=== PATIENT | female | born 1970 | race Caucasian/White ===

== ENCOUNTER → 2020-11-21 09:02 | Outpatient (CLI) | payer MEDICARE, SELFPAY ==
[2020-11-21 09:27] LABS: Basophils # 0.1 K/mm3 (0-0.2); Eosinophils # 0.3 K/mm3 (0.0-0.4); Eosinophils % 3.5 % (0.1-12.0); Hematocrit 47.5 % (37.0-47.0); Lymphocytes # 3.3 K/mm3 (0.7-4.5); Mean Corpuscular HGB Conc 31.6 g/dL (31.8-35.4); Mean Corpuscular Volume 101.4 fl (81-99); Mean Platelet Volume 12.3 fl (7.4-10.4); Monocytes # 1.3 K/mm3 (0.1-1.0); Monocytes % 14.4 % (1.7-9.3); Neutrophils # 3.9 K/mm3 (1.8-7.8); Neutrophils % 44.1 % (37.0-80.0); Red Blood Count 4.68 M/mm3 (4.20-5.40); Red Cell Distribution Width 13.2 % (11.5-17.5); White Blood Count 8.9 K/mm3 (4.8-10.8)
[2020-11-21 09:33] LABS: Platelet Count 42 K/mm3 (142-424)
[2020-11-21 10:42] LABS: Alanine Aminotransferase 17 U/L (12-78); Albumin Level 3.9 g/dl (3.5-5.0); Albumin/Globulin Ratio 1.2 (1.1-1.8); Alkaline Phosphatase 89 U/L (38-126); Anion Gap 8.2 mEq/L (5-15); Aspartate Amino Transferase 27 U/L (14-36); Bilirubin,Total 0.3 mg/dl (0.2-1.3); Blood Urea Nitrogen 14 mg/dl (7-17); Calcium 9.2 mg/dl (8.4-10.2); Carbon Dioxide 31 mmol/L (22.0-30.0); Chloride 104 mmol/L (98-107); Chol/HDL Ratio 4.2 (1-3.5); Cholesterol 222 mg/dl (140-200); Estimated Glomerular Filt Rate 76 ml/min (>60); GFR (African American) 92 ML/MIN (>60); Globulin 3.3 g/dL (1.3-3.2); Glucose 95 mg/dl (74-100); HDL Cholesterol 53 mg/dl (40-60); Potassium 4.2 mmoL/L (3.5-5.1); Sodium 139 mmol/L (136-145); Total Protein,Serum 7.2 g/dl (6.3-8.2); Triglycerides 115 mg/dl (30-150); VLDL Cholesterol 23 mg/dL (0-40)
[2020-11-21 10:46] LABS: 25-OH Vitamin D, Total 26.5 ng/mL (30-100)
[2020-11-21 10:53] LABS: Direct LDL Cholesterol 136.83 mg/dL (100-129)
[2020-11-21 11:13] LABS: Thyroid Stimulating Hormone 2.16 uIU/mL (0.465-4.68)
[2020-11-21 11:31] LABS: Vitamin B12 382 pg/mL (239-931)
== END ==
PROVIDERS: Visit Provider Nurse Practitioner Family
DX: Z00.00 Encounter for general adult medical examination without abnormal findings (principal); I10 Essential (primary) hypertension; R53.83 Other fatigue; E55.9 Vitamin D deficiency, unspecified
CPT/HCPCS: 36415; 80053; 80061; 82306; 82607; 84443; 85025

== ENCOUNTER → 2020-11-23 11:54 | Outpatient (CLI) | payer MEDICAID, SELFPAY ==
[2020-11-23 12:30] LABS: Basophils # 0.1 K/mm3 (0-0.2); Basophils % 0.8 % (0.1-2.0); Eosinophils # 0.4 K/mm3 (0.0-0.4); Eosinophils % 4.6 % (0.1-12.0); Hematocrit 44.8 % (37.0-47.0); Hemoglobin 14.2 g/dL (12.2-16.2); Lymphocytes # 1.9 K/mm3 (0.7-4.5); Mean Corpuscular HGB Conc 31.8 g/dL (31.8-35.4); Mean Corpuscular Volume 100.9 fl (81-99); Mean Platelet Volume 15.3 fl (7.4-10.4); Monocytes # 1.5 K/mm3 (0.1-1.0); Neutrophils # 4.8 K/mm3 (1.8-7.8); Neutrophils % 55.7 % (37.0-80.0); Platelet Count 65 K/mm3 (142-424); Red Blood Count 4.44 M/mm3 (4.20-5.40); Red Cell Distribution Width 13.3 % (11.5-17.5); White Blood Count 8.6 K/mm3 (4.8-10.8)
[2020-11-24 11:16] LABS: Eosinophils % 4 % (0-3); Lymphocytes % 26 % (10-50); Monocytes % 4 % (2-9); Neutrophils % 66 % (42-76); Total Cells Counted 100
[2020-11-24 11:25] LABS: Platelet Estimate Normal
[2020-11-24 11:26] LABS: Macrocytosis 1+
[2020-11-24 11:39] LABS: MANUAL DIFFERENTIAL MANUAL DIFFERENTIAL (MANUAL DIFF)
[2020-11-25 11:55] LABS: Peripheral Smear Review Scanned Result
== END ==
PROVIDERS: Surgery; Visit Provider Nurse Practitioner Family
DX: D69.6 Thrombocytopenia, unspecified (principal)
CPT/HCPCS: 36415; 85007; 85025

== ENCOUNTER → 2020-11-24 12:51 | Outpatient (CLI) | payer MEDICAID, SELFPAY ==
--- NOTE | 2020-11-24 13:02 | MM_ITS ---
PROCEDURE: MM DIG SCREENING MAMM BI W/CAD Digital Breast Tomosynthesis Included CLINICAL INDICATION: SCREENING COMPARISON: MG SCREENING MAMM DBT from 07/25/2018 MG,US US BREAST UNIL RT LIMITED from 07/25/2018 MG RT UNILATERAL MAMM DIGITAL from 09/02/2018 TECHNIQUE: Standard CC and MLO images and 3D Tomosynthesis was obtained. R2 CAD reviewed. FINDINGS: There are scattered areas of fibroglandular density. Biopsy clip is present in the retroareolar region on the right. Benign calcifications are present bilaterally.No suspicious appearing mass, malignant-appearing microcalcification, architectural distortion, or skin thickening. IMPRESSION: Benign findings. No evidence of malignancy BI-RAD Category: 2 Benign Finding FOLLOW-UP: 1 YR 1 Year Follow-up (A letter has been sent to the patient regarding results of the study.) Dictated by: Joshua Parker MD 12/12/2020 09:09 Joshua Parker MD in [place] 12/12/2020 09:09
== END ==
PROVIDERS: PCP Nurse Practitioner Family; Visit Provider Nurse Practitioner Family
DX: Z12.31 Encounter for screening mammogram for malignant neoplasm of breast (principal)
CPT/HCPCS: 77063; 77067

== ENCOUNTER → 2020-12-22 13:40 | Outpatient (CLI) | payer MEDICAID, SELFPAY | PROVIDERS: Visit Provider Internal Medicine Medical Oncology | DX: D69.6 Thrombocytopenia, unspecified (principal) ==

== ENCOUNTER → 2020-12-23 13:57 | Outpatient (CLI) | payer MEDICAID, SELFPAY | PROVIDERS: Visit Provider Internal Medicine Medical Oncology | DX: D69.6 Thrombocytopenia, unspecified (principal) | CPT/HCPCS: 36415 ==

== ENCOUNTER → 2021-01-02 13:38 | Outpatient (CLI) | payer MEDICAID, SELFPAY | PROVIDERS: Visit Provider Internal Medicine Medical Oncology | DX: D69.6 Thrombocytopenia, unspecified (principal) | CPT/HCPCS: 36415 ==

== ENCOUNTER 2021-04-01 11:21 | Emergency (ER) | payer MEDICAID, SELFPAY ==
[2021-04-01 13:16] VITALS: BP 113/78; PULSE 87; RESP 16; TEMP 36.8; O2SAT 98; BMI 36.0
--- NOTE | 2021-04-01 13:34 | HMH.EDUTC ---
[facility] [place] Clinical Impression: Dental infection Disposition: Home, Self-Care Condition on Discharge: Good Instructions: Tooth Abscess Additional Instructions: follow up with dentist lonnie antibiotics as ordered return if any worsen or no improvement Prescriptions: Amoxicillin [Amoxicillin 500mg Tab] 500 mg PO BID 10 Days #20 tab Transmission Status: Pending to [facility] Referrals: Salma Bellamy APRN [Primary Care Provider] - Richy Allen [Referring] - Time of Disposition: 13:44 Medical Decision Making - Parminder Inquiry Pt receiving controlled substance: No Vital Signs: 04/01/21 13:16 Temperature 98.2 F Temperature Source Oral Pulse Rate [Left] 87 Respiratory Rate 16 Blood Pressure [Right Arm] 113/78 Blood Pressure Mean [Right Arm] 89 02 Sat by Pulse Oximetry 98 [facility] [place] HPI - General Chief complaint: Urgent Treatment Center Stated complaint: possible infection in the mouth Time Seen by Provider: 04/01/21 13:39 Mode of Arrival: Ambulatory Source of Information: Patient Limitations: No Limitations Description of Symptoms (Recalled from Triage Doc. by RN): pt states her bottom gums are sore, swollen and dark red x2 days. HEENT Symptoms (Recalled from RN notes): Yes Resp Symptoms (Recalled from RN notes): No Skin Symptoms (Recalled from RN notes): No MS Symptoms (Recalled from RN notes): No Functional Status (Recalled from RN notes): wnl - History of Present Illness Provider Complaint: 50 yr old female states her bottom gums are sore, swollen and dark red x2 days. pt states she needs to have some teeth pulled but cant find a denitist that takes her insurance - Related Data Home Medications Medication Instructions Recorded Confirmed amlodipine 5 mg tablet 5 mg PO tab 12/22/20 12/22/20 hydrochlorothiazide 12.5 mg capsule 12.5 mg PO cap 12/22/20 12/22/20 meloxicam 15 mg tablet 15 mg PO tab 12/22/20 12/22/20 trazodone 50 mg tablet 50 mg PO tab 12/22/20 12/22/20 Previous Rx's Medication Instructions Recorded peg 3350-electrolytes 236 240 ml PO Q10M #4000 ml 11/21/20 gram-22.74 gram-6.74 gram-5.86 gram solution Amoxicillin [Amoxicillin 500mg Tab] 500 mg PO BID 10 Days #20 tab 04/01/21 Allergies Allergy/AdvReac Type Severity Reaction Status Date / Time No Known Allergies Allergy Verified 12/22/20 13:17 - Worker's Comp Is this a Worker's Comp case?: No [facility] History - Hepatitis A Screen Drug use history?: No High risk sexual behaviors?: No History of sexually transmitted infection?: No Currently employed?: No Childcare worker?: No Do you have indoor plumbing?: Yes Do you have electricity?: Yes Attestation statement:: This patient has been screened for Hepatitis A risk factors. I have reviewed the patient's past medical history: Yes - Social History Smoking Status: Never smoker Alcohol Intake: never Occupational Status: employed ROS Obtained: Yes Systems reviewed as appropriate & no additional complaints - Constitutional Constitutional: Reports system reviewed and no additional complaints, except as docu, Denies fever(s) - Eyes Eyes: Reports system reviewed and no additional complaints, except as docu, Denies blurry vision - ENT Ears, Nose, Mouth, and Throat: Reports system reviewed and no additional complaints, except as docu, Reports dental pain, Reports other - Cardiovascular Cardiovascular: Reports system reviewed and no additional complaints, except as docu, Denies acrocyanosis - Respiratory Respiratory: Reports system reviewed and no additional complaints, except as docu, Denies shortness of breath - Gastrointestinal Gastrointestingal: Reports: system reviewed and no additional complaints, except as docu. Denies: bloating - Musculoskeletal Musculoskeletal: Reports system reviewed and no additional complaints, except as docu, Denies joint pain - Integumentary/Breasts Skin/Breast: Reports system reviewed and no additional c
[2021-04-01 13:55] VITALS: BP 113/78; PULSE 87; RESP 16; TEMP 36.8
== END 2021-04-01 14:05 | disposition home or self-care (01) ==
PROVIDERS: Emergency Provider Nurse Practitioner Family; PCP Nurse Practitioner Family
DX: K04.7 Periapical abscess without sinus (principal); K02.9 Dental caries, unspecified
CPT/HCPCS: 96372; 99202; G0463; J0696

== ENCOUNTER → 2021-04-04 13:16 | Outpatient (CLI) | payer MEDICAID, SELFPAY | PROVIDERS: PCP Nurse Practitioner Family; Visit Provider Nurse Practitioner | DX: U07.1 COVID-19 (principal) | CPT/HCPCS: C9803; U0003; U0005 ==

== ENCOUNTER 2021-06-24 09:23 | Emergency (ER) | payer MEDICAID, SELFPAY ==
[2021-06-24] VITALS (8 sets, daily range): BP systolic 110–131; BP diastolic 73–93; PULSE 80–91; RESP 13–22; TEMP 36.8; O2SAT 94–97; BMI 35.5
--- NOTE | 2021-06-24 09:38 | XR_ITS ---
PROCEDURE INFORMATION: Exam: XR Chest Exam date and time: 06/24/2021 9:41 AM Age: 50 years old Clinical indication: Shortness of breath; Additional info: Cough, SOB TECHNIQUE: Imaging protocol: XR of the chest. Views: 2 views. COMPARISON: No relevant prior studies available. FINDINGS: Lungs: Mild linear type opacities in the left lung base, which is most often seen with linear atelectasis/scarring; however, mild consolidation/pneumonia is not completely excluded. No focal consolidation on the right. Pleural spaces: Unremarkable. No pleural effusion. No pneumothorax. Heart/Mediastinum: Heart size likely normal given AP projection. Bones/joints: Scoliosis and degenerative changes of the spine. IMPRESSION: Mild linear type opacities in the left lung base, which is most often seen with linear atelectasis/scarring; however, mild consolidation/pneumonia is not completely excluded.
--- NOTE | 2021-06-24 09:43 | ECG_ITS ---
APPROVED REPORT Exam: Resting ECG HR:80 bpm ECG Measurements Heart Rate 80 AXES IN 185 P 61 QRSd 96 QRS 54 QT 378 T 59 QTc 415 Conclusion SINUS RHYTHM POSSIBLE LEFT ATRIAL ENLARGEMENT [-0.1mV P-WAVE IN V1/V2] BORDERLINE ECG UNCONFIRMED REPORT Electronically signed by : Rajesh Damian MD 06/28/2021 10:16:03
--- NOTE | 2021-06-24 09:43 | PC.NURSE ---
Covid Swab obtained and sent to lab.
--- NOTE | 2021-06-24 09:46 | PC.NURSE ---
patient ambulatory to restroom without complications
[2021-06-24 09:49] LABS: Coronavirus 19, PCR Not Detected (NotDetected); Influenza A, PCR Not Detected (NotDetected); Influenza B, PCR Not Detected (NotDetected)
--- NOTE | 2021-06-24 09:50 | PC.NURSE ---
pt over to radiology.
--- NOTE | 2021-06-24 09:51 | HMH.EDGENADL ---
ED Disposition Clinical Impression: Community acquired pneumonia Qualifiers: Laterality: left Lung location: lower lobe of lung Qualified Code(s): J18.9 - Pneumonia, unspecified organism Disposition: Home, Self-Care Condition on Discharge: Good Instructions: DI for Pneumonia -- Adult Additional Instructions: Omnicef and Zithromax as prescribed, start tomorrow morning. Additional instructions for PNEUMONIA: Take antibiotics as prescribed. See your physician as soon as possible for further evaluation. Return immediately if you have an uncontrollable fever greater than 102 degrees, difficulty breathing or shortness of breath, persistent vomiting, or severe chest pain. Prescriptions: Cefdinir [Omnicef 300mg Capsule] 300 mg PO BID #20 cap Transmission Status: Pending to [facility] Azithromycin [Zithromax 250mg tab] 250 mg PO DAILY #4 tab Transmission Status: Pending to [facility] Referrals: Salma Bellamy APRN [Primary Care Provider] - - Critical Care Critical Care Time: No Attestation: On 06/24/21, the high probability of a clinically significant, sudden or life threatening deterioration of the following system(s) required my full and direct attention, intervention and personal management. The time I documented below is in addition to time spent performing reported procedures but includes the following listed in this critical care notation. Medical Decision Making - Medical Records Medical records reviewed: Yes: I reviewed the patient's medical records. MR Comment: Reviewed hematology office note from Dr. Esteban. Seen for thrombocytopenia. Diagnosed with pseudothrombocytopenia. Manual differential showed normal platelet estimate. - Parminder Inquiry Pt receiving controlled substance: No Vital Signs: 06/24/21 09:25 06/24/21 09:30 06/24/21 09:53 Temperature 98.2 F Temperature Source Oral Pulse Rate 91 H 89 Pulse Rate [Radial] 91 H Respiratory Rate 22 22 Blood Pressure 129/74 112/73 Blood Pressure [Right Arm] 131/86 Blood Pressure Mean [Right Arm] 101 Blood Pressure Position [Right Arm] Sitting 02 Sat by Pulse Oximetry 96 94 L 95 Oxygen Delivery Method Room Air Room Air Room Air 06/24/21 10:00 06/24/21 10:30 Temperature Temperature Source Pulse Rate 85 81 Pulse Rate [Radial] Respiratory Rate 19 20 Blood Pressure 110/73 114/81 Blood Pressure [Right Arm] Blood Pressure Mean [Right Arm] Blood Pressure Position [Right Arm] 02 Sat by Pulse Oximetry 94 L 95 Oxygen Delivery Method Room Air Room Air - Lab Data Lab Results 06/24/21 09:40: SARS-CoV-2 (PCR) Not detected, Influenza A Untype (PCR) Not detected, Influenza Type B (PCR) Not detected 06/24/21 09:51: Urine Color Jodi, Urine Appearance Cloudy, Urine pH 6.0, Ur Specific Mead >= 1.030, Urine Protein 2+, Urine Glucose (UA) Negative, Urine Ketones 3+, Urine Blood 3+, Urine Nitrate Negative, Urine Bilirubin 1+ A, Urine Urobilinogen 2.0, Ur Leukocyte Esterase Negative, Urine WBC 10-20, Ur Squamous Epith Cells 20-50, Ur Renal Epithelial Cell 5-10, Urine Bacteria 2+, Urine Mucus 1+ 06/24/21 10:00: WBC 15.9 H, RBC 4.68, Hgb 15.1, Hct 46.3, MCV 99.0, MCH 32.4 H, MCHC 32.7, RDW 13.5, Plt Count 37 L*, MPV 12.6 H, Neut % (Auto) 69.4, Lymph % (Auto) 13.0, Floyd % (Auto) 14.1 H, Eos % (Auto) 2.0, Baso % (Auto) 1.5, Neut # (Auto) 11.0 H, Lymph # (Auto) 2.1, Floyd # (Auto) 2.2 H, Eos # (Auto) 0.3, Baso # (Auto) 0.2 06/24/21 10:00: Sodium 137, Potassium 3.1 L, Chloride 100, Carbon Dioxide 31 H, Anion Gap 9.1, BUN 14, Creatinine 0.70, Estimated Creat Clear 150, Estimated GFR 88, Est GFR ( Amer) 107, Glucose 92, Calcium 8.5, Total Bilirubin 0.9, AST 32, ALT 20, Alkaline Phosphatase 122, Troponin I < 0.01, Total Protein 7.5, Albumin 3.9, Globulin 3.6 H, Albumin/Globulin Ratio 1.1 06/24/21 10:00: Lactate 0.7 Result diagrams: 06/24/21 10:00 06/24/21 10:00 Orders (Tests/Meds): ED MEDICATIONS Generic Name D
--- NOTE | 2021-06-24 09:51 | PC.NURSE ---
UA sent to lab
--- NOTE | 2021-06-24 09:52 | PC.NURSE ---
pt is back from radiology. Hooked back up to vital signs and cardiac monitoring. Nurse is bedside.
[2021-06-24 09:58] LABS: Microscopic, Urine URINE MICROSCOPIC (MICROSCOPIC)
[2021-06-24 09:59] LABS: Appearance,Urine CLOUDY (Clear); Blood, Urine 3+ (Negative); Color,Urine AMBER (Yellow); Glucose,Urine (UA) Negative (Negative); Ketones,Urine 3+ (Negative); Leukocyte Esterase,Urine Negative (Negative); Nitrate,Urine Negative (Negative); Protein,Urine 2+ (Negative); Specific Gravity, Urine >= 1.030 (1.005-1.030)
[2021-06-24 10:03] LABS: Bilirubin,Urine 1+ (Negative)
[2021-06-24 10:05] LABS: Basophils # 0.2 K/mm3 (0-0.2); Basophils % 1.5 % (0.1-2.0); Eosinophils # 0.3 K/mm3 (0.0-0.4); Hematocrit 46.3 % (37.0-47.0); Hemoglobin 15.1 g/dL (12.2-16.2); Lymphocytes # 2.1 K/mm3 (0.7-4.5); Mean Corpuscular HGB Conc 32.7 g/dL (31.8-35.4); Mean Corpuscular Hemoglobin 32.4 pg (27.0-31.2); Mean Platelet Volume 12.6 fl (7.4-10.4); Monocytes # 2.2 K/mm3 (0.1-1.0); Monocytes % 14.1 % (1.7-9.3); Neutrophils % 69.4 % (37.0-80.0); Red Blood Count 4.68 M/mm3 (4.20-5.40); Red Cell Distribution Width 13.5 % (11.5-17.5); White Blood Count 15.9 K/mm3 (4.8-10.8)
[2021-06-24 10:11] LABS: Bacteria,Urine 2+ /lpf; Mucus,Urine 1+ /lpf
[2021-06-24 10:13] LABS: Squamous Epithelial Cell,Urine 20-50 #/hpf (0-5)
[2021-06-24 10:17] LABS: Chloride 100 mmol/L (98-107); Potassium 3.1 mmoL/L (3.5-5.1); Sodium 137 mmol/L (136-145)
[2021-06-24 10:19] LABS: Alanine Aminotransferase 20 U/L (12-78); Alkaline Phosphatase 122 U/L (38-126); Aspartate Amino Transferase 32 U/L (14-36); Bilirubin,Total 0.9 mg/dl (0.2-1.3); Blood Urea Nitrogen 14 mg/dl (7-17); Creatinine Clearance Estimated 150 mL/min (50-200); Estimated Glomerular Filt Rate 88 ml/min (>60); GFR (African American) 107 ML/MIN (>60)
[2021-06-24 10:20] LABS: Albumin Level 3.9 g/dl (3.5-5.0); Albumin/Globulin Ratio 1.1 (1.1-1.8); Anion Gap 9.1 mEq/L (5-15); Calcium 8.5 mg/dl (8.4-10.2); Carbon Dioxide 31 mmol/L (22.0-30.0); Globulin 3.6 g/dL (1.3-3.2); Glucose 92 mg/dl (74-100); Total Protein,Serum 7.5 g/dl (6.3-8.2)
--- NOTE | 2021-06-24 10:24 | INFXCTL.NOTE ---
LR STOPPED TO INFUSE ROCEPHIN
[2021-06-24 10:38] LABS: Troponin I < 0.01 ng/ml (0.00-0.034)
[2021-06-24 10:47] LABS: MANUAL DIFFERENTIAL MANUAL DIFFERENTIAL (MANUAL DIFF)
[2021-06-24 10:51] LABS: Eosinophils % 2 % (0-3); Lymphocytes % 10 % (10-50); Monocytes % 15 % (2-9); Neutrophils % 72 % (42-76); Platelet Estimate Clumped; RBC Morphology Normal; Total Cells Counted 100
[2021-06-24 10:53] LABS: Platelet Count 37 K/mm3 (142-424)
--- NOTE | 2021-06-24 12:45 | PC.NURSE ---
pt up to the bathroom at this time.
== END 2021-06-24 13:04 | disposition home or self-care (01) ==
PROVIDERS: Emergency Provider Emergency Medicine; PCP Nurse Practitioner Family
DX: J18.9 Pneumonia, unspecified organism (principal); D69.6 Thrombocytopenia, unspecified; F17.210 Nicotine dependence, cigarettes, uncomplicated
CPT/HCPCS: 71046; 80053; 81001; 84484; 85007; 85025; 87040; 87086; 93005; 96365; 96367; 99284; C9803; J0456; J0696; U0003; U0005

== ENCOUNTER 2021-07-09 15:19 | Emergency (ER) | payer MEDICAID, SELFPAY ==
[2021-07-09 15:20] VITALS: BP 136/92; PULSE 88; RESP 19; TEMP 36.6; O2SAT 96; BMI 35.5
[2021-07-09 15:27] VITALS: BP 137/88; PULSE 92; TEMP 36.7; O2SAT 99
--- NOTE | 2021-07-09 15:28 | PC.NURSE ---
ED MD at
[2021-07-09 15:30] VITALS: BP 136/92; PULSE 91; O2SAT 97
--- NOTE | 2021-07-09 16:23 | HMH.EDALLER ---
ED Disposition Clinical Impression: Urticaria Allergic reaction Qualifiers: Encounter type: initial encounter Qualified Code(s): T78.40XA - Allergy, unspecified, initial encounter Disposition: Home, Self-Care Condition on Discharge: Good Instructions: DI for Hives Prescriptions: methylPREDNISolone [Medrol 4mg tab] 4 mg PO DIRECTED #21 tab Transmission Status: Pending to [facility] Referrals: Salma Bellamy APRN [Primary Care Provider] - - Critical Care Critical Care Time: No Attestation: On 07/09/21, the high probability of a clinically significant, sudden or life threatening deterioration of the following system(s) required my full and direct attention, intervention and personal management. The time I documented below is in addition to time spent performing reported procedures but includes the following listed in this critical care notation. Medical Decision Making - Medical Records Medical records reviewed: Yes: I reviewed the patient's medical records. - Parminder Inquiry Pt receiving controlled substance: No Vital Signs: 07/09/21 15:20 07/09/21 15:27 07/09/21 15:30 Temperature 97.8 F 98.0 F Temperature Source Oral Oral Pulse Rate 92 H 91 H Pulse Rate [Left Radial] 88 Respiratory Rate 19 Blood Pressure 137/88 136/92 H Blood Pressure [Right Arm] 136/92 H Blood Pressure Mean 104 Blood Pressure Mean [Right Arm] 106 Blood Pressure Source Automatic Cuff Blood Pressure Source [Right Arm] Automatic Cuff Blood Pressure Position Sitting Blood Pressure Position [Right Arm] Sitting 02 Sat by Pulse Oximetry 96 99 97 Oxygen Delivery Method Room Air Room Air Orders (Tests/Meds): ED MEDICATIONS Generic Name Dose Route Start Last Admin Trade Name Freq PRN Reason Stop Dose Admin Lactated Ringer's 1,000 mls @ 999 mls/hr 07/09/21 15:45 07/09/21 16:13 Lactated Ringer's 1000 Ml Bag IV 07/09/21 16:45 999 mls/hr .Q1H1M JIL Administration Sodium Chloride 8 ml 07/09/21 15:35 Sodium Chloride 0.9% 10ml Vial IV 08/08/21 15:34 NEEDED PRN dilute pepcid Discontinued Medications Generic Name Dose Route Start Last Admin Trade Name Freq PRN Reason Stop Dose Admin Diphenhydramine HCl 25 mg 07/09/21 15:35 07/09/21 16:14 Diphenhydramine 50mg/Ml Vial IV 07/09/21 15:36 Not Given ONCE ONE Famotidine 20 mg 07/09/21 15:35 07/09/21 16:14 Famotidine 20mg/2ml Vial IV 07/09/21 15:36 20 mg ONCE ONE Administration Methylprednisolone Sodium Succinate 125 mg 07/09/21 15:35 07/09/21 16:14 Methylprednisolone Sod Succ 125mg Vial IV 07/09/21 15:36 125 mg ONCE ONE Administration - Reevaluation(s) Time: 16:39 Reevaluation #1: On reevaluation, patient is feeling better. Again there is no evidence of obstruction or anaphylaxis. Patient be placed on a short course steroids. Need to follow-up with PCP. Given strict return precautions. Verbalized understanding. Medical Decision Narrative: 50-year-old female presenting with allergic reaction urticaria. Patient has no evidence of anaphylaxis. Likely secondary to her new laundry detergent that she recently switched to. I did instruct her to discontinue this. Patient will be treated symptomatically. Reevaluated. Allergic React/Insect Bite HPI - General Chief complaint: Allergic Reaction Stated complaint: Rash Time Seen by Provider: 07/09/21 15:25 Mode of Arrival - ED Triage: Ambulatory Limitations: No Limitations - History of Present Illness HPI narrative: 50-year-old female presenting to the emergency department with a rash and some swelling of her ears. Patient states that her symptoms started this morning. She woke up and she was feeling slightly itchy. States that she went to work and her symptoms worsen. She noticed a rash over her trunk and arms. She also noticed that her ears were swollen bilaterally. She states that is very itchy. Warm to touch. Sh
[2021-07-09 17:30] VITALS: BP 128/84; PULSE 75; RESP 20; TEMP 36.6; O2SAT 98
== END 2021-07-09 17:32 | disposition home or self-care (01) ==
PROVIDERS: Emergency Provider Emergency Medicine; PCP Nurse Practitioner Family
DX: L50.0 Allergic urticaria (principal)
CPT/HCPCS: 96365; 96375; 99284

== ENCOUNTER 2021-08-08 12:45 | Emergency (ER) | payer MEDICAID, SELFPAY ==
[2021-08-08] VITALS (8 sets, daily range): BP systolic 129–156; BP diastolic 79–92; PULSE 74–91; RESP 17–20; TEMP 36.7–36.9; O2SAT 97–99; BMI 35.5
[2021-08-08 13:12] LABS: Microscopic, Urine URINE MICROSCOPIC (MICROSCOPIC)
--- NOTE | 2021-08-08 13:13 | XR_ITS ---
FINAL REPORT CLINICAL HISTORY: cough/rib pain on right COMPARISON: June 24, 2021 FINDINGS: Two views of the chest were obtained. The heart size and pulmonary vascularity are within normal limits. The mediastinum is normal. There is bronchial wall thickening consistent with bronchitis. There is no pneumothorax. There is S-shaped curvature of the thoracic spine. IMPRESSION: Bronchial wall thickening consistent with bronchitis. Reviewed, Interpreted and Dictated by Pedro Olea III, MD Transcribed by Chavez Alexandra Authenticated by Pedro Olea III, MD on 08/08/2021 03:13:02 PM [facility]
[2021-08-08 13:20] LABS: Basophils # 0.4 K/mm3 (0-0.2); Basophils % 2.5 % (0.1-2.0); Eosinophils # 0.4 K/mm3 (0.0-0.4); Eosinophils % 2.9 % (0.1-12.0); Hematocrit 43.4 % (37.0-47.0); Hemoglobin 14.4 g/dL (12.2-16.2); Lymphocytes # 6.2 K/mm3 (0.7-4.5); Lymphocytes % 45.1 % (10-50); Mean Corpuscular HGB Conc 33.3 g/dL (31.8-35.4); Mean Corpuscular Hemoglobin 32.7 pg (27.0-31.2); Mean Corpuscular Volume 98.3 fl (81-99); Mean Platelet Volume 12.6 fl (7.4-10.4); Monocytes # 1.8 K/mm3 (0.1-1.0); Neutrophils % 36.4 % (37.0-80.0); Platelet Count 108 K/mm3 (142-424); Red Blood Count 4.41 M/mm3 (4.20-5.40); Red Cell Distribution Width 13.9 % (11.5-17.5); White Blood Count 13.7 K/mm3 (4.8-10.8)
[2021-08-08 13:25] LABS: Chloride 99 mmol/L (98-107); Potassium 3.1 mmoL/L (3.5-5.1); Sodium 137 mmol/L (136-145)
[2021-08-08 13:28] LABS: Alanine Aminotransferase 34 U/L (12-78); Albumin Level 3.9 g/dl (3.5-5.0); Albumin/Globulin Ratio 1.2 (1.1-1.8); Alkaline Phosphatase 96 U/L (38-126); Anion Gap 8.1 mEq/L (5-15); Aspartate Amino Transferase 35 U/L (14-36); Bilirubin,Total 0.2 mg/dl (0.2-1.3); Blood Urea Nitrogen 17 mg/dl (7-17); Carbon Dioxide 33 mmol/L (22.0-30.0); Creatinine Clearance Estimated 150 mL/min (50-200); Estimated Glomerular Filt Rate 88 ml/min (>60); GFR (African American) 107 ML/MIN (>60); Globulin 3.3 g/dL (1.3-3.2); Total Protein,Serum 7.2 g/dl (6.3-8.2)
[2021-08-08 13:29] LABS: Calcium 9.2 mg/dl (8.4-10.2); Glucose 88 mg/dl (74-100)
[2021-08-08 13:38] LABS: Appearance,Urine CLEAR (Clear); Bilirubin,Urine Negative (Negative); Blood, Urine Negative (Negative); Color,Urine YELLOW (Yellow); Glucose,Urine (UA) Negative (Negative); Ketones,Urine Negative (Negative); Leukocyte Esterase,Urine Negative (Negative); Nitrate,Urine Negative (Negative); Protein,Urine Negative (Negative); Specific Gravity, Urine <= 1.005 (1.005-1.030); Urobilinogen,Urine 0.2 EU/dl (0.2)
--- NOTE | 2021-08-08 13:50 | HMH.EDGENADL ---
ED Disposition Clinical Impression: Cholelithiasis Qualifiers: Cholelithiasis location: gallbladder Cholecystitis presence: without cholecystitis Biliary obstruction: without biliary obstruction Qualified Code(s): K80.20 - Calculus of gallbladder without cholecystitis without obstruction Acute bronchitis Qualifiers: Bronchitis organism: unspecified organism Qualified Code(s): J20.9 - Acute bronchitis, unspecified Disposition: Home, Self-Care Condition on Discharge: Good Instructions: DI for Gallstones, DI for Acute Bronchitis Additional Instructions: Levaquin as prescribed. [place] as needed for pain. Low-fat diet. Follow-up with general surgery, Dr. Elizalde, for gallstones, call for appointment. Additional instructions for CONTROLLED SUBSTANCES: You have been prescribed a medication that is a controlled substance. Controlled substances include pain medications known as opiates and sedative nerve medications known as benzodiazepines. Tramadol, fioricet, and gabapentin are also controlled substances. Some common opiates include: Codeine (such as Tylenol #3) Hydrocodone (Vicodin, Lortab, Lorcet, [place]) Oxycodone (Percocet, Percodan, Oxycodone, Oxy IR) Some common benzodiazepines include: Diazepam (Valium) Lorazepam (Ativan) Alprazolam (Xanax) Clonazepam (Klonopin) Oxazepam (Serax) All of these controlled substances are highly addictive and frequently abused. Misuse can and frequently does lead to addiction as well as overdose and . Medication should be stored in a locked cabinet or other secure storage unit. Do not store the medication in a motor vehicle. Short term supplies, 3 days or less, are prescribed because of the highly addictive nature of the medication. Any of the controlled substance medication NOT taken should be disposed of properly and NOT SAVED. The recommended method of disposing of unused medications is: Place the medicines in a sealable plastic bag. If the medicine is a solid, crush it or add water to dissolve it. Add something undesirable (cat litter, coffee grounds, etc.) Dispose of sealed bag in household trash Do not flush or pour unused medicines down a sink or drain. Controlled substances should not be shared, given away or sold. Because of the addictive nature and frequent abuse, these medications are sometimes stolen. These medications should be kept in a safe place where they cannot be stolen. Do not keep them in your car or purse. Lost or stolen prescriptions for controlled substances WILL NOT BE REFILLED in this emergency department, regardless of whether a police report was filed. Prescriptions: Hydrocod/Acet 5/325 mg [[place] 5/325mg tablet] 1 tab PO Q6HP PRN #10 tab PRN Reason: Pain Transmission Status: Received by [facility] levoFLOXacin [Levaquin 500mg tab] 500 mg PO DAILY #9 tab Transmission Status: Sent to [facility] Referrals: Salma Bellamy APRN [Primary Care Provider] - Pedro Elizalde MD [Staff Physician] - - Critical Care Critical Care Time: No Attestation: On 08/08/21, the high probability of a clinically significant, sudden or life threatening deterioration of the following system(s) required my full and direct attention, intervention and personal management. The time I documented below is in addition to time spent performing reported procedures but includes the following listed in this critical care notation. Medical Decision Making - Parminder Inquiry Pt receiving controlled substance: Yes Parminder was queried for this patient: Yes Risks and benefits of using a controlled substance: were discussed with pt by me Vital Signs: 08/08/21 13:01 08/08/21 13:11 08/08/21 13:30 Temperature 98.5 F Temperature Source Oral Pulse Rate 84 88 Pulse Rate [Left Radial] 88 Respiratory Rate 17 18 Blood Pressure 131/84 132/79 Blood Pressure [Right Arm] 156/91 H Blood Pressure Mean 102 Blood Pressure Mean [Rig
--- NOTE | 2021-08-08 14:05 | US_ITS ---
FINAL REPORT CLINICAL HISTORY: RUQ pain FINDINGS: Sonographic images of the right upper quadrant were obtained. The pancreas is partially obscured.The liver has an unremarkable appearance. There are gallstones with a possible polyp in the gallbladder. There is no evidence of biliary ductal dilatation.The common duct measures 5 mm. Limited images of the right kidney are unremarkable. IMPRESSION: Gallstones and possible polyp in the gallbladder. Reviewed, Interpreted and Dictated by Pedro Olea III, MD Transcribed by Chavez Alexandra Authenticated by Pedro Olea III, MD on 08/08/2021 04:00:58 PM [facility]
--- NOTE | 2021-08-08 14:06 | CT_ITS ---
FINAL REPORT TECHNIQUE: Axial images through the abdomen and pelvis were performed without contrast. This study was performed with techniques to keep radiation doses as low as reasonably achievable, (ALARA). Individualized dose reduction techniques using automated exposure control or adjustment of mA and/or kV according to the patient's size were employed. CLINICAL HISTORY: RUQ pain, denies n/v/d FINDINGS: ABDOMEN: Mild atelectasis or scar in the left lung base . The heart size is normal. Limited images of the liver are unremarkable. The gallbladder is present. The spleen is normal. No adrenal mass is identified. The aorta is normal in caliber. There is no significant free fluid or adenopathy. There is no nephrolithiasis. There is no hydronephrosis. There is a small umbilical hernia containing fat. PELVIS: The appendix is unremarkable. The urinary bladder is unremarkable. There is no significant free fluid or adenopathy. There is dextroscoliosis of the lumbar spine with degenerative change. IMPRESSION: No acute inflammatory process. Reviewed, Interpreted and Dictated by Pedro Olea III, MD Transcribed by Edel Stahl Authenticated by Pedro Olea III, MD on 08/08/2021 03:13:[address] [facility]
[2021-08-08 14:07] LABS: Bacteria,Urine Trace /lpf
--- NOTE | 2021-08-08 14:50 | PC.NURSE ---
pt to US with coffee machine technician by wheelchair
--- NOTE | 2021-08-08 16:23 | PC.NURSE ---
Lab notified of Lipase order add on
[2021-08-08 16:37] LABS: Lipase 105 U/L (23-300)
== END 2021-08-08 16:40 | disposition home or self-care (01) ==
PROVIDERS: Emergency Provider Emergency Medicine; PCP Nurse Practitioner Family
DX: K80.20 Calculus of gallbladder without cholecystitis without obstruction (principal); J20.9 Acute bronchitis, unspecified
CPT/HCPCS: 71046; 74176; 76705; 80053; 81001; 83690; 85025; 99284

== ENCOUNTER 2021-10-04 10:00 | Outpatient (RCR) | payer MEDICAID, SELFPAY ==
--- NOTE | 2021-09-15 10:53 | HMH.PTOPEV ---
PT Outpatient Evaluation Rehab PT Outpatient Evaluation Start: 09/15/21 10:37 Freq: Status: Active Protocol: Document 09/15/21 10:37 ARY (Rec: 09/15/21 10:52 ARY [id number]) Electronically Signed By Anthony Sanders, PT 09/15/21 10:37 Outpatient Therapy Subjective History Subjective History Patient is a 50 year old female presenting to outpatient PT with reports of cervical spine pain with BUE radicular symptoms starting approximately 2 months ago of insidious onset. No recent imaging to report. Comorbidities include hx of HTN and B knee pain. Chief Complaint Pain,Stiff,Paresthesia Symptom Type Dull,Numbness,Tingling Symptoms Relieved By Nothing Symptoms Aggravated By Standing,Physical Activity, Lifting Prior Functional Limitations None Current Functional Limitations Reaching,Lifting,Housework, Sleeping,Standing,Walking Symptom Description Intermittent Level of pain today (0-10) 2 Pain scale - at its best (0-10) 0 Pain scale - at its worst (0-10) 5 Cervical Eval Palpation Cervical Muscles R CT Junction,R Upper Trapezius Cervical/Thoracic Palpation Findings Tenderness Posture Head/C-Spine Posture Sitting Position C-Spine Flattened Head/C-Spine Posture Standing Position Excess Extension Flexibility Deficits Upper Trapezius Muscle Length (R) Moderate Tightness Levaetor Scapulae Muscle Length (R) Moderate Tightness Scalene Group Muscle Length (R) Moderate Tightness Pectoralis Minor Muscle Length (R) Moderate Tightness Passive Joint Mobility Cervical PIVM Dec: L C5/6 R C6/7 L C6/7 R C7/T1 L C7/T1 WNL: R OA L OA R AA L AA R C2/3 L C2/3 R C3/4 L C3/4 R C4/5 L C4/5 R C5/6 AROM Cervical Spine Extension Active Range of 44 Motion (degrees) Cervical Spine Flexion Active Range of 42 Motion (degrees) Cervical Spine Right Lateral Flexion 43 Acti
== END 2021-10-04 10:05 | disposition home or self-care (01) ==
LOC: PT 10:00
PROVIDERS: Visit Provider Nurse Practitioner Family
DX: S46.811S Strain of other muscles, fascia and tendons at shoulder and upper arm level, right arm, sequela (principal); M54.2 Cervicalgia; M79.601 Pain in right arm; M79.602 Pain in left arm
CPT/HCPCS: 97010; 97014; 97110; 97163; G0283

== ENCOUNTER → 2021-12-22 10:44 | Outpatient (CLI) | payer MEDICAID, SELFPAY ==
--- NOTE | 2021-12-22 10:50 | MM_ITS ---
PROCEDURE INFORMATION: Exam: MG Bilateral Screening 3D Mammography Exam date and time: 12/22/2021 10:41 AM Age: 51 years old Clinical indication: Screening examination. No family history of breast cancer. TECHNIQUE: Imaging protocol: Bilateral Screening tomosynthesis and 2D mammography including computer-aided detection (CAD) when performed. COMPARISON: 1. MG MM DIG SCREENING MAMM BI W/CAD 11/24/2020 1:02 PM 2. MG RT UNILATERAL MAMM DIGITAL 09/02/2018 10:56 AM FINDINGS: MAMMOGRAPHY: Breast composition: There are scattered areas of fibroglandular density. Mass: None. Architectural distortion: None. Calcifications: No suspicious calcifications. Asymmetric density: None. Skin thickening: None. Axillary adenopathy: None. Other: Right breast biopsy clip. IMPRESSION: No mammographic evidence of malignancy. Annual screening is recommended unless otherwise clinically indicated. ASSESSMENT: BI-RADS Category 1: Negative
== END ==
PROVIDERS: PCP Nurse Practitioner Family; Visit Provider Nurse Practitioner Family
DX: Z12.31 Encounter for screening mammogram for malignant neoplasm of breast (principal)
CPT/HCPCS: 77063; 77067

== ENCOUNTER → 2022-01-23 09:23 | Outpatient (CLI) | payer MEDICAID, SELFPAY ==
[2022-01-23 10:00] LABS: Alanine Aminotransferase 14 U/L (12-78); Albumin Level 4.3 g/dl (3.5-5.0); Albumin/Globulin Ratio 1.4 (1.1-1.8); Alkaline Phosphatase 102 U/L (38-126); Anion Gap 13.5 mEq/L (5-15); Aspartate Amino Transferase 24 U/L (14-36); Bilirubin,Total 0.4 mg/dl (0.2-1.3); Blood Urea Nitrogen 16 mg/dl (7-17); Calcium 9.8 mg/dl (8.4-10.2); Carbon Dioxide 34 mmol/L (22.0-30.0); Chloride 97 mmol/L (98-107); Estimated Glomerular Filt Rate 75 ml/min (>60); GFR (African American) 91 ML/MIN (>60); Glucose 102 mg/dl (74-100); Potassium 3.5 mmoL/L (3.5-5.1); Sodium 141 mmol/L (136-145); Total Protein,Serum 7.3 g/dl (6.3-8.2)
[2022-01-23 21:31] LABS: Basophils # 0.2 K/mm3 (0-0.2); Basophils % 1.8 % (0.1-2.0); Eosinophils # 0.4 K/mm3 (0.0-0.4); Eosinophils % 4.4 % (0.1-12.0); Hematocrit 48.2 % (37.0-47.0); Hemoglobin 15.1 g/dL (12.2-16.2); Lymphocytes # 2.5 K/mm3 (0.7-4.5); Lymphocytes % 30.2 % (10-50); Mean Corpuscular HGB Conc 31.4 g/dL (31.8-35.4); Mean Corpuscular Hemoglobin 31.6 pg (27.0-31.2); Mean Corpuscular Volume 100.7 fl (81-99); Monocytes # 1.5 K/mm3 (0.1-1.0); Monocytes % 17.5 % (1.7-9.3); Neutrophils # 3.8 K/mm3 (1.8-7.8); Neutrophils % 46.1 % (37.0-80.0); Platelet Count 100 K/mm3 (142-424); Red Blood Count 4.79 M/mm3 (4.20-5.40); Red Cell Distribution Width 13.6 % (11.5-17.5); White Blood Count 8.3 K/mm3 (4.8-10.8)
== END ==
PROVIDERS: PCP Nurse Practitioner Family; Visit Provider Surgery
DX: K80.20 Calculus of gallbladder without cholecystitis without obstruction (principal)
CPT/HCPCS: 36415; 80053; 85025

== ENCOUNTER 2022-04-21 00:41 | Emergency (ER) | payer MEDICAID, SELFPAY ==
[2022-04-21 00:42] VITALS: BP 117/79; PULSE 117; RESP 20; TEMP 37.2; O2SAT 95; BMI 35.5
--- NOTE | 2022-04-21 00:51 | XR_ITS ---
PROCEDURE INFORMATION: Exam: XR Chest Exam date and time: 04/21/2022 12:49 AM Age: 51 years old Clinical indication: Cough; Additional info: Concern for pneumonia TECHNIQUE: Imaging protocol: Radiologic exam of the chest. Views: 2 views. COMPARISON: CR XR CHEST 2V 08/08/2021 1:19 PM FINDINGS: Lungs: Unremarkable. No consolidation. Pleural spaces: Unremarkable. No pleural effusion. No pneumothorax. Heart/Mediastinum: Unremarkable. No cardiomegaly. Bones/joints: There is moderate thoracic scoliosis. Bones are otherwise unremarkable. IMPRESSION: No acute disease
[2022-04-21 00:56] LABS: Influenza A, PCR Not Detected (NotDetected); Influenza B, PCR Not Detected (NotDetected)
[2022-04-21 01:01] VITALS: BP 125/78; PULSE 117; O2SAT 94
--- NOTE | 2022-04-21 01:09 | HMH.EDGENADL ---
Discharge Plan Disposition Patient Disposition: Home, Self-Care Condition: Fair Prescriptions Prescriptions: New ondansetron [ondansetron] 4 mg tablet,disintegrating 4 mg PO TIDP PRN (Reason: Nausea) Qty: 10 0RF No Action cetirizine 10 mg tablet 10 mg PO DAILY PRN hydrochlorothiazide 12.5 mg capsule 12.5 mg PO meloxicam 15 mg tablet 15 mg PO amlodipine 5 mg tablet 5 mg PO Referrals Follow up/Referrals: Salma Bellamy APRN [Primary Care Provider] - See instructions Clinical Impressions Clinical Impression: COVID Instructions Patient Instructions: DI for COVID-19 (Suspected or Confirmed ) Discharge ED Provider: Kevin Whipple General Adult HPI General Chief complaint: Fever Stated complaint: fever,cough,weakness,chills,NOBLE Time Seen by Provider: 04/21/22 00:45 Mode of Arrival: Family Vehicle Source of Information: Patient Limitations: No Limitations Description of Symptoms (Recalled from ER Triage Doc. by RN): Pt c/o body aches, chills, cough, fever, and headache that began (04/19). States she has been taking Bromphed for the cough, denies any tylenol & ibuprofen. Denies any n/v/d. Denies any SOB. States her fever on Saturday night was t-max 101.6. History of Present Illness HPI narrative: Patient is a 51-year-old female who presents with multiple complaints. She states that on she started to get acute onset of cough. She said that since then she has gotten fever and chills as well as myalgias. She has been taking Bromfed for her cough but says it is not helping. She has not been taking any Tylenol or ibuprofen. She denies any nausea, vomiting, diarrhea. She says that she does smoke. She denies any shortness of breath or sputum production. She states that her temperature was 101.6. Related Data Home Medications Medication Instructions Recorded Confirmed amlodipine 5 mg tablet 5 mg PO 12/22/20 01/23/22 hydrochlorothiazide 12.5 mg capsule 12.5 mg PO 12/22/20 01/23/22 meloxicam 15 mg tablet 15 mg PO 12/22/20 01/23/22 cetirizine 10 mg tablet 10 mg PO DAILY PRN 12/26/21 01/23/22 Previous Rx's Medication Instructions Recorded ondansetron 4 mg disintegrating 4 mg PO TIDP PRN Nausea #10 tabs 04/21/22 tablet Allergies Allergy/AdvReac Type Severity Reaction Status Date / Time No Known Allergies Allergy Verified 01/23/22 09:05 [facility] Disclaimer: The information contained in this section may have been updated after the patient was seen, as this information can be updated by other users. Medical History Community acquired pneumonia Surgical History History of tubal ligation Family History Other Cancer Diabetes Hypertension Social History Smoking Status: Current every day smoker alcohol intake: never current occupational status: employed Travel in the last 8 weeks: None ROS Obtained: Yes All systems reviewed & no additional complaints except as documented Physical Exam General General appearance: alert and in no apparent distress Head Head exam: atraumatic, normocephalic and normal inspection Eye Eye exam: Present normal appearance, PERRL and EOMI ENT ENT exam: Present normal exam, normal oropharynx, mucous membranes moist and normal external ear exam Neck Neck exam: Present normal inspection, full ROM and trachea midline; Absent meningismus or lymphadenopathy Chest Chest inspection: Present normal inspection and symmetric chest wall rise; Absent tenderness Respiratory Respiratory exam: Present normal lung sounds bilaterally; Absent respiratory distress Cardiovascular Cardiovascular exam: Present regular rate and normal rhythm Abdominal Exam Abdominal exam: Present
[2022-04-21 01:15] LABS: Basophils # 0.2 K/mm3 (0-0.2); Basophils % 2.5 % (0.1-2.0); Eosinophils # 0.2 K/mm3 (0.0-0.4); Eosinophils % 2.8 % (0.1-12.0); Hematocrit 46.6 % (37.0-47.0); Hemoglobin 15.6 g/dL (12.2-16.2); Lymphocytes # 0.7 K/mm3 (0.7-4.5); Lymphocytes % 9.8 % (10-50); Mean Corpuscular HGB Conc 33.5 g/dL (31.8-35.4); Mean Corpuscular Hemoglobin 31.8 pg (27.0-31.2); Mean Corpuscular Volume 94.9 fl (81-99); Mean Platelet Volume 13.1 fl (7.4-10.4); Monocytes # 1.2 K/mm3 (0.1-1.0); Neutrophils # 4.8 K/mm3 (1.8-7.8); Neutrophils % 67.9 % (37.0-80.0); Platelet Count 82 K/mm3 (142-424); Red Blood Count 4.92 M/mm3 (4.20-5.40); Red Cell Distribution Width 13.6 % (11.5-17.5); White Blood Count 7.1 K/mm3 (4.8-10.8)
[2022-04-21 01:28] LABS: Monoscreen (Rapid) Negative (Negative)
[2022-04-21 01:30] LABS: Alanine Aminotransferase 15 U/L (12-78); Albumin Level 4.5 g/dl (3.5-5.0); Albumin/Globulin Ratio 1.2 (1.1-1.8); Alkaline Phosphatase 96 U/L (38-126); Anion Gap 9.4 mEq/L (5-15); Aspartate Amino Transferase 28 U/L (14-36); Blood Urea Nitrogen 12 mg/dl (7-17); Calcium 8.8 mg/dl (8.4-10.2); Carbon Dioxide 31 mmol/L (22.0-30.0); Chloride 99 mmol/L (98-107); Creatinine Clearance Estimated 130 mL/min (50-200); Estimated Glomerular Filt Rate 75 ml/min (>60); GFR (African American) 91 ML/MIN (>60); Globulin 3.9 g/dL (1.3-3.2); Glucose 107 mg/dl (74-100); Potassium 3.4 mmoL/L (3.5-5.1); Sodium 136 mmol/L (136-145); Total Protein,Serum 8.4 g/dl (6.3-8.2)
[2022-04-21 01:33] LABS: Coronavirus 19, PCR Detected (NotDetected)
[2022-04-21 01:35] LABS: C-Reactive Protein 23.3 mg/L (0-4)
[2022-04-21 01:49] LABS: Procalcitonin 0.057 ng/mL (0.0-2.0)
[2022-04-21 02:07] LABS: Bilirubin,Total 0.4 mg/dl (0.2-1.3)
[2022-04-21 02:25] VITALS: BP 125/78; PULSE 117; RESP 18; TEMP 37.1; O2SAT 99
== END 2022-04-21 02:27 | disposition home or self-care (01) ==
PROVIDERS: Emergency Provider Student in an Organized Health Care Education/Training Program; PCP Nurse Practitioner Family
DX: U07.1 COVID-19 (principal); F17.210 Nicotine dependence, cigarettes, uncomplicated; Z87.01 Personal history of pneumonia (recurrent); Z98.51 Tubal ligation status; Z80.9 Family history of malignant neoplasm, unspecified; Z83.3 Family history of diabetes mellitus; Z82.49 Family history of ischemic heart disease and other diseases of the circulatory system; Z20.822 Contact with and (suspected) exposure to COVID-19
CPT/HCPCS: 71046; 80053; 84145; 85025; 86140; 86318; 96360; 99285; C9803; U0003; U0005

== ENCOUNTER 2022-08-19 13:23 | Emergency (ER) | payer MEDICAID, SELFPAY ==
[2022-08-19] VITALS (10 sets, daily range): BP systolic 104–150; BP diastolic 70–93; PULSE 69–90; RESP 18–20; TEMP 36.2–36.5; O2SAT 95–100; BMI 36.3
--- NOTE | 2022-08-19 13:34 | HMH.EDGENADL ---
Discharge Plan Disposition Patient Disposition: Home, Self-Care Prescriptions Prescriptions: No Action cetirizine 10 mg tablet 10 mg PO DAILY PRN hydrochlorothiazide 12.5 mg capsule 12.5 mg PO meloxicam 15 mg tablet 15 mg PO amlodipine 5 mg tablet 5 mg PO ondansetron [ondansetron] 4 mg tablet,disintegrating 4 mg PO TIDP PRN (Reason: Nausea) Qty: 10 0RF Referrals Follow up/Referrals: Salma Zepeda APRN [Primary Care Provider] - See instructions Activity Restrictions/Add. Instructions Additional Instructions/Restrictions: Follow-up with your doctor regarding your low potassium. Please stop smoking as discussed consider [id number] smoking cessation aids such as nicotine patches or the commercially available products. Return to the emergency part with any worsening symptoms. Clinical Impressions Clinical Impression: URI (upper respiratory infection), Hypokalemia, Malaise, Encounter for smoking cessation counseling Discharge ED Provider: Inderjit James General Adult HPI General Chief complaint: Upper Respiratory Infection Stated complaint: Weakness, lightheaded Time Seen by Provider: 08/19/22 13:34 History of Present Illness HPI narrative: Patient is a 51-year-old female with an extensive history of smoking and wheezing not formally diagnosed with COPD who presents today with lingering symptoms of an upper respiratory infection. States that on around weekend she started having a significant cough 1 week and that she went to her primary care doctor and was given a prescription of antibiotics and steroids and has had an improvement in her cough but she has continuing other symptoms. She is not sure exactly the name of the antibiotic that she was placed on. She states that currently she has felt fatigued and has had a little bit of chest heaviness without any significant wheezing. She continues to smoke. No productive cough that is ongoing or worsening at this point. She states that today she has had some intermittent chest pain which is what prompted her to come to the emergency department today she is worried about having a heart attack. She has no known history of coronary artery disease no exertional component to this no diaphoresis and no radiation. She is currently without symptoms, aside from the generalized malaise. Related Data Home Medications Medication Instructions Recorded Confirmed amlodipine 5 mg tablet 5 mg PO 12/22/20 01/23/22 hydrochlorothiazide 12.5 mg capsule 12.5 mg PO 12/22/20 01/23/22 meloxicam 15 mg tablet 15 mg PO 12/22/20 01/23/22 cetirizine 10 mg tablet 10 mg PO DAILY PRN 12/26/21 01/23/22 Previous Rx's Medication Instructions Recorded ondansetron 4 mg disintegrating 4 mg PO TIDP PRN Nausea #10 tabs 04/21/22 tablet Allergies Allergy/AdvReac Type Severity Reaction Status Date / Time No Known Allergies Allergy Verified 01/23/22 09:05 [facility] Disclaimer: The information contained in this section may have been updated after the patient was seen, as this information can be updated by other users. Medical History Community acquired pneumonia Surgical History History of tubal ligation Family History Other Cancer Diabetes Hypertension Social History Smoking Status: Current every day smoker alcohol intake: never current occupational status: employed Travel in the last 8 weeks: None ROS Obtained: Yes All systems reviewed & no additional complaints except as documented Physical Exam General General appearance: alert Respiratory Respiratory exam: Present normal lung sounds bilaterally and other (Pulse ox 96 on room air); Absent respiratory distress, wheezes, s
--- NOTE | 2022-08-19 13:34 | PC.NURSE ---
SCOTT MILLIGAN AT
--- NOTE | 2022-08-19 13:41 | XR_ITS ---
PROCEDURE INFORMATION: Exam: XR Chest Exam date and time: 08/19/2022 1:43 PM Age: 51 years old Clinical indication: Dyspnea TECHNIQUE: Imaging protocol: Radiologic exam of the chest. Views: 1 view. Portable AP exam 1:45 p.m. COMPARISON: CR XR CHEST 2V 04/21/2022 12:49 AM FINDINGS: Lungs: Hazy/streaky airspace opacity in the left lingula and lower lung, partially obscuring the left heart border, which could be subsegmental atelectasis and motion or mild pneumonia. No definite consolidation. Pulmonary vessels do not appear congested. Pleural spaces: Unremarkable. No significant pleural effusion. No pneumothorax. Heart/Mediastinum: The cardiac silhouette appears mildly enlarged, but is accentuated by portable AP technique. Bones/joints: Thoracolumbar scoliosis.There are spinal degenerative changes, with multilevel disc narrrowing and spondylosis. IMPRESSION: 1. Mild hazy airspace opacities in the left lingula and lower lung partially obscuring the left heart border; this may be subsegmental atelectasis and motion, versus mild pneumonia. 2. No definite consolidation. No findings of vascular congestion. 3. Additional nonemergency and chronic findings as above.
[2022-08-19 14:14] LABS: Basophils # 0.1 K/mm3 (0-0.2); Basophils % 0.7 % (0.1-2.0); Eosinophils # 0.5 K/mm3 (0.0-0.4); Eosinophils % 3.9 % (0.1-12.0); Hematocrit 44.7 % (37.0-47.0); Hemoglobin 14.1 g/dL (12.2-16.2); Lymphocytes # 4.6 K/mm3 (0.7-4.5); Lymphocytes % 39.8 % (10-50); Mean Corpuscular HGB Conc 31.6 g/dL (31.8-35.4); Mean Corpuscular Hemoglobin 29.9 pg (27.0-31.2); Mean Corpuscular Volume 94.5 fl (81-99); Mean Platelet Volume 12.4 fl (7.4-10.4); Monocytes # 1.5 K/mm3 (0.1-1.0); Monocytes % 13.4 % (1.7-9.3); Neutrophils # 4.8 K/mm3 (1.8-7.8); Neutrophils % 42.1 % (37.0-80.0); Platelet Count 108 K/mm3 (142-424); Red Blood Count 4.73 M/mm3 (4.20-5.40); White Blood Count 11.4 K/mm3 (4.8-10.8)
[2022-08-19 14:16] LABS: Chloride 96 mmol/L (98-107); Sodium 139 mmol/L (136-145)
--- NOTE | 2022-08-19 14:18 | ECG_ITS ---
APPROVED REPORT Exam: Resting ECG HR:82 bpm ECG Measurements Heart Rate 82 AXES IA 173 P 8 QRSd 93 QRS 44 QT 383 T 51 QTc 422 Conclusion SINUS RHYTHM NORMAL ECG UNCONFIRMED REPORT Electronically signed by : Rajesh Damian MD 08/21/2022 20:14:53
[2022-08-19 14:19] LABS: Alanine Aminotransferase 29 U/L (12-78); Albumin Level 3.7 g/dl (3.5-5.0); Albumin/Globulin Ratio 1.1 (1.1-1.8); Alkaline Phosphatase 81 U/L (38-126); Aspartate Amino Transferase 34 U/L (14-36); Bilirubin,Total 0.2 mg/dl (0.2-1.3); Blood Urea Nitrogen 21 mg/dl (7-17); Calcium 8.5 mg/dl (8.4-10.2); Carbon Dioxide 35 mmol/L (22.0-30.0); Creatinine Clearance Estimated 151 mL/min (50-200); Estimated Glomerular Filt Rate 88 ml/min (>60); GFR (African American) 106 ML/MIN (>60); Globulin 3.3 g/dL (1.3-3.2); Glucose 92 mg/dl (74-100); Lipase 128 U/L (23-300)
[2022-08-19 14:20] LABS: Potassium 2.8 mmoL/L (3.5-5.1)
[2022-08-19 14:21] LABS: Anion Gap 10.8 mEq/L (5-15)
[2022-08-19 14:29] LABS: NT Pro Brain Natriuretic Pep. 74.6 pg/mL (0-125)
[2022-08-19 14:33] LABS: Troponin I < 0.01 ng/ml (0.00-0.034)
--- NOTE | 2022-08-19 14:35 | PC.NURSE ---
PT SETTING UP IN BED NOTHING NEEDED AT THIS TIME, TAP LARA AT BS
--- NOTE | 2022-08-19 15:02 | PC.NURSE ---
SOL CHECKED ON PT
--- NOTE | 2022-08-19 15:43 | PC.NURSE ---
SOL ROUNDED ON PT
--- NOTE | 2022-08-19 16:34 | PC.NURSE ---
SOL ROUNDED ON PT
== END 2022-08-19 16:39 | disposition home or self-care (01) ==
PROVIDERS: Emergency Provider Student in an Organized Health Care Education/Training Program; PCP Nurse Practitioner Family
DX: J06.9 Acute upper respiratory infection, unspecified (principal); E87.6 Hypokalemia; R53.1 Weakness
CPT/HCPCS: 71045; 80053; 83690; 83880; 84484; 85025; 93005; 96361; 96374; 96375; 99285; J2405

== ENCOUNTER 2022-10-15 15:30 | Outpatient (RCR) | payer MEDICAID, SELFPAY ==
--- NOTE | 2022-10-05 17:16 | HMH.PTOPEV ---
PT Outpatient Evaluation Rehab PT Outpatient Evaluation Start: 10/05/22 16:04 Freq: Status: Active Protocol: Document 10/05/22 16:04 MILADIS (Rec: 10/05/22 16:54 MARQUITAMAGNOLIA [id number]) E-signed By Lizabeth Keenan, PT Outpatient Therapy Subjective History Subjective History Pt presents to the PT clinic with reports of LBP and LLE pain. Pt reports she had a similar episode of this pain ~ 2 years ago. Pt reports that it started hurting again ~ 2 weeks ago. Pt reports that she is on her feet a lot, squatting and bending at work and thinks that could have caused it. Pt reports that she is having sharp L sided back pain and n/t down her LLE into her thigh. Pt reports she has not had imaging performed on her back. Pt reports that she was prescribed a muscle relaxer which helps her sleep at night. Pt reports she notices the pain the most when she is bending over/lifting boxes at work. Pt reports that she feels weakness throughout her LLE. Pt reports she is currently not having LBP/LLE pain PMH: HTN, OA Chief Complaint Pain,Spasms,Stiff,Catches/ Locks,Gives out/Unstable, Paresthesia,Weakness Symptom Type Sharp,Stabbing,Burning, Numbness,Tingling,Shooting Symptoms Relieved By Rest/Positioning,OTC Meds, Prescription Meds Symptoms Aggravated By Standing,Bending/Stooping, Physical Activity,Lifting Prior Functional Limitations None Current Functional Limitations Lifting,Housework,Desk Work/ Reading,Driving,Sleeping, Standing,Recreation Activity, Walking,Stairs,Balance,Bending /Stooping Symptom Description Activity Dependent Level of pain today (0-10) 0 Pain scale - at its best (0-10) 0 Pain scale - at its worst (0-10) 8 Lumbopelvic Eval Posture Thoracic Spine Posture Standing Position Increased Kyphosis Lumbar Spine Posture Standing P
== END 2022-10-15 15:35 | disposition home or self-care (01) ==
LOC: PT 15:30
PROVIDERS: PCP Nurse Practitioner Family; Visit Provider Nurse Practitioner Family
DX: M54.42 Lumbago with sciatica, left side (principal)
CPT/HCPCS: 97110; 97163

== ENCOUNTER 2024-04-23 11:27 | Outpatient (CLI) | payer MEDICAID, SELFPAY ==
[2024-04-23 12:22] LABS: Basophils # 0.1 K/mm3 (0-0.2); Basophils % 0.3 % (0.1-2.0); Eosinophils # 0.1 K/mm3 (0.0-0.4); Eosinophils % 0.6 % (0.1-12.0); Hematocrit 43.9 % (37.0-47.0); Hemoglobin 15.1 g/dL (12.2-16.2); Lymphocytes # 8.3 K/mm3 (0.7-4.5); Lymphocytes % 37.7 % (10-50); Mean Corpuscular HGB Conc 34.4 g/dL (31.8-35.4); Mean Corpuscular Hemoglobin 32.2 pg (27.0-31.2); Mean Corpuscular Volume 93.6 fl (81-99); Mean Platelet Volume 11.7 fl (7.4-10.4); Monocytes # 1.4 K/mm3 (0.1-1.0); Monocytes % 6.6 % (1.7-9.3); Neutrophils # 11.9 K/mm3 (1.8-7.8); Platelet Count 142 K/mm3 (142-424); Red Blood Count 4.69 M/mm3 (4.20-5.40); Red Cell Distribution Width 13.2 % (11.5-17.5)
[2024-04-23 12:33] LABS: MANUAL DIFFERENTIAL MANUAL DIFFERENTIAL (MANUAL DIFF)
[2024-04-23 12:50] LABS: Lymphocytes % 35 % (10-50); Monocytes % 1 % (2-9); Neutrophils % 64 % (42-76); Total Cells Counted 100
[2024-04-23 12:51] LABS: RBC Morphology Normal
[2024-04-23 12:54] LABS: Platelet Estimate Clumped
[2024-04-23 13:04] LABS: Creatinine,Urine Random 316 mg/dL (Not Estab.)
[2024-04-23 13:06] LABS: Chloride 90 mmol/L (98-107)
[2024-04-23 13:07] LABS: Albumin Level 4.2 g/dl (3.5-5.0); Potassium 3.4 mmoL/L (3.5-5.1); Sodium 137 mmol/L (136-145)
[2024-04-23 13:09] LABS: Blood Urea Nitrogen 33 mg/dl (7-17); Estimated Glomerular Filt Rate 43 ml/min (>60); GFR (African American) 52 ML/MIN (>60)
[2024-04-23 13:10] LABS: Anion Gap 13.4 mEq/L (5-15); Calcium 9.8 mg/dl (8.4-10.2); Carbon Dioxide 37 mmol/L (22.0-30.0); Glucose 123 mg/dl (74-100); Phosphorous 5.7 mg/dl (2.5-4.5)
== END 2024-04-23 23:59 | disposition home or self-care (01) ==
LOC: LAB 11:31
PROVIDERS: PCP Nurse Practitioner Family; Visit Provider Internal Medicine
DX: N04.9 Nephrotic syndrome with unspecified morphologic changes (principal)
CPT/HCPCS: 36415; 80069; 82570; 84156; 85007; 85025; 85027

== ENCOUNTER 2024-04-23 11:52 | Emergency (ER) | payer MEDICAID, SELFPAY ==
[2024-04-23 11:52] VITALS: BP 138/93; PULSE 100; RESP 18; TEMP 37.1; O2SAT 98; BMI 38.7
--- NOTE | 2024-04-23 12:01 | ED_ITS ---
<Statement entered by Jodi Ruiz DO - 04/23/24 16:36> I was consulted by the MEAGAN, and we discussed the complexity of the problems being addressed. I approved the treatment and management plan for this patient's care in the emergency department, thus performing a substantive portion of the medical decision making. Jodi Ruiz DO Discharge Plan Disposition Patient Disposition: Home, Self-Care Condition: Good Prescriptions Prescriptions: No Action cetirizine 10 mg tablet 10 mg PO DAILY PRN hydrochlorothiazide 12.5 mg capsule 12.5 mg PO meloxicam 15 mg tablet 15 mg PO amlodipine 5 mg tablet 5 mg PO ondansetron [ondansetron] 4 mg tablet,disintegrating 4 mg PO TIDP PRN (Reason: Nausea) Qty: 10 0RF Referrals Follow up/Referrals: Salma Zepeda APRN [Primary Care Provider] - See instructions Activity Restrictions/Add. Instructions Additional Instructions/Restrictions: Rest. Increase your fluid intake. Follow-up with your PCP within 1 week. Return to the ED for any worsening of condition. Please continue to take your potassium. Clinical Impressions Clinical Impression: Hypokalemia, Weakness Instructions Patient Instructions: DI for Muscle Weakness Print Language Print Language: [place] Citizen Discharge ED Provider: [facility] Adult HPI <Marylin Carney APRN - Last Filed: 04/23/24 16:29> General Chief complaint: Weakness Stated complaint: weakness, light headed Time Seen by Provider: 04/23/24 12:17 Mode of Arrival: Wheelchair Source of Information: Patient Limitations: No Limitations Description of Symptoms (Recalled from ER Triage Doc. by RN): Pt arrives from Viktor Bellamy's office for a visit to [facility] and had labs drawn but came down to be seen due to feeling weak, light headed, chest heavy and paplpitations. Pt has a hx of low potassium History of Present Illness HPI narrative: 53-year-old female presents to the ED with complaints of generalized weakness and 1 episode of chest pain prior to arrival. Patient states she had a recent admission at [facility] for influenza where she received Tamiflu. Patient states she was discharged on 04/15/2024 and felt better. Denies any other complaints at this time. Related Data Home Medications ?Medication ?Instructions ?Recorded ?Confirmed amlodipine 5 mg tablet 5 mg PO 12/22/20 01/23/22 hydrochlorothiazide 12.5 mg capsule 12.5 mg PO 12/22/20 01/23/22 meloxicam 15 mg tablet 15 mg PO 12/22/20 01/23/22 cetirizine 10 mg tablet 10 mg PO DAILY PRN 12/26/21 01/23/22 Previous Rx's ?Medication ?Instructions ?Recorded ondansetron 4 mg disintegrating 4 mg PO TIDP PRN Nausea #10 tabs 04/21/22 tablet Allergies Allergy/AdvReac Type Severity Reaction Status Date / Time No Known Allergies Allergy Verified 01/23/22 09:05 REPLACED BY [facility] <Marylin Carney APRN - Last Filed: 04/23/24 16:29> REPLACED BY [facility] Disclaimer: The information contained in this section may have been updated after the patient was seen, as this information can be updated by other users. Medical History Community acquired pneumonia Surgical History History of tubal ligation Family History Other Cancer Diabetes Hypertension Social History Smoking Status: Former smoker alcohol intake: never current occupational status: employed Travel in the last 8 weeks: None Have you lived/traveled outside [place] in past 30 days?: No Contact w/someone who lives/traveled outside US past 30 days?: No Exposure to someone with infectious disease in past 14 days?: No Do you have a fever (greater than 100.4 F or 38 C)?: No Have you tested positive for COVID-19: No Exposed to someone with COVID-19 in past 14 days?: No Do you have a sore throat?: No Do you have a cough?: No Do you have any weakness?: Yes Do you have any diarrhea?: No Are you experiencing any unusual bleeding?: No Do you have any muscle aches/pain?: No Do you have any abdominal pain?: No Are you experiencing loss of taste or smell?: No Other Medical History Have you received the Flu Vaccine for this season: No Have you received the Pneumonia Vaccine: No <Marylin Carney APRN - Last Filed: 04/23/24 16:29> ROS Obtained: Yes Systems reviewed as appropriate & no additional complaints except as documented Physical Exam <Marylin Carney APRN - Last Filed: 04/23/24 16:29> General General appearance: alert and in no apparent distress Head Head exam: atraumatic and normocephalic Eye Eye exam: Present normal appearance and PERRL ENT ENT exam: Present normal exam Neck Neck exam: Present normal inspection Chest Chest inspection: Present normal inspection and symmetric chest wall rise; Absent tenderness Respiratory Respiratory exam: Present normal lung sounds bilaterally; Absent respiratory distress Cardiovascular Cardiovascular exam: Present regular rate Abdominal Exam Abdominal exam: Present soft and normal bowel sounds; Absent tenderness Extremities Exam Extremities exam: Present normal inspection and full ROM Back Exam Back exam: Present normal inspection and full ROM Neurological Exam Neurological exam: Present alert and oriented X3; Absent motor sensory deficit Psychiatric Psychiatric exam: Present normal affect and normal mood Skin Skin exam: Present warm and dry Medical Decision Making <Marylin Carney APRN - Last Filed: 04/23/24 16:29> Medical Records Screening: Per USPSTF and CDC recommendations, given the prevalence of disease in our region, it is our hospital?s policy to screen for HIV and viral Hepatitis for all patients aged 18 and over and those with ongoing risk factors. Parminder Inquiry Pt receiving controlled substance: No Vital Signs: 04/23/24 11:52 04/23/24 12:31 04/23/24 13:00 Temperature 98.7 F Temperature Source Oral Pulse Rate 77 82 Pulse Rate [Right] 100 H Respiratory Rate 18 Blood Pressure 124/88 112/88 Blood Pressure [Right Arm] 138/93 H Blood Pressure Mean Blood Pressure Mean [Right Arm] 108 Blood Pressure Position [Right Arm] Sitting 02 Sat by Pulse Oximetry 98 99 97 Oxygen Delivery Method Room Air Room Air Room Air 04/23/24 13:30 04/23/24 13:43 Temperature Temperature Source Pulse Rate 87 79 Pulse Rate [Right] Respiratory Rate Blood Pressure 113/87 113/78 Blood Pressure [Right Arm] Blood Pressure Mean 94 Blood Pressure Mean [Right Arm] Blood Pressure Position [Right Arm] 02 Sat by Pulse Oximetry 99 97 Oxygen Delivery Method Lab Data Lab Results 04/23/24 12:16: WBC 22.3 H*, RBC 4.70, Hgb 15.0, Hct 44.0, MCV 93.6, MCH 31.9 H, MCHC 34.1, RDW 13.2, Plt Count 214, MPV 11.3 H, Neut % (Auto) 53.3, Lymph % (Auto) 37.8, Piatt % (Auto) 7.0, Eos % (Auto) 0.6, Baso % (Auto) 0.4, Neut # (Auto) 11.9 H, Lymph # (Auto) 8.5 H, Piatt # (Auto) 1.6 H, Eos # (Auto) 0.1, Baso # (Auto) 0.1, Sodium 136, Potassium 2.9 L*, Chloride 91 L, Carbon Dioxide 38 H, Anion Gap 9.9, BUN 33 H, Creatinine 1.30 H, Estimated Creat Clear 85, Estimated GFR 43 L, Est GFR ( Amer) 52 L, Glucose 131 H, Calcium 9.4, Total Bilirubin 0.4, AST 50 H, ALT 80 H, Alkaline Phosphatase 69, Troponin I 0.03, N T-Pro-B Natriuret Pep 268 H, Total Protein 7.2, Albumin 4.2, Globulin 3.0, Albumin/Globulin Ratio 1.4, Lipase 163 04/23/24 15:18: Troponin I 0.03 04/23/24 12:16 04/23/24 12:16 Orders (Tests/Meds): ED MEDICATIONS Discontinued Medications Generic Name Dose Route Start Last Admin Trade Name Freq PRN Reason Stop Dose Admin Potassium Chloride/Water 100 mls @ 100 mls/hr 04/23/24 13:06 04/23/24 13:16 Potassium Chloride 10meq/100ml Ivpb IV 04/23/24 14:05 100 mls/hr ONCE ONE Administration Lactated Ringer's 1,000 mls @ 999 mls/hr 04/23/24 13:17 04/23/24 13:17 Lactated Ringer's 1000 Ml Bag IV 04/23/24 14:17 999 mls/hr .Q1H1M ONE Administration Ondansetron HCl 4 mg 04/23/24 13:37 04/23/24 13:45 Ondansetron 4mg/2ml Vial IV 04/23/24 13:38 4 mg ONCE ONE Administration Potassium Chloride 40 meq 04/23/24 13:06 04/23/24 13:16 Potassium Chloride 20meq Tab PO 04/23/24 13:07 40 meq ONCE ONE Administration ORDERS Category Date Time Status CXR --portable [XR chest portable] Stat Exams 04/23/24 12:09 Completed BNP [NT Pro Brain Natriuretic Pep.] Stat Lab 04/23/24 12:16 Completed CBC w/Auto Diff [Complete Blood Count Auto Diff] Stat Lab 04/23/24 12:16 Completed CMP [Comprehensive Metabolic Panel] Stat Lab 04/23/24 12:16 Completed Lipase Stat Lab 04/23/24 12:16 Completed Trop I [Troponin I] Stat Lab 04/23/24 12:16 Completed Troponin I Q3H Lab 04/23/24 15:18 Completed Troponin I Q3H Lab 04/23/24 18:15 Ordered HEART Score History (anamnesis): Slightly suspicious ECG: Normal Age: 45-65 years Risk factors: 1-2 risk factors Troponin: </= normal limit HEART Score: 2 Medical Decision Narrative: In summary, patient is a 53-year-old female PMHx CKD, HTN, HLD, Hypokalemia who presents to the emergency department for evaluation of generalized weakness and chest pressure that started this morning at 0500. Patient states that she went to her PCP office this morning and they sent her to the ED for further evaluation of complaints. Patient is alert and oriented, cooperative, hemodynamically stable upon arrival & afebrile. Her physical exam is unremarkable, no chest wall tenderness. NIH 0. She states she takes oral prednisone over the past 12 weeks for her CKD. Reports a recent admission the first week of April for influenza A where she completed a course of Tamiflu. Patient states when she was discharged from [facility] she felt her condition had improved. Denies taking blood thinners. Denies fever, headache, visual disturbances, posterior neck pain, abdominal pain, nausea, vomiting, dysuria. Differential diagnosis includes ACS, dissection, pulmonary embolism, cardiac arrhythmia, atypical chest pain, pneumonia, pneumothorax, infectious process, among others Initial workup will be conducted with CXR, EKG, hematologic labs. I consider the utility of a chest CT however I do not feel inclined to perform this at this time as patient is low risk for dissection and pulmonary embolism. Will reevaluate pending workup and course of stay. Initial workup reviewed by me, CBC remarkable for leukocytosis of 22.3, although I feel this is most likely due to history of 12-week course of oral prednisone that she is currently taking. Stable H&H. CMP remarkable for potassium 2.9 (IV and oral replacement administered), CO2 38, BUN 33, creatinine 1.30 (previous from 08/19/2022 0.70), GFR 43. AST 50, ALT 80. proBNP 268. Lipase 163. First troponin 0.03. Second troponin 0.03. Will administer 1 L LR, IVPB potassium and oral potassium. Independently interpreted the chest x-ray is no acute cardiopulmonary finding, see formal read. Upon repeat evaluation, patient states she does not feel as weak. She remains hemodynamically stable. She is ambulatory in the ED without difficulty, steady gait. Given this I feel the patient is appropriate to be discharged at this time. I had an interactive discussion with the patient and advised her to follow-up with her PCP within 7 days, she states she will call today to make an appointment. We discussed return precautions to the ED and patient verbalized understanding. <Jodi Ruiz, DO - Last Filed: 04/23/24 13:24> Vital Signs: 04/23/24 11:52 04/23/24 12:31 04/23/24 13:00 Temperature 98.7 F Temperature Source Oral Pulse Rate 77 82 Pulse Rate [Right] 100 H Respiratory Rate 18 Blood Pressure 124/88 112/88 Blood Pressure [Right Arm] 138/93 H Blood Pressure Mean Blood Pressure Mean [Right Arm] 108 Blood Pressure Position [Right Arm] Sitting 02 Sat by Pulse Oximetry 98 99 97 Oxygen Delivery Method Room Air Room Air Room Air 04/23/24 13:30 04/23/24 13:43 Temperature Temperature Source Pulse Rate 87 79 Pulse Rate [Right] Respiratory Rate Blood Pressure 113/87 113/78 Blood Pressure [Right Arm] Blood Pressure Mean 94 Blood Pressure Mean [Right Arm] Blood Pressure Position [Right Arm] 02 Sat by Pulse Oximetry 99 97 Oxygen Delivery Method Lab Data Lab Results 04/23/24 12:16: WBC 22.3 H*, RBC 4.70, Hgb 15.0, Hct 44.0, MCV 93.6, MCH 31.9 H, MCHC 34.1, RDW 13.2, Plt Count 214, MPV 11.3 H, Neut % (Auto) 53.3, Lymph % (Auto) 37.8, Piatt % (Auto) 7.0, Eos % (Auto) 0.6, Baso % (Auto) 0.4, Neut # (Auto) 11.9 H, Lymph # (Auto) 8.5 H, Piatt # (Auto) 1.6 H, Eos # (Auto) 0.1, Baso # (Auto) 0.1, Sodium 136, Potassium 2.9 L*, Chloride 91 L, Carbon Dioxide 38 H, Anion Gap 9.9, BUN 33 H, Creatinine 1.30 H, Estimated Creat Clear 85, Estimated GFR 43 L, Est GFR ( Amer) 52 L, Glucose 131 H, Calcium 9.4, Total Bilirubin 0.4, AST 50 H, ALT 80 H, Alkaline Phosphatase 69, Troponin I 0.03, N T-Pro-B Natriuret Pep 268 H, Total Protein 7.2, Albumin 4.2, Globulin 3.0, Albumin/Globulin Ratio 1.4, Lipase 163 04/23/24 15:18: Troponin I 0.03 Orders (Tests/Meds): ED MEDICATIONS Discontinued Medications Generic Name Dose Route Start Last Admin Trade Name Freq PRN Reason Stop Dose Admin Potassium Chloride/Water 100 mls @ 100 mls/hr 04/23/24 13:06 04/23/24 13:16 Potassium Chloride 10meq/100ml Ivpb IV 04/23/24 14:05 100 mls/hr ONCE ONE Administration Lactated Ringer's 1,000 mls @ 999 mls/hr 04/23/24 13:17 04/23/24 13:17 Lactated Ringer's 1000 Ml Bag IV 04/23/24 14:17 999 mls/hr .Q1H1M ONE Administration Ondansetron HCl 4 mg 04/23/24 13:37 04/23/24 13:45 Ondansetron 4mg/2ml Vial IV 04/23/24 13:38 4 mg ONCE ONE Administration Potassium Chloride 40 meq 04/23/24 13:06 04/23/24 13:16 Potassium Chloride 20meq Tab PO 04/23/24 13:07 40 meq ONCE ONE Administration ORDERS Category Date Time Status CXR --portable [XR chest portable] Stat Exams 04/23/24 12:09 Completed BNP [NT Pro Brain Natriuretic Pep.] Stat Lab 04/23/24 12:16 Completed CBC w/Auto Diff [Complete Blood Count Auto Diff] Stat Lab 04/23/24 12:16 Completed CMP [Comprehensive Metabolic Panel] Stat Lab 04/23/24 12:16 Completed Lipase Stat Lab 04/23/24 12:16 Completed Trop I [Troponin I] Stat Lab 04/23/24 12:16 Completed Troponin I Q3H Lab 04/23/24 15:18 Completed Troponin I Q3H Lab 04/23/24 18:15 Ordered ECG Data Tracing #1: I reviewed this ECG and interpreted as documented below: Normal sinus rhythm with a ventricular rate of [address] changes concerning for ischemia. Normal axis and intervals. ECG initial impression date: 04/23/24 ECG initial impression time: 12:05 Critical Care <Marylin Carney APRN - Last Filed: 04/23/24 16:29> Critical Care Time Critical Care Time: No
--- NOTE | 2024-04-23 12:01 | PC.NURSE ---
1158 NCT to triage room to perform ekg
--- NOTE | 2024-04-23 12:02 | ECG_ITS ---
APPROVED REPORT Exam: Resting ECG HR:89 bpm ECG Measurements Heart Rate 89 AXES NE 171 P 60 QRSd 86 QRS 28 QT 336 T 45 QTc 382 Conclusion SINUS RHYTHM POSSIBLE LEFT ATRIAL ENLARGEMENT [-0.1mV P-WAVE IN V1/V2] BORDERLINE ECG No STEMI Electronically signed by : EVERARDO MATA, 04/24/2024 05:59:43
--- NOTE | 2024-04-23 12:09 | XR_ITS ---
FINAL REPORT CLINICAL HISTORY: cp COMPARISON: 08/19/2022 FINDINGS: No acute pulmonary opacity is present. There is no evidence of effusion or pneumothorax. Mediastinum is unremarkable. Heart size is normal. IMPRESSION: No acute abnormality. Reviewed, Interpreted and Dictated by Shilo Marsh MD Transcribed by Fiona Shipley Authenticated and [facility]
[2024-04-23 12:25] LABS: Basophils # 0.1 K/mm3 (0-0.2); Basophils % 0.4 % (0.1-2.0); Eosinophils # 0.1 K/mm3 (0.0-0.4); Eosinophils % 0.6 % (0.1-12.0); Lymphocytes # 8.5 K/mm3 (0.7-4.5); Lymphocytes % 37.8 % (10-50); Mean Corpuscular HGB Conc 34.1 g/dL (31.8-35.4); Mean Corpuscular Hemoglobin 31.9 pg (27.0-31.2); Mean Corpuscular Volume 93.6 fl (81-99); Mean Platelet Volume 11.3 fl (7.4-10.4); Monocytes # 1.6 K/mm3 (0.1-1.0); Neutrophils # 11.9 K/mm3 (1.8-7.8); Neutrophils % 53.3 % (37.0-80.0); Platelet Count 214 K/mm3 (142-424); Red Cell Distribution Width 13.2 % (11.5-17.5); White Blood Count 22.3 K/mm3 (4.8-10.8)
[2024-04-23 12:31] VITALS: BP 124/88; PULSE 77; O2SAT 99
[2024-04-23 12:33] LABS: Albumin Level 4.2 g/dl (3.5-5.0); Chloride 91 mmol/L (98-107)
[2024-04-23 12:34] LABS: Sodium 136 mmol/L (136-145)
[2024-04-23 12:36] LABS: Alanine Aminotransferase 80 U/L (12-78); Alkaline Phosphatase 69 U/L (38-126); Anion Gap 9.9 mEq/L (5-15); Aspartate Amino Transferase 50 U/L (14-36); Bilirubin,Total 0.4 mg/dl (0.2-1.3); Blood Urea Nitrogen 33 mg/dl (7-17); Carbon Dioxide 38 mmol/L (22.0-30.0); Creatinine Clearance Estimated 85 mL/min (50-200); Estimated Glomerular Filt Rate 43 ml/min (>60); GFR (African American) 52 ML/MIN (>60)
[2024-04-23 12:37] LABS: Albumin/Globulin Ratio 1.4 (1.1-1.8); Calcium 9.4 mg/dl (8.4-10.2); Glucose 131 mg/dl (74-100); Lipase 163 U/L (23-300); Total Protein,Serum 7.2 g/dl (6.3-8.2)
[2024-04-23 12:47] LABS: NT Pro Brain Natriuretic Pep. 268 pg/mL (0-125)
[2024-04-23 12:49] LABS: Troponin I 0.03 ng/ml (0.00-0.034)
[2024-04-23 13:00] VITALS: BP 112/88; PULSE 82; O2SAT 97
[2024-04-23 13:04] LABS: Potassium 2.9 mmoL/L (3.5-5.1)
--- NOTE | 2024-04-23 13:04 | PC.NURSE ---
made aware of K+2.9.
--- NOTE | 2024-04-23 13:13 | PC.NURSE ---
ROUNDED ON THE PT. THE PT VOICES THAT SHE DOES NOT NEED ANYTHING AT THIS TIME. CALL LIGHT IS WITHIN REACH OF THE PT.
[2024-04-23] MEDS: POTASSIUM CHLORIDE 20MEQ TAB 40 MEQ PO (13:16)
[2024-04-23] MEDS: KCl 10mEq/100ml 100 ML 100 MEQ IV (13:16)
[2024-04-23] MEDS: LACTATED RINGERS 1000ML 1,000 ML 999 ML IV (13:17)
[2024-04-23 13:30] VITALS: BP 113/87; PULSE 87; O2SAT 99
[2024-04-23 13:43] VITALS: BP 113/78; PULSE 79; O2SAT 97
[2024-04-23] MEDS: ONDANSETRON 4MG/2ML VIAL 4 MG IV (13:45)
--- NOTE | 2024-04-23 14:54 | PC.NURSE ---
ROUNDED ON THE PT. THE PT VOICES THAT SHE DOES NOT NEED ANYTHING AT THIS TIME. CALL LIGHT IS WITHIN REACH OF THE PT.
[2024-04-23 16:14] LABS: Troponin I 0.03 ng/ml (0.00-0.034)
[2024-04-23 16:27] VITALS: BP 105/84; PULSE 86; RESP 18; TEMP 36.8; O2SAT 100
== END 2024-04-23 16:29 | disposition home or self-care (01) ==
PROVIDERS: Nurse Practitioner; Emergency Provider Emergency Medicine; PCP Nurse Practitioner Family
DX: E87.6 Hypokalemia (principal); R53.1 Weakness; R07.89 Other chest pain; R00.2 Palpitations; R42 Dizziness and giddiness
CPT/HCPCS: 71045; 80053; 83690; 83880; 84484; 85025; 93005; 96361; 96374; 99284; J2405; J3480; J7120

== ENCOUNTER 2024-05-01 09:23 | Emergency (ER) | payer MEDICAID, SELFPAY ==
[2024-05-01 09:23] VITALS: BP 154/93; PULSE 86; RESP 20; TEMP 36.8; O2SAT 99; BMI 41.0
--- NOTE | 2024-05-01 09:25 | ECG_ITS ---
APPROVED REPORT Exam: Resting ECG HR:87 bpm ECG Measurements Heart Rate 87 AXES NM 173 P 64 QRSd 88 QRS 40 QT 343 T 48 QTc 387 Conclusion SINUS RHYTHM NONSPECIFIC T-WAVE ABNORMALITY BORDERLINE ECG UNCONFIRMED REPORT Electronically signed by : CHARBEL NOVA, 05/02/2024 06:27:04
[2024-05-01 09:35] VITALS: BMI 41.0
--- NOTE | 2024-05-01 09:36 | XR_ITS ---
FINAL REPORT CLINICAL HISTORY: soa, cp, weakness COMPARISON: 04/23/2024 FINDINGS: A portable view of the chest was obtained. Cardiac and mediastinal silhouettes are within normal limits. There is no significant change in the left basilar opacity. There is no pleural effusion or pneumothorax. IMPRESSION: No significant change in left basilar opacity. Reviewed, Interpreted and Dictated by Lucrecia Metz MD Transcribed by Edel Stahl Authenticated and [facility] [place] [place]
[2024-05-01 09:45] LABS: Basophils # 0.1 K/mm3 (0-0.2); Basophils % 0.3 % (0.1-2.0); Eosinophils # 0.1 K/mm3 (0.0-0.4); Eosinophils % 0.6 % (0.1-12.0); Hematocrit 39.1 % (37.0-47.0); Hemoglobin 13.3 g/dL (12.2-16.2); Lymphocytes # 6.6 K/mm3 (0.7-4.5); Mean Corpuscular Hemoglobin 32.5 pg (27.0-31.2); Mean Corpuscular Volume 95.6 fl (81-99); Mean Platelet Volume 12.1 fl (7.4-10.4); Monocytes # 1.4 K/mm3 (0.1-1.0); Monocytes % 7.4 % (1.7-9.3); Neutrophils # 10.6 K/mm3 (1.8-7.8); Neutrophils % 56.2 % (37.0-80.0); Platelet Count 175 K/mm3 (142-424); Red Blood Count 4.09 M/mm3 (4.20-5.40); White Blood Count 18.9 K/mm3 (4.8-10.8)
--- NOTE | 2024-05-01 09:49 | ED_ITS ---
Discharge Plan Disposition Patient Disposition: Home, Self-Care Chief Complaint: Chest Pain Prescriptions Prescriptions: No Action amlodipine 5 mg tablet 5 mg PO DAILY losartan 50 mg tablet 50 mg PO DAILY Patient Comments: TAKE ONE TABLET BY MOUTH DAILY cyclobenzaprine 10 mg tablet 10 mg PO BID Patient Comments: TAKE ONE TABLET BY MOUTH TWICE DAILY NEEDED FOR MUSCLE SPASMS torsemide 20 mg tablet 40 mg PO DAILY Patient Comments: TAKE TWO TABLETS BY MOUTH DAILY albuterol sulfate 2.5 mg /3 mL (0.083 %) solution for nebulization 2.5 mg continuous nebulization TIDP PRN (Reason: soa) Patient Comments: Inhale 3 mL 3 times a day by nebulization route for 30 days. metoprolol succinate 50 mg tablet extended release 24 hr 50 mg PO BID Patient Comments: TAKE ONE TABLET BY MOUTH TWICE DAILY prednisone 20 mg tablet 30 mg PO DAILY Patient Comments: TAKE THREE TABLETS BY MOUTH ONCE DAILY Rx Instructions: as directed by Nephology potassium chloride 10 mEq tablet extended release 10 meq PO DAILY temazepam 30 mg capsule 30 mg PO HS Patient Comments: TAKE ONE CAPSULE BY MOUTH EVERY EVENING FOR INSOMNIA nicotine 21 mg/24 hr patch 24 hour 1 patch transdermal DAILY Patient Comments: Apply 1 patch every day by transdermal route for 14 days, for 21mg for 14 days. ergocalciferol (vitamin D2) 1,250 mcg (50,000 unit) capsule 1,250 mcg PO WEEKLY Patient Comments: TAKE ONE CAPSULE BY MOUTH ONCE A WEEK [id number] 2-30-10 mg/5 mL syrup 10 ml PO Q4HP PRN (Reason: Cough) Patient Comments: TAKE 10ML BY MOUTH EVERY 4 HOURS FOR 5 DAYS fluticasone propionate 50 mcg/actuation spray,suspension 1 spray INTRANASAL DAILY Patient Comments: SPRAY 1 SPRAY IN EACH NOSTRIL ONCE DAILY Repatha SureClick 140 mg/mL pen injector 140 mg SQ DIRECTED Patient Comments: Inject 1 mL every 2 weeks by subcutaneous route for 30 days. Rx Instructions: Inject 1 mL every 2 weeks by subcutaneous route for 30 days. Referrals Follow up/Referrals: Salma Zepeda APRN [Primary Care Provider] - See instructions Activity Restrictions/Add. Instructions Additional Instructions/Restrictions: Call your family doctor to establish care for this visit to the emergency department and schedule follow-up within 48 hours to ensure improvement. If you have any worsening of your condition or any other concerning signs or symptoms, return to the emergency department or your primary care doctor for further evaluation. Call your technical planner to schedule follow-up for this visit to the emergency department as well Clinical Impressions Clinical Impression: Chest pain Print Language Print Language: Serbian Discharge ED Provider: Thompson Morocho HPI General Chief Complaint: Chest Pain Stated Complaint: CP Time Seen by Provider: 05/01/24 09:24 History of Present Illness HPI narrative: Please note that above description of symptoms, in this electronic medical record under categorization of recalled from ER triage doctor by RN are reflective of an initial nursing assessment, however, is not reflective of my full history and physical exam that was personally taken and clarified. Consequentially, this preceding description of symptoms, which may include the patient's categorized chief complaint in the EMR, do not reflect my personal clinical impression, and the ultimate description of history of present illness and patient stated complaints should be deferred to this section of the note. Unless stated otherwise or congruent with this section of the note, additional signs, symptoms, or incongruence should be interpreted as inaccurate with my clinical impression. Related Data Home Medications ?Medication ?Instructions ?Recorded ?Confirmed amlodipine 5 mg tablet 5 mg PO DAILY 12/22/20 05/01/24 albuterol sulfate 2.5 mg/3 mL 2.5 mg continuous nebulization 05/01/24 05/01/24 (0.083 %) solution for nebulization TIDP PRN soa [id number]-giyqdkqkzlgsmyt-[id number] 10 ml PO Q4HP PRN Cough 05/01/24 05/01/24 2 mg-30 mg-10 mg/5 mL oral syrup cyclobenzaprine 10 mg tablet 10 mg PO BID 05/01/24 05/01/24 ergocalciferol (vitamin D2) 1,250 1,250 mcg PO WEEKLY 05/01/24 05/01/24 mcg (50,000 unit) capsule evolocumab 140 mg/mL subcutaneous 140 mg SQ DIRECTED 05/01/24 05/01/24 pen injector (Daniel Montalvo) fluticasone propionate 50 1 spray intranasal DAILY 05/01/24 05/01/24 mcg/actuation nasal spray,suspension losartan 50 mg tablet 50 mg PO DAILY 05/01/24 05/01/24 metoprolol succinate 50 mg 50 mg PO BID 05/01/24 05/01/24 tablet,extended release 24 hr nicotine 21 mg/24 hr daily 1 patch transdermal DAILY 05/01/24 05/01/24 transdermal patch potassium chloride 10 mEq 10 meq PO DAILY 05/01/24 05/01/24 tablet,extended release prednisone 20 mg tablet 30 mg PO DAILY 05/01/24 05/01/24 temazepam 30 mg capsule 30 mg PO HS 05/01/24 05/01/24 torsemide 20 mg tablet 40 mg PO DAILY 05/01/24 05/01/24 Allergies Allergy/AdvReac Type Severity Reaction Status Date / Time No Known Allergies Allergy Verified 05/01/24 09:53 [facility] Disclaimer: The information contained in this section may have been updated after the patient was seen, as this information can be updated by other users. Medical History (Updated 05/01/24 @ 11:46 by Thompson Morocho MD) Seasonal allergies Difficulty sleeping HTN (hypertension) FSGS (focal segmental glomerulosclerosis) with nephrosis Community acquired pneumonia Surgical History History of tubal ligation Family History Other Cancer Diabetes Hypertension Social History Smoking Status: Former smoker alcohol intake: never current occupational status: employed Travel in the last 8 weeks: None Have you lived/traveled outside [place] in past 30 days?: No Contact w/someone who lives/traveled outside [place] past 30 days?: No Exposure to someone with infectious disease in past 14 days?: No Do you have a fever (greater than 100.4 F or 38 C)?: No Have you tested positive for COVID-19: No Exposed to someone with COVID-19 in past 14 days?: No Do you have a sore throat?: No Do you have a cough?: No Do you have any weakness?: No Do you have any diarrhea?: No Are you experiencing any unusual bleeding?: No Do you have any muscle aches/pain?: No Do you have any abdominal pain?: No Are you experiencing loss of taste or smell?: No Other Medical History Have you received the Flu Vaccine for this season: No Have you received the Pneumonia Vaccine: No ROS Obtained: Yes All systems reviewed & no additional complaints except as documented Physical Exam General General appearance: alert, in no apparent distress and obtunded Neck Neck exam: Present trachea midline Chest Chest inspection: Present normal inspection and symmetric chest wall rise Respiratory Respiratory exam: Present normal lung sounds bilaterally; Absent respiratory distress, wheezes, stridor, accessory muscle use or prolonged expiratory phase Cardiovascular Cardiovascular exam: Present regular rate, normal rhythm and other (Pulses equal and symmetric in upper and lower extremities) Extremities Exam Extremities exam: Present other (Scattered bruising, likely steroid-induced); Absent edema Neurological Exam Neurological exam: Present alert, oriented X3, CN II-XII intact and normal gait Skin Skin exam: Present warm and dry; Absent cyanosis, diaphoresis or pallor HEART Score HEART Score HEART Score assessment performed?: Yes HEART Score: 2 Critical Care Critical Care Time Critical Care Time: No Medical Decision Making Medical Records Medical records reviewed: Yes I reviewed the patient's medical records. Parminder Inquiry Pt receiving controlled substance: No Parminder was queried for this patient: No Vital Signs Vital Signs: 05/01/24 09:23 05/01/24 10:00 05/01/24 10:01 Temperature 98.3 F Temperature Source Oral Pulse Rate 76 71 Pulse Rate [Right] 86 Respiratory Rate 20 18 Blood Pressure 133/89 121/76 Blood Pressure [Right Arm] 154/93 H Blood Pressure Mean Blood Pressure Mean [Right Arm] 113 Blood Pressure Source [Right Arm] Automatic Cuff 02 Sat by Pulse Oximetry 99 99 97 Oxygen Delivery Method Room Air Room Air 05/01/24 10:30 05/01/24 11:30 Temperature Temperature Source Pulse Rate 68 69 Pulse Rate [Right] Respiratory Rate 15 17 Blood Pressure 113/71 116/76 Blood Pressure [Right Arm] Blood Pressure Mean 88 Blood Pressure Mean [Right Arm] Blood Pressure Source [Right Arm] 02 Sat by Pulse Oximetry 98 99 Oxygen Delivery Method Room Air Lab Data Labs: Lab Results 05/01/24 09:30: WBC 18.9 H, RBC 4.09 L, Hgb 13.3, Hct 39.1, MCV 95.6, MCH 32.5 H , MCHC 34.0, RDW 14.0, Plt Count 175, MPV 12.1 H, Neut % (Auto) 56.2, Lymph % (Auto) 35.0, Frontier % (Auto) 7.4, Eos % (Auto) 0.6, Baso % (Auto) 0.3, Neut # (Auto) 10.6 H, Lymph # (Auto) 6.6 H, Frontier # (Auto) 1.4 H, Eos # (Auto) 0.1, Baso # (Auto) 0.1, Total Counted 100, Neutrophils % (Manual) 55, Band Neutrophils % 1.0, Lymphocytes % (Manual) 30, Monocytes % (Manual) 14 H, Platelet Estimate Normal, RBC Morphology Normal, ESR 22, PT 9.3, INR 0.83 L, APTT 20.5 L, Sodium 138, Potassium 3.4 L, Chloride 101, Carbon Dioxide 32 H, Anion Gap 8.4, BUN 16, Creatinine 0.90, Estimated Creat Clear 138, Estimated GFR 65, Est GFR ( Amer) 79, Glucose 111 H, Calcium 9.1, Magnesium 1.6, Total Bilirubin 0.3, AST 35, ALT 42, Alkaline Phosphatase 62, Total Creatine Kinase 23 L, Troponin I < 0.01, NT-Pro-B Natriuret Pep 309 H, Total Protein 6.4, Albumin 3.6, Globulin 2.8, Albumin/Globulin Ratio 1.3, Lipase 151, TSH 0.62, Thyroxine (T4) 9.3, HIV Ag/Ab Combo Qual Negative 05/01/24 11:01: Urine Color Yellow, Urine Appearance Clear, Urine pH 6.0, Ur Specific [place] >= 1.030, Urine Protein 1+ A, Urine Glucose (UA) Negative, Urine Ketones Negative, Urine Blood Trace-i, Urine Nitrate Negative, Urine Bilirubin Negative, Urine Urobilinogen 0.2, Ur Leukocyte Esterase Negative, Urine RBC None, Urine WBC 10-20, Ur Squamous Epith Cells 20-50, Amorphous Sediment Trace, Urine Bacteria Trace 05/01/24 09:30 05/01/24 09:30 Response Orders (Tests/Meds): ED MEDICATIONS Discontinued Medications Generic Name Dose Route Start Last Admin Trade Name Freq PRN Reason Stop Dose Admin Aspirin 324 mg 05/01/24 09:55 05/01/24 10:02 Aspirin 81mg Chewable Tablet PO 05/01/24 09:56 324 mg ONCE ONE Administration ORDERS Category Date Time Status XR chest portable Stat Exams 05/01/24 09:36 Completed CK [Creatine Kinase] Stat Lab 05/01/24 09:30 Completed Complete Blood Count Auto Diff Stat Lab 05/01/24 09:30 Completed Comprehensive Metabolic Panel Stat Lab 05/01/24 09:30 Completed ESR [Erythrocyte Sedimentation Rate] Stat Lab 05/01/24 09:30 Completed HIV Combo Stat Lab 05/01/24 09: Completed Hepatitis C Ab Qual. W/ RFX Stat Lab 05/01/24 09:30 Received Lipase Stat Lab 05/01/24 09:30 Completed Magnesium Stat Lab 05/01/24 09: Completed NT Pro Brain Natriuretic Pep. Stat Lab 05/01/24 09:30 Completed PT INR [Prothrombin Time INR] Stat Lab 05/01/24: Completed PTT [Activated Partial Thrombo Time] Stat Lab 05/01/24 09: Completed T4 (Thyroxine) Stat Lab 05/01/24:30 Completed TSH [Thyroid Stimulating Hormone] Stat Lab 05/01/24 09:30 Completed Troponin I Q3H Lab 05/01/24 12:45 Ordered Troponin I Q3H Lab 05/01/24 15:45 Ordered Troponin I Stat Lab 05/01/24 09:30 Completed Urinalysis and Microscopic Stat Lab 05/01/24 11:01 Completed Urine Culture Stat Micro 05/01/24 11:01 Received MDM Narrative Medical Decision Narrative: 53-year-old female with history of nephrotic syndrome (FSGS) presenting with chest pain. Patient states that she started having chest pain yesterday. This is different than the pain she has been experiencing. She was recently diagnosed with nephrotic syndrome and has been on prednisone daily for a few weeks at this point. Started at 60, now down to 30 on a taper. Chest pain is more of a pressure, substernal, does not radiate, nonpositional, nonexertional, not associated with shortness of breath, cough, fevers, chills, but she does feel generally weak and she feels like this is getting worse on the prednisone as well as on metoprolol. Recently worked up for cardiac disease and this is when diagnosed with nephrotic syndrome. Allegedly, cardiac workup negative on multiple visits including echo, labs, stress test. History was obtained via conversation with patient. On arrival, patient hemodynamically stable, alert, oriented x4, appropriate, GCS 15, moving all extremities spontaneously, pupils equal and reactive to light. Full physical exam performed and significant for obese female who is in no acute distress. Lungs are clear, cardiac exam without murmurs gallops or rubs. No lower extremity edema. Scattered bruises on upper extremities consistent with steroid induced purpura. Differential includes microvascular coronary artery disease, CHF, ACS, WI, coronary artery dissection, pneumothorax, PE, dissection, pericarditis, myocarditis, pneumothorax, aortic aneurysm, pneumonia, bronchitis, among others. Patient was given aspirin p.o. for symptomatic management and correction of underlying abnormalities. Patient placed on continuous cardiac monitoring and continuous pulse ox with initial blood pressure 154/93, heart rate 86, saturation 99% on room air. Independent interpretation of EKG shows sinus rhythm 87 bpm with GA 173, QRS 88, QTc 387. Normal axis. No acute ischemic change.. Workup independently interpreted and significant for nonactionable CBC. Leukocytosis likely secondary to chronic steroid use. Legs nonactionable. Chemistry nonactionable. Patient CK normal, troponin, BNP 300, but no evidence of fluid overload on chest x-ray or on physical exam. On independent interpretation of imaging, no acute cardiopulmonary airspace disease. See radiology read for full review of final results. Heart score 2. On reevaluation, patient still without complaints. Urinalysis sent, on independent interpretation, this was negative for any acute infectious pathology and minimal protein/blood consistent with nephrotic syndrome. Given patient presentation, workup, history, this most likely represents cardiac versus noncardiac chest pain. It was discussed with patient that cardiac chest pain cannot be fully ruled out and it was still recommend that she follow-up with her technical planner, she voiced her understanding. Because patient at baseline without signs or symptoms of clinical decompensation, deemed appropriate for discharge. Results were relayed to patient who voiced understanding and were agreeable to outpatient management and follow up. I discussed my clinical impression with patient and answered all questions. At this time, the evidence for any other entities in the differential is insufficient to warrant any further testing or ED observation. This was explained as well. Advisory was given that persistent or worsening symptoms require further evaluation. I confirmed the understanding of this discussion. [employer] Main Line disclaimer Much of this encounter note is an electronic field service rep spoken language to printed text. Electronic field service rep of the spoken language may permit errors. Although I have reviewed the note, some errors may still exist.
[2024-05-01 09:50] LABS: MANUAL DIFFERENTIAL MANUAL DIFFERENTIAL (MANUAL DIFF)
[2024-05-01 09:51] LABS: Albumin Level 3.6 g/dl (3.5-5.0); Chloride 101 mmol/L (98-107); Potassium 3.4 mmoL/L (3.5-5.1); Sodium 138 mmol/L (136-145)
[2024-05-01 09:54] LABS: Activated Partial Thrombo Time 20.5 seconds (22.5-28.5); Alanine Aminotransferase 42 U/L (12-78); Albumin/Globulin Ratio 1.3 (1.1-1.8); Alkaline Phosphatase 62 U/L (38-126); Aspartate Amino Transferase 35 U/L (14-36); Bilirubin,Total 0.3 mg/dl (0.2-1.3); Blood Urea Nitrogen 16 mg/dl (7-17); Calcium 9.1 mg/dl (8.4-10.2); Carbon Dioxide 32 mmol/L (22.0-30.0); Creatinine Clearance Estimated 138 mL/min (50-200); Estimated Glomerular Filt Rate 65 ml/min (>60); GFR (African American) 79 ML/MIN (>60); Globulin 2.8 g/dL (1.3-3.2); Glucose 111 mg/dl (74-100); INR 0.83 (0.9-1.1); Lipase 151 U/L (23-300); Prothrombin Time 9.3 seconds (9.2-12.1); Total Protein,Serum 6.4 g/dl (6.3-8.2)
[2024-05-01 09:55] LABS: Creatine Kinase 23 U/L (30-135); Magnesium 1.6 mg/dl (1.6-2.3)
[2024-05-01 09:56] LABS: Anion Gap 8.4 mEq/L (5-15)
--- NOTE | 2024-05-01 09:59 | PC.NURSE ---
XR AT BEDSIDE
[2024-05-01 10:00] VITALS: BP 133/89; PULSE 76; O2SAT 99
[2024-05-01 10:01] VITALS: BP 121/76; PULSE 71; RESP 18; O2SAT 97
[2024-05-01] MEDS: ASPIRIN 81MG CHEWABLE TABLET 324 MG PO (10:02)
[2024-05-01 10:03] LABS: NT Pro Brain Natriuretic Pep. 309 pg/mL (0-125)
--- NOTE | 2024-05-01 10:03 | PC.NURSE ---
PT MEDICATED PER EMAR, CALL LIGHT WITHIN REACH. PT WITHOUT NEEDS. INSTRUCTED TO CALL FOR STAFF WHEN SHE CAN PROVIDE URINE SPECIMEN. PT V/U
[2024-05-01 10:12] LABS: T4 (Thyroxine) 9.3 ug/dl (5.53-11.0); Troponin I < 0.01 ng/ml (0.00-0.034)
[2024-05-01 10:26] LABS: Thyroid Stimulating Hormone 0.62 uIU/mL (0.465-4.68)
[2024-05-01 10:28] LABS: Erythrocyte Sedimentation Rate 22 mm/hr (0-30)
[2024-05-01 10:30] VITALS: BP 113/71; PULSE 68; RESP 15; O2SAT 98
[2024-05-01 10:47] LABS: Lymphocytes % 30 % (10-50); Monocytes % 14 % (2-9); Neutrophils % 55 % (42-76); RBC Morphology Normal; Total Cells Counted 100
[2024-05-01 10:48] LABS: Platelet Estimate Normal
--- NOTE | 2024-05-01 11:03 | PC.NURSE ---
PT WAS HOOKED BACK UP TO DATA SCOPE BY TETO CRANE AND I COLLECTED UA SAMPLE AT THIS TIME CALL LIGHT IN REACH AND PT STATES NO NEEDS OR COMPLAINTS AT THIS TIME
[2024-05-01 11:04] LABS: Microscopic, Urine URINE MICROSCOPIC (MICROSCOPIC)
[2024-05-01 11:06] LABS: Appearance,Urine CLEAR (Clear); Bilirubin,Urine Negative (Negative); Blood, Urine TRACE-I (Negative); Color,Urine YELLOW (Yellow); Glucose,Urine (UA) Negative (Negative); Ketones,Urine Negative (Negative); Leukocyte Esterase,Urine Negative (Negative); Nitrate,Urine Negative (Negative); Protein,Urine 1+ (Negative); Specific Gravity, Urine >= 1.030 (1.005-1.030); Urobilinogen,Urine 0.2 EU/dl (0.2)
[2024-05-01 11:30] VITALS: BP 116/76; PULSE 69; RESP 17; O2SAT 99
[2024-05-01 11:34] LABS: HIV Combo NEGATIVE (Negative)
[2024-05-01 11:35] LABS: Amorphous Sediment,Urine Trace /lpf; Bacteria,Urine Trace /lpf; Squamous Epithelial Cell,Urine 20-50 #/hpf (0-5)
[2024-05-01 11:42] LABS: Hepatitis C Ab Qual. W/ RFX NEGATIVE (Negative)
[2024-05-01 11:47] VITALS: BP 116/76; PULSE 70; RESP 15; TEMP 36.8; O2SAT 98
--- NOTE | 2024-05-01 11:54 | PC.NURSE ---
Dr Morocho at bedside
--- NOTE | 2024-05-01 11:55 | PC.NURSE ---
DR CUBA AT BEDSIDE TO UPDATE PT
== END 2024-05-01 12:01 | disposition home or self-care (01) ==
PROVIDERS: Emergency Provider Emergency Medicine; PCP Nurse Practitioner Family
DX: R07.9 Chest pain, unspecified (principal)
CPT/HCPCS: 71045; 80053; 81001; 82550; 83690; 83735; 83880; 84436; 84443; 84484; 85007; 85025; 85027; 85610; 85651; 85730; 86803; 87086; 87389; 93005; 99284

== ENCOUNTER 2024-05-04 09:34 | Outpatient (CLI) | payer MEDICAID, SELFPAY ==
[2024-05-04 10:25] VITALS: PULSE 86; PULSE 90
[2024-05-04] MEDS: ALBUTEROL 0.083% 2.5 MG/3 ML NEB IH (10:25)
== END 2024-05-04 23:59 | disposition home or self-care (01) ==
LOC: RT 09:35
PROVIDERS: PCP Nurse Practitioner Family; Visit Provider Nurse Practitioner Family
DX: R06.02 Shortness of breath (principal)
CPT/HCPCS: 94060; 94640; J7613

== ENCOUNTER 2024-05-17 19:04 | Emergency (ER) | payer MEDICAID, SELFPAY ==
[2024-05-17] VITALS (10 sets, daily range): BP systolic 112–152; BP diastolic 75–106; PULSE 73–89; RESP 17; TEMP 36.6; O2SAT 93–99; BMI 40.3
--- NOTE | 2024-05-17 20:50 | PC.NURSE ---
Unable to confirm medications.
--- NOTE | 2024-05-17 21:05 | ECG_ITS ---
APPROVED REPORT Exam: Resting ECG HR:71 bpm ECG Measurements Heart Rate 71 AXES IA 174 P 15 QRSd 81 QRS 34 QT 365 T 43 QTc 387 Conclusion SINUS RHYTHM NORMAL ECG Electronically signed by : EVERARDO MATA, 05/18/2024 06:11:44
--- NOTE | 2024-05-17 21:05 | XR_ITS ---
PROCEDURE INFORMATION: Exam: XR Chest Exam date and time: 05/17/2024 9:33 PM Age: 53 years old Clinical indication: Pain; Other: Chest heavy; Additional info: Chest heavy, recent flu TECHNIQUE: Imaging protocol: Radiologic exam of the chest. Views: 1 view. COMPARISON: CR XR CHEST PORTABLE 05/01/2024 9:58 AM FINDINGS: Lungs: Unremarkable. No consolidation. Pleural spaces: Unremarkable. No pleural effusion. No pneumothorax. Heart/Mediastinum: Unremarkable. No cardiomegaly. Bones/joints: Unremarkable. IMPRESSION: No acute findings.
[2024-05-17 21:22] LABS: Basophils % 0.3 % (0.1-2.0); Eosinophils % 0.1 % (0.1-12.0); Hemoglobin 13.4 g/dL (12.2-16.2); Lymphocytes # 2.3 K/mm3 (0.7-4.5); Lymphocytes % 14.3 % (10-50); Mean Corpuscular HGB Conc 33.5 g/dL (31.8-35.4); Mean Corpuscular Hemoglobin 32.6 pg (27.0-31.2); Mean Corpuscular Volume 97.3 fl (81-99); Monocytes # 0.6 K/mm3 (0.1-1.0); Monocytes % 3.9 % (1.7-9.3); Neutrophils # 12.9 K/mm3 (1.8-7.8); Neutrophils % 80.9 % (37.0-80.0); Platelet Count 165 K/mm3 (142-424); Red Blood Count 4.11 M/mm3 (4.20-5.40); Red Cell Distribution Width 14.4 % (11.5-17.5)
[2024-05-17 21:23] LABS: MANUAL DIFFERENTIAL MANUAL DIFFERENTIAL (MANUAL DIFF)
[2024-05-17 21:25] LABS: Albumin Level 4.2 g/dl (3.5-5.0); Chloride 95 mmol/L (98-107); Sodium 136 mmol/L (136-145)
[2024-05-17 21:26] LABS: Potassium 3.3 mmoL/L (3.5-5.1)
[2024-05-17 21:28] LABS: Alanine Aminotransferase 49 U/L (12-78); Albumin/Globulin Ratio 1.5 (1.1-1.8); Alkaline Phosphatase 78 U/L (38-126); Anion Gap 9.3 mEq/L (5-15); Aspartate Amino Transferase 35 U/L (14-36); Bilirubin,Total 0.4 mg/dl (0.2-1.3); Blood Urea Nitrogen 18 mg/dl (7-17); Carbon Dioxide 35 mmol/L (22.0-30.0); Creatinine Clearance Estimated 105 mL/min (50-200); Estimated Glomerular Filt Rate 52 ml/min (>60); GFR (African American) 63 ML/MIN (>60); Globulin 2.8 g/dL (1.3-3.2)
[2024-05-17 21:29] LABS: Calcium 9.3 mg/dl (8.4-10.2); Glucose 140 mg/dl (74-100)
[2024-05-17 21:37] LABS: NT Pro Brain Natriuretic Pep. 348 pg/mL (0-125)
[2024-05-17 21:42] LABS: Troponin I < 0.01 ng/ml (0.00-0.034)
[2024-05-17 22:11] LABS: Lymphocytes % 19 % (10-50); Monocytes % 4 % (2-9); Neutrophils % 77 % (42-76); Platelet Estimate Normal; RBC Morphology Normal; Total Cells Counted 100
--- NOTE | 2024-05-17 23:36 | [facility].EDCP ---
Discharge Plan Disposition Patient Disposition: Home, Self-Care Condition: Good Prescriptions Prescriptions: No Action torsemide 20 mg tablet 20 mg PO DAILY Patient Comments: TAKE TWO TABLETS BY MOUTH DAILY albuterol sulfate 2.5 mg /3 mL (0.083 %) solution for nebulization 2.5 mg continuous nebulization TIDP PRN (Reason: soa) Patient Comments: Inhale 3 mL 3 times a day by nebulization route for 30 days. metoprolol succinate 50 mg tablet extended release 24 hr 50 mg PO BID Patient Comments: TAKE ONE TABLET BY MOUTH TWICE DAILY prednisone 20 mg tablet 30 mg PO DAILY Patient Comments: TAKE THREE TABLETS BY MOUTH ONCE DAILY Rx Instructions: as directed by Nephology potassium chloride 10 mEq tablet extended release 20 meq PO DAILY temazepam 30 mg capsule 30 mg PO HS Patient Comments: TAKE ONE CAPSULE BY MOUTH EVERY EVENING FOR INSOMNIA ergocalciferol (vitamin D2) 1,250 mcg (50,000 unit) capsule 1,250 mcg PO WEEKLY Patient Comments: TAKE ONE CAPSULE BY MOUTH ONCE A WEEK fluticasone propionate 50 mcg/actuation spray,suspension 1 spray INTRANASAL DAILY PRN (Reason: shortness of air) Patient Comments: SPRAY 1 SPRAY IN EACH NOSTRIL ONCE DAILY Repatha SureClick 140 mg/mL pen injector 140 mg SQ DIRECTED Patient Comments: Inject 1 mL every 2 weeks by subcutaneous route for 30 days. Rx Instructions: Inject 1 mL every 2 weeks by subcutaneous route for 30 days. budesonide-formoterol [Symbicort] 160-4.5 mcg/actuation Hfa Aerosol Inhaler 2 puff INHALATION BID albuterol sulfate 90 mcg/actuation Aerosol Powdr Breath Activated 2 inh INHALATION DAILY PRN (Reason: shortness of air) methocarbamol 750 mg Tablet 750 mg PO Q8H PRN (Reason: muscle spasms) nitroglycerin 0.4 mg Tablet, Sublingual 0.4 mg SUBLINGUAL Q5M PRN (Reason: Chest Pain) Rx Instructions: do not exceed 3 doses per episode omeprazole 20 mg Capsule,Delayed Release(Dr/Ec) 20 mg PO DAILY Referrals Follow up/Referrals: Salma Zepeda APRN [Primary Care Provider] - See instructions Activity Restrictions/Add. Instructions Additional Instructions/Restrictions: You were seen for chest pain. Please follow up with your PCP this week and keep your scheduled appointment with cardiology. Return to ER for any worsening symptoms. Clinical Impressions Clinical Impression: Chest pain Instructions Patient Instructions: DI for Atypical Chest Pain Print Language Print Language: Monegasque Discharge ED Provider: Adam Barrientos HPI <OLLIE Ludwig - Last Filed: 05/18/24 00:19> General Chief Complaint: Shortness of Breath/Dyspnea Stated Complaint: weak, SOA, [id number] in hands arms mouth tingling, Time Seen by Provider: 05/17/24 20:43 Mode of Arrival: Ambulatory Source of Information: Patient Description of Symptoms (Recalled from ER Triage Doc. by RN): States she has SOA with exertion and that when she breaths it feels heavy on her chest and back. 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 States the muscle relaxer was to help with the tingling but is not effective. She reports having some swelling of her throat and face and that she feels tingling in her neck, feet, and hands. She states that everything started this morning and reports back pain 7/10. She also reports headache and blurry vision. History of Present Illness HPI narrative: Presents with heaviness in her chest to her back. She reports it feels tight to swallow. She has increased edema, however is on long-term prednisone for her glomerular disease. She reports that she had influenza 1 month ago and was admitted for 5 days. MD complaint: chest pain Onset (ago): day(s) (1) Duration: constant Activity at onset: awoke with symptoms Pain location: left chest and right chest Severity: moderate Quality: heaviness Pain radiation: back Relieving factors: nothing Exacerbating factors: nothing Risk Factors for CAD: Hypertension Related Data Home Medications ?Medication ?Instructions ?Recorded ?Confirmed albuterol sulfate 2.5 mg/3 mL 2.5 mg continuous nebulization 05/01/24 05/01/24 (0.083 %) solution for nebulization TIDP PRN soa ergocalciferol (vitamin D2) 1,250 1,250 mcg PO WEEKLY 05/01/24 05/01/24 mcg (50,000 unit) capsule evolocumab 140 mg/mL subcutaneous 140 mg SQ DIRECTED 05/01/24 05/01/24 pen injector (Repsebas Montalvo) fluticasone propionate 50 1 spray intranasal DAILY PRN 05/01/24 05/01/24 mcg/actuation nasal shortness of air spray,suspension metoprolol succinate 50 mg 50 mg PO BID 05/01/24 05/01/24 tablet,extended release 24 hr potassium chloride 10 mEq 20 meq PO DAILY 05/01/24 05/01/24 tablet,extended release prednisone 20 mg tablet 30 mg PO DAILY 05/01/24 05/01/24 temazepam 30 mg capsule 30 mg PO HS 05/01/24 05/01/24 torsemide 20 mg tablet 20 mg PO DAILY 05/01/24 05/01/24 albuterol sulfate 90 mcg/actuation 2 inh inhalation DAILY PRN 05/17/24 05/17/24 breath activated powder inhaler shortness of air budesonide-formoterol HFA 160 2 puff inhalation BID 05/17/24 05/17/24 mcg-4.5 mcg/actuation aerosol inhaler (Symbicort) methocarbamol 750 mg tablet 750 mg PO Q8H PRN muscle spasms 05/17/24 05/17/24 nitroglycerin 0.4 mg sublingual 0.4 mg sublingual Q5M PRN Chest 05/17/24 05/17/24 tablet Pain omeprazole 20 mg capsule,delayed 20 mg PO DAILY GERD 05/17/24 05/17/24 release Allergies Allergy/AdvReac Type Severity Reaction Status Date / Time No Known Allergies Allergy Verified 05/17/24 20:23 [facility] <OLLIE Ludwig - Last Filed: 05/18/24 00:19> [facility] Disclaimer: The information contained in this section may have been updated after the patient was seen, as this information can be updated by other users. Medical History (Updated 05/18/24 @ 00:18 by OLLIE Ludwig) Seasonal allergies Difficulty sleeping HTN (hypertension) FSGS (focal segmental glomerulosclerosis) with nephrosis Community acquired pneumonia Surgical History History of tubal ligation Family History Other Cancer Diabetes Hypertension Social History Smoking Status: Never smoker alcohol intake: never current occupational status: employed Travel in the last 8 weeks: None Have you lived/traveled outside [place] in past 30 days?: No Contact w/someone who lives/traveled outside US past 30 days?: No Exposure to someone with infectious disease in past 14 days?: No Do you have a fever (greater than 100.4 F or 38 C)?: Yes Have you tested positive for COVID-19: No Exposed to someone with COVID-19 in past 14 days?: No Do you have a sore throat?: No Do you have a cough?: No Do you have any weakness?: Yes Do you have any diarrhea?: No Are you experiencing any unusual bleeding?: No Do you have any muscle aches/pain?: No Do you have any abdominal pain?: No Are you experiencing loss of taste or smell?: No Other Medical History Have you received the Flu Vaccine for this season: No Have you received the Pneumonia Vaccine: No <OLLIE Ludwig - Last Filed: 05/18/24 00:19> ROS Obtained: Yes Systems reviewed as appropriate & no additional complaints except as documented Physical Exam <OLLIE Ludwig - Last Filed: 05/18/24 00:19> General General appearance: alert and in no apparent distress Head Head exam: atraumatic and normocephalic Eye Eye exam: Present normal appearance and EOMI Chest Chest inspection: Present symmetric chest wall rise Respiratory Respiratory exam: Present normal lung sounds bilaterally; Absent wheezes or stridor Cardiovascular Cardiovascular exam: Present regular rate and normal rhythm; Absent systolic murmur Neurological Exam Neurological exam: Present alert and oriented X3 Psychiatric Psychiatric exam: Present normal affect and normal mood Skin Skin exam: Present warm, dry and intact HEART Score <OLLIE Ludwig - Last Filed: 05/18/24 00:19> HEART Score HEART Score assessment performed?: Yes History (anamnesis): Slightly suspicious ECG: Normal Age: 45-65 years Risk factors: 1-2 risk factors Troponin: </= normal limit HEART Score: 2 <Adam Barrientos MD - Last Filed: 05/19/24 10:23> HEART Score HEART Score: 2 Critical Care <OLLIE Ludwig Last Filed: 05/18/24 00:19> Critical Care Time Critical Care Time: No Medical Decision Making <OLLIE Ludwig - Last Filed: 05/18/24 00:19> Parminder Inquiry Pt receiving controlled substance: No Vital Signs Vital Signs: 05/17/24 20:18 05/17/24 20:42 05/17/24 20:45 Temperature 97.8 F Temperature Source Oral Pulse Rate 79 85 Pulse Rate [Right Brachial] 85 Respiratory Rate 17 Blood Pressure Blood Pressure [Right Arm] 128/90 Blood Pressure Mean [Right Arm] 102 Blood Pressure Source Blood Pressure Source [Right Arm] Automatic Cuff Blood Pressure Position Blood Pressure Position [Right Arm] Sitting 02 Sat by Pulse Oximetry 99 97 98 Oxygen Delivery Method Room Air 05/17/24 21:04 05/17/24 21:30 05/17/24 22:00 Temperature Temperature Source Pulse Rate 80 73 89 Pulse Rate [Right Brachial] Respiratory Rate Blood Pressure 112/75 152/97 H 144/94 H Blood Pressure [Right Arm] Blood Pressure Mean [Right Arm] Blood Pressure Source Blood Pressure Source [Right Arm] Blood Pressure Position Blood Pressure Position [Right Arm] 02 Sat by Pulse Oximetry 97 93 L 95 Oxygen Delivery Method 05/17/24 22:30 05/17/24 22:45 05/17/24 23:00 Temperature Temperature Source Pulse Rate 79 83 85 Pulse Rate [Right Brachial] Respiratory Rate Blood Pressure 132/86 130/96 H Blood Pressure [Right Arm] Blood Pressure Mean [Right Arm] Blood Pressure Source Blood Pressure Source [Right Arm] Blood Pressure Position Blood Pressure Position [Right Arm] 02 Sat by Pulse Oximetry 96 96 96 Oxygen Delivery Method 05/17/24 23:30 05/18/24 00:00 05/18/24 00:37 Temperature 97.9 F Temperature Source Oral Pulse Rate 79 82 74 Pulse Rate [Right Brachial] Respiratory Rate 16 Blood Pressure 148/106 H 126/96 H 115/87 Blood Pressure [Right Arm] Blood Pressure Mean [Right Arm] Blood Pressure Source Automatic Cuff Blood Pressure Source [Right Arm] Blood Pressure Position Supine Blood Pressure Position [Right Arm] 02 Sat by Pulse Oximetry 95 94 L Oxygen Delivery Method Room Air Lab Data Labs: Lab Results 05/17/24 20:59: WBC 16.0 H, RBC 4.11 L, Hgb 13.4, Hct 40.0, MCV 97.3, MCH 32.6 H, MCHC 33.5, RDW 14.4, Plt Count 165, MPV 11.0 H, Neut % (Auto) 80.9 H, Lymph % (Auto) 14.3, Gal[place] % (Auto) 3.9, Eos % (Auto) 0.1, Baso % (Auto) 0.3, Neut # (Auto) 12.9 H, Lymph # (Auto) 2.3, [place] # (Auto) 0.6, Eos # (Auto) 0.0, Baso # (Auto) 0.0, Total Counted 100, Neutrophils % (Manual) 77 H, Lymphocytes % (Manual) 19, Monocytes % (Manual) 4, Platelet Estimate Normal, RBC Morphology Normal, Sodium 136, Potassium 3.3 L, Chloride 95 L, Carbon Dioxide 35 H, Anion Gap 9.3, BUN 18 H, Creatinine 1.10 H, Estimated Creat Clear 105, Estimated GFR 52 L, Est GFR ( Amer) 63, Glucose 140 H, Calcium 9.3, Total Bilirubin 0.4, AST 35, ALT 49, Alkaline Phosphatase 78, Troponin I < 0.01, NT-Pro-B Natriuret Pep 348 H, Total Protein 7.0, Albumin 4.2, Globulin 2.8, Albumin/Globulin Ratio 1.5 05/17/24 23:44: Troponin I < 0.01 05/17/24 20:59 05/17/24 20:59 Response Orders (Tests/Meds): ED MEDICATIONS Discontinued Medications Generic Name Dose Route Start Last Admin Trade Name Freq PRN Reason Stop Dose Admin Sodium Chloride 10 ml 05/17/24 21:04 Sodium Chloride 0.9% 10ml Flush Syringe IV 06/16/24 21:03 NEEDED PRN Maintain IV Site ORDERS Category Date Time Status XR chest portable Stat Exams 05/17/24 21:05 Completed Complete Blood Count Auto Diff Stat Lab 05/17/24 20:59 Completed Comprehensive Metabolic Panel Stat Lab 05/17/24 20:59 Completed NT Pro Brain Natriuretic Pep. Stat Lab 05/17/24 20:59 Completed Troponin I Stat Lab 05/17/24 21:05 Completed Troponin I Stat Lab 05/17/24 23:44 Completed MDM Narrative Medical Decision Narrative: In summary patient is a 53-year-old female who presents the emergency department for evaluation of chest pain. Patient is hemodynamically stable upon arrival, afebrile. Unremarkable physical exam. Differential diagnosis includes pneumonia, ACS, bronchitis, CHF. Initial workup will be conducted with hematologic labs, chest x-ray, EKG. patient does have leukocytosis however has been on long-term prednisone. Upon repeat evaluation patient is comfortable and agreeable to go home. Given this patient is appropriate for discharge home at this time with follow-up with her PCP. She already has an appointment scheduled with cardiology as well. <Adam Barrientos MD - Last Filed: 05/19/24 10:23> Vital Signs Vital Signs: 05/17/24 20:18 05/17/24 20:42 05/17/24 20:45 Temperature 97.8 F Temperature Source Oral Pulse Rate 79 85 Pulse Rate [Right Brachial] 85 Respiratory Rate 17 Blood Pressure Blood Pressure [Right Arm] 128/90 Blood Pressure Mean [Right Arm] 102 Blood Pressure Source Blood Pressure Source [Right Arm] Automatic Cuff Blood Pressure Position Blood Pressure Position [Right Arm] Sitting 02 Sat by Pulse Oximetry 99 97 98 Oxygen Delivery Method Room Air 05/17/24 21:04 05/17/24 21:30 05/17/24 22:00 Temperature Temperature Source Pulse Rate 80 73 89 Pulse Rate [Right Brachial] Respiratory Rate Blood Pressure 112/75 152/97 H 144/94 H Blood Pressure [Right Arm] Blood Pressure Mean [Right Arm] Blood Pressure Source Blood Pressure Source [Right Arm] Blood Pressure Position Blood Pressure Position [Right Arm] 02 Sat by Pulse Oximetry 97 93 L 95 Oxygen Delivery Method 05/17/24 22:30 05/17/24 22:45 05/17/24 23:00 Temperature Temperature Source Pulse Rate 79 83 85 Pulse Rate [Right Brachial] Respiratory Rate Blood Pressure 132/86 130/96 H Blood Pressure [Right Arm] Blood Pressure Mean [Right Arm] Blood Pressure Source Blood Pressure Source [Right Arm] Blood Pressure Position Blood Pressure Position [Right Arm] 02 Sat by Pulse Oximetry 96 96 96 Oxygen Delivery Method 05/17/24 23:30 05/18/24 00:00 05/18/24 00:37 Temperature 97.9 F Temperature Source Oral Pulse Rate 79 82 74 Pulse Rate [Right Brachial] Respiratory Rate 16 Blood Pressure 148/106 H 126/96 H 115/87 Blood Pressure [Right Arm] Blood Pressure Mean [Right Arm] Blood Pressure Source Automatic Cuff Blood Pressure Source [Right Arm] Blood Pressure Position Supine Blood Pressure Position [Right Arm] 02 Sat by Pulse Oximetry 95 94 L Oxygen Delivery Method Room Air Lab Data Labs: Lab Results 05/17/24 20:59: WBC 16.0 H, RBC 4.11 L, Hgb 13.4, Hct 40.0, MCV 97.3, MCH 32.6 H, MCHC 33.5, RDW 14.4, Plt Count 165, MPV 11.0 H, Neut % (Auto) 80.9 H, Lymph % (Auto) 14.3, [place] % (Auto) 3.9, Eos % (Auto) 0.1, Baso % (Auto) 0.3, Neut # (Auto) 12.9 H, Lymph # (Auto) 2.3, [place] # (Auto) 0.6, Eos # (Auto) 0.0, Baso # (Auto) 0.0, Total Counted 100, Neutrophils % (Manual) 77 H, Lymphocytes % (Manual) 19, Monocytes % (Manual) 4, Platelet Estimate Normal, RBC Morphology Normal, Sodium 136, Potassium 3.3 L, Chloride 95 L, Carbon Dioxide 35 H, Anion Gap 9.3, BUN 18 H, Creatinine 1.10 H, Estimated Creat Clear 105, Estimated GFR 52 L, Est GFR ( Amer) 63, Glucose 140 H, Calcium 9.3, Total Bilirubin 0.4, AST 35, ALT 49, Alkaline Phosphatase 78, Troponin I < 0.01, NT-Pro-B Natriuret Pep 348 H, Total Protein 7.0, Albumin 4.2, Globulin 2.8, Albumin/Globulin Ratio 1.5 05/17/24 23:44: Troponin I < 0.01 Response Orders (Tests/Meds): ED MEDICATIONS Discontinued Medications Generic Name Dose Route Start Last Admin Trade Name Freq PRN Reason Stop Dose Admin Sodium Chloride 10 ml 05/17/24 21:04 Sodium Chloride 0.9% 10ml Flush Syringe IV 06/16/24 21:03 NEEDED PRN Maintain IV Site ORDERS Category Date Time Status XR chest portable Stat Exams 05/17/24 21:05 Completed Complete Blood Count Auto Diff Stat Lab 05/17/24 20:59 Completed Comprehensive Metabolic Panel Stat Lab 05/17/24 20:59 Completed NT Pro Brain Natriuretic Pep. Stat Lab 05/17/24 20:59 Completed Troponin I Stat Lab 05/17/24 21:05 Completed Troponin I Stat Lab 05/17/24 23:44 Completed MDM Narrative Medical Decision Narrative: In summary patient is a 53-year-old female who presents the emergency department for evaluation of chest pain. Patient is hemodynamically stable upon arrival, afebrile. Unremarkable physical exam. Differential diagnosis includes pneumonia, ACS, bronchitis, CHF. Initial workup will be conducted with hematologic labs, chest x-ray, EKG. patient does have leukocytosis however has been on long-term prednisone. Upon repeat evaluation patient is comfortable and agreeable to go home. Given this patient is appropriate for discharge home at this time with follow-up with her PCP. She already has an appointment scheduled with cardiology as well. I was consulted by the MEAGAN, and we discussed the complexity of the medical problems being addressed. I approved of the treatment in the emergency department, thus performing substantiative amount of care. Signed, Adam Barrientos MD, MBA
[2024-05-18] VITALS: BP 126/96; PULSE 82; O2SAT 94
[2024-05-18 00:14] LABS: Troponin I < 0.01 ng/ml (0.00-0.034)
[2024-05-18 00:37] VITALS: BP 115/87; PULSE 74; RESP 16; TEMP 36.6; O2SAT 98
== END 2024-05-18 00:38 | disposition home or self-care (01) ==
PROVIDERS: Physician Assistant; Emergency Provider Emergency Medicine; PCP Nurse Practitioner Family
DX: R07.9 Chest pain, unspecified (principal); J45.990 Exercise induced bronchospasm; M54.9 Dorsalgia, unspecified; R20.2 Paresthesia of skin; R51.9 Headache, unspecified; H53.8 Other visual disturbances
CPT/HCPCS: 71045; 80053; 83880; 84484; 85007; 85025; 85027; 93005; 99284

== ENCOUNTER 2024-06-04 17:00 | Outpatient (RCR) | payer MEDICAID, SELFPAY ==
--- NOTE | 2024-05-21 16:15 | HMH.PTOPEV ---
PT Outpatient Evaluation Rehab PT Outpatient Evaluation Start: 05/21/24 14:43 Freq: Status: Active Protocol: Document 05/21/24 14:44 ELIER (Rec: 05/21/24 16:15 ELIER [id number]) E-signed By Jodi Arana, PT Outpatient Therapy Subjective History Subjective History Pt is a 53 y/o female who reports low back and neck pain . Pt reports chronic neck pain for over 1 year, denies known trauma or injury. Pt reports she had a CT scan of her neck in [place] showing DDD, denies known fractures. Pt reports history of intermittent numbness/tingling in B arms however denies current UE radiating pain or paresthesia. Pt reports she currently only has constant numbness/tingling of the tips of her fingers and toes. Pt reports central neck pain that refers into her shoulders aggravated by prolonged looking down, looking over her shoulders, and housework. Pt reports insidious onset of central low back 2 months ago with gradual worsening overtime. Pt reports onset of intermittent radiating pain into the right posterior leg 2 weeks ago. Pt reports initial pain that radiated to the calf but now only goes to the knee. Pt denies b/b dysfunction. Pt reports she had xrays in [place] of her low back showing scoliosis. Pt reports pain is aggravated by standing 10 minutes, prolonged walking, stair climbing and bending/lifting. Pt states she is taking prednisone for kidney disease and was prescribed muscle relaxers for her neck & back pain which she states does not help with pain. Pt reports she returns back to her doctor on 05/28/24. R handed Medical History: Kidney disease, Restrictive Airway Disease, Hypertension, Hyperlipidemia New diagnosis of cancer in past 12 No months? Chief Complaint Pain,Stiff Symptom Type Ache,Sharp,Dull Symptoms Relieved By Rest/Positioning,Heat,Ice Symptoms Aggravated By Sitting,Standing,Bending/ Stooping,Physical Activity, Walking,Lifting Current Functional Limitations Reaching,Lifting,Housework, Desk Work/Reading,Standing, Sitting,Squatting,Walking, Stairs,Bending/Stooping Symptom Description Constant but Variable Level of pain today (0-10) 3 Pain scale - at its best (0-10) 3 Pain scale - at its worst (0-10) 7 Cervical Eval Palpation Cervical Muscles R Cervical Paraspinal,L Cervical Paraspinal,R Upper Trapezius,L Upper Trapezius,L Thoracic Paraspinals Cervical/Thoracic Palpation Findings Tenderness,Muscle Guarding Flexibility Deficits Upper Trapezius Muscle Length (R) Moderate Tightness,(L) Moderate Tightness Levaetor Scapulae Muscle Length (R) Moderate Tightness,(L) Moderate Tightness Pectoralis Major Muscle Length (R) Mild Tightness,(L) Mild Tightness Pectoralis Minor Muscle Length (R) Mild Tightness,(L) Mild Tightness Passive Joint Mobility Cervical PIVM Dec: R C5/6 L C5/6 R C6/7 L C6/7 AROM Cervical Spine Extension Active Range of 30 Motion (degrees) Cervical Spine Flexion Active Range of 45 Motion (degrees) Cervical Spine Right Lateral Flexion 40 Active Range of Motion (degrees) Cervical Spine Left Lateral Flexion 35 Active Range of Motion (degrees) Cervical Spine Right Rotation Active 45 Range of Motion (degrees) Cervical Spine Left Rotation Active 45 Range of Motion (degrees) MMT Bilateral Deltoid (C5) 5 Normal Biceps Brachii Strength Grade 5 Normal Wrist Extension Strength Grade 5 Normal Triceps Brachii Strength Grade 5 Normal Wrist Flexion Strength Grade 5 Normal Extensor Pollicis Longus Strength Grade 5 Normal Finger Abduction Strength Grade 5 Normal Altered Sensation Comment equal and intact to light touch sensation bilaterally Special Test C-Spine Foraminal Compression (Spurling) Negative Left,Negative Right Test C-Spine Compression Test Negative Left,Negative Right Shoulder/Elbow Eval Shoulder Objective Measurements Shoulder MMT Bilateral Lower Trapezius Strength Grade 4- Good- Middle Trapezius Strength Grade 4- Good- Rhomboids Strength Grade 4- Good- Upper Trapezius/Levator Scapulae 4 Good Elbow Objective Measurements Lumbopelvic Eval Palapation tenderness bilateral paraspinal tenderness Yes: R>L thoracolumbar PS buttock tenderness Yes: R>L piriformis, glute med /min Lumbar/Sacral Palpation Findings Tenderness Accessory Movement L-spine Vertebrae Accessory Movements Central P/A [place] that Elicit Symptoms L3 bilateral L4 bilateral L5 bilateral S1 bilateral Range of Motion Lumbar Spine Active Flexion Range of 40 Motion (degrees) Lumbar Spine Active Extension Range of 5 Motion (degrees) Left Lumbar Spine Lateral Flexion Active 5 Range of Motion (degrees) Right Lumbar Spine Lateral Flexion 5 Active Range of Motion (degrees) Manual Muscle Test Bilateral Knee Extension Strength Grade 5 Normal Knee Flexion Strength Grade 5 Normal Hip Flexion Strength Grade 4 Good Hip Abduction Strength Grade 4 Good Hip Adduction Strength Grade 4 Good Hip Extension Strength Grade 4- Good- Ankle Dorsiflexion Strength Grade 5 Normal DTR Rt Patellar 1+ Lt Patellar 2+ Altered Sensation Bilateral Comment equal and intact to light touch sensation bilaterally Special Tests Hip Jadiel (GERI) Test Negative Left,Negative Right Sciatic Nerve Tension Test Positive Right Unilateral Straight Leg Raise (Lasegue) Negative Left,Positive Right Test Oswestry Index Section 1 Pain Intensity The pain is moderate and does not vary much Section 2 Personal Care (Washing,Dresing) increase the pain and I find it necessary to change my way of doing it Section 3 Lifting I can only lift very light weights at most Section 4 Walking I cannot walk more than 1/4 mile without increasing pain Section 5 Sitting Pain prevents me from sitting for more than one hour Section 6 Standing I cannot stand more than 10 minutes without increasing pain Section 7 Sleeping Because of my pain, my normal night's sleep is less than 6 hours sleep Section 8 Social Life Pain has restricted my social life and I do not go out often Section 9 Traveling Pain restricts me to short necessary journeys under 30 minutes Section 10 Changing Degreee of Pain My pain is gradually getting worse Score and Risk Level Oswestry Sc 34 Oswestry Risk Level Severe Disability Neck Disability Index Neck Disability Index Section 1: Pain Intensity The pain is very mild at moment Section 2: Personal Care (washing, It is painful to look after dressing, etc.) myself and I am slow and careful Section 3: Lifting I cannot lift or carry anything Section 4: Reading I can't read as much as I want because of moderate pain in my neck Section 5: Headaches I have moderate headaches, which come frequently Section 6: Concentration I have a fair degree of difficulty in concentrating when I want to Section 7: Work I cannot do my usual work Section 8: Driving I can drive my car as long as I want with slight pain in my neck Section 9: Sleeping My sleep is midly disturbed (1 -2 hrs sleepless) Section 10: Recreation I am able to engage in a few of my usual recreation activities because NDI Score 25 Outpatient Therapy Assessment Impairments Problems/Impairmments Palpation Tenderness,Impaired Range of Motion,Impaired Strength,Impaired Walking, Impaired Standing,Impaired Sitting,Impaired Lifting, Impaired Household Care, Impaired Squatting,Impaired Bending,Impaired Desk/Computer Activities,Subjective C/O Pain,Impaired Self Care/Self Management Prognosis Rehab Potential Good Clinical Impression Consistent with Diagnosis Yes Short Term Goals Number of Weeks 3 Increase Range of Motion Yes: Improve AROM lumbar flex and cervical rotation to at least 50-60 Improve Ability For Household Care Yes Improve Oswestry Score Yes: Improve score to 29 or less to improve overall QOL Improve Neck Disability Index Score Yes: Improve score to 20 or less to improve overall QOL Decrease Subjective C/O Pain Yes: Improve pain at worst to 5/10 to improve overall QOL Improve Self Care/Self Management Yes Patient to be Ind w/ HEP Yes Technical Mgr Goals Number of Weeks 6 Increase Range of Motion Yes: Improve cervical AROM to WFL & lumbar AROM flex to at least 70, ext 15 Increase Strength Yes: Improve scpaular & BLE MMT to 4-4+/5 grossly to assist with function Increase Ability to Stand Yes: >10' with pain 3/10 or less to assist with ADLs Improve Ability to Climb Stairs Yes: 1 flight with HR & LBP 3/ 10 or less to assist with household navigation Improve Oswestry Score Yes: Improve score to 24 or less to improve overall QOL Improve Neck Disability Index Score Yes: Improve score to 15 or less to improve overall QOL Decrease Subjective C/O Pain Yes: Improve pain at worst to 3/10 to improve overall QOL Outpatient Therapy Plan of Care Treatment Plan May Include Therapeutic Exercise Including Home Yes Exercise Program Manual Therapy Techniques Yes Neuromuscular Re-education Yes Therapeutic Activities to Return to Yes Previous Functional/Work Level ADL/Self Care Education Yes Mechanical Traction Yes Dry Needling Yes Thermal Modalities Yes Electrical Stimulation Yes Ultrasound/Phonophoresis Yes Massage Yes Eval/Re-Eval Yes Frequency Times per week 2 Duration Number of Weeks 6 Addendums This patient is a candidate for social No or vocational rehab? Patient/Guardian verbally acknowledges Yes understanding of treatment program and consents to further treatment? Patient/Guardian verbally acknowledges Yes understanding of diagnosis, prognosis and goals for treatment? Eval Complexity PT Charges 54417 - Moderate Complexity PHYSICIAN CERTIFICATION: I certify the specified therapy services for Jazmin Crowell are required, authorized, and reviewed every 30 days.
== END 2024-06-04 23:59 | disposition home or self-care (01) ==
LOC: PT 17:00
PROVIDERS: PCP Nurse Practitioner Family; Visit Provider Nurse Practitioner Family
DX: M54.41 Lumbago with sciatica, right side (principal); M54.2 Cervicalgia
CPT/HCPCS: 97014; 97110; 97163; 97530; G0283

== ENCOUNTER 2024-06-25 15:00 | Outpatient (RCR) | payer MEDICAID, SELFPAY ==
--- NOTE | 2024-06-25 16:53 | HMH.RHREAS ---
Rehab Reassessment Rehab OP Re-assessment Start: 06/11/24 16:09 Freq: Status: Active Protocol: Document 06/25/24 15:13 ELIER (Rec: 06/25/24 16:53 ELIER [id number]) E-signed By Jodi Arana PT Neck Disability Index Neck Disability Index Section 1: Pain Intensity The pain is moderate at the moment Section 2: Personal Care (washing, It is painful to look after dressing, etc.) myself and I am slow and careful Section 3: Lifting I can only lift very light weights Section 4: Reading I can't read as much as I want because of moderate pain in my neck Section 5: Headaches I have moderate headaches, which come infrequently Section 6: Concentration I have a fair degree of difficulty in concentrating when I want to Section 7: Work I can't do any work at all Section 8: Driving I can't drive my car at all Section 9: Sleeping My sleep is moderately disturbed (2-3 hrs. sleepless) Section 10: Recreation I can't do any recreation activities NDI Score 33 Oswestry Index Section 1 Pain Intensity The pain comes and goes and is moderate Section 2 Personal Care (Washing,Dresing) increase the pain and I find it necessary to change my way of doing it Section 3 Lifting I can only lift very light weights at most Section 4 Walking I cannot walk at all without increasing pain Section 5 Sitting Pain prevents me from sitting for more than 1/2 hour Section 6 Standing I cannot stand more than 1/2 hour without increasing pain Section 7 Sleeping Because of my pain, my normal night's sleep is less than 6 hours sleep Section 8 Social Life I hardly have any social life because of pain Section 9 Traveling I get extra pain while traveling, but it does not compel me to seek al Section 10 Changing Degreee of Pain My pain is neither getting better or worse Score and Risk Level Oswestry Sc 33 Oswestry Risk Level Severe Disability Rehab Re-assessment Subjective Subjective Pt reports she feels 0% improved overall since starting PT. Pt states she has not attended PT in 13 days due to not feeling well and relying on others for transportation to PT visits; however, reports compliance with HEP. Pt reports continued severe neck and low back pain rated 7-8/10 at worst on VAS. Pt also reports intermittent RLE radicular symptoms to her knee that occurs ~1-2x/week. Pt reports pain is aggravated by all movements and only abolishes with laying flat on her back. Objective Objective Notes Palpation: 1-2/[address] junction, R UT/LS mm, C5-7 Cervical AROM: 25 flex, 35 ext , 40 LLF, 35 RLF, 45 R rot, 50 L rot Palpation: 2/4 TT of paraspinals and gluteal mm R>L Lumbar AROM: 40 flex, 5 ext, 5 LF RLE: 4+/5 grossly Assessment Progress Assessment No Progress Assessment Notes Pt has attended 6 PT treatment sessions consisting of aerobic exercise, lumbar/ cervical mobility, UE/LE stretching, LE/core strengthening, modalities and HEP with good tolerance. Pt demonstrated regression in NDI score and cervical flexion/ extension AROM this date compared to the initial evaluation. Pt demonstrated no change in lumbar AROM and only 1 point improvement in TICO score since the initial evaluation. Overall, the pt demonstrated no significant subjective or objective changes with conservative care thus far; therefore, will be discharged to independent [facility] and referred back to MD for further treatment options and imaging. Patient goals met ST/7 Goals Not Met p! at worst, TICO/NDI, activity tolerance, ROM, LTG Revised Goals n/a Plan Plan Discharge and refer back to MD for further treatment options and imaging Time and Billing Re-Eval Time 15 Re-Eval Billing Units 0 Charge for PT reassessment? No Charge for OT reassessment? No PHYSICIAN CERTIFICATION: I certify the specified therapy services for Jazmin Serratos are required, authorized, and reviewed every 30 days.
== END 2024-06-25 23:59 | disposition home or self-care (01) ==
LOC: PT 15:00
PROVIDERS: PCP Nurse Practitioner Family; Visit Provider Nurse Practitioner Family
DX: M54.41 Lumbago with sciatica, right side (principal); M54.2 Cervicalgia
CPT/HCPCS: 97014; 97110; 97530; G0283

== ENCOUNTER 2024-07-03 14:55 | Outpatient (CLI) | payer MEDICAID, SELFPAY ==
[2024-07-03 15:20] LABS: Basophils # 0.1 K/mm3 (0-0.2); Basophils % 0.6 % (0.1-2.0); Eosinophils # 0.3 Kmm3 (0.0-0.4); Eosinophils % 2.8 % (0.1-12.0); Hematocrit 39.5 % (37.0-47.0); Hemoglobin 12.7 g/dL (12.2-16.2); Lymphocytes # 3.7 K/mm3 (0.7-4.5); Mean Corpuscular HGB Conc 32.2 g/dL (31.8-35.4); Mean Corpuscular Hemoglobin 32.6 pg (27.0-31.2); Mean Corpuscular Volume 101.3 fl (81-99); Mean Platelet Volume 10.6 fl (7.4-10.4); Monocytes # 1.1 K/mm3 (0.1-1.0); Monocytes % 9.5 % (1.7-9.3); Neutrophils # 6.7 K/mm3 (1.8-7.8); Neutrophils % 55.8 % (37.0-80.0); Nucleated Red Blood Cells # 0 10^3/uL; Nucleated Red Blood Cells % 0 %; Platelet Count 362 K/mm3 (142-424); Red Cell Distribution Width 13.1 % (11.5-17.5); Red Cell Distribution Width-SD 48.9 fL
[2024-07-03 15:30] LABS: Creatinine,Urine Random 189 mg/dL (Not Estab.)
[2024-07-03 16:11] LABS: Albumin Level 3.5 g/dl (3.5-5.0); Chloride 104 mmol/L (98-107); Sodium 140 mmol/L (136-145)
[2024-07-03 16:12] LABS: Potassium 4.3 mmoL/L (3.5-5.1)
[2024-07-03 16:14] LABS: Anion Gap 10.3 mEq/L (5-15); Blood Urea Nitrogen 12 mg/dl (7-17); Carbon Dioxide 30 mmol/L (22.0-30.0); Estimated Glomerular Filt Rate 52 ml/min (>60); GFR (African American) 63 ML/MIN (>60)
[2024-07-03 16:15] LABS: Calcium 9.3 mg/dl (8.4-10.2); Glucose 90 mg/dl (74-100); Phosphorous 5.2 mg/dl (2.5-4.5)
== END 2024-07-03 23:59 | disposition home or self-care (01) ==
LOC: LAB 14:55
PROVIDERS: PCP Nurse Practitioner Family; Visit Provider Internal Medicine
DX: N04.9 Nephrotic syndrome with unspecified morphologic changes (principal)
CPT/HCPCS: 36415; 80069; 82570; 84156; 85025

== ENCOUNTER 2024-07-09 05:54 | Emergency (ER) | payer MEDICAID, SELFPAY ==
[2024-07-09] VITALS (13 sets, daily range): BP systolic 87–145; BP diastolic 60–90; PULSE 62–85; RESP 15–26; TEMP 36.6–36.7; O2SAT 94–100; BMI 40.3
--- NOTE | 2024-07-09 06:02 | ECG_ITS ---
APPROVED REPORT Exam: Resting ECG HR:78 bpm ECG Measurements Heart Rate 78 AXES WI 181 P 38 QRSd 90 QRS 7 QT 375 T 36 QTc 408 Conclusion SINUS RHYTHM MINIMAL VOLTAGE CRITERIA FOR LVH, CONSIDER NORMAL VARIANT [MEETS CRITERIA IN ONE OF: R(aVL), S(V1), R(V5), R(V5/V6)+S(V1)] No STEMI Electronically signed by : EVERARDO MATA, 07/10/2024 02:44:32
--- NOTE | 2024-07-09 06:12 | CT_ITS ---
FINAL REPORT TECHNIQUE: After the administration of intravenous contrast, axial images were obtained through the abdomen and pelvis by computed tomography. This study was performed with technique to keep radiation doses as low as reasonably achievable, (ALARA). Individualized dose reduction techniques using automated exposure control or adjustment of the MA and/or KV according to the patient's size were employed. CLINICAL HISTORY: cp soa pain R lower chest, hx GB problems FINDINGS: Abdomen: The gallbladder is mildly distended with mild wall thickening. The liver is normal in size and attenuation. The spleen is unremarkable. The adrenals are normal. The pancreas is unremarkable. The kidneys enhance appropriately. The aorta is normal in caliber. There is no free fluid or adenopathy. Pelvis: The appendix is normal. Uterus is anteverted. The urinary bladder is unremarkable. There is no free fluid or adenopathy. IMPRESSION: Distended gallbladder with mild wall thickening which could be due to chronic or acalculous cholecystitis. Recommend clinical correlation. Reviewed, Interpreted and Dictated by Albino Dietrich MD Transcribed by Nikkie Steve Authenticated and [facility]
--- NOTE | 2024-07-09 06:12 | XR_ITS ---
FINAL REPORT TECHNIQUE: Chest PA & Lateral CLINICAL HISTORY: Chest pain, shortness of breath, pain right lower chest COMPARISON: 05/17/2024 FINDINGS: 2 views of the chest were performed. The heart size is normal. The mediastinum is within normal limits. The lungs are underinflated. There is mild bibasilar atelectasis. There are no pleural effusions. There is no pneumothorax. The bony thorax appears intact. IMPRESSION: Underinflation with mild bibasilar atelectasis. Reviewed, Interpreted and Dictated by Albino Dietrich MD Transcribed by Fiona Shipley Authenticated and . [facility]
--- NOTE | 2024-07-09 06:18 | ED_ITS ---
Discharge Plan Disposition Chief Complaint: Chest Pain Prescriptions Prescriptions: No Action torsemide 20 mg tablet 20 mg PO DAILY Patient Comments: TAKE TWO TABLETS BY MOUTH DAILY albuterol sulfate 2.5 mg /3 mL (0.083 %) solution for nebulization 2.5 mg continuous nebulization TIDP PRN (Reason: soa) Patient Comments: Inhale 3 mL 3 times a day by nebulization route for 30 days. metoprolol succinate 50 mg tablet extended release 24 hr 50 mg PO BID Patient Comments: TAKE ONE TABLET BY MOUTH TWICE DAILY prednisone 20 mg tablet 30 mg PO DAILY Patient Comments: TAKE THREE TABLETS BY MOUTH ONCE DAILY Rx Instructions: as directed by Nephology potassium chloride 10 mEq tablet extended release 20 meq PO DAILY ergocalciferol (vitamin D2) 1,250 mcg (50,000 unit) capsule 1,250 mcg PO WEEKLY Patient Comments: TAKE ONE CAPSULE BY MOUTH ONCE A WEEK fluticasone propionate 50 mcg/actuation spray,suspension 1 spray INTRANASAL DAILY PRN (Reason: shortness of air) Patient Comments: SPRAY 1 SPRAY IN EACH NOSTRIL ONCE DAILY Repatha SureClick 140 mg/mL pen injector 140 mg SQ DIRECTED Patient Comments: Inject 1 mL every 2 weeks by subcutaneous route for 30 days. Rx Instructions: Inject 1 mL every 2 weeks by subcutaneous route for 30 days. budesonide-formoterol [Symbicort] 160-4.5 mcg/actuation Hfa Aerosol Inhaler 2 puff INHALATION BID albuterol sulfate 90 mcg/actuation Aerosol Powdr Breath Activated 2 inh INHALATION DAILY PRN (Reason: shortness of air) nitroglycerin 0.4 mg Tablet, Sublingual 0.4 mg SUBLINGUAL Q5M PRN (Reason: Chest Pain) Rx Instructions: do not exceed 3 doses per episode omeprazole 20 mg Capsule,Delayed Release(Dr/Ec) 20 mg PO DAILY Referrals Follow up/Referrals: Salma Zepeda APRN [Primary Care Provider] - See instructions Print Language Print Language: Pashto Discharge ED Provider: Gibson Reed General Chief Complaint: Chest Pain Stated Complaint: SOB, pain in R side chest and back when breathing Time Seen by Provider: 07/09/24 06:11 Mode of Arrival: Ambulatory Source of Information: Patient Description of Symptoms (Recalled from ER Triage Doc. by RN): PT C/O CP HEARTBURN THAT STARTED AROUND 3 AM, PAIN RADIATES INTO R RIB AREA, WORSENS W/ DEEP BREATH History of Present Illness HPI narrative: 53-year-old female history of FSGS and restrictive lung disease presents to the ER with complaints of chest pain. Patient reports around 3 AM she woke up having heartburn type symptoms and took Tums without relief. She states the pain started radiating under her right breast and into the back. She states it is worse with deep breathing and radiates slightly into the upper abdomen. She reports she has a gallbladder that was supposed to be taken out previously. She states she has no history of heart attack, stents, or stroke, but does follow with cardiology and was supposed to have an echo with contrast but due to her kidney problems had not been cleared for the contrast until she saw her kidney doctor yesterday who told her it was okay for her to have contrast. Patient denies any headache, dizziness, numbness, tingling, weakness, she is not currently having any nausea or vomiting. She does states she had an episode of diarrhea yesterday but no ongoing diarrhea. No other associated symptoms. Related Data Home Medications ?Medication ?Instructions ?Recorded ?Confirmed albuterol sulfate 2.5 mg/3 mL 2.5 mg continuous nebulization 05/01/24 06/11/24 (0.083 %) solution for nebulization TIDP PRN soa ergocalciferol (vitamin D2) 1,250 1,250 mcg PO WEEKLY 05/01/24 06/11/24 mcg (50,000 unit) capsule evolocumab 140 mg/mL subcutaneous 140 mg SQ DIRECTED 05/01/24 06/11/24 pen injector (Daniel Montalov) fluticasone propionate 50 1 spray intranasal DAILY PRN 05/01/24 06/11/24 mcg/actuation nasal shortness of air spray,suspension metoprolol succinate 50 mg 50 mg PO BID 05/01/24 06/11/24 tablet,extended release 24 hr potassium chloride 10 mEq 20 meq PO DAILY 05/01/24 06/11/24 tablet,extended release prednisone 20 mg tablet 30 mg PO DAILY 05/01/24 06/11/24 torsemide 20 mg tablet 20 mg PO DAILY 05/01/24 06/11/24 albuterol sulfate 90 mcg/actuation 2 inh inhalation DAILY PRN 05/17/24 06/11/24 breath activated powder inhaler shortness of air budesonide-formoterol HFA 160 2 puff inhalation BID 05/17/24 06/11/24 mcg-4.5 mcg/actuation aerosol inhaler (Symbicort) nitroglycerin 0.4 mg sublingual 0.4 mg sublingual Q5M PRN Chest 05/17/24 06/11/24 tablet Pain omeprazole 20 mg capsule,delayed 20 mg PO DAILY GERD 05/17/24 06/11/24 release Allergies Allergy/AdvReac Type Severity Reaction Status Date / Time No Known Allergies Allergy Verified 07/09/24 06:04 [facility] Disclaimer: The information contained in this section may have been updated after the patient was seen, as this information can be updated by other users. Medical History (Updated 06/15/24 @ 14:28 by Gisella Bean MD) Eosinophilia Dyspnea on exertion Encounter for screening for malignant neoplasm of lung Smoking greater than 30 pack years Seasonal allergies Difficulty sleeping HTN (hypertension) FSGS (focal segmental glomerulosclerosis) with nephrosis Community acquired pneumonia Surgical History History of tubal ligation Family History Other Cancer Diabetes Hypertension Social History Smoking Status: Former smoker alcohol intake: never current occupational status: employed Travel in the last 8 weeks?: None Other Medical History Have you received the Flu Vaccine for this season: No Have you received the Pneumonia Vaccine: No ROS Obtained: Yes Systems reviewed as appropriate & no additional complaints except as documented Per HPI Physical Exam General General appearance: alert, in no apparent distress and obese Head Head exam: atraumatic and normocephalic Eye Eye exam: Present PERRL and EOMI ENT ENT exam: Present mucous membranes moist Neck Neck exam: Present normal inspection and full ROM Chest Chest inspection: Present symmetric chest wall rise; Absent tenderness Respiratory Respiratory exam: Present normal lung sounds bilaterally; Absent respiratory distress, wheezes or stridor Cardiovascular Cardiovascular exam: Present regular rate and normal rhythm Abdominal Exam Abdominal exam: Present soft and tenderness (Right upper quadrant); Absent distention, guarding or rebound Extremities Exam Extremities exam: Present full ROM Neurological Exam Neurological exam: Present alert and oriented X3; Absent motor sensory deficit Psychiatric Psychiatric exam: Present normal affect and normal mood Skin Skin exam: Present warm and dry HEART Score HEART Score HEART Score assessment performed?: No Critical Care Critical Care Time Critical Care Time: No Medical Decision Making Medical Records Medical records reviewed: Yes I reviewed the patient's medical records. MR Comment: Review of records demonstrates patient is been seen multiple times since the beginning of the year for chest pain. She has had reassuring workups and was discharged. Most recent abdominal imaging was July 2021. Gallbladder ultrasound from July 2021 demonstrates gallstones and possible polyp in gallbladder. TTE from January 2024 demonstrates normal LV size and function, concentric LVH, EF 55 to 60% with grade 1 diastolic dysfunction, mild left atrial enlargement, right heart chambers normal, mild MR and physiologic TR, no pericardial or great vessel pathology, right heart pressures not calculated. Parminder Inquiry Pt receiving controlled substance: No Vital Signs Vital Signs: 07/09/24 06:00 07/09/24 06:01 07/09/24 06:04 Temperature 97.9 F Temperature Source Oral Pulse Rate 81 62 Pulse Rate [Apical] 83 Respiratory Rate 26 H 18 Blood Pressure 145/83 H 124/90 Blood Pressure [Right Arm] 143/82 H Blood Pressure Mean [Right Arm] 102 02 Sat by Pulse Oximetry 96 98 98 Oxygen Delivery Method Room Air Room Air Room Air 07/09/24 06:31 Temperature Temperature Source Pulse Rate 83 Pulse Rate [Apical] Respiratory Rate Blood Pressure Blood Pressure [Right Arm] Blood Pressure Mean [Right Arm] 02 Sat by Pulse Oximetry Oxygen Delivery Method Lab Data Labs: Lab Results 07/09/24 06:15: WBC 13.9 H, RBC 3.88 L, Hgb 12.4, Hct 38.9, MCV 100.3 H, MCH 32.0 H, MCHC 31.9, RDW 13.0, Plt Count 147, MPV 11.4 H, Neut % (Auto) 59.0, Lymph % (Auto) 28.0, Jewell % (Auto) 9.9 H, Eos % (Auto) 2.4, Baso % (Auto) 0.4, N eut # (Auto) 8.2 H, Lymph # (Auto) 3.9, Jewell # (Auto) 1.4 H, Eos # (Auto) 0.3, Baso # (Auto) 0.1, Sodium 139, Potassium 3.4 L, Chloride 98, Carbon Dioxide 36 H , Anion Gap 8.4, BUN 22 H, Creatinine 1.20 H, Estimated Creat Clear 96, E stimated GFR 47 L, Est GFR ( Amer) 57 L, Glucose 128 H, Calcium 9.6, Total Bilirubin 0.3, AST 26, ALT 30, Alkaline Phosphatase 74, Total Protein 7.0, Albumin 4.0, Globulin 3.0, Albumin/Globulin Ratio 1.3 07/09/24 06:15 07/09/24 06:15 Response Orders (Tests/Meds): ED MEDICATIONS Generic Name Dose Route Start Last Admin Trade Name Freq PRN Reason Stop Dose Admin Lactated Ringer's 1,000 mls @ 999 mls/hr 07/09/24 06:17 07/09/24 06:24 Lactated Ringer's 1000 Ml Bag IV 07/09/24 07:17 999 mls/hr .Q1H1M ONE Administration Nitroglycerin 0.4 mg 07/09/24 06:12 07/09/24 06:25 Nitroglycerin 0.4mg Sl Tablet SL 07/10/24 06:12 0.4 mg Q5MINP PRN Administration Chest Pain Discontinued Medications Generic Name Dose Route Start Last Admin Trade Name Freq PRN Reason Stop Dose Admin Aspirin 324 mg 07/09/24 06:12 07/09/24 06:24 Aspirin 81mg Chewable Tablet PO 07/09/24 06:13 324 mg ONCE ONE Administration Morphine Sulfate 4 mg 07/09/24 06:17 07/09/24 06:25 Morphine 4mg/Ml Syringe IV 07/09/24 06:18 4 mg ONCE ONE Administration Ondansetron HCl 4 mg 07/09/24 06:17 07/09/24 06:25 Ondansetron 4mg/2ml Vial IV 07/09/24 06:18 4 mg ONCE ONE Administration ORDERS Category Date Time Status CT abdomen pelvis w con Stat Cat Scan 07/09/24 06:12 Ordered XR chest 2V Stat Exams 07/09/24 06:12 Ordered Complete Blood Count Auto Diff Stat Lab 07/09/24 06:15 Completed Comprehensive Metabolic Panel Stat Lab 07/09/24 06:15 Results D-Dimer Stat Lab 07/09/24 06:15 Received NT Pro Brain Natriuretic Pep. Stat Lab 07/09/24 06:15 Results Prothrombin Time INR Stat Lab 07/09/24 06:15 Received Troponin I Q3H Lab 07/09/24 09:15 Ordered Troponin I Q3H Lab 07/09/24 12:15 Ordered Troponin I Stat Lab 07/09/24 06:15 Results Venous Blood Gas Stat RT 07/09/24 06:12 Ordered MDM Narrative Medical Decision Narrative: In summary, this 53-year-old female with comorbidities described in the HPI which may not be at goal therapy presents to the emergency department today with right chest pain. On initial evaluation patient is hemodynamically stable, afebrile, tenderness to palpation of the right upper quadrant with radiation into the chest, pain worse with deep breathing, no chest wall tenderness. Lungs clear bilaterally, cardiopulmonary exam otherwise benign. Differential diagnosis includes but is not limited to ACS, PE, biliary colic, transaminitis, pneumothorax, pleural effusion, pneumonia, viral syndrome, electrolyte abnormality, esophageal spasm, among others. Based on these concerns, I ordered serum labs, CT imaging, cardiac workup, D-dimer. ECG personally interpreted demonstrates normal sinus rhythm, rate 78, normal axis, normal KS and QTc, no STEMI. Patient received morphine, Zofran, LR for treatment. Patient also received aspirin and nitro. Her blood pressure dropped after receiving nitro but she did not develop headache. She did become slightly hypoxic after receiving morphine and is now on 2 L nasal cannula. Labs personally reviewed demonstrate mild leukocytosis WBC 13.9, no anemia, platelets normal, CMP with creatinine 1.2, it was 1.1 a few days ago based on my review of previous labs. Additional labs pending at the time physician shift change. Imaging pending at time of physician shift change. Patient handed off to Dr. Morocho in stable condition pending additional labs and imaging workup.
[2024-07-09] MEDS: LACTATED RINGERS 1000ML 1,000 ML 999 ML IV (06:24)
[2024-07-09] MEDS: ASPIRIN 81MG CHEWABLE TABLET 324 MG PO (06:24)
[2024-07-09] MEDS: MORPHINE 4MG/ML SYRINGE 4 MG IV (06:25)
[2024-07-09] MEDS: NITROGLYCERIN 0.4MG SL TABLET 0.4 MG SL (06:25)
[2024-07-09] MEDS: ONDANSETRON 4MG/2ML VIAL 4 MG IV (06:25)
[2024-07-09 06:29] LABS: Basophils # 0.1 K/mm3 (0-0.2); Basophils % 0.4 % (0.1-2.0); Eosinophils # 0.3 Kmm3 (0.0-0.4); Eosinophils % 2.4 % (0.1-12.0); Hematocrit 38.9 % (37.0-47.0); Hemoglobin 12.4 g/dL (12.2-16.2); Lymphocytes # 3.9 K/mm3 (0.7-4.5); Mean Corpuscular HGB Conc 31.9 g/dL (31.8-35.4); Mean Corpuscular Volume 100.3 fl (81-99); Mean Platelet Volume 11.4 fl (7.4-10.4); Monocytes # 1.4 K/mm3 (0.1-1.0); Monocytes % 9.9 % (1.7-9.3); Neutrophils # 8.2 K/mm3 (1.8-7.8); Nucleated Red Blood Cells # 0 10^3/uL; Nucleated Red Blood Cells % 0 %; Platelet Count 147 K/mm3 (142-424); Red Blood Count 3.88 M/mm3 (4.20-5.40); Red Cell Distribution Width-SD 47.9 fL; White Blood Count 13.9 K/mm3 (4.8-10.8)
[2024-07-09 06:42] LABS: Alanine Aminotransferase 30 U/L (12-78); Albumin/Globulin Ratio 1.3 (1.1-1.8); Alkaline Phosphatase 74 U/L (38-126); Anion Gap 8.4 mEq/L (5-15); Aspartate Amino Transferase 26 U/L (14-36); Bilirubin,Total 0.3 mg/dl (0.2-1.3); Blood Urea Nitrogen 22 mg/dl (7-17); Calcium 9.6 mg/dl (8.4-10.2); Carbon Dioxide 36 mmol/L (22.0-30.0); Chloride 98 mmol/L (98-107); Creatinine Clearance Estimated 96 mL/min (50-200); Estimated Glomerular Filt Rate 47 ml/min (>60); GFR (African American) 57 ML/MIN (>60); Glucose 128 mg/dl (74-100); Potassium 3.4 mmoL/L (3.5-5.1); Sodium 139 mmol/L (136-145)
[2024-07-09 06:45] LABS: INR 0.88 (0.9-1.1)
[2024-07-09 06:51] LABS: VBG HCO3 32.1 mmol/L (23-30); VBG Oxygen Saturation 77.3 % (50-70); VBG PH 7.39 mmol/L (7.31-7.41); VBG PO2 44.1 mmol/L (28-40); VBG Total CO2 33.7 mmol/L (23-27)
--- NOTE | 2024-07-09 06:52 | PC.NURSE ---
pt de-sat to 84% after receiving pain medication. MD Reed aware and pt placed on 2L NC
[2024-07-09 06:53] LABS: NT Pro Brain Natriuretic Pep. 109 pg/mL (0-125)
[2024-07-09 06:55] LABS: Troponin I < 0.01 ng/ml (0.00-0.034)
[2024-07-09 06:58] LABS: Lactate Venous 2.4 mmol/L (0.4-2.0); VBG PCO2 54.8 mmol/L (35-51)
[2024-07-09 06:59] LABS: D-Dimer 0.99 ug/mL (0.0-0.5)
--- NOTE | 2024-07-09 06:59 | PC.NURSE ---
VBG results given to MD Reed.
--- NOTE | 2024-07-09 07:04 | PC.NURSE ---
MD Reed notified of BP 87/60
--- NOTE | 2024-07-09 07:08 | CT_ITS ---
FINAL REPORT TECHNIQUE: Postcontrast axial images of the chest were performed in a CTA protocol. This study was performed with techniques to keep radiation doses as low as reasonably achievable, (ALARA). Individualized dose reduction technique using automated exposure control or adjustment of mA and/or kV according to the patient's size were employed. CLINICAL HISTORY: dimer, mid sternal CP and R lower chest wall pain FINDINGS: The heart is normal in size. There are a few small scattered mediastinal lymph nodes. No pleural or pericardial effusion is identified. The thoracic aorta is normal in caliber with no focal aneurysm or dissection identified. There is no filling defect to suggest pulmonary embolism. Minimal groundglass opacities are seen bilaterally which may be due to mild edema or pneumonitis. IMPRESSION: Minimal groundglass opacities bilaterally which may be due to mild edema or pneumonitis. No PE or dissection. Reviewed, Interpreted and Dictated by Albino Dietrich MD Transcribed by Nikkie Steve Authenticated and [facility]
[2024-07-09] MEDS: IOPAMIDOL-370 (76%);100ML BOTTLE 80 ML IV (07:32)
[2024-07-09] MEDS: SODIUM CHLORIDE 0.9% 10ML SYR (RAD ONLY) 10 ML IV (07:32)
[2024-07-09] MEDS: 0.9 % SODIUM CHLORIDE 50 ML VIAL IV (07:32)
--- NOTE | 2024-07-09 07:45 | PC.NURSE ---
I consulted about blood cultures due to lab work and vitals. He states we do not need cultures at this time
[2024-07-09 09:47] LABS: Troponin I < 0.01 ng/ml (0.00-0.034)
[2024-07-09 10:57] LABS: Reflex Lactic Add Lactic Reflex
== END 2024-07-09 10:05 | disposition home or self-care (01) ==
PROVIDERS: Emergency Medicine; Emergency Provider Emergency Medicine; PCP Nurse Practitioner Family
DX: R07.1 Chest pain on breathing (principal); R10.11 Right upper quadrant pain; R06.02 Shortness of breath; K80.20 Calculus of gallbladder without cholecystitis without obstruction
CPT/HCPCS: 71046; 71275; 74177; 80053; 82803; 83880; 84484; 85025; 85378; 85610; 93005; 96361; 96374; 96375; 99285; J2270; J2405; J7120; Q9967

== ENCOUNTER 2024-07-20 05:07 | Observation (INO) | payer MEDICAID, SELFPAY ==
[2024-07-20] VITALS (28 sets, daily range): BP systolic 100–150; BP diastolic 72–107; PULSE 58–87; RESP 13–24; TEMP 35.9–43; O2SAT 89–98; BMI 40.3; BMI 42.6
--- NOTE | 2024-07-20 05:20 | ED_ITS ---
Discharge Plan Disposition Patient Disposition: Admitted Condition: Fair Clinical Impressions Clinical Impression: Acute cholecystitis Discharge ED Provider: Marlon Carrion General Adult HPI <Marcel Cohen MD - Last Filed: 07/21/24 01:27> General Chief complaint: Abdominal Pain Stated complaint: right side abd pain Time Seen by Provider: 07/20/24 05:11 History of Present Illness HPI narrative: 53-year-old female with history of obesity, FSGS on chronic steroids, hypertension, history of smoking presents for right upper quadrant abdominal pain. She reports that she was post have her gallbladder out years ago but did not end up getting it taken out. She presented on July 09 for right upper quadrant pain and chest pain and was noted to have distended and thickened gallbladder without stones on CT and bedside imaging. She followed up with Dr. Neff on July 15 in general surgery clinic with plan for medical clearance through cardiology and pulmonology to have outpatient cholecystectomy. She reports that her pain has continued and worsened. Reports nausea. Patient reports chronic shortness of breath after having the flu some years ago. She has been seen by pulmonology and does not have a definitive diagnosis at this time. Her CT scan performed a couple of weeks ago showed only mild groundglass opacities within the bases. Related Data Home Medications ?Medication ?Instructions ?Recorded ?Confirmed ergocalciferol (vitamin D2) 1,250 1,250 mcg PO WEEKLY 05/01/24 07/20/24 mcg (50,000 unit) capsule evolocumab 140 mg/mL subcutaneous 140 mg SQ DIRECTED 05/01/24 07/20/24 pen injector (Daniel Montalvo) fluticasone propionate 50 1 spray intranasal DAILY 05/01/24 07/20/24 mcg/actuation nasal spray,suspension metoprolol succinate 50 mg 50 mg PO BID 05/01/24 07/20/24 tablet,extended release 24 hr potassium chloride 10 mEq 20 meq PO DAILY 05/01/24 07/20/24 tablet,extended release albuterol sulfate 90 mcg/actuation 2 inh inhalation Q4HP PRN 05/17/24 07/20/24 breath activated powder inhaler Shortness Of Breath budesonide-formoterol HFA 160 2 puff inhalation BID 05/17/24 07/20/24 mcg-4.5 mcg/actuation aerosol inhaler (Symbicort) nitroglycerin 0.4 mg sublingual 0.4 mg sublingual Q5M PRN Chest 05/17/24 07/20/24 tablet Pain omeprazole 20 mg capsule,delayed 20 mg PO DAILY 05/17/24 07/20/24 release aspirin 81 mg tablet 81 mg PO DAILY 07/20/24 07/20/24 ondansetron 4 mg disintegrating 4 mg PO Q6HP PRN Nausea And 07/20/24 07/20/24 tablet Vomiting prednisone 5 mg tablet 5 mg PO DAILY 07/20/24 07/20/24 torsemide 40 mg tablet 40 mg PO DAILY 07/20/24 07/20/24 Previous Rx's ?Medication ?Instructions ?Recorded hydrocodone 5 mg-acetaminophen 325 1 tab PO Q6H PRN pain #14 tabs 07/20/24 mg tablet Allergies Allergy/AdvReac Type Severity Reaction Status Date / Time No Known Allergies Allergy Verified 07/15/24 14:10 [facility] <Marcel Cohen MD - Last Filed: 07/21/24 01:27> [facility] Disclaimer: The information contained in this section may have been updated after the patient was seen, as this information can be updated by other users. Medical History Eosinophilia Dyspnea on exertion Encounter for screening for malignant neoplasm of lung Smoking greater than 30 pack years Seasonal allergies Difficulty sleeping HTN (hypertension) FSGS (focal segmental glomerulosclerosis) with nephrosis Community acquired pneumonia Surgical History History of tubal ligation Family History Other Cancer Diabetes Hypertension Social History (Updated 07/20/24 @ 13:07 by Sandy Weir CRNA) Smoking Status: Former smoker alcohol intake: never substance use type: unknown current occupational status: employed and unemployed Travel in the last 8 weeks?: None Have you lived/traveled outside US in past 30 days?: No Contact w/someone who lives/traveled outside US past 30 days?: No Exposure to someone with infectious disease in past 14 days?: No Do you have a fever (greater than 100.4 F or 38 C)?: No Have you tested positive for COVID-19?: No Exposed to someone with COVID-19 in past 14 days?: No Do you have a sore throat?: No Do you have a cough?: No Do you have any weakness?: No Are you experiencing any nausea/vomitting?: No Do you have any diarrhea?: No Are you experiencing any unusual bleeding?: No Do you have any muscle aches/pain?: No Do you have any abdominal pain?: Yes Are you experiencing loss of taste or smell?: No Other Medical History Have you received the Flu Vaccine for this season: No Have you received the Pneumonia Vaccine: No <Marcel Cohen MD - Last Filed: 07/21/24 01:27> ROS Obtained: Yes All systems reviewed & no additional complaints except as documented Physical Exam <Marcel Cohen MD - Last Filed: 07/21/24 01:27> General General appearance: alert and in no apparent distress Head Head exam: atraumatic and normocephalic Eye Eye exam: Present normal appearance, PERRL and EOMI ENT ENT exam: Present normal oropharynx and normal external ear exam Neck Neck exam: Present normal inspection and full ROM Chest Chest inspection: Present normal inspection and symmetric chest wall rise; Absent tenderness Respiratory Respiratory exam: Present normal lung sounds bilaterally; Absent respiratory distress Cardiovascular Cardiovascular exam: Present regular rate and normal rhythm Abdominal Exam Abdominal exam: Present soft and tenderness (Right upper quadrant); Absent distention or guarding Extremities Exam Extremities exam: Present normal inspection; Absent edema or joint swelling Back Exam Back exam: Present normal inspection; Absent tenderness Neurological Exam Neurological exam: Present alert and oriented X3; Absent motor sensory deficit Psychiatric Psychiatric exam: Present normal affect and normal mood Skin Skin exam: Present warm, dry and normal color Lymphatic Lymphatic Findings: no adenopathy Medical Decision Making <Marcel Cohen MD - Last Filed: 07/21/24 01:27> Medical Records Medical records reviewed: Yes I reviewed the patient's medical records. Screening: Per USPSTF and CDC recommendations, given the prevalence of disease in our region, it is our hospital?s policy to screen for HIV and viral Hepatitis for all patients aged 18 and over and those with ongoing risk factors. Parminder Inquiry Pt receiving controlled substance: No Parminder was queried for this patient: No Vital Signs: 07/20/24 05:18 07/20/24 05:30 07/20/24 06:00 Temperature 98.1 F Temperature Source Oral Pulse Rate 71 63 Pulse Rate [Radial] 77 Respiratory Rate 18 Blood Pressure 143/90 H 132/87 Blood Pressure [Right Arm] 145/92 H Blood Pressure Mean Blood Pressure Mean [Right Arm] 109 Blood Pressure Source Blood Pressure Position [Right Arm] Sitting 02 Sat by Pulse Oximetry 97 98 90 L Oxygen Delivery Method Room Air 07/20/24 06:30 07/20/24 07:00 07/20/24 07:57 Temperature Temperature Source Pulse Rate 60 63 Pulse Rate [Radial] Respiratory Rate Blood Pressure 120/79 110/75 120/75 Blood Pressure [Right Arm] Blood Pressure Mean 94 Blood Pressure Mean [Right Arm] Blood Pressure Source Blood Pressure Position [Right Arm] 02 Sat by Pulse Oximetry 97 98 Oxygen Delivery Method Room Air Room Air 07/20/24 08:00 07/20/24 08:30 07/20/24 08:51 Temperature Temperature Source Pulse Rate 62 58 L Pulse Rate [Radial] Respiratory Rate Blood Pressure 124/84 109/77 L Blood Pressure [Right Arm] Blood Pressure Mean Blood Pressure Mean [Right Arm] Blood Pressure Source Blood Pressure Position [Right Arm] 02 Sat by Pulse Oximetry 98 94 L Oxygen Delivery Method Room Air Room Air Room Air 07/20/24 09:00 07/20/24 09:01 07/20/24 09:30 Temperature 98.1 F Temperature Source Oral Pulse Rate 59 L 59 L 70 Pulse Rate [Radial] Respiratory Rate 17 Blood Pressure 100/72 L 110/77 116/77 Blood Pressure [Right Arm] Blood Pressure Mean Blood Pressure Mean [Right Arm] Blood Pressure Source Automatic Cuff Blood Pressure Position [Right Arm] 02 Sat by Pulse Oximetry 96 98 Oxygen Delivery Method Room Air Room Air Room Air Lab Data Lab results reviewed: Yes I reviewed the patient's lab results. Lab Results 07/20/24 05:16: WBC 11.4 H, RBC 3.92 L, Hgb 12.7, Hct 39.3, MCV 100.3 H, MCH 32.4 H, MCHC 32.3, RDW 12.6, Plt Count 122 L, MPV 11.8 H, Neut % (Auto) 53.7, Lymph % (Auto) 29.4, Morrison % (Auto) 11.1 H, Eos % (Auto) 5.0, Baso % (Auto) 0.5, Neut # (Auto) 6.1, Lymph # (Auto) 3.4, Morrison # (Auto) 1.3 H, Eos # (Auto) 0.6 H, Baso # (Auto) 0.1, Sodium 138, Potassium 3.4 L, Chloride 98, Carbon Dioxide 36 H , Anion Gap 7.4, BUN 18 H, Creatinine 1.10 H, Estimated Creat Clear 105, E stimated GFR 52 L, Est GFR ( Amer) 63, Glucose 129 H, Calcium 9.1, Total Bilirubin 0.1 L, AST 36, ALT 41, Alkaline Phosphatase 89, Total Protein 7.1, Albumin 3.7, Globulin 3.4 H, Albumin/Globulin Ratio 1.1, Lipase 228 07/20/24 05:16 07/20/24 05:16 Orders (Tests/Meds): ED MEDICATIONS Discontinued Medications Generic Name Dose Route Start Last Admin Trade Name Freq PRN Reason Stop Dose Admin Acetaminophen 1,000 mg 07/20/24 05:19 07/20/24 05:25 Acetaminophen 500mg Tab PO 07/20/24 05:20 1,000 mg ONCE ONE Administration Acetaminophen 650 mg 07/20/24 09:43 Acetaminophen 325mg Tab PO 08/19/24 09:42 Q4HP PRN Fever or Mild Pain (1-3) Enoxaparin Sodium 40 mg 07/20/24 21:00 Enoxaparin 40mg/0.4ml Syringe SUBCUT 08/19/24 20:59 BID JIL Hydromorphone HCl 0.5 mg 07/20/24 05:19 07/20/24 05:25 Hydromorphone 2mg/Ml Syringe IV 07/20/24 05:20 0.5 mg ONCE ONE Administration Piperacillin Sod/Tazobactam 100 mls @ 200 mls/hr 07/20/24 08:56 07/20/24 09:06 Sod 4.5 gm/ Sodium Chloride IV 07/20/24 09:25 200 mls/hr ONCE ONE Administration Lactated Ringer's 1,000 mls @ 100 mls/hr 07/20/24 09:45 07/20/24 10:38 Lactated Ringer's 1000 Ml Bag IV 08/19/24 09:44 100 mls/hr .Q10H JIL Administration Sodium Chloride 1,000 mls @ 25 mls/hr 07/20/24 13:00 07/20/24 17:15 Sod Chlor 0.9% 1000ml Bag IV 07/21/24 13:59 Not Given .Q25H ONE Cefazolin Sodium 2 gm/ Sodium 100 mls @ 200 mls/hr 07/20/24 13:00 07/20/24 13:16 Chloride IV 07/20/24 13:29 200 mls/hr PREOP ONE Administration Ketorolac Tromethamine 30 mg 07/20/24 05:19 07/20/24 05:25 Ketorolac 30mg/Ml Vial IV 07/20/24 05:20 30 mg ONCE ONE Administration Metoclopramide HCl 10 mg 07/20/24 07:48 07/20/24 07:53 Metoclopramide Hcl 10mg/2ml Vial IVP 07/20/24 07:49 10 mg ONCE ONE Administration Morphine Sulfate 2 mg 07/20/24 09:43 Morphine 2mg/Ml Syringe IV 08/19/24 09:42 Q4HP PRN Moderate Pain (4-6) Morphine Sulfate 4 mg 07/20/24 09:43 Morphine 4mg/Ml Syringe IV 08/19/24 09:42 Q4HP PRN Severe Pain (7-10) Ondansetron HCl 4 mg 07/20/24 05:19 07/20/24 05:25 Ondansetron 4mg/2ml Vial IV 07/20/24 05:20 4 mg ONCE ONE Administration Ondansetron HCl 4 mg 07/20/24 06:45 07/20/24 06:47 Ondansetron 4mg/2ml Vial IV 07/20/24 06:46 4 mg ONCE ONE Administration Ondansetron HCl 4 mg 07/20/24 09:43 07/20/24 10:54 Ondansetron 4mg/2ml Vial IV 08/19/24 09:42 4 mg Q6HP PRN Administration Nausea Sodium Chloride 10 ml 07/20/24 09:43 Sodium Chloride 0.9% 10ml Flush Syringe IV 08/19/24 09:42 NEEDED PRN Maintain IV Site Sodium Chloride 10 ml 07/20/24 13:00 Sodium Chloride 0.9% 10ml Flush Syringe IV 08/19/24 12:59 NEEDED PRN Maintain IV Site Sodium Chloride 10 ml 07/20/24 13:00 Sodium Chloride 0.9% 10ml Flush Syringe IV 08/19/24 12:59 NEEDED PRN Maintain IV Site ORDERS Category Date Time Status US RUQ [US abdomen limited] Stat Exams 07/20/24 05:49 Completed CBC w/Auto Diff [Complete Blood Count Auto Diff] Stat Lab 07/20/24 05:16 Completed CMP [Comprehensive Metabolic Panel] Stat Lab 07/20/24 05:16 Completed Lipase Stat Lab 07/20/24 05:16 Completed Medical Decision Narrative: 53-year-old female with history of smoking, hypertension, FSGS on low-dose daily steroids, obesity presents for acute on chronic right upper quadrant abdominal pain. History was obtained via interactive discussion with patient, chart review. On arrival, patient is [afebrile, hemodynamically stable, satting appropriately, alert, oriented x4, GCS 15], moving all extremities spontaneously. Full physical exam performed and significant for right upper quadrant tenderness Differential includes but is not limited to acute on chronic cholecystitis, choledocholithiasis, pancreatitis, gastroenteritis. Patient was given Dilaudid, Zofran, Tylenol, Toradol for symptomatic management and correction of underlying abnormalities. Workup initiated including CBC CMP lipase.. On re-evaluation, patient [remains afebrile, HD stable.] Laboratory workup independently interpreted by me and significant for stable labs from previous, mild leukocytosis, stable renal function. I called and spoke with Dr. Elizalde who is on-call. We will plan for formal ultrasound evaluation when dayshift arrives to fully assess the gallbladder as well as to see if we can get her pain symptomatically under control. At this time care handed off to oncoming physician. <Marlon Carrion MD - Last Filed: 07/20/24 08:57> Vital Signs: 07/20/24 05:18 07/20/24 05:30 07/20/24 06:00 Temperature 98.1 F Temperature Source Oral Pulse Rate 71 63 Pulse Rate [Radial] 77 Respiratory Rate 18 Blood Pressure 143/90 H 132/87 Blood Pressure [Right Arm] 145/92 H Blood Pressure Mean Blood Pressure Mean [Right Arm] 109 Blood Pressure Source Blood Pressure Position [Right Arm] Sitting 02 Sat by Pulse Oximetry 97 98 90 L Oxygen Delivery Method Room Air 07/20/24 06:30 07/20/24 07:00 07/20/24 07:57 Temperature Temperature Source Pulse Rate 60 63 Pulse Rate [Radial] Respiratory Rate Blood Pressure 120/79 110/75 120/75 Blood Pressure [Right Arm] Blood Pressure Mean 94 Blood Pressure Mean [Right Arm] Blood Pressure Source Blood Pressure Position [Right Arm] 02 Sat by Pulse Oximetry 97 98 Oxygen Delivery Method Room Air Room Air 07/20/24 08:00 07/20/24 08:30 07/20/24 08:51 Temperature Temperature Source Pulse Rate 62 58 L Pulse Rate [Radial] Respiratory Rate Blood Pressure 124/84 109/77 L Blood Pressure [Right Arm] Blood Pressure Mean Blood Pressure Mean [Right Arm] Blood Pressure Source Blood Pressure Position [Right Arm] 02 Sat by Pulse Oximetry 98 94 L Oxygen Delivery Method Room Air Room Air Room Air 07/20/24 09:00 07/20/24 09:01 07/20/24 09:30 Temperature 98.1 F Temperature Source Oral Pulse Rate 59 L 59 L 70 Pulse Rate [Radial] Respiratory Rate 17 Blood Pressure 100/72 L 110/77 116/77 Blood Pressure [Right Arm] Blood Pressure Mean Blood Pressure Mean [Right Arm] Blood Pressure Source Automatic Cuff Blood Pressure Position [Right Arm] 02 Sat by Pulse Oximetry 96 98 Oxygen Delivery Method Room Air Room Air Room Air Lab Data Lab Results 07/20/24 05:16: WBC 11.4 H, RBC 3.92 L, Hgb 12.7, Hct 39.3, MCV 100.3 H, MCH 32.4 H, MCHC 32.3, RDW 12.6, Plt Count 122 L, MPV 11.8 H, Neut % (Auto) 53.7, Lymph % (Auto) 29.4, Morrison % (Auto) 11.1 H, Eos % (Auto) 5.0, Baso % (Auto) 0.5, Neut # (Auto) 6.1, Lymph # (Auto) 3.4, Morrison # (Auto) 1.3 H, Eos # (Auto) 0.6 H, Baso # (Auto) 0.1, Sodium 138, Potassium 3.4 L, Chloride 98, Carbon Dioxide 36 H , Anion Gap 7.4, BUN 18 H, Creatinine 1.10 H, Estimated Creat Clear 105, E stimated GFR 52 L, Est GFR ( Amer) 63, Glucose 129 H, Calcium 9.1, Total Bilirubin 0.1 L, AST 36, ALT 41, Alkaline Phosphatase 89, Total Protein 7.1, Albumin 3.7, Globulin 3.4 H, Albumin/Globulin Ratio 1.1, Lipase 228 Orders (Tests/Meds): ED MEDICATIONS Discontinued Medications Generic Name Dose Route Start Last Admin Trade Name Freq PRN Reason Stop Dose Admin Acetaminophen 1,000 mg 07/20/24 05:19 07/20/24 05:25 Acetaminophen 500mg Tab PO 07/20/24 05:20 1,000 mg ONCE ONE Administration Acetaminophen 650 mg 07/20/24 09:43 Acetaminophen 325mg Tab PO 08/19/24 09:42 Q4HP PRN Fever or Mild Pain (1-3) Enoxaparin Sodium 40 mg 07/20/24 21:00 Enoxaparin 40mg/0.4ml Syringe SUBCUT 08/19/24 20:59 BID JIL Hydromorphone HCl 0.5 mg 07/20/24 05:19 07/20/24 05:25 Hydromorphone 2mg/Ml Syringe IV 07/20/24 05:20 0.5 mg ONCE ONE Administration Piperacillin Sod/Tazobactam 100 mls @ 200 mls/hr 07/20/24 08:56 07/20/24 09:06 Sod 4.5 gm/ Sodium Chloride IV 07/20/24 09:25 200 mls/hr ONCE ONE Administration Lactated Ringer's 1,000 mls @ 100 mls/hr 07/20/24 09:45 07/20/24 10:38 Lactated Ringer's 1000 Ml Bag IV 08/19/24 09:44 100 mls/hr .Q10H JIL Administration Sodium Chloride 1,000 mls @ 25 mls/hr 07/20/24 13:00 07/20/24 17:15 Sod Chlor 0.9% 1000ml Bag IV 07/21/24 13:59 Not Given .Q25H ONE Cefazolin Sodium 2 gm/ Sodium 100 mls @ 200 mls/hr 07/20/24 13:00 07/20/24 13:16 Chloride IV 07/20/24 13:29 200 mls/hr PREOP ONE Administration Ketorolac Tromethamine 30 mg 07/20/24 05:19 07/20/24 05:25 Ketorolac 30mg/Ml Vial IV 07/20/24 05:20 30 mg ONCE ONE Administration Metoclopramide HCl 10 mg 07/20/24 07:48 07/20/24 07:53 Metoclopramide Hcl 10mg/2ml Vial IVP 07/20/24 07:49 10 mg ONCE ONE Administration Morphine Sulfate 2 mg 07/20/24 09:43 Morphine 2mg/Ml Syringe IV 08/19/24 09:42 Q4HP PRN Moderate Pain (4-6) Morphine Sulfate 4 mg 07/20/24 09:43 Morphine 4mg/Ml Syringe IV 08/19/24 09:42 Q4HP PRN Severe Pain (7-10) Ondansetron HCl 4 mg 07/20/24 05:19 07/20/24 05:25 Ondansetron 4mg/2ml Vial IV 07/20/24 05:20 4 mg ONCE ONE Administration Ondansetron HCl 4 mg 07/20/24 06:45 07/20/24 06:47 Ondansetron 4mg/2ml Vial IV 07/20/24 06:46 4 mg ONCE ONE Administration Ondansetron HCl 4 mg 07/20/24 09:43 07/20/24 10:54 Ondansetron 4mg/2ml Vial IV 08/19/24 09:42 4 mg Q6HP PRN Administration Nausea Sodium Chloride 10 ml 07/20/24 09:43 Sodium Chloride 0.9% 10ml Flush Syringe IV 08/19/24 09:42 NEEDED PRN Maintain IV Site Sodium Chloride 10 ml 07/20/24 13:00 Sodium Chloride 0.9% 10ml Flush Syringe IV 08/19/24 12:59 NEEDED PRN Maintain IV Site Sodium Chloride 10 ml 07/20/24 13:00 Sodium Chloride 0.9% 10ml Flush Syringe IV 08/19/24 12:59 NEEDED PRN Maintain IV Site ORDERS Category Date Time Status US RUQ [US abdomen limited] Stat Exams 07/20/24 05:49 Completed CBC w/Auto Diff [Complete Blood Count Auto Diff] Stat Lab 07/20/24 05:16 Completed CMP [Comprehensive Metabolic Panel] Stat Lab 07/20/24 05:16 Completed Lipase Stat Lab 07/20/24 05:16 Completed Medical Decision Narrative: 53-year-old female with history of smoking, hypertension, FSGS on low-dose daily steroids, obesity presents for acute on chronic right upper quadrant abdominal pain. History was obtained via interactive discussion with patient, chart review. On arrival, patient is [afebrile, hemodynamically stable, satting appropriately, alert, oriented x4, GCS 15], moving all extremities spontaneously. Full physical exam performed and significant for right upper quadrant tenderness Differential includes but is not limited to acute on chronic cholecystitis, choledocholithiasis, pancreatitis, gastroenteritis. Patient was given Dilaudid, Zofran, Tylenol, Toradol for symptomatic management and correction of underlying abnormalities. Workup initiated including CBC CMP lipase.. On re-evaluation, patient [remains afebrile, HD stable.] Laboratory workup independently interpreted by me and significant for stable labs from previous, mild leukocytosis, stable renal function. I called and spoke with Dr. Elizalde who is on-call. We will plan for formal ultrasound evaluation when dayshift arrives to fully assess the gallbladder as well as to see if we can get her pain symptomatically under control. At this time care handed off to oncoming physician. Marlon Carrion MD I took over care of this patient at 0654 pending right upper quadrant ultrasound and symptomatic reassessment. Plan at time of handoff was if ultrasound was reassuring and patient's pain was controlled, and patient wanted to be discharged home, felt that that was appropriate with plan for outpatient operative removal of her gallbladder. If pain is not controlled, likely appropriate for admission for pain control and cholecystectomy. Formal right upper quadrant ultrasound demonstrated IMPRESSION: Distended gallbladder with gallstone in the neck of the gallbladder. Adenomyomatosis. Given these findings, and patient being symptomatic still with nausea and an episode of vomiting during the ultrasound, is felt that she would benefit from cholecystectomy. Will reach out again to Dr. Elizalde with general surgery. Per Dr. Elizalde, recommended admission to the hospitalist service with plan to go to the OR this afternoon for cholecystectomy. I then discussed the patient's case with Dr. Boston with the hospitalist service for admission. I discussed this plan with the patient and she was amenable for admission at this time. Will start patient on IV Zosyn. Procedures <Marcel Cohen MD - Last Filed: 07/21/24 01:27> Risk/Benefits of Procedure(s) Were Explained: Yes Critical Care <Marcel Cohen MD - Last Filed: 07/21/24 01:27> Critical Care Time Critical Care Time: No
[2024-07-20 05:24] LABS: Basophils # 0.1 K/mm3 (0-0.2); Basophils % 0.5 % (0.1-2.0); Eosinophils # 0.6 Kmm3 (0.0-0.4); Hematocrit 39.3 % (37.0-47.0); Hemoglobin 12.7 g/dL (12.2-16.2); Immature Granulocytes # 0.04 10^3uL; Immature Granulocytes % 0.3 %; Lymphocytes # 3.4 K/mm3 (0.7-4.5); Lymphocytes % 29.4 % (10-50); Mean Corpuscular HGB Conc 32.3 g/dL (31.8-35.4); Mean Corpuscular Hemoglobin 32.4 pg (27.0-31.2); Mean Corpuscular Volume 100.3 fl (81-99); Mean Platelet Volume 11.8 fl (7.4-10.4); Monocytes # 1.3 K/mm3 (0.1-1.0); Monocytes % 11.1 % (1.7-9.3); Neutrophils # 6.1 K/mm3 (1.8-7.8); Neutrophils % 53.7 % (37.0-80.0); Nucleated Red Blood Cells # 0 10^3/uL; Nucleated Red Blood Cells % 0 %; Platelet Count 122 K/mm3 (142-424); Red Blood Count 3.92 M/mm3 (4.20-5.40); Red Cell Distribution Width 12.6 % (11.5-17.5); Red Cell Distribution Width-SD 46.3 fL; White Blood Count 11.4 K/mm3 (4.8-10.8)
[2024-07-20] MEDS: KETOROLAC 30MG/ML VIAL 30 MG IV (05:25)
[2024-07-20] MEDS: ONDANSETRON 4MG/2ML VIAL 4 MG IV ×3 (05:25→10:54)
[2024-07-20] MEDS: ACETAMINOPHEN 500MG TAB 1000 MG PO (05:25)
[2024-07-20] MEDS: HYDROMORPHONE 2MG/ML SYRINGE 0.5 MG IV (05:25)
[2024-07-20 05:28] LABS: Albumin Level 3.7 g/dl (3.5-5.0); Chloride 98 mmol/L (98-107); Potassium 3.4 mmoL/L (3.5-5.1); Sodium 138 mmol/L (136-145)
[2024-07-20 05:31] LABS: Alanine Aminotransferase 41 U/L (12-78); Albumin/Globulin Ratio 1.1 (1.1-1.8); Alkaline Phosphatase 89 U/L (38-126); Anion Gap 7.4 mEq/L (5-15); Aspartate Amino Transferase 36 U/L (14-36); Blood Urea Nitrogen 18 mg/dl (7-17); Carbon Dioxide 36 mmol/L (22.0-30.0); Creatinine Clearance Estimated 105 mL/min (50-200); Estimated Glomerular Filt Rate 52 ml/min (>60); GFR (African American) 63 ML/MIN (>60); Globulin 3.4 g/dL (1.3-3.2); Lipase 228 U/L (23-300); Total Protein,Serum 7.1 g/dl (6.3-8.2)
[2024-07-20 05:32] LABS: Bilirubin,Total 0.1 mg/dl (0.2-1.3); Calcium 9.1 mg/dl (8.4-10.2); Glucose 129 mg/dl (74-100)
--- NOTE | 2024-07-20 05:49 | US_ITS ---
FINAL REPORT CLINICAL HISTORY: RUQ pain COMPARISON: 08/08/2021 FINDINGS: Sonographic images of the right upper quadrant were obtained. The pancreas is partially obscured. The liver has an unremarkable appearance. The gallbladder is mildly distended. There is an echogenic shadowing focus in the neck of the gallbladder measuring 1 cm consistent with a gallstone. There is ringdown artifact from the gallbladder wall consistent with adenomyomatosis. The common duct measures 6 mm. There is no evidence of choledocholithiasis. Limited images of the right kidney are unremarkable. IMPRESSION: Distended gallbladder with gallstone in the neck of the gallbladder. Adenomyomatosis. Reviewed, Interpreted and Dictated by Albino Dietrich MD Transcribed by Fiona Shipley Authenticated and [facility]
--- NOTE | 2024-07-20 07:18 | PC.NURSE ---
0716 - Pt transported to US by wheelchair
--- NOTE | 2024-07-20 07:43 | PC.NURSE ---
Pt back from u/s. Pt has been vomiting again. Dr Vaca notified and medicated per MAY.
[2024-07-20] MEDS: METOCLOPRAMIDE HCL 10MG/2ML VIAL 10 MG IVP (07:53)
--- NOTE | 2024-07-20 08:37 | PC.NURSE ---
Dr Eilzalde paged to the ER for consult on pt
--- NOTE | 2024-07-20 08:43 | PC.NURSE ---
Dr Vaca s/w Dr Elizalde, agrees to admit with Hospitalist acceptance.
--- NOTE | 2024-07-20 08:43 | EXP.SURG.CON ---
History of Present Illness *Admission Date: 07/20/24 *Reason for visit:: Gallbladder *History of present illness: Patient is a 53-year-old female whom I had seen 2 years ago for symptomatic gallstones characterized by sharp right upper quadrant pain. At that time she underwent gallbladder ultrasound which revealed gallstones and possible polyp. She had been seen in the office several times and ultimately plan was made to proceed with cholecystectomy. However, the patient did not show up for her scheduled surgery and wished to reschedule. She had resided in [facility] for a couple of years and last year relocated back to this area. She states that they were watching her gallbladder. She had presented to the emergency department on 07/09/2024 with right upper quadrant pain radiating into the chest. Thorough workup was performed and patient was found to have symptoms likely of symptomatic cholelithiasis without acute cholecystitis. She was able managed as an outpatient at that time. She saw Dr. Fuentes in the office on 07/15/2024 due to symptoms of epigastric pain and right upper quadrant pain with radiation into the back and chest. He was making arrangements for outpatient cholecystectomy after cardiac risk stratification. She presented to the emergency department this morning with acute exacerbation of right upper quadrant pain. She was quite tender on exam. She underwent official dedicated gallbladder ultrasound this morning. This revealed distended gallbladder with gallstone in the neck of the gallbladder adenomyomatosis. She is remaining tender on examination. Given findings of clinical cholecystitis plan was made for inpatient admission and probable cholecystectomy. [facility] Disclaimer: The information contained in this section may have been updated after the patient was seen, as this information can be updated by other users. Medical History Eosinophilia Dyspnea on exertion Encounter for screening for malignant neoplasm of lung Smoking greater than 30 pack years Seasonal allergies Difficulty sleeping HTN (hypertension) FSGS (focal segmental glomerulosclerosis) with nephrosis Community acquired pneumonia Surgical History History of tubal ligation Family History Other Cancer Diabetes Hypertension Social History Smoking Status: Former smoker alcohol intake: never current occupational status: employed Travel in the last 8 weeks?: None Have you lived/traveled outside US in past 30 days?: No Contact w/someone who lives/traveled outside US past 30 days?: No Exposure to someone with infectious disease in past 14 days?: No Do you have a fever (greater than 100.4 F or 38 C)?: No Have you tested positive for COVID-19?: No Exposed to someone with COVID-19 in past 14 days?: No Do you have a sore throat?: No Do you have a cough?: No Do you have any weakness?: No Do you have any diarrhea?: No Are you experiencing any unusual bleeding?: No Do you have any muscle aches/pain?: No Do you have any abdominal pain?: Yes Are you experiencing loss of taste or smell?: No Meds Home Medications and Allergies Home Medications ?Medication ?Instructions ?Recorded ?Confirmed ?Type ergocalciferol (vitamin D2) 1,250 1,250 mcg PO WEEKLY 05/01/24 07/20/24 History mcg (50,000 unit) capsule evolocumab 140 mg/mL subcutaneous 140 mg SQ DIRECTED 05/01/24 07/20/24 History pen injector (Daniel Montalvo) fluticasone propionate 50 1 spray intranasal DAILY 05/01/24 07/20/24 History mcg/actuation nasal spray,suspension metoprolol succinate 50 mg 50 mg PO BID 05/01/24 07/20/24 History tablet,extended release 24 hr potassium chloride 10 mEq 20 meq PO DAILY 05/01/24 07/20/24 History tablet,extended release albuterol sulfate 90 mcg/actuation 2 inh inhalation Q4HP PRN 05/17/24 07/20/24 History breath activated powder inhaler Shortness Of Breath budesonide-formoterol HFA 160 2 puff inhalation BID 05/17/24 07/20/24 History mcg-4.5 mcg/actuation aerosol inhaler (Symbicort) nitroglycerin 0.4 mg sublingual 0.4 mg sublingual Q5M PRN Chest 05/17/24 07/20/24 History tablet Pain omeprazole 20 mg capsule,delayed 20 mg PO DAILY 05/17/24 07/20/24 History release ondansetron 4 mg disintegrating 4 mg PO Q6HP PRN Nausea And 07/20/24 07/20/24 History tablet Vomiting prednisone 5 mg tablet 5 mg PO DAILY 07/20/24 07/20/24 History trazodone 100 mg tablet 50 - 100 mg PO HS 07/20/24 07/20/24 History New Prescriptions to Start Prescriptions: Allergies Allergy/AdvReac Type Severity Reaction Status Date / Time No Known Allergies Allergy Verified 07/15/24 14:10 Exam (Inpt) Vital signs and Labs for Last 24 Hours: Temp Pulse Resp BP Pulse Ox O2 Del Method 98.1 F 58 L 18 109/77 L 94 L Room Air 07/20/24 05:18 07/20/24 08:30 07/20/24 05:18 07/20/24 08:30 07/20/24 08:30 07/20/24 08:30 Laboratory Results - last 24 hr 07/20/24 05:16: WBC 11.4 H, RBC 3.92 L, Hgb 12.7, Hct 39.3, MCV 100.3 H, MCH 32.4 H, MCHC 32.3, RDW 12.6, Plt Count 122 L, MPV 11.8 H, Neut % (Auto) 53.7, Lymph % (Auto) 29.4, Emmet % (Auto) 11.1 H, Eos % (Auto) 5.0, Baso % (Auto) 0.5, Neut # (Auto) 6.1, Lymph # (Auto) 3.4, Emmet # (Auto) 1.3 H, Eos # (Auto) 0.6 H, Baso # (Auto) 0.1, Sodium 138, Potassium 3.4 L, Chloride 98, Carbon Dioxide 36 H, Anion Gap 7.4, BUN 18 H, Creatinine 1.10 H, Estimated Creat Clear 105, Estimated GFR 52 L, Est GFR ( Amer) 63, Glucose 129 H, Calcium 9.1, Total Bilirubin 0.1 L, AST 36, ALT 41, Alkaline Phosphatase 89, Total Protein 7.1, Albumin 3.7, Globulin 3.4 H, Albumin/Globulin Ratio 1.1, Lipase 228 I & O for Labs for Last 24 Hours: Intake & Output 07/17/24 07/18/24 07/19/24 07/20/24 11:59 11:59 11:59 11:59 Weight 250 lb Constitutional: no acute distress Head: Present normocephalic GI: Present soft and tenderness Results Labs 07/20/24 05:16 07/20/24 05:16 Labs: Laboratory Results - last 24 hr 07/20/24 05:16: WBC 11.4 H, RBC 3.92 L, Hgb 12.7, Hct 39.3, MCV 100.3 H, MCH 32.4 H, MCHC 32.3, RDW 12.6, Plt Count 122 L, MPV 11.8 H, Neut % (Auto) 53.7, Lymph % (Auto) 29.4, Emmet % (Auto) 11.1 H, Eos % (Auto) 5.0, Baso % (Auto) 0.5, Neut # (Auto) 6.1, Lymph # (Auto) 3.4, Emmet # (Auto) 1.3 H, Eos # (Auto) 0.6 H, Baso # (Auto) 0.1, Sodium 138, Potassium 3.4 L, Chloride 98, Carbon Dioxide 36 H, Anion Gap 7.4, BUN 18 H, Creatinine 1.10 H, Estimated Creat Clear 105, Estimated GFR 52 L, Est GFR ( Amer) 63, Glucose 129 H, Calcium 9.1, Total Bilirubin 0.1 L, AST 36, ALT 41, Alkaline Phosphatase 89, Total Protein 7.1, Albumin 3.7, Globulin 3.4 H, Albumin/Globulin Ratio 1.1, Lipase 228 Assessment and Plan *Assessment and plan (1) Acute cholecystitis: Status: Acute Category: Medical Code(s): K81.0 - Acute cholecystitis Plan Discussed any additional preoperative testing with anesthesia and hospitalist service and likely plan for cholecystectomy while inpatient.
--- NOTE | 2024-07-20 08:43 | PC.NURSE ---
Notified HS of the need for a bed for admission.
[2024-07-20] MEDS: PIPERACILLIN/TAZO 4.5 GM in 0.9 % SODIUM CHLORIDE 100 ML IV (09:06)
--- NOTE | 2024-07-20 09:06 | HMH.PHAINT1 ---
Pharmacy Intervention Comments: MEDICATION RECONCILIATION COMPLETED ON PATIENT USING EXTERNAL FILL HISTORY FROM PHARMACY. -SHARLA BOYD, DIORD
--- NOTE | 2024-07-20 09:27 | PC.NURSE ---
Dr Elizalde at bedside
--- NOTE | 2024-07-20 09:42 | CA_ITS ---
APPROVED REPORT EXAM: Comprehensive 2D, Doppler, and color-flow Echocardiogram Civilian Technician: Nanette Lugo RT(R) Ht: 5 ft 6 in Wt: 250lbs BSA: 2.20 BP: 120/79 mmHg Indications: hx CP, ex smoker, HTN, pre op assessment for cholecystectomy today 2D Dimensions EF AP4 48.40 % GL Strain -17.6 % M-Mode Dimensions RVDd 2.31 cm (0.9-2.6) LA Diam 2.91 cm (1.9-4.0) LVDd 5.16 cm (3.5-5.7) LVDs 3.84 cm (3.5-5.7) IVSd 0.64 cm (0.6-1.1) PWd 0.64 cm (0.6-1.1) EF (Teich) 50.10% FS 25.60% EDV (Teich) 127.20 mL TAPSE 2.42 (<1.7) ESV (Teich) 63.50 mL LV Diastology E Decel Time 160 (160-240 msec) E/A Ratio 1.1 Mitral Valve MV E Max Timbo. 84.0 (40-130 cm/s) MV A Velocity 79.0 (40-130 cm/s) E/A Ratio 1.05 MV PHT 47.0 ms Left Ventricle The left ventricle is normal size. The left ventricular systolic function is normal. The left ventricular ejection fraction is within the normal range. Proximal septal thickening is noted. There is normal LV segmental wall motion. The left ventricular diastolic function is normal. LVEF is 55%. Right Ventricle The right ventricle is normal size. The right ventricular systolic function is normal. Atria The left atrium is mildly dilated. The right atrium is mildly dilated. There is no Doppler evidence of interatrial shunt. Aortic Valve The aortic valve opens well. There is no aortic valvular stenosis. No aortic regurgitation is present. Mitral Valve The mitral valve is normal in structure. No evidence of mitral valve stenosis. Mild mitral regurgitation. Tricuspid Valve Tricuspid valve is grossly normal in structure and function. Trace tricuspid regurgitation. There is insufficient TR jet to estimate RVSP. Pulmonic Valve The pulmonary valve is normal in structure. Trace pulmonic regurgitation. Great Vessels The aortic root is normal in size. IVC is normal in size and collapses >50% with inspiration. Pericardium There is no pericardial effusion. Other Information Study Quality: Fair Conclusion Normal biventricular systolic function. Mild biatrial dilation. Mild MR. Electronically signed by : Agnes Carrasco MD 07/20/2024 12:38:44
--- NOTE | 2024-07-20 09:42 | PC.NURSE ---
Called 2nd floor to [facility] for pt to go to med/Surg unit. THIERNO states she will notify the techs again.
[2024-07-20] MEDS: LACTATED RINGERS 1000ML 1,000 ML 100 ML IV (10:38)
--- NOTE | 2024-07-20 11:11 | P.CONCA_ITS ---
History of Present Illness History of Present Illness Consult date: 07/20/24 Requesting physician: Ron Boston Consult reason: pre-op evaluation Chief complaint: abdominal pain History of present illness: 53-year-old white female without known cardiovascular disease recently evaluated in our clinic on May 20 as a new patient for evaluation of chest pain and shortness of breath. At that visit she reports she had been in the emergency room with normal troponins and chest x-ray. She had also seen another sign board erector several months prior with reportedly normal stress test and 2D echo. Her risk factors were discussed and we attempted to gather records for evaluation. She has not followed up since that time but the records are in her chart. There is an echo dated January 2024 from [facility] which shows normal LV size and function with mild LVH, EF 55 to 60%, grade 1 diastolic dysfunction, mild left atrial enlargement. No pathologic valve disease. Stress test dated November 2023 shows no evidence of ischemia, preserved EF, no findings of multivessel CAD or increased LV filling pressures. In the interim patient has presented to the emergency room with worsening episodic abdominal pain and is found to have gallstones and is awaiting cholecystectomy this admission. We are asked to provide preoperative evaluation. Patient denies any recent worsening anginal symptoms but admits her baseline functional capacity is very poor. She currently has pulmonology workup in progress and also has FSGS nephrotic syndrome as well as morbid obesity with BMI 42. Electrocardiogram dated 07/09/2024 is unremarkable [facility] Disclaimer: The information contained in this section may have been updated after the patient was seen, as this information can be updated by other users. Medical History Eosinophilia Dyspnea on exertion Encounter for screening for malignant neoplasm of lung Smoking greater than 30 pack years Seasonal allergies Difficulty sleeping HTN (hypertension) FSGS (focal segmental glomerulosclerosis) with nephrosis Community acquired pneumonia Surgical History History of tubal ligation Family History Other Cancer Diabetes Hypertension Social History (Updated 07/20/24 @ 12:05 by Luz Marina Guerra RN) Smoking Status: Former smoker alcohol intake: never current occupational status: employed and unemployed Travel in the last 8 weeks?: None Have you lived/traveled outside US in past 30 days?: No Contact w/someone who lives/traveled outside US past 30 days?: No Exposure to someone with infectious disease in past 14 days?: No Do you have a fever (greater than 100.4 F or 38 C)?: No Have you tested positive for COVID-19?: No Exposed to someone with COVID-19 in past 14 days?: No Do you have a sore throat?: No Do you have a cough?: No Do you have any weakness?: No Are you experiencing any nausea/vomitting?: No Do you have any diarrhea?: No Are you experiencing any unusual bleeding?: No Do you have any muscle aches/pain?: No Do you have any abdominal pain?: Yes Are you experiencing loss of taste or smell?: No Review of Systems Constitutional Constitutional: Denies fatigue and Denies weakness Eyes Eyes: Denies loss of vision ENT Ears, Nose, Mouth, and Throat: Denies hearing loss and Denies vertigo *Cardiovascular Cardiovascular: Denies chest pain, Denies dyspnea and Denies syncope *Respiratory Respiratory: Denies cough and Denies dyspnea *Gastrointestinal Gastrointestinal: Reports abdominal pain, Denies change in stool character, Denies nausea and Denies vomiting *Musculoskeletal Musculoskeletal: Denies muscle weakness Integumentary/Breasts Skin/Breast: Denies changing lesions *Neurologic Neurologic: Denies loss of vision, Denies syncope, Denies vertigo and Denies weakness Endocrine Endocrine: Denies fatigue Exam Data for Last 24 hours Vital signs and Labs for Last 24 Hours: Temp Pulse Resp BP Pulse Ox O2 Del Method 98.1 F 65 16 118/76 94 L Room Air 07/20/24 09:01 07/20/24 10:00 07/20/24 10:00 07/20/24 10:00 07/20/24 10:00 07/20/24 10:00 Laboratory Results - last 24 hr 07/20/24 05:16: WBC 11.4 H, RBC 3.92 L, Hgb 12.7, Hct 39.3, MCV 100.3 H, MCH 32.4 H, MCHC 32.3, RDW 12.6, Plt Count 122 L, MPV 11.8 H, Neut % (Auto) 53.7, Lymph % (Auto) 29.4, Pocahontas % (Auto) 11.1 H, Eos % (Auto) 5.0, Baso % (Auto) 0.5, Neut # (Auto) 6.1, Lymph # (Auto) 3.4, [place]ontas # (Auto) 1.3 H, Eos # (Auto) 0.6 H, Baso # (Auto) 0.1, Sodium 138, Potassium 3.4 L, Chloride 98, Carbon Dioxide 36 H , Anion Gap 7.4, BUN 18 H, Creatinine 1.10 H, Estimated Creat Clear 105, Estimated GFR 52 L, Est GFR ( Amer) 63, Glucose 129 H, Calcium 9.1, Total Bilirubin 0.1 L, AST 36, ALT 41, Alkaline Phosphatase 89, Total Protein 7.1, Albumin 3.7, Globulin 3.4 H, Albumin/Globulin Ratio 1.1, Lipase 228 I & O for Last 24 hours: Intake & Output 07/17/24 07/18/24 07/19/24 07/20/24 23:59 23:59 23:59 23:59 Weight 265 lb 5 oz Meds Home Medications and Allergies Home Medications ?Medication ?Instructions ?Recorded ?Confirmed ?Type ergocalciferol (vitamin D2) 1,250 1,250 mcg PO WEEKLY 05/01/24 07/20/24 History mcg (50,000 unit) capsule evolocumab 140 mg/mL subcutaneous 140 mg SQ DIRECTED 05/01/24 07/20/24 History pen injector (Daniel Montalvo) fluticasone propionate 50 1 spray intranasal DAILY 05/01/24 07/20/24 History mcg/actuation nasal spray,suspension metoprolol succinate 50 mg 50 mg PO BID 05/01/24 07/20/24 History tablet,extended release 24 hr potassium chloride 10 mEq 20 meq PO DAILY 05/01/24 07/20/24 History tablet,extended release albuterol sulfate 90 mcg/actuation 2 inh inhalation Q4HP PRN 05/17/24 07/20/24 History breath activated powder inhaler Shortness Of Breath budesonide-formoterol HFA 160 2 puff inhalation BID 05/17/24 07/20/24 History mcg-4.5 mcg/actuation aerosol inhaler (Symbicort) nitroglycerin 0.4 mg sublingual 0.4 mg sublingual Q5M PRN Chest 05/17/24 07/20/24 History tablet Pain omeprazole 20 mg capsule,delayed 20 mg PO DAILY 05/17/24 07/20/24 History release aspirin 81 mg tablet 81 mg PO DAILY 07/20/24 07/20/24 History ondansetron 4 mg disintegrating 4 mg PO Q6HP PRN Nausea And 07/20/24 07/20/24 History tablet Vomiting prednisone 5 mg tablet 5 mg PO DAILY 07/20/24 07/20/24 History torsemide 40 mg tablet 40 mg PO DAILY 07/20/24 07/20/24 History New Prescriptions to Start Prescriptions: Allergies Allergy/AdvReac Type Severity Reaction Status Date / Time No Known Allergies Allergy Verified 07/15/24 14:10 Assessment and Plan *Assessment and plan (1) Pre-op evaluation: Status: Acute Category: Medical Code(s): Z01.818 - Encounter for other preprocedural examination Plan Pre-OP - Patient has no known heart disease or unstable symptoms at this time - 2D echo here shows normal BiV function, mild biatrial dilation, mild MR - She is acceptable risk from CV standpoint to proceed with cholecystectomy Office f/u 2-3 weeks.
--- NOTE | 2024-07-20 13:05 | EXP.ANES.CKL ---
[facility] Disclaimer: The information contained in this section may have been updated after the patient was seen, as this information can be updated by other users. Medical History Eosinophilia Dyspnea on exertion Encounter for screening for malignant neoplasm of lung Smoking greater than 30 pack years Seasonal allergies Difficulty sleeping HTN (hypertension) FSGS (focal segmental glomerulosclerosis) with nephrosis Community acquired pneumonia Surgical History History of tubal ligation Family History Other Cancer Diabetes Hypertension Social History Smoking Status: Former smoker alcohol intake: never substance use type: unknown current occupational status: employed and unemployed Travel in the last 8 weeks?: None [facility] Anesthesia Checklist Patient Identification Patient Identification: Arm Band and Verbal (Name & ) Structural Data Admitted From: Inpatient Planned Operative Procedure/s: lap damián Consent for Planned Operative Procedure(s) Verified: Yes Verified Documents: Surgical Consent and History and Physical NPO Status Verified Time NPO: 00:00 Additional verifications Patient : No Anesthesia Reactions: No Airway Assessment Mallampati Score:: Class II Dentition: Partials Neurological Assessment Level of Consciousness: Awake, Alert and Appropriate Hx Seizures: No Numbness or tingling in extremities: No Anesthesia Plan Anesthesia Risk discussed: Yes Anesthesia Plan: Verified ASA Class: III Anesthesia Type: General
[2024-07-20] MEDS: CEFAZOLIN SODIUM 2 GM in 0.9 % SODIUM CHLORIDE 100 ML IV (13:16)
[2024-07-20] MEDS: ROPIVACAINE 0.5% 30ML VIAL 150 MG (13:38)
[2024-07-20] MEDS: LIDOCAINE 1% 20ML MDV 20 ML (13:38)
[2024-07-20] MEDS: SODIUM CHLORIDE IRRIG SOLUTION 3,000 ML 20 ML IR (13:38)
--- NOTE | 2024-07-20 14:53 | P.OP_ITS ---
Date of procedure: 07/20/24 Pre-op Diagnosis:: Cholecystitis Post-op Diagnosis:: Same Procedure performed:: Laparoscopic cholecystectomy Surgeon:: Pedro Elizalde MD DIRECTOR SEMICONDUCTOR:: Alex Otto Anesthesia: GETDave Estimated blood loss (mL): 25 Clinical Note:: Patient is a 53-year-old female whom I had seen 2 years ago for symptomatic gallstones characterized by sharp right upper quadrant pain. At that time she underwent gallbladder ultrasound which revealed gallstones and possible polyp. She had been seen in the office several times and ultimately plan was made to proceed with cholecystectomy. However, the patient did not show up for her scheduled surgery and wished to reschedule. She had resided in [facility] for a couple of years and last year relocated back to this area. She states that they were watching her gallbladder. She had presented to the em ergency department on 07/09/2024 with right upper quadrant pain radiating into the chest. Thorough workup was performed and patient was found to have symptoms likely of symptomatic cholelithiasis without acute cholecystitis. She was able managed as an outpatient at that time. She saw Dr. Fuentes in the office on 07/15/2024 due to symptoms of epigastric pain and right upper quadrant pain with radiation into the back and chest. He was making arrangements for outpatient cholecystectomy after cardiac risk stratification. She presented to the emergency department this morning with acute exacerbation of right upper quadrant pain. She was quite tender on exam. She underwent official dedicated gallbladder ultrasound this morning. This revealed distended gallbladder with gallstone in the neck of the gallbladder adenomyomatosis. She is remaining tender on examination. Given findings of clinical cholecystitis plan was made for inpatient admission and probable cholecystectomy. . Operative findings:: She had a distended somewhat thickened edematous gallbladder. There was moderate stone in the neck of the gallbladder. Operative note:: Consent was obtained and patient was taken the operating room. She was given preoperative intravenous antibiotics. In the operating room she was placed in supine position. General anesthesia was induced via endotracheal tube. Abdomen was prepped and draped in the standard surgical fashion. Subumbilical skin incision was made and while performing abdominal wall lift Veress needle was inserted. CO2 pneumoperitoneum was achieved to 15 mmHg. 11 mm trocar was inserted at the umbilicus. There were some omental adhesions at the umbilicus likely from previous tubal ligation. She was positioned in reverse Trendelenburg left side down. A couple 5 mm trocars were inserted in the right upper abdomen. 10 mm trocar was inserted in the epigastrium. Gallbladder was grasped retracted anteriorly and superiorly over the dome of the liver. Infundibulum of the gallbladder is retracted anterior laterally. Blunt dissection was carried out the neck of the gallbladder bluntly incising the visceral peritoneum. There was some fatty infiltration around the neck of the gallbladder and infundibulum. Ultimately the cystic duct and cystic artery were clearly identified and isolated. Cystic duct was multiply clipped and sharply divided. Cystic artery was carefully coagulated with a's ultrasonic robotic norberto and divided. Gallbladder was dissected free from the liver in a retrograde fashion using a's ultrasonic harmonic norebrto. Gallbladder was placed within an Endo Catch retrieval device removed from the peritoneal cavity via the umbilical trocar site which required some extension of the fascial incision for delivery. Gallbladder fossa was inspected for hemostasis. Limited use of electrocautery was used on the gallbladder bed for assurance of hemostasis. Irrigation and suctioning was carried out until clear. The adhesions at the umbilical trocar site were taken down using a's ultrasonic harmonic norberto to allow for safe fascial closure. Trocars were then removed as CO2 pneumoperitoneum was evacuated. Fascia at the umbilicus was closed with multiple interrupted 0 Vicryl sutures. Local anesthetic was infiltrated. Skin incisions were closed with 4-0 Monocryl subcuticular fashion. Steri-Strips and dressings were applied. Condition: stable Disposition: PACU Complications:: None immediately apparent
--- NOTE | 2024-07-20 15:56 | EXP.ANES.I ---
[facility] Anesthesia Record Part I Anesthesia Record I Intake, IV Amount: 750 Hydration: Adequate Estimated blood loss (mL): 25 Urine output (mL): 0 Blood Products used (#): none Blood Pressure: 145/107 SaO2: 93 Pulse Rate: 81 Airway Patency: Patent Respiratory Rate: 16 Temperature: 96.6 F Patient is:: Drowsy and Stable Stable to PACU at:: 15:03
--- NOTE | 2024-07-20 15:59 | EXP.ANES.II ---
[facility] Anesthesia Record Part II Anesthesia Record Part II Discharge Time: 15:33 Destination: Medical Surgical Department PACU nurse assessment reviewed?: Yes Patient Condition:: Good Anesthesia Complications:: None Swallowing reflex intact?: Yes Airway Patency: Patent Cyanosis?: No Blood Pressure: 149/87 SaO2: 97 Respiratory Rate: 16 Pulse Rate: 75 Temperature: 97.3 F Mental Status: Alert & Oriented Pain level:: 0 Nausea and/or vomitting:: None Intake, IV Amount: 0 Hydration: Adequate
--- NOTE | 2024-07-20 19:14 | P.DS_ITS ---
General Admission date:: 07/20/24 HPI HPI HPI: Patient is a 53-year-old female whom I had seen 2 years ago for symptomatic gallstones characterized by sharp right upper quadrant pain. At that time she underwent gallbladder ultrasound which revealed gallstones and possible polyp. She had been seen in the office several times and ultimately plan was made to proceed with cholecystectomy. However, the patient did not show up for her s cheduled surgery and wished to reschedule. She had resided in [facility] for a couple of years and last year relocated back to this area. She states that they were watching her gallbladder. She had presented to the emergency department on 07/09/2024 with right upper quadrant pain radiating into the chest. Thorough workup was performed and patient was found to have symptoms likely of symptomatic cholelithiasis without acute cholecystitis. She was able managed as an outpatient at that time. She saw Dr. Fuentes in the office on 07/15/2024 due to symptoms of epigastric pain and right upper quadrant pain with radiation into the back and chest. He was making arrangements for outpatient cholecystectomy after cardiac risk stratification. She presented to the emergency department this morning with acute exacerbation of right upper quadrant pain. She was quite tender on exam. She underwent official dedicated gallbladder ultrasound this morning. This revealed distended gallbladder with gallstone in the neck of the gallbladder adenomyomatosis. She is remaining tender on examination. Given findings of clinical cholecystitis plan was made for inpatient admission and probable cholecystectomy. Exam Data for Last 24 hours Vital signs and Labs for Last 24 Hours: Temp Pulse Resp BP Pulse Ox O2 Del Method O2 Flow Rate 98.0 F 80 22 147/85 H 90 L Room Air 2 07/20/24 16:50 07/20/24 16:50 07/20/24 16:50 07/20/24 16:50 07/20/24 16:50 07/20/24 18:30 07/20/24 16:50 Laboratory Results - last 24 hr 07/20/24 05:16: WBC 11.4 H, RBC 3.92 L, Hgb 12.7, Hct 39.3, MCV 100.3 H, MCH 32.4 H, MCHC 32.3, RDW 12.6, Plt Count 122 L, MPV 11.8 H, Neut % (Auto) 53.7, Lymph % (Auto) 29.4, Reagan % (Auto) 11.1 H, Eos % (Auto) 5.0, Baso % (Auto) 0.5, Neut # (Auto) 6.1, Lymph # (Auto) 3.4, Reagan # (Auto) 1.3 H, Eos # (Auto) 0.6 H, Baso # (Auto) 0.1, Sodium 138, Potassium 3.4 L, Chloride 98, Carbon Dioxide 36 H , Anion Gap 7.4, BUN 18 H, Creatinine 1.10 H, Estimated Creat Clear 105, Estimated GFR 52 L, Est GFR ( Amer) 63, Glucose 129 H, Calcium 9.1, Total Bilirubin 0.1 L, AST 36, ALT 41, Alkaline Phosphatase 89, Total Protein 7.1, Albumin 3.7, Globulin 3.4 H, Albumin/Globulin Ratio 1.1, Lipase 228 I & O for Last 24 hours: Intake & Output 07/17/24 07/18/24 07/19/24 07/20/24 23:59 23:59 23:59 23:59 Intake Total 750 / 750 Balance 750 / 750 Weight 120.344 kg Results Data Completed and Pending Labs on day of discharge: Labs from last 24 hours 07/20/24 05:16 WBC 11.4 H RBC 3.92 L Hgb 12.7 Hct 39.3 MCV 100.3 H MCH 32.4 H MCHC 32.3 RDW 12.6 Plt Count 122 L MPV 11.8 H Neut % (Auto) 53.7 Lymph % (Auto) 29.4 Reagan % (Auto) 11.1 H Eos % (Auto) 5.0 Baso % (Auto) 0.5 Neut # (Auto) 6.1 Lymph # (Auto) 3.4 Reagan # (Auto) 1.3 H Eos # (Auto) 0.6 H Baso # (Auto) 0.1 Sodium 138 Potassium 3.4 L Chloride 98 Carbon Dioxide 36 H Anion Gap 7.4 BUN 18 H Creatinine 1.10 H Estimated Creat Clear 105 Estimated GFR 52 L Est GFR ( Amer) 63 Glucose 129 H Calcium 9.1 Total Bilirubin 0.1 L AST 36 ALT 41 Alkaline Phosphatase 89 Total Protein 7.1 Albumin 3.7 Globulin 3.4 H Albumin/Globulin Ratio 1.1 Lipase 228 DS: Diagnosis Discharge Diagnosis (1) Pre-op evaluation: Status: Acute Code(s): Z01.818 - Encounter for other preprocedural examination Meds Home Medications and Allergies Home Medications ?Medication ?Instructions ?Recorded ?Confirmed ?Type ergocalciferol (vitamin D2) 1,250 1,250 mcg PO WEEKLY 05/01/24 07/20/24 History mcg (50,000 unit) capsule evolocumab 140 mg/mL subcutaneous 140 mg SQ DIRECTED 05/01/24 07/20/24 History pen injector (Daniel Montalvo) fluticasone propionate 50 1 spray intranasal DAILY 05/01/24 07/20/24 History mcg/actuation nasal spray,suspension metoprolol succinate 50 mg 50 mg PO BID 05/01/24 07/20/24 History tablet,extended release 24 hr potassium chloride 10 mEq 20 meq PO DAILY 05/01/24 07/20/24 History tablet,extended release albuterol sulfate 90 mcg/actuation 2 inh inhalation Q4HP PRN 05/17/24 07/20/24 History breath activated powder inhaler Shortness Of Breath budesonide-formoterol HFA 160 2 puff inhalation BID 05/17/24 07/20/24 History mcg-4.5 mcg/actuation aerosol inhaler (Symbicort) nitroglycerin 0.4 mg sublingual 0.4 mg sublingual Q5M PRN Chest 05/17/24 07/20/24 History tablet Pain omeprazole 20 mg capsule,delayed 20 mg PO DAILY 05/17/24 07/20/24 History release aspirin 81 mg tablet 81 mg PO DAILY 07/20/24 07/20/24 History hydrocodone 5 mg-acetaminophen 325 1 tab PO Q6H PRN pain #14 tabs 07/20/24 Rx mg tablet ondansetron 4 mg disintegrating 4 mg PO Q6HP PRN Nausea And 07/20/24 07/20/24 History tablet Vomiting prednisone 5 mg tablet 5 mg PO DAILY 07/20/24 07/20/24 History torsemide 40 mg tablet 40 mg PO DAILY 07/20/24 07/20/24 History New Prescriptions to Start Prescriptions: hydrocodone-acetaminophen Ron Boston Allergies Allergy/AdvReac Type Severity Reaction Status Date / Time No Known Allergies Allergy Verified 07/15/24 14:10 Discharge Plan Disposition Patient Disposition: Home, Self-Care Condition: Fair Follow up Plan Follow up with: Pedro Elizalde MD [Staff Physician] - 07/27/24 Prescriptions/Medication Reconciliation: New hydrocodone-acetaminophen 5-325 mg tablet 1 tab PO Q6H PRN (Reason: pain) Qty: 14 0RF Continued metoprolol succinate 50 mg tablet extended release 24 hr 50 mg PO BID Patient Comments: TAKE ONE TABLET BY MOUTH TWICE DAILY potassium chloride 10 mEq tablet extended release 20 meq PO DAILY ergocalciferol (vitamin D2) 1,250 mcg (50,000 unit) capsule 1,250 mcg PO WEEKLY Patient Comments: TAKE ONE CAPSULE BY MOUTH ONCE A WEEK fluticasone propionate 50 mcg/actuation spray,suspension 1 spray INTRANASAL DAILY Patient Comments: SPRAY 1 SPRAY IN EACH NOSTRIL ONCE DAILY Repatha SureClick 140 mg/mL pen injector 140 mg SQ DIRECTED Patient Comments: Inject 1 mL every 2 weeks by subcutaneous route for 30 days. Rx Instructions: Inject 1 mL every 2 weeks by subcutaneous route for 30 days. prednisone 5 mg tablet 5 mg PO DAILY Patient Comments: TAKE ONE TABLET BY MOUTH ONCE DAILY --TAKE WITH FOOD-- ondansetron 4 mg tablet,disintegrating 4 mg PO Q6HP PRN (Reason: Nausea And Vomiting) Patient Comments: DISSOLVE ONE TABLET ON THE TONGUE EVERY 6 HOURS NEEDED aspirin 81 mg Tablet 81 mg PO DAILY torsemide 40 mg Tablet 40 mg PO DAILY budesonide-formoterol [Symbicort] 160-4.5 mcg/actuation Hfa Aerosol Inhaler 2 puff INHALATION BID albuterol sulfate 90 mcg/actuation Aerosol Powdr Breath Activated 2 inh INHALATION Q4HP PRN (Reason: Shortness Of Breath) nitroglycerin 0.4 mg Tablet, Sublingual 0.4 mg SUBLINGUAL Q5M PRN (Reason: Chest Pain) Rx Instructions: do not exceed 3 doses per episode omeprazole 20 mg Capsule,Delayed Release(Dr/Ec) 20 mg PO DAILY Problem Reconciliation Problems Reviewed?: Yes Patient Discharge Instructions Print Language: Japanese Providers Primary Care Provider: Salma Zepeda Admit Provider: Ron Boston Attending Provider: Ron Boston
--- NOTE | 2024-07-20 19:55 | EXP.HPDC ---
General Admission date:: 07/20/24 *Admission Date: 07/20/24 *History of present illness: From Dr. Elizalde's note: Patient is a 53-year-old female whom I had seen 2 years ago for symptomatic gallstones characterized by sharp right upper quadrant pain. At that time she underwent gallbladder ultrasound which revealed gallstones and possible polyp. She had been seen in the office several times and ultimately plan was made to proceed with cholecystectomy. However, the patient did not show up for her scheduled surgery and wished to reschedule. She had resided in [facility] for a couple of years and last year relocated back to this area. She states that they were watching her gallbladder. She had presented to the emergency department on 07/09/2024 with right upper quadrant pain radiating into the chest. Thorough workup was performed and patient was found to have symptoms likely of symptomatic cholelithiasis without acute cholecystitis. She was able managed as an outpatient at that time. She saw Dr. Fuentes in the office on 07/15/2024 due to symptoms of epigastric pain and right upper quadrant pain with radiation into the back and chest. He was making arrangements for outpatient cholecystectomy after cardiac risk stratification. She presented to the emergency department this morning with acute exacerbation of right upper quadrant pain. She was quite tender on exam. She underwent official dedicated gallbladder ultrasound this morning. This revealed distended gallbladder with gallstone in the neck of the gallbladder adenomyomatosis. She is remaining tender on examination. Given findings of clinical cholecystitis plan was made for inpatient admission and probable cholecystectomy. On my evaluation of patient, she was lying comfortably in bed without acute distress. Was having some abdominal pain at incision sites but otherwise tolerating p.o. intake appropriately. [facility] Disclaimer: The information contained in this section may have been updated after the patient was seen, as this information can be updated by other users. Medical History Eosinophilia Dyspnea on exertion Encounter for screening for malignant neoplasm of lung Smoking greater than 30 pack years Seasonal allergies Difficulty sleeping HTN (hypertension) FSGS (focal segmental glomerulosclerosis) with nephrosis Community acquired pneumonia Surgical History (Updated 08/06/24 @ 09:44 by MARC Garcia) History of laparoscopic cholecystectomy History of tubal ligation Family History Other Cancer Diabetes Hypertension Social History Smoking Status: Former smoker alcohol intake: never substance use type: unknown current occupational status: employed and unemployed Travel in the last 8 weeks?: None Have you lived/traveled outside [place] in past 30 days?: No Contact w/someone who lives/traveled outside US past 30 days?: No Exposure to someone with infectious disease in past 14 days?: No Do you have a fever (greater than 100.4 F or 38 C)?: No Have you tested positive for COVID-19?: No Exposed to someone with COVID-19 in past 14 days?: No Do you have a sore throat?: No Do you have a cough?: No Do you have shortness of breath?: No Do you have a headache?: No Do you have any weakness?: No Are you experiencing any nausea/vomitting?: No Do you have any diarrhea?: No Are you experiencing any unusual bleeding?: No Do you have any muscle aches/pain?: No Do you have any abdominal pain?: No Are you experiencing loss of taste or smell?: No Other Medical History Have you received the Flu Vaccine for this season: Yes Have you received the Pneumonia Vaccine: No Review of Systems Constitutional Constitutional: Denies weakness Eyes Eyes: Denies loss of vision ENT Ears, Nose, Mouth, and Throat: Denies vertigo *Cardiovascular Cardiovascular: Denies syncope *Neurologic Neurologic: Denies loss of vision, Denies syncope, Denies vertigo and Denies weakness Exam Data for Last 24 hours Vital signs and Labs for Last 24 Hours: Temp Pulse Resp BP Pulse Ox O2 Del Method O2 Flow Rate 98.0 F 76 20 135/78 97 Nasal Cannula 2 07/20/24 16:50 07/20/24 18:35 07/20/24 18:35 07/20/24 18:35 07/20/24 18:35 07/20/24 18:35 07/20/24 18:35 Laboratory Results - last 24 hr 07/20/24 05:16: WBC 11.4 H, RBC 3.92 L, Hgb 12.7, Hct 39.3, MCV 100.3 H, MCH 32.4 H, MCHC 32.3, RDW 12.6, Plt Count 122 L, MPV 11.8 H, Neut % (Auto) 53.7, Lymph % (Auto) 29.4, Garrard % (Auto) 11.1 H, Eos % (Auto) 5.0, Baso % (Auto) 0.5, Neut # (Auto) 6.1, Lymph # (Auto) 3.4, Garrard # (Auto) 1.3 H, Eos # (Auto) 0.6 H, Baso # (Auto) 0.1, Sodium 138, Potassium 3.4 L, Chloride 98, Carbon Dioxide 36 H, Anion Gap 7.4, BUN 18 H, Creatinine 1.10 H, Estimated Creat Clear 105, Estimated GFR 52 L, Est GFR ( Amer) 63, Glucose 129 H, Calcium 9.1, Total Bilirubin 0.1 L, AST 36, ALT 41, Alkaline Phosphatase 89, Total Protein 7.1, Albumin 3.7, Globulin 3.4 H, Albumin/Globulin Ratio 1.1, Lipase 228 I & O for Last 24 hours: Intake & Output 07/17/24 07/18/24 07/19/24 07/20/24 23:59 23:59 23:59 23:59 Intake Total 750 / 750 Balance 750 / 750 Weight 120.344 kg Constitutional Constitutional: no acute distress and obese *Routine HEENT Exam Head: Present normocephalic Eye: Present EOMI and PERRL ENT: Present mucous membranes moist *Routine Neck Exam Neck: Present supple; Absent lymphadenopathy *Routine Respiratory Exam Respiratory: Present CTA bilaterally *Routine Cardiovascular Exam Cardiovascular: Present RRR *Routine Abdominal Exam Abdominal: Present soft and normoactive bowel sounds; Absent tenderness *Routine Rectal Exam Rectal:: deferred *Routine Genitalia Exam Genitalia:: deferred *Routine Extremities Exam Extremities: Absent cyanosis, clubbing or edema *Routine Skin Exam Skin: Present warm; Absent rash *Routine Neurological Exam Neurological: Present alert and oriented X3 Meds Home Medications and Allergies Home Medications ?Medication ?Instructions ?Recorded ?Confirmed ?Type ergocalciferol (vitamin D2) 1,250 1,250 mcg PO WEEKLY 05/01/24 08/06/24 History mcg (50,000 unit) capsule evolocumab 140 mg/mL subcutaneous 140 mg SQ DIRECTED 05/01/24 08/06/24 History pen injector (Repatha SureClick) fluticasone propionate 50 1 spray intranasal DAILY 05/01/24 08/06/24 History mcg/actuation nasal spray,suspension metoprolol succinate 50 mg 50 mg PO BID 05/01/24 08/06/24 History tablet,extended release 24 hr potassium chloride 10 mEq 20 meq PO DAILY 05/01/24 08/06/24 History tablet,extended release albuterol sulfate 90 mcg/actuation 2 inh inhalation Q4HP PRN 05/17/24 08/06/24 History breath activated powder inhaler Shortness Of Breath budesonide-formoterol HFA 160 2 puff inhalation BID 05/17/24 08/06/24 History mcg-4.5 mcg/actuation aerosol inhaler (Symbicort) nitroglycerin 0.4 mg sublingual 0.4 mg sublingual Q5M PRN Chest 05/17/24 08/06/24 History tablet Pain omeprazole 20 mg capsule,delayed 20 mg PO DAILY 05/17/24 08/06/24 History release aspirin 81 mg tablet 81 mg PO DAILY 07/20/24 08/06/24 History hydrocodone 5 mg-acetaminophen 325 1 tab PO Q6H PRN pain #14 tabs 07/20/24 08/06/24 Rx mg tablet ondansetron 4 mg disintegrating 4 mg PO Q6HP PRN Nausea And 07/20/24 08/06/24 History tablet Vomiting torsemide 40 mg tablet 40 mg PO DAILY 07/20/24 08/06/24 History trazodone 100 mg tablet 100 mg PO 08/06/24 08/06/24 History New Prescriptions to Start Prescriptions: hydrocodone-acetaminophen Ron Boston Allergies Allergy/AdvReac Type Severity Reaction Status Date / Time No Known Allergies Allergy Verified 08/06/24 09:43 Hospital Course Hospital Course Hospital Course: Jazmin Crowell is a 53-year-old female who presented with abdominal pain and was admitted for surgical evaluation of acute cholecystitis. #Acute cholecystitis ? General Surgery consulted, s/p laparoscopic cholecystectomy on 07/20/[address] Elizalde. Patient tolerated procedure well. ? Slowly advance diet, tolerating without issues including nausea/vomiting/abdominal pain. Ambulating independently without assistance. ? Discussed with general surgery, patient is medically stable for discharge if able to follow-up with surgery within 1 week. Patient amenable. ? Discharged with [place], and close follow-up with general surgery within 1 week. #Obesity ? Complicates all aspects of care. #Asthma ? Continue home Symbicort. #GERD ? Continue home PPI. Results Data Completed and Pending Labs on day of discharge: Labs from last 24 hours 07/20/24 05:16 WBC 11.4 H RBC 3.92 L Hgb 12.7 Hct 39.3 MCV 100.3 H MCH 32.4 H MCHC 32.3 RDW 12.6 Plt Count 122 L MPV 11.8 H Neut % (Auto) 53.7 Lymph % (Auto) 29.4 Garrard % (Auto) 11.1 H Eos % (Auto) 5.0 Baso % (Auto) 0.5 Neut # (Auto) 6.1 Lymph # (Auto) 3.4 Garrard # (Auto) 1.3 H Eos # (Auto) 0.6 H Baso # (Auto) 0.1 Sodium 138 Potassium 3.4 L Chloride 98 Carbon Dioxide 36 H Anion Gap 7.4 BUN 18 H Creatinine 1.10 H Estimated Creat Clear 105 Estimated GFR 52 L Est GFR ( Amer) 63 Glucose 129 H Calcium 9.1 Total Bilirubin 0.1 L AST 36 ALT 41 Alkaline Phosphatase 89 Total Protein 7.1 Albumin 3.7 Globulin 3.4 H Albumin/Globulin Ratio 1.1 Lipase 228 DS: Diagnosis Discharge Diagnosis (1) Pre-op evaluation: Status: Acute Code(s): Z01.818 - Encounter for other preprocedural examination Discharge Plan Disposition Patient Disposition: Home, Self-Care Condition: Fair Follow up Plan Follow up with: Pedro Elizalde MD [Staff Physician, General Surgery] - 07/27/24 Prescriptions/Medication Reconciliation: New hydrocodone-acetaminophen 5-325 mg tablet 1 tab PO Q6H PRN (Reason: pain) Qty: 14 0RF Continued metoprolol succinate 50 mg tablet extended release 24 hr 50 mg PO BID Patient Comments: TAKE ONE TABLET BY MOUTH TWICE DAILY potassium chloride 10 mEq tablet extended release 20 meq PO DAILY ergocalciferol (vitamin D2) 1,250 mcg (50,000 unit) capsule 1,250 mcg PO WEEKLY Patient Comments: TAKE ONE CAPSULE BY MOUTH ONCE A WEEK fluticasone propionate 50 mcg/actuation spray,suspension 1 spray INTRANASAL DAILY Patient Comments: SPRAY 1 SPRAY IN EACH NOSTRIL ONCE DAILY Repatha SureClick 140 mg/mL pen injector 140 mg SQ DIRECTED Patient Comments: Inject 1 mL every 2 weeks by subcutaneous route for 30 days. Rx Instructions: Inject 1 mL every 2 weeks by subcutaneous route for 30 days. ondansetron 4 mg tablet,disintegrating 4 mg PO Q6HP PRN (Reason: Nausea And Vomiting) Patient Comments: DISSOLVE ONE TABLET ON THE TONGUE EVERY 6 HOURS NEEDED aspirin 81 mg Tablet 81 mg PO DAILY torsemide 40 mg Tablet 40 mg PO DAILY budesonide-formoterol [Symbicort] 160-4.5 mcg/actuation Hfa Aerosol Inhaler 2 puff INHALATION BID albuterol sulfate 90 mcg/actuation Aerosol Powdr Breath Activated 2 inh INHALATION Q4HP PRN (Reason: Shortness Of Breath) nitroglycerin 0.4 mg Tablet, Sublingual 0.4 mg SUBLINGUAL Q5M PRN (Reason: Chest Pain) Rx Instructions: do not exceed 3 doses per episode omeprazole 20 mg Capsule,Delayed Release(Dr/Ec) 20 mg PO DAILY No Action trazodone 100 mg tablet 100 mg PO Patient Comments: take 1/2 to 1 tablet BY MOUTH EVERY DAY AT BEDTIME Problem Reconciliation Problems Reviewed?: Yes Patient Discharge Instructions Patient Instructions: DI for Surgical Site Infection, Surgical Site Infection, Cholecystectomy -- Laparoscopic Surgery Print Language: Czech Providers Primary Care Provider: Salma Zepeda Admit Provider: Ron Boston Attending Provider: Ron Boston
--- NOTE | 2024-07-21 14:44 | SW/DCPLANNER ---
Spoke with patient on the phone. Patient stated that she is doing good just sore. Patient stated that she is aware of her appointment but needs to call and see the time. Patient stated that she has not gotten her medicine from clinic pharmacy but is going to see if her son can pick it up for her. Patient stated that she has no concerns or questions at this time. Monica Christina
== END 2024-07-20 19:55 | disposition home or self-care (01) ==
LOC: ER 08:47 → 2ND 08:48
PROVIDERS: Emergency Medicine; Surgery; Admitting Provider Student in an Organized Health Care Education/Training Program; Emergency Provider Student in an Organized Health Care Education/Training Program; PCP Nurse Practitioner Family; Visit Provider Student in an Organized Health Care Education/Training Program
PROC: 0FT44ZZ Resection of Gallbladder, Percutaneous Endoscopic Approach (ICD-10-PCS; CPT 47562; principal; 2024-07-20 13:30)
DX: K80.12 Calculus of gallbladder with acute and chronic cholecystitis without obstruction (principal); E66.9 Obesity, unspecified; J45.909 Unspecified asthma, uncomplicated; I10 Essential (primary) hypertension; K21.9 Gastro-esophageal reflux disease without esophagitis; Z68.41 Body mass index [BMI] 40.0-44.9, adult; Z87.891 Personal history of nicotine dependence; Z90.49 Acquired absence of other specified parts of digestive tract; Z79.51 Long term (current) use of inhaled steroids; Z79.899 Other long term (current) drug therapy
CPT/HCPCS: 47562; 76705; 80053; 83690; 85025; 88304; 93306; 96374; 96375; 96376; 99285; G0378; J0690; J1100; J1171; J1885; J2003; J2250; J2405; J2543; J2704; J2765; J2795; J3010; J7120

== ENCOUNTER 2024-07-27 15:28 | Outpatient (CLI) | payer MEDICAID, SELFPAY | END 2024-07-27 23:59 | disposition home or self-care (01) | LOC: RAD 15:28 | PROVIDERS: PCP Nurse Practitioner Family; Visit Provider Nurse Practitioner Family | DX: M54.41 Lumbago with sciatica, right side (principal); M54.42 Lumbago with sciatica, left side; M54.2 Cervicalgia; G89.29 Other chronic pain ==

== ENCOUNTER 2024-08-20 14:17 | Outpatient (CLI) | payer MEDICAID, SELFPAY ==
--- OUTSIDE RECORDS SUMMARY | 2024-08-20 15:02 | XMS_ITS | Data Portability ---
Author Organization [employer], [facility] Address [address] [place] [address] Assessment No assessment recorded. Plan of Treatment Reminders Order Date Submit Date Provider Last Modified By Organization Details Last Modified Time Details Appointments None record ed. Lab CMP, serum or plasma 2019 [facility], [address] [place], [address], 0 05:01:49 CBC w/ auto diff 2019 020 [facility], [address], [place], [address], 0 10:27:31 CMP, serum or plasma 2019 020 [facility], [address], [place], [address], 0 10:27:31 TSH, serum or plasma 2019 020 [facility], [address], [place], [address], 0 10:27:32 vitami n B12, serum 2019 020 [facility], [address], [place], [address], 0 10:27:32 HbA1c (hemog lobin A1c), blood 2019 [facility], [address] [place], [address], 0 10:27:33 lipid panel, serum 2019 [facility], [address] [place], [address], 0 10:27:30 Referral None record ed. Procedures None record ed. Surgeries None record ed. Imaging None record ed. Medication Orders fluoxe [place] 20 mg tablet 2019 INTERFACE [facility], [address] [place] [address], [id number], 0 10:17:33 lisino pril 10 mg tablet 2019 INTERFACE [facility], [address] [place] [address], [id number], 0 10:15:50 flutic asone propio catalina 50 mcg/ac tuatio n nasal spray, suspen trinity 2019 INTERFACE [facility], [address] [place] [address], [id number], 0 13:28:11 cetiri zine 10 mg tablet 2019 INTERFACE [facility], [address] [place] [address], [id number], 0 13:28:09 Keflex 500 mg capsul e 2019 020 ericheystiltne r [facility], [address] [place] [address], [id number], 0 09:29:09 omepra zole 20 mg capsul e,natalie gonzales releas e 2019 020 INTERFACE [facility], [address] [place] [address], [id number], 0 13:28:10 lisino pril 10 mg tablet 2019 020 INTERFACE [facility], [address] [place] [address], [id number], 0 13:28:08 Patient TargetsNo targets recorded. Patient Instructions Encounter Date Encounter Id Patient Instructions Last Modified By Organization Details Last Modified Time 05/18/2019 [id number] pt is moderate risk sec to above comorbidities f/u in 1 week vravi Not available 05/18/2019 11:15:08 07/31/2019 [id number] pt is moderate risk sec to above comorbidities still has pain in the feet . podiatry referreal will be made . f/u in 2 months. labs before next visit vravi Not available 08/10/2019 06:55:45 08/19/2019 [id number] pt is moderate risk sec to above comorbidities still has pain in the feet . f/u on. podiatry referreal 08/19/19: BP better. cont lisinopril . f/u in 3 months . f/u in 2 months. labs before next visit vravi Not available 08/20/2019 12:53:35 Reason for Referral None Reported. Procedures Surgical History Date Name Laterality Status Provider Name and Address Organization Details Recorded Time Back Surgery completed Deb POMPA [facility] 05/18/2019 10:32:30 Imaging Results None recorded. Procedure Notes None recorded. Medical Equipment None Reported. Allergies No known drug allergies Medications Name Sig Start Date Stop Date Status Note LastModified by Organization Details LastModified Time cetirizine 10 mg tablet Take 1 tablet every day by oral route in the morning for 30 days. active Not Available Not Available No t Available metronidazo le 500 mg tablet 07/30 completed Not Available Not Available Not Available cephalexin 500 mg capsule Take 1 capsule 3 times a day by oral route as directed for 7 days. 07/30 completed Not Available Not Available Not Available fluoxetine 20 mg tablet Take 1 tablet every day by oral route in the morning for 60 days. 2019 active Not Available Not Available Not Avai lable lisinopril 10 mg tablet TAKE ONE TABLET BY MOUTH EVERY MORNING active Not Available Not Available No t Available omeprazole 20 mg capsule,del ayed release Take 1 capsule every day by oral route in the morning for 30 days. active Not Available Not Available No t Available fluoxetine 20 mg capsule 08/18 completed Not Available Not Available Not Available fluticasone propionate 50 mcg/actuati on nasal spray,suspe nsion [place] 1 spray every day by intranasa l route in the morning for 30 days. active Not Available Not Available No t Available Vitals Date Recorded Body height Body mass index (BMI) Body weight Body temperature Respiratory rate Oxygen saturation Oxygen saturation in Arterial blood by Pulse oximetry Heart rate Systolic blood pressure Diastolic blood pressure Provider Name and Address Organization Details Last Updated DateTime 0 167.64 cm 34.4 kg/m2 86105.1 7 g 97.6 [degF] 20 /min 97 % 97 % 81 /min 151 mm[Hg] 100 mm[Hg] Deb [employer] 0 10:34:51 Date Recorded Body height Oxygen saturation Oxygen saturation in Arterial blood by Pulse oximetry Heart rate Respiratory rate Body temperature Body mass index (BMI) Body weight Systolic blood pressure Diastolic blood pressure Provider Name and Address Organization Details Last Updated DateTime 0 167.64 cm 97 % 97 % 80 /min 18 /min 98 [degF] 35.3 kg/m2 81882.7 3 g 133 mm[Hg] 86 mm[Hg] Deb [employer] 0 09:32:42 Date Recorded Body height Heart rate Respiratory rate Body temperature Body mass index (BMI) Body weight Oxygen saturation Oxygen saturation in Arterial blood by Pulse oximetry Systolic blood pressure Diastolic blood pressure Provider Name and Address Organization Details Last Updated DateTime 0 167.64 cm 81 /min 18 /min 97.5 [degF] 35.7 kg/m2 895018. 91 g 97 % 97 % 136 mm[Hg] 85 mm[Hg] Deb [employer] 06/10/202 0 13:25:31 Social History Question Answer Notes LastModified by Organizat ion Details LastModified Time Tobacco Smoking Status Current Every Day Smoker Not Available [facility] 01/12/2020 03:34:25 How Much Tobacco Do You Smoke? 1 PPD [id number] Information not available 01/12/2020 How Many Years Have You Smoked Tobacco? 38 [id number] Information not available 01/12/2020 Sex: Unknown Functional Status Question Answer Note LastModified by Organizat ion Details LastModified Time Do you or have you ever used smokeless tobacco? Never used smokeless tobacco [id number] Information not available 01/12/2020 Do you or have you ever used e-cigarettes or vape? Never used electronic cigarettes [id number] Information not available 01/12/2020 Mental Status None recorded. Family History Relationship Description Onset Age of this Age Resolved Age Notes LastModified by Organization Details LastModified Time Mother Multiple sclerosis ericheystiltn er Not available 05/18/2019 10:31:32 Medical History No medical history recorded. Gynecological HistoryNo gynecological history recorded. Obstetrics History GPAL:G 0 P 0 0 0 0 Past Encounters Encounter ID Performer Location Encounter Start Date Encounter Closed Date Diagnosis/Indication Diagnosis SNOMED-CT Code Diagnosis ICD10 Code Diagnosis Note [id number] Yesica Corcoran MD [facility] [address] [place] [address] 05/18/2019 10:15:45 05/25/2019 23:56:41 Fatigue 02591824 R53.83 Hyperglycemia 58423328 R 73.9 Essential hypertension 10676291 I10 was started on nifedipine but caused headache Obesity 350249758 E66.9 Calcific t endinitis of bilateral feet 9785388971 6682584 M65.271 refer to podiatry. no acute inflammati on. has pain. Calcific t endinitis of left foot 2375231832 947562 M65.272 Tobacco user 497681740 Z 72.0 1 1/2 ppd. counselled cessation Solitary c yst of breast 700914506 N60.01 s/p excision in 08/27. 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 no acute inflammati on. has pain. Calcific t endinitis of left foot 2523623787 378548 M65.272 Tobacco user 689019674 Z 72.0 1 1/2 ppd. counselled cessation Solitary c yst of breast 409039113 N60.01 s/p excision in 08/27. 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 no acute inflammati on. has pain. Tobacco user 586562013 Z 72.0 1 1/2 ppd. counselled cessation Solitary c yst of breast 211811391 N60.01 s/p excision in 08/27. 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 Gastroesop hageal reflux disease without esophagitis 126420251 K21.9 Health Concerns Section Related Observation LastModified by Organization Detai ls LastModified Time None Recorded Concern Status LastModified by Organization Details LastModified Time None Recorded Advance Directives Directive None Recorded Payers Insurance Date Sequence Insurance Name Policy Number Policy Shook Covered Member ID Shook Member ID Guarantor Name 11/16/2019 1 [facility] (MEDICAID HMO) Jazmin Crowell [id number] Jazmin Crowell Notes Date Note Type Note Provider Name and Address Organization Details Recorded Time 05/18/2019 text/html pt is a 48 yr ol d male is here to establish care she has developed swelling in the rt breast in the central region behind the nipple . sometimes she has discharge from the nipple when she presses the swelling too hard. no visible redness. h/o similar episode in the past where she had to have it drained. swelling has been there for few weeks. has associated rt axillary hyperhydrosis . says she smells only in her rt armpit more than her left arm pit. has worsening fatigue . has been taking BP meds for 2 weeks . has had High BP for several yrs but didn't take it before. still has the headache even after taking meds h/o rt sided chronic mastitis in august 14. Yesica Corcoran MD [address], [place], [address], [employer] 05/19/2019 13:32:01 07/31/2019 text/html pt is a 48 yr ol d male is here for f/u Bp better. still feels likes she has no energy. h/o rt sided chronic mastitis in august 14. Yesica Corcoran MD [address], [place], [address], [employer] 08/10/2019 06:56:22 08/19/2019 text/html pt is a 48 yr ol d male is here for f/u BP better. 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 her feet still hurts h/o rt sided chronic mastitis in august 14. Yesica Corcoran MD [address] [place], [address], [employer] 08/20/2019 12:53:54 OBGyn Episode No OBEpisode recorded.
== END 2024-08-20 23:59 | disposition home or self-care (01) ==
LOC: RT 14:18
PROVIDERS: PCP Nurse Practitioner Family; Visit Provider Internal Medicine
DX: I49.1 Atrial premature depolarization (principal); I47.19 Other supraventricular tachycardia; I49.3 Ventricular premature depolarization
CPT/HCPCS: 93270

== ENCOUNTER 2024-08-24 07:15 | Outpatient (CLI) | payer MEDICAID, SELFPAY ==
--- OUTSIDE RECORDS SUMMARY | 2024-08-24 07:18 | XMS_ITS | Data Portability ---
Author Organization [employer], [facility] Address [address] [place] [address] Assessment No assessment recorded. Plan of Treatment Reminders Order Date Submit Date Provider Last Modified By Organization Details Last Modified Time Details Appointments None record ed. Lab CMP, serum or plasma 2019 [email or web address], [address] [place], [address], 0 05:01:49 CBC w/ auto diff 2019 020 [facility], [address], [place], [address], 0 10:27:31 CMP, serum or plasma 2019 020 [email or web address], [address], [place], [address], 0 10:27:31 TSH, serum or plasma 2019 020 [facility], [address], [place], [address], 0 10:27:32 vitami n B12, serum 2019 020 [facility], [address], [place], [address], 0 10:27:32 HbA1c (hemog lobin A1c), blood 2019 [facility], [address] [place], [address], 0 10:27:33 lipid panel, serum 2019 [facility], [address] [place], [address], 0 10:27:30 Referral None record ed. Procedures None record ed. Surgeries None record ed. Imaging None record ed. Medication Orders fluoxe [place] 20 mg tablet 2019 INTERFACE [facility], [address] [place] [address], [id number], 0 10:17:33 lisino pril 10 mg tablet 2019 INTERFACE [facility], [address] [place] [address], [id number], 0 10:15:50 flutic asone propio catalina 50 mcg/ac tuatio n nasal spray, suspen trinity 2019 INTERFACE [facility], [address] [place] [address], [id number], 0 13:28:11 cetiri zine 10 mg tablet 2019 INTERFACE [facility], [address] [place] [address], [id number], 0 13:28:09 Keflex 500 mg capsul e 2019 020 ericheystiltne r [facility], [address] [place] [address], [id number], 0 09:29:09 omepra zole 20 mg capsul e,natalie gonzales releas e 2019 020 INTERFACE [facility], [address] [place] [address], [id number], 0 13:28:10 lisino pril 10 mg tablet 2019 020 INTERFACE [facility], [address] [place] [address], [id number], 0 13:28:08 Patient TargetsNo targets recorded. Patient Instructions Encounter Date Encounter Id Patient Instructions Last Modified By Organization Details Last Modified Time 05/18/2019 [id number] pt is moderate risk sec to above comorbidities f/u in 1 week vravi Not available 05/18/2019 11:15:08 07/31/2019 [id number] pt is moderate risk sec to above comorbidities still has pain in the feet . podiatry referreal will be made . f/u in 2 months. labs before next visit vravi Not available 08/10/2019 06:55:45 08/19/2019 [id number] pt is moderate risk sec to above [...] Recorded Time Back Surgery completed Deb POMPA [facility] 05/18/2019 10:32:30 Imaging Results None recorded. [...] propionate 50 mcg/actuati on nasal spray,suspe nsion [place] 1 spray every day by intranasa l [...] Updated DateTime 0 167.64 cm 34.4 kg/m2 21249.1 7 g 97.6 [degF] 20 /min 97 % 97 % 81 /min 151 mm[Hg] 100 mm[Hg] Deb [employer] 0 10:34:51 Date Recorded Body height Oxygen saturation Oxygen saturation in Arterial blood by Pulse oximetry Heart rate Respiratory rate Body temperature Body mass index (BMI) Body weight Systolic blood pressure Diastolic blood pressure Provider Name and Address Organization Details Last Updated DateTime 0 167.64 cm 97 % 97 % 80 /min 18 /min 98 [degF] 35.3 kg/m2 54736.7 3 g 133 mm[Hg] 86 mm[Hg] Deb [employer] 0 09:32:42 Date Recorded Body height Heart rate Respiratory rate Body temperature Body mass index (BMI) Body weight Oxygen saturation Oxygen saturation in Arterial blood by Pulse oximetry Systolic blood pressure Diastolic blood pressure Provider Name and Address Organization Details Last Updated DateTime 0 167.64 cm 81 /min 18 /min 97.5 [degF] 35.7 kg/m2 202612. 91 g 97 % 97 % 136 mm[Hg] 85 mm[Hg] Deb [employer] 06/10/202 0 13:25:31 Social History Question Answer Notes LastModified by Organizat ion Details LastModified Time Tobacco Smoking Status Current Every Day Smoker Not Available [facility] 01/12/2020 03:34:25 How Much Tobacco Do You Smoke? 1 PPD [id number] Information not available 01/12/2020 How Many Years Have You Smoked Tobacco? 38 [id number] Information not available 01/12/2020 Sex: Unknown Functional Status Question Answer Note LastModified by Organizat ion Details LastModified Time Do you or have you ever used smokeless tobacco? Never used smokeless tobacco [id number] Information not available 01/12/2020 Do you or have you ever used e-cigarettes or vape? Never used electronic cigarettes [id number] Information not available 01/12/2020 Mental Status None [...] SNOMED-CT Code Diagnosis ICD10 Code Diagnosis Note [id number] Yesica Corcoran MD [facility] [address] [place] [address] 05/18/2019 10:15:45 05/25/2019 23:56:41 Fatigue 05045910 R53.83 Hyperglycemia 39870619 R 73.9 Essential hypertension 64632201 I10 was started on nifedipine but caused headache Obesity 432618264 E66.9 Calcific t endinitis of bilateral feet 7326005511 2348523 M65.271 refer to podiatry. no acute inflammati on. has pain. Calcific t endinitis of left foot 2879708648 277354 M65.272 Tobacco user 919622744 Z 72.0 1 1/2 ppd. counselled cessation Solitary c yst of breast 522890658 N60.01 s/p excision in 08/27. 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 no acute inflammati on. has pain. Calcific t endinitis of left foot 7472831336 263890 M65.272 Tobacco user 349932460 Z 72.0 1 1/2 ppd. counselled cessation Solitary c yst of breast 645549901 N60.01 s/p excision in 08/27. 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 no acute inflammati on. has pain. Tobacco user 025499086 Z 72.0 1 1/2 ppd. counselled cessation Solitary c yst of breast 766472257 N60.01 s/p excision in 08/27. 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 Gastroesop hageal reflux disease without esophagitis 936605691 K21.9 Health Concerns Section Related Observation LastModified by Organization Detai ls LastModified Time None Recorded Concern Status LastModified by Organization Details LastModified Time None Recorded Advance Directives Directive None Recorded Payers Insurance Date Sequence Insurance Name Policy Number Policy Shook Covered Member ID Shook Member ID Guarantor Name 11/16/2019 1 [facility] (MEDICAID HMO) Jazmin Crowell [id number] Jazmin Crowell Notes Date Note Type Note [...] Yesica Corcoran MD [address], [place], [address], [employer] 05/19/2019 13:32:01 07/31/2019 text/html pt is a 48 yr ol d male is here for f/u Bp better. still feels likes she has no energy. h/o rt sided chronic mastitis in august 14. Yesica Corcoran MD [address], [place], [address], [employer] 08/10/2019 06:56:22 08/19/2019 text/html pt is a 48 yr ol d male is here for f/u BP better. 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 her feet still hurts h/o rt sided chronic mastitis in august 14. Yesica Corcoran MD [address] [place], [address], [employer] 08/20/2019 12:53:54 OBGyn Episode No OBEpisode recorded.
--- OUTSIDE RECORDS SUMMARY | 2024-08-24 07:18 | XMS_ITS | Data Portability ---
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 She prefers to wait at this time given her uncontrolled hypertension and fluid retention. She has an appointment with her primary care physician later in the week. She will call our office or return to the clinic when she is ready to discuss cholecystectomy. she may follow-up as needed or as we discussed if she has any acute symptoms or concerning symptoms she should go to the emergency department. Currently do not think a follow up ultrasound would be of any benefit as it has not changed in the last 6 months unless she has any new or developing symptoms. We discussed symptoms and concerns to monitor and she may have labs performed with her primary care physician. Her symptoms are stable. Follow-up PRN with our office. Recommended continue to follow up with primary care physician and Cardiology to control hypertension and edema to her lower extremities. Given this information it may be beneficial for cardiac clearance prior to scheduling a cholecystectomy electively and she is agreeable and understands why this may be necessary. [email or web address] Not available 12/23/2023 16:49:34 01/14/2024 01/14/2024 appreciate nephrology evaluation and workup. I will arrange MRI of cervical spine without contrast for upper extremity radiculopathy. She will be referred to Rheumatology for inflammatory polyarthropathy with elevated CCP antibody I have recommended she stop smoking Follow-up in March with CBC CMP [email or web address] Not available 01/26/2024 17:26:20 03/02/2024 03/02/2024 refer to GI for dysphagia refer to rheumatology for RA increase dose kcl to 20meq daily f/u in April [email or web address] Not available 03/17/2024 01:50:24 04/09/2024 04/09/2024 negative flu and COVID. Suspect viral upper respiratory infection. Advised conservative management with increased rest and hydration. Use of Tylenol /ibuprofen as needed for symptomatic relief of fever /pains. Saltwater gargles as needed for sore throat. If symptoms do not improve or worsen advised to return to the walk-in clinic or see primary physician. [email or web address] Not available 04/09/2024 19:15:43 Plan of Treatment Reminders Order Date Submit Date Provider Last Modified By Organization Details Last Modified Time Details Appointments None recorded. Lab influenza virus A + B + SARS-CoV-2 (COVID19) Ag panel, rapid IA, upper respiratory specimen 2024 025 [facility], [address] [place] [address], [place], [address], 10:12:57 Referral None recorded. Procedures None recorded. Surgeries None recorded. Imaging MRI, cervical spine, w/o contrast 2023 024 [facility], [address] [place], [address], 4 07:26:06 Medication Orders Bromfed DM 2 mg-30 mg-10 mg/5 mL oral syrup 2024 025 [email or web address] [id number], [address] [facility] [address], [place], [id number], 5 19:16:05 nicotine 21 mg/24 hr daily transdermal patch 2024 025 [facility], [address] [place] [address], [id number], 08:02:47 nicotine 14 mg/24 hr daily transdermal patch 2024 025 [facility], [address] [place] [address], [id number], 14:09:13 nicotine 7 mg/24 hr daily transdermal patch 2024 025 [facility], [address] [place] [address], [id number], 12:24:29 albuterol sulfate 2.5 mg/3 mL (0.083 %) solution for nebulizatio n 2024 025 [facility], [address] [place] [address], [id number], 12:24:28 potassium chloride ER 10 mEq tablet,exte nded release 2023 024 [facility], [address] [place] [address], [id number], 12:24:25 metoprolol succinate ER 50 mg tablet,exte nded release 24 hr 2023 024 [facility], [address] [place] [address], [id number], 12:24:25 Patient TargetsNo targets recorded. Patient InstructionsNo instructions recorded. Reason for Referral None Reported. Results Created Date Observation Date Name Description Value Unit Range Abnormal Flag Note LastModifiedBy Organization Detail LastModifiedTime 12/24/19 24 12/24/2023 ESR - SED RATE sedimentatio n rate (ESR) 98 mm/HR <30 high Not Available [facility] [address] [facility] [address], [place], [address], 12/24/2023 13:46:31 12/24/1912/24/2023 CRP; C-EUSEBIA CTIVE PROTE IN CRP <0.5 mg/dL 0.5 - 1.0 Not Available [facility] [address], [address], 12/24/2023 18:07:10 12/24/19 24 12/25/2023 RPR RPR NON REACTI VE non reacti ve CB: [facility] Sonny n: [address] [place] [address] , [facility] tor: Valdemar brooke, PhD Not Available [facility] [address], [address], 12/25/2023 09:16:27 12/24/1912/25/2023 PROT+ CREAT U (RAND OM) creatinine, urine 120.8 mg/dL not estab. Not Available [facility] [address], [address], 12/25/2023 12:16:29 12/24/19 24 12/25/2023 PROT+ CREAT U (RAND OM) protein,tota l,urine 1,599. 2 mg/dL not estab. Resul ts confi rmed on dilut ion. Not Available [facility] [address], [address], 12/25/2023 12:16:29 12/24/1912/25/2023 PROT+ CREAT U (RAND OM) protein/crea t ratio 13,238 mg/g_ creat 0-200 high CB: [facility] Sonny n: [address] [facility], [place] [address] , [facility] tor: Valdemar brooke, PhD Not Available [facility] [address], [address], 12/25/2023 12:16:29 12/24/19 24 12/25/2023 ANTI- CCP AB, IGG/I GA anti-ccp Ab, IgG/IgA 68 units 0-19 high CB: [facility] Panli n: [address] [place], [place] [phone] , [facility] tor: Valdemar brooke, PhD Negat beatrice <20 Weak posit beatrice 20 - 39 Moder ate posit beatrice 40 - 59 Stron g posit beatrice >59 Not Available [facility] [address], [address], 12/25/2023 14:16:46 12/24/19 24 12/25/2023 ANTI- DSDNA ANTIB ODIES anti-DNA (ds) Ab qn <1 IU/mL 0-9 CB: [facility] Sonny n: [address] [place], [place] [phone] , [facility] tor: Valdemar brooke, PhD Negat beatrice <5 Equiv ocal 5 - 9 Posit beatrice >9 Not Available [facility] [address], [address], 12/25/2023 20:16:19 12/24/1912/25/2023 ANTIN UCLEA R AB MULTI PLEX RFX 9 LALO direct NEGATI VE negati ve CB: [facility] Sonny n: [address] [place] [address] , [facility] tor: Valdemar brooke, PhD Not Available [facility] [address], [address], 12/25/2023 20:16:21 12/24/19 24 12/26/2023 LUPUS ANTIC OAGUL ANT REFLE X PTT-la 33.2 sec 0.0-43 .5 Not Available [facility] [address], [address], 12/26/2023 06:00:48 12/24/1912/26/2023 LUPUS ANTIC OAGUL ANT REFLE X drvvt 36.2 sec 0.0-47 .0 Not Available [facility] [address], [address], 12/26/2023 06:00:48 12/24/19 24 12/26/2023 LUPUS ANTIC OAGUL ANT REFLE X lupus reflex interpretati on COMMEN T: BN: [facility] [place] : [address] , [place] [address] , [facility] tor: Ashley pablo MD No lupus antic oagul ant was detec olga. Not Available [facility] [address], [address], 12/26/2023 06:00:48 04/09/19 25 04/09/2024 influ vel virus A + B + SARS- CoV-2 (COVI D19) Ag panel , rapid IA, upper respi rator y speci men flu A negati ve negati ve normal Not Available [facility] [address] [place] [address], [address], 04/09/2024 18:57:45 04/09/19 25 04/09/2024 influ vel virus A + B + SARS- CoV-2 (COVI D19) Ag panel , rapid IA, upper respi rator y speci men flu B negati ve negati ve normal Not Available [facility] [address] [place] [address], [address], 04/09/2024 18:57:45 04/09/19 25 04/09/2024 influ vel virus A + B + SARS- CoV-2 (COVI D19) Ag panel , rapid IA, upper respi rator y speci men sars negati ve negati ve normal Not Available [facility] [address] [place] [address], [address], 04/09/2024 18:57:45 04/09/19 25 04/09/2024 influ vel virus A + B + SARS- CoV-2 (COVI D19) Ag panel , rapid IA, upper respi rator y speci men the internal QC IS valid. Not Available [facility] [address] [place] [address], [place], [address], 04/09/2024 18:57:45 12/17/19 24 12/17/2023 omar YING [facility] Name: JASS SANDOVAL [address] Phys: Nova MILLIGAN,Paul Andrews KELSIE ET : 1970 Age: 53 Sex: F [place] [id number] Acct: [id number] Loc: YIM C PHONE #: Exam Date: 2023 Status : DEP CLI FAX #: [phone] Radiol ogy No: [id number] Unit No: [id number] EXAMS: CLINIC AL HISTOR Y: [id number] US GALLBL ADDER EXAM: ULTRAS OUND OF THE RIGHT UPPER QUADRA NT TECHNI QUE: Real-t kurt canseco scale imagin g of the right upper quadra nt was perfor med. Images supple mented with color Dopple r techni que. CLINIC AL DATA: Gallbl adder diseas e. Diagno sis: Other specif ied diseas es of gallbl adder. PRIOR STUDIE S: US gallbl adder 024. FINDIN GS: The visibl e portio ns of the liver are normal in echoge nicity and size measur ing 16.7 cm. Portal flow: Hepato petal. The gallbl adder contai ns a stone measur ing 1.4 cm and also demons trates ring-d own artifa ct, compat ible with adenom yomato sis. Gallbl adder wall thickn ess of 3 mm. Negati ve Saxena 's sign. The common bile duct is normal in size and measur es 4 mm. The visibl e portio ns of the pancre as do not demons trate any peripa ncreat ic fluid collec tions or ductal dilata tion. The aorta measur es 1.8 cm in the maximu m diamet er. Unrema rkable IVC. The right kidney is normal in echoge nicity withou t eviden ce of hydron ephros is. No echoge ernst calcul i are noted. The right kidney measur es 11.8 x 5.2 x 5.4 cm. There is no eviden ce of free fluid in the right upper quadra nt. IMPRES NICO: Cholel yeny is withou t eviden ce of acute cholec ystiti s. Adenom yomato sis. Otherw ise unrema rkable study. Electr onical ly Signed By: Jason hillman MD Electr onical ly Signed At: 2023-03 12:15 Electr onical ly Signed by Matthew Hillman on 2023 at 1215 Report ed and signed by: ANGEL Hillman M.D. CC: Nova MILLIGAN,Paul Andrews; Shantelle Santillan APRNystparesh smith Filomena Dictat ed Date/T kurt: 2023 (1215) Techno logist : SAVANN MAGDALENE CAICEDO N Transc ribed Date/T kurt: 2023 (1215) Transc riptio nist: [email or web address] Electr onic Signat ure Date/T kurt: 2023 (1215) Printe d Date/T kurt: 2023 (1218) BATCH NO: N/A PAGE 1 Signed Report CC'ed Logic: Orderi ng Provid er: [place]OVA [place] Attend ing Provid er: [place] Referr ing Provid er: NOVA [place] Consul ting Provid er: MICHAEL PENA APRN CHRYST [place] [id number] [facility] (Imaging) [address] [place] [address], [address], 12/18/2023 08:39:42 01/20/2001/17/2024 US, renal No observ ation record ed. [facility]- 10/31/[address] [place] [address], [address], 03/17/2024 01:45:10 02/03/20 24 02/03/2024 US, renal No observ ation record ed. [address], [address], 03/17/2024 01:44:58 02/15/2001/28/2024 US, echoc ardio gram, trans thora cic, compl ete, w/ color flow No observ ation record ed. [facility] [address] [place], [address], 03/17/2024 01:45:05 02/28/20 24 02/28/2024 XR, chest , 1 view No observ ation record ed. [address], [address], 03/17/2024 01:45:00 03/02/20 24 03/02/2024 XR, chest , 1 view No observ ation record ed. [address], [address], 03/17/2024 01:45:02 03/23/19 25 03/22/2024 XR, chest , 2 view No observ ation record ed. [address], [address], 03/24/2024 04:23:33 Result Notes None recorded. Problems Name Problem SNOMED Code Status Onset Date Resolution Date Notes Provider Name and Address Organization Details Recorded Time Paresthesi a of upper limb 32202701 Active 2023 Alex Kim DO [address] [facility], [place], [address], [place] - [place] [facility] 4 16:27:20 Vitamin D deficiency 78693569 Active 2023 Amy estrada [place] - [place] [facility] 4 14:11:15 Inflammato ry polyarthro jaskaran 329519102 Active 2023 Kristen Cruz MD [address] [facility],[address], [place], [address], [place] [facility] - [facility] 4 12:55:39 Hypoprotei nemia 1106711 Active 2023 Kristen Cruz MD [address] [place] [address], [place], [address], [place] - [facility] - [facility] 4 12:57:30 Proteinuri a 55619992 Active 2023 Kristen Cruz MD [address] [place] [address], [place], [address], [place] - [facility] - [facility] 4 12:59:13 Asthenia 43337657 Active Monique Hayden null, [place] - [facility] 4 07:24:09 Hypomagnes emia 059459996 Active Monique Hayden null, [place] [facility] - [facility] 4 07:24:09 Abdominal pain 13186262 Active Monique Hayden null, [place] [facility] 4 07:24:09 Pneumonia 194100755 Active Monique Hayden null, [place] [facility] 4 07:24:09 Thoracic back pain 300168028 Active Monique Hayden null, [place] [facility] - [facility] 4 07:24:09 Chest pain 28555743 Active Catalina Ruiz RN-BSN null, [place] [facility] - [facility] 5 15:26:09 Hypertensi ve disorder 46905162 Active Monique Hayden null, [place] [facility] - [facility] 4 07:24:09 Cyst of breast 571915718 Active Monique Hayden null, [place] [facility] 4 07:24:09 History of clinical finding in subject 756057732 Active Monique Hayden null, [place] [facility] - [facility] 4 07:24:09 Near syncope 827020623 Active Monique Hayden null, [place] [facility] - [facility] 4 07:24:09 Hypokalemi a 04949007 Active Monique Hayden null, [place] [facility] - [facility] 4 07:24:09 Foot pain 34714113 Active Monique Hayden null, [place] [facility] - [facility] 4 07:24:09 Cough 28342276 Active Monique Hayden null, [place] [facility] - [facility] 4 07:24:09 Sprain of knee 89968278 Active Monique Hayden null, [place] [facility] - [facility] 4 07:24:09 Diarrhea 67937224 Active Monique Hayden null, [place] [facility] [facility] 4 07:24:09 Urinary tract infectious disease 56911508 Active Monique Hayden null, [place] [facility] - [facility] 4 07:24:09 Palpitatio ns 22207306 Active Monique Hayden null, [place] [facility] - [facility] 4 07:24:09 Dysphagia 41877093 Active 2023 Kristen Cruz MD [address] [place] [address], [address], [place] [facility] - [facility] 4 11:32:18 Insomnia 442223477 Active 2023 Kristen Cruz MD [address] [place] [address], [address], [place] [facility] - [facility] 4 10:37:51 Focal segmental glomerulos clerosis 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 Cornejo, nephrology Status post kidney biopsy Kristen Cruz MD [address] [place] [address], [address], [place] [facility] - [facility] 5 01:44:27 Nephrotic syndrome 62120874 Active 2024 Kristen Cruz MD [address] [place] [address], [address], [place] [facility] [place] [facility] 5 01:44:40 Nephrotic syndrome, focal and segmental glomerular lesions 613258674 Active 2024 Kristen Cruz MD [address] [place] [address], [place], [address], [facility] 5 01:50:37 Rheumatoid arthritis 52246762 Active 2024 Kristen Cruz MD [address] [facility], [place], [address], [facility] 5 01:50:56 Problem Notes None recorded. Procedures Surgical History Date Name Laterality Status Provider Name and Address Organization Details Recorded Time excision of cyst of breast completed Melvina Gudino [facility] 07/08/2023 11:07:04 Imaging Results None recorded. Procedure Notes None recorded. Medical Equipment None Reported. Allergies Allergen ID Allergen Name Allergen Category Reaction Reaction Severity Criticality Documentation Date Start Date Code Code System Note Provider Name and Address Organization Details Recorded Time 80695 No known allergy (situatio n) Not available Not available Not available Not available 03/24/2024 62521 6003 SNOMED RADHA Dubois [facility], [facility] 5 15:36:53 45400 nifedipin e medicatio n swelling Not available Not available 03/24/2024 7417 RxNorm RADHA Dubois [facility] 5 15:37:07 Medications Name Sig Start Date Stop Date Status Note LastModified by Organization Details LastModified Time losartan 50 mg tablet TAKE ONE TABLET BY MOUTH DAILY active Not Available Not Available No t Available nifedipin e ER 30 mg tablet,ex tended release 24 hr Take 30 mg by oral route. 03/24 completed Not Available Not Available Not Available cyclobenz aprine 10 mg tablet TAKE ONE TABLET BY MOUTH TWICE DAILY NEEDED FOR MUSCLE SPASMS active Not Available Not Available No t Available furosemid e 40 mg tablet TAKE 1 TABLET BY MOUTH ONCE DAILY 12/03 completed Not Available Not Available Not Available fluconazo le 100 mg tablet 50 mg by oral route. 05/18 completed Not Available Not Available Not Available bupropion HCl SR 150 mg tablet,12 hr sustained -release 03/24 completed Not Available Not Available Not Available nicotine 14 mg/24 hr daily transderm al patch Apply 1 patch every day by transder mal route for 14 days. active Not Available Not Available No t Available torsemide 20 mg tablet TAKE TWO TABLETS BY MOUTH DAILY active Not Available Not Available No t Available albuterol sulfate 2.5 mg/3 mL (0.083 %) solution for nebulizat ion Inhale 3 mL 3 times a day by nebuliza tion route for 30 days. active Not Available Not Available No t Available trazodone 50 mg tablet 03/24 completed Not Available Not Available Not Available cetirizin e 10 mg tablet TAKE 1 TABLET BY MOUTH ONCE DAILY 12/03 completed Not Available Not Available Not Available atorvasta tin 10 mg tablet Take 1 tablet every day by oral route. 01/13 completed Not Available Not Available Not Available metoprolo l succinate ER 50 mg tablet,ex tended release 24 hr TAKE ONE TABLET BY MOUTH TWICE DAILY active Not Available Not Available No t Available meloxicam 15 mg tablet TAKE 1 TABLET BY MOUTH ONCE DAILY FOR 30 DAYS 04/11 completed Not Available Not Available Not Available naltrexon e 50 mg tablet 03/02 completed Not Available Not Available Not Available phenazopy ridine 200 mg tablet 200 mg by oral route. 01/03 completed Not Available Not Available Not Available ondansetr on HCl 4 mg tablet 4 mg by oral route. 01/23 completed Not Available Not Available Not Available prednison e 20 mg tablet TAKE THREE TABLETS BY MOUTH ONCE DAILY active Not Available Not Available No t Available naproxen 250 mg tablet 250 mg by oral route. 01/23 completed Not Available Not Available Not Available hydralazi ne 25 mg tablet Take 25 mg by oral route. 03/24 completed Not Available Not Available Not Available potassium chloride ER 10 mEq tablet,ex tended release Take 2 tablets every day by oral route for 30 days. 2023 active Not Available Not Available Not Avai lable nifedipin e ER 30 mg tablet,ex tended release 03/02 completed Not Available Not Available Not Available acetamino phen 300 mg-codein e 30 mg tablet TAKE 1 TABLET BY MOUTH EVERY 8 HOURS NEEDED active Not Available Not Available No t Available amlodipin e 5 mg tablet Take 1 tablet every day by oral route. 03/24 completed Not Available Not Available Not Available Depo-Medr ol 80 mg/mL suspensio n for injection Take 1 mL by injectio n route. 03/02 completed Not Available Not Available Not Available meloxicam 7.5 mg tablet TAKE 1 TABLET BY MOUTH ONCE DAILY 04/11 completed Not Available Not Available Not Available citalopra m 20 mg tablet 20 mg by oral route. 05/18 completed Not Available Not Available Not Available temazepam 30 mg capsule Take 1 capsule every day by oral route in the evening for 30 days, for INSOMNIA . 03/24 completed Not Available Not Available Not Available nifedipin e ER 90 mg tablet,ex tended release 24 hr Take 90 mg by oral route. 03/24 completed Not Available Not Available Not Available benzonata te 100 mg capsule TAKE 1 CAPSULE BY MOUTH THREE TIMES DAILY NEEDED FOR COUGH 12/03 completed Not Available Not Available Not Available doxycycli ne monohydra te 100 mg capsule Take 100 mg by oral route. 03/24 completed Not Available Not Available Not Available cephalexi n 500 mg capsule 500 mg by oral route. 05/18 completed Not Available Not Available Not Available nicotine 21 mg/24 hr daily transderm al patch Apply 1 patch every day by transder mal route for 14 days, for 21mg for 14 days. active Not Available Not Available No t Available hydrochlo rothiazid e 12.5 mg capsule active Not Available Not Available Not Available nitroglyc alex 0.4 mg sublingua l tablet 2023 active Cardiolo gy Not Available Not Available Not Available omeprazol e 20 mg capsule,d elayed release Take 1 capsule every day by oral route for 90 days. active Not Available Not Available No t Available diclofena c sodium 75 mg tablet,de layed release Take 75 mg by oral route. 03/24 completed Not Available Not Available Not Available bumetanid e 1 mg tablet Take by oral route. 03/02 completed Not Available Not Available Not Available hydrochlo rothiazid e 25 mg tablet TAKE 1 TABLET BY MOUTH ONCE DAILY 11/17 completed Not Available Not Available Not Available furosemid e 20 mg tablet TAKE 1 TABLET BY MOUTH ONCE DAILY 11/17 completed Not Available Not Available Not Available metoprolo l succinate ER 25 mg tablet,ex tended release 24 hr Take 25 mg by oral route. 03/24 completed Not Available Not Available Not Available ergocalci ferol (vitamin D2) 1,250 mcg (50,000 unit) capsule TAKE ONE CAPSULE BY MOUTH ONCE A WEEK active Not Available Not Available No t Available brompheni ramine-ps eudoephed rine-DM 2 mg-30 mg-10 mg/5 mL oral syrup TAKE 10ML BY MOUTH EVERY 4 HOURS FOR 5 DAYS active Not Available Not Available No t Available ondansetr on 4 mg disintegr ating tablet 04/11 completed Not Available Not Available Not Available cefdinir 300 mg capsule 300 mg by oral route. 01/03 completed Not Available Not Available Not Available losartan 100 mg tablet 100 mg by oral route. active Not Available Not Available No t Available fluticaso ne propionat e 50 mcg/actua tion nasal spray,carmen pension SPRAY 1 SPRAY IN EACH NOSTRIL ONCE DAILY active Not Available Not Available No t Available amoxicill in 875 mg-potass ium clavulana te 125 mg tablet 01/03 completed Not Available Not Available Not Available nicotine 7 mg/24 hr daily transderm al patch Apply 1 patch every day by transder mal route for 14 days. 2024 active Not Available Not Available Not Avai lable Ventolin HFA 90 mcg/actua tion aerosol inhaler INHALE TWO PUFFS BY MOUTH EVERY 6 HOURS NEEDED active Not Available Not Available No t Available Daily Multi-Vit carson tablet 1 tablet every day by oral route. active Not Available Not Available No t Available potassium chloride ER 10 mEq tablet,ex tended release(p art/cryst ) 03/24 completed Not Available Not Available Not Available metoprolo l tartrate 25 mg tablet Take 50 mg by oral route. 03/24 completed Not Available Not Available Not Available Adult Low Dose Aspirin active Not Available Not Available Not Available levocetir izine 5 mg tablet Take 5 mg by oral route. 03/24 completed Not Available Not Available Not Available Repatha [employer] 140 mg/mL subcutane ous pen injector Inject 1 mL every 2 weeks by subcutan eous route for 30 days. active Not Available Not Available No t Available Vitals Date Recorded Body height Body mass index (BMI) Body weight Heart rate Oxygen saturation Oxygen saturation in Arterial blood by Pulse oximetry Systolic blood pressure Diastolic blood pressure Provider Name and Address Organization Details Last Updated DateTime 5 167.64 cm 39.9 kg/m2 374809. 42 g 112 /min 97 % 97 % 128 mm[Hg] 76 mm[Hg] RADHA Dubois [facility] 5 15:33:05 Date Recorded Body height Body mass index (BMI) Body weight Body temperature Oxygen saturation Oxygen saturation in Arterial blood by Pulse oximetry Heart rate Systolic blood pressure Diastolic blood pressure Provider Name and Address Organization Details Last Updated DateTime 5 167.64 cm 41 kg/m2 825983. 46 g 97.1 [degF] 96 % 96 % 108 /min 116 mm[Hg] 83 mm[Hg] [facility] 18:[facility]27 Date Recorded Body height Body mass index (BMI) Body weight Heart rate Body temperature Oxygen saturation Oxygen saturation in Arterial blood by Pulse oximetry Systolic blood pressure Diastolic blood pressure Provider Name and Address Organization Details Last Updated DateTime 4 167.64 cm 41.4 kg/m2 482804. 37 g 92 /min 97.9 [degF] 98 % 98 % 147 mm[Hg] 98 mm[Hg] Dragan Lee [facility] 4 09:51:08 Date Recorded Body height Body mass index (BMI) Body weight Heart rate Oxygen saturation Oxygen saturation in Arterial blood by Pulse oximetry Systolic blood pressure Diastolic blood pressure Provider Name and Address Organization Details Last Updated DateTime 4 167.64 cm 41.3 kg/m2 656526. 35 g 92 /min 96 % 96 % 130 mm[Hg] 76 mm[Hg] RADHA Dubois [facility] 4 15:45:50 Date Recorded Body height Body mass index (BMI) Body weight Heart rate Oxygen saturation Oxygen saturation in Arterial blood by Pulse oximetry Systolic blood pressure Diastolic blood pressure Provider Name and Address Organization Details Last Updated DateTime 167.64 cm 40.9 kg/m2 787211. 27 g 81 /min 97 % 97 % 138 mm[Hg] 78 mm[Hg] Catalina Ruiz RN-BSN [facility] 11:05:46 Social History Question Answer Notes LastModified by [employer] Details LastModified Time Tobacco Smoking Status Current Every Day Smoker Nayeli estrada [facility] 11/28/2022 08:43:32 Do You Have An Advance Directive? No [email or web address] Information not available 05/06/2023 Are You Blind Or Do You Have Difficulty Seeing? No [email or web address] Information not available 05/06/2023 What Was The Date Of Your Most Recent Tobacco Screening? 12/02/2022 [email or web address] Information not available 05/06/2023 Are You Passively Exposed To Smoke? Yes Information not available 05/06/2023 How Much Tobacco Do You Smoke? 1 PPD [email or web address] Information not available 05/06/2023 How Many Years Have You Smoked Tobacco? 35 [email or web address] Information not available 05/06/2023 Sex: Female Functional Status Question Answer Note LastModified by [employer] Details LastModified Time Do you use any illicit or recreational drugs? No [email or web address] Information not available 05/06/2023 What is your level of alcohol consumption? Occasional [email or web address] Information not available 05/06/2023 Do you or have you ever used smokeless tobacco? 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 Occasional Information not available 05/06/2023 Mental Status Question Answer Note LastModified by Organization D etails LastModified Time Do you feel stressed (tense, restless, nervous, or anxious, or unable to sleep at night)? [id number] [email or web address] Information not available 05/06/2023 Family History Relationship Description Onset Age of this Age Resolved Age Notes LastModified by Organization Details LastModified Time Brother Multiple sclerosis [email or web address] Not available 2023 11:06:57 Mother Multiple sclerosis 56 [email or web address] Not available 2023 11:06:57 Mother Arthritis pt. added direct ly (12/02) [email or web address] Not available 07/08/2023 11:06:57 Mother Hypertensive disorder [email or web address] Not available 2023 11:06:57 Mother Family member thi Not available 02/09 10:42:53 Maternal Grandmother Osteoporosis pt. added direct ly (12/02) [email or web address] Not available 07/08/2023 11:06:57 Father Family history of malignant neoplasm pt. added direct ly (12/02) [email or web address] Not available 07/08/2023 11:06:57 Father Myelofibrosi s [email or web address] Not available 02/09 10:42:53 Father Family member thi Not available 02/09 10:42:53 Sister Family history of malignant neoplasm pt. added direct ly (12/02) [email or web address] Not available 07/08/2023 11:06:57 Medical History Condition Response Anxiety Disorder Y Allergies/Hayfever Y Obesity Y Arthritis Y Constipation Y Polyps Y High Cholesterol Y Bronchitis Y Headaches Y Hypertension Y Depression Y Gynecological History Statement/Question Response Menses Monthly N Abnormal Pap Y Duration of Flow (days) 0 Current Control Method Tubal Ligat ion Sexually Active? N Obstetrics History GPAL:G 0 P 0 0 0 0 Immunizations Vaccine Type Date Status Note Provider Nam e and Address Organization Details Recorded Time zoster recombinant 3 completed Pamula [place], [place] - [facility] - [facility] 07/31/2023 13:43:49 zoster recombinant 3 completed Pamula [place], [place] - [facility] 07/31/2023 13:43:49 Tdap 1 completed Pamula [place], [place] [facility] [place] [facility] 07/31/2023 13:43:49 Hep B, adult 3 completed Pamula [place], [place] - [facility] 07/31/2023 13:43:49 Hep B, adult 3 completed Pamula [place], [place] [facility] 07/31/2023 13:43:49 Hep A, adult 1 completed Pamula New null, [facility] 07/31/2023 13:43:49 [facility], adult 1 [facility] 07/31/2023 13:43:49 Pneumococcal conjugate PCV20, polysaccharide UMM527 conjugate, adjuvant, PF 4 completed Monique Hayden null, [facility] 03/02/2024 07:23:16 Hep B, adult 4 completed [facility] 03/02/2024 07:23:16 Influenza, split virus, quadrivalent, PF 4 completed Monique Hayden null, [facility] 03/02/2024 07:23:16 Past Encounters Encounter ID Performer Location Encounter Start Date Encounter Closed Date Diagnosis/Indication Diagnosis SNOMED-CT Code Diagnosis ICD10 Code Diagnosis Note [id number] [facility] [address] [place] [address] 12/03/2022 13:16:14 12/03/2022 14:14:46 Essential hypertension 90469695 I10 We will continue her current medication . Obesity 128645023 E66.9 We will recommend diet. Insomnia 685354426 G47.0 0 She states she uses trazodone as needed but states that her muscle relaxant usually helps with falling asleep as well. Osteoarthr itis of multiple joints 595751352 M15.9 [id number] Anthony Bellamy, DO [facility] [address] [place] [address],[address] [place] [address] 04/11/2023 15:43:37 04/11/2023 16:53:35 Paresthesia of upper limb 57052378 R20.2 Numbness of both the bilateral upper extremitie s.TIA, spinal cord compressio n syndrome, transverse myelitis, acute myelitis. Plan-Send to ED for further evaluation . [id number] MD SUDHA Easley Andrea [address] [address] 04/15/2023 09:19:51 04/15/2023 10:04:21 Essential hypertension 71543645 I10 Obesity 246982069 E66.9 Insomnia 127232669 G47.0 0 Osteoarthr itis of multiple joints 575607777 M15.9 Degenerati on of cervical intervertebral disc 40745393 M50.30 [id number] Cindy Dhillon MD [address] [address] 06/03/2023 12:52:39 06/03/2023 13:36:19 Essential hypertension 32874096 I10 Obesity 510520990 E66.9 Insomnia 865612851 G47.0 0 Osteoarthr itis of multiple joints 261093023 M15.9 Degenerati on of cervical intervertebral disc 72454779 M50.30 She is currently undergoing physical therapy, after which we will try to obtain MRI and refer her to neurosurge ry. History of gallstones 40 4124722 Z87.19 She does have a history of gallstones . She would like to have a right upper quadrant ultrasound and referral to a general surgeon. Screening for malignant neoplasm of colon 306756494 Z12.11 I will order a Cologuard for colon cancer screening. Seasonal a llergic rhinitis 361713322 J30.2 Screening mammography 24 401983 Z12.31 I will order a mammogram Spasm 72054242 R25.2 Mixed hyperlipidemia 267 086168 E78.2 Impaired g lucose tolerance 6206127 R73.02 Fatigue 43054562 R53.83 Vitamin D deficiency 347 46990 E55.9 [id number] Cindy Dhillon MD [address] [address] 07/09/2023 11:23:40 07/09/2023 12:17:55 Essential hypertension 87562088 I10 Obesity 447928630 E66.9 Insomnia 640396616 G47.0 0 Osteoarthr itis of multiple joints 235741524 M15.9 Degenerati on of cervical intervertebral disc 84719953 M50.30 History of gallstones 40 4042414 Z87.19 Seasonal a llergic rhinitis 943861723 J30.2 Spasm 27792493 R25.2 Mixed hyperlipidemia 267 686539 E78.2 Vitamin D deficiency 347 67297 E55.9 Menopausal syndrome 1237 73203 N95.2 After placing patient in the lithotomy position and examinatio n of the outer vagina the speculum was inserted. The tip of the cervical brush was placed into the external cervical os and a sample of the cervix was taken. The end of the brush was placed into the sample bottle and the speculum was removed from the vagina. Patient tolerated the procedure well. [id number] Cindy Dhillon MD [address] [address] 07/31/2023 13:09:27 07/31/2023 15:02:45 Obesity 644241000 E66.9 The patient will be initiated on Wellbutrin . Essential hypertension 77743476 I10 Insomnia 443577170 G47.0 0 Osteoarthr itis of multiple joints 089230552 M15.9 Degenerati on of cervical intervertebral disc 55349243 M50.30 [id number] [facility] [address] [place] [address] 08/20/2023 13:12:04 08/20/2023 14:50:37 Disorder of gallbladder 56701126 K82.8 [id number] Cindy Dhillon MD [address] [address] 08/20/2023 14:57:08 08/20/2023 16:43:06 Essential hypertension 32140583 I10 Obesity 714875388 E66.9 The patient will be initiated on Wellbutrin . Insomnia 344706305 G47.0 0 Osteoarthr itis of multiple joints 744669973 M15.9 Degenerati on of cervical intervertebral disc 45093567 M50.30 History of gallstones 40 9324536 Z87.19 Seasonal a llergic rhinitis 092362623 J30.2 Spasm 84581840 R25.2 Mixed hyperlipidemia 267 566780 E78.2 Menopausal syndrome 1237 48067 N95.2 [id number] Cindy Dhillon MD [address] [address] 09/04/2023 08:12:35 09/04/2023 09:20:13 Essential hypertension 41750965 I10 Obesity 336879840 E66.9 The patient will be initiated on Wellbutrin . Insomnia 066177701 G47.0 0 Osteoarthr itis of multiple joints 225157894 M15.9 Degenerati on of cervical intervertebral disc 92184111 M50.30 History of gallstones 40 8693311 Z87.19 Seasonal a llergic rhinitis 428924366 J30.2 Spasm 38732672 R25.2 Mixed hyperlipidemia 267 274895 E78.2 She did not tolerate statin will repeat lipid panel if still elevated try to start praluent, Repatha or Leqvio. Vitamin D deficiency 347 72831 E55.9 Palpitations 22402706 R0 0.2 EKG in office today showed sinus rhythm at a rate of 76 beats per minute with normal ST and T-wave morphology . Patient has been having intermitte nt palpitatio n especially at nights she will benefit from monitoring analyst. Will refer to cardiology . Impaired g lucose tolerance 5187830 R73.02 Fatigue 26295152 R53.83 [id number] [facility] [address] [address] 09/23/2023 08:43:39 09/23/2023 09:04:17 Mixed hyperlipidemia 507676561 E78.2 She did not tolerate statin will repeat lipid panel if still elevated try to start praluent, Repatha or Leqvio. [id number] Cindy Dhillon MD [facility] [address] [address] 10/21/2023 12:17:54 10/21/2023 14:02:08 Essential hypertension 44286774 I10 Obesity 624971629 E66.9 Insomnia 247855544 G47.0 0 Osteoarthr itis of multiple joints 911943509 M15.9 History of gallstones 40 3329834 Z87.19 Seasonal a llergic rhinitis 056765005 J30.2 Spasm 47148929 R25.2 Mixed hyperlipidemia 267 746934 E78.2 Vitamin D deficiency 347 48506 E55.9 Low back pain 837980473 M54.50 Will try to obtain prior authorizat ion for MRI of the Lumbar spine [id number] Cindy Dhillon MD [address] [place] [address] 12/04/2023 12:47:09 12/04/2023 13:41:48 Essential hypertension 71756703 I10 Obesity 045853394 E66.9 Insomnia 024507743 G47.0 0 Osteoarthr itis of multiple joints 539848768 M15.9 Degenerati on of cervical intervertebral disc 97252512 M50.30 History of gallstones 40 1205103 Z87.19 Seasonal a llergic rhinitis 917898131 J30.2 Spasm 27293017 R25.2 Mixed hyperlipidemia 267 966247 E78.2 Vitamin D deficiency 347 25125 E55.9 Palpitations 78133087 R0 0.2 [id number] Cindy Dhillon MD [address] [place] [address] 11/18/2023 13:40:24 11/18/2023 14:39:44 Essential hypertension 74828658 I10 Obesity 025408122 E66.9 Insomnia 163201602 G47.0 0 Osteoarthr itis of multiple joints 472184152 M15.9 History of gallstones 40 9713510 Z87.19 Seasonal a llergic rhinitis 079393872 J30.2 Spasm 93623143 R25.2 Mixed hyperlipidemia 267 935147 E78.2 Vitamin D deficiency 347 50985 E55.9 Cough 73120641 R05.9 Congestion of nasal sinus 91590210 R09.81 [id number] [facility] [address] [place] [address] 12/20/2023 09:42:52 12/20/2023 10:09:24 Cholelithiasis without obstruction 03152428 K80.20 Adenomyoma tosis of gallbladder 907241019 K82.8 [id number] Kristen Cruz MD [facility] Loan Administrator [address] [place], [place] [address] [place] [address] 01/14/2024 15:08:54 01/14/2024 16:28:18 Essential hypertension 34419215 I10 Cervical radiculopathy 66615399 M54.12 Hypoproteinemia 2166601 E88.09 Inflammato ry polyarthropathy 110670267 M06.4 Proteinuria 16171112 R80 .9 [id number] Cruz MD [facility] Loan Administrator [address] [place] [address] 03/02/2024 10:42:45 03/02/2024 11:36:16 Hypokalemia 73756222 E87.6 Dysphagia 47838949 R13.1 0 Nephrotic syndrome, focal and segmental glomerular lesions 575212604 N04.1 Rheumatoid arthritis 698 65254 M06.9 [id number] Kristen Cruz MD [address] [address] 03/24/2024 15:24:09 04/09/2024 09:30:04 Tobacco dependence syndrome 18656841 F17.200 Chronic ob structive pulmonary disease 34031267 J44.9 [id number] DO [facility] [address] [place] [address] 04/09/2024 18:23:33 04/10/2024 11:48:09 Acute upper respiratory infection 28157967 J06.9 Health Concerns Section Related Observation LastModified by Organization Detai ls LastModified Time None Recorded Concern Status LastModified by Organization Details LastModified Time None Recorded Advance Directives Directive N: Payers Insurance Date Sequence Insurance Name Policy Number Policy Shook Covered Member ID Shook Member ID Guarantor Name 08/20/2023 1 [employer] [id number] Jass Cousins [id number] Jass A Cousins 08/20/2023 [facility] WRAP BILLING (MEDICAID) Jass Cousins [id number] Jass A Cousins 06/28/2024 1 [employer] [place] Jass A Cousins [id number] Jass A Cousins Notes Date Note Type Note Provider Name and Address Organization Details Recorded Time 12/20/19 24 text/htm l Ms Jass Crowell Is a 53-year-old female here to follow-up on ultrasound of the gallbladder performed on December 16 2023. Ultrasound was performed 6 months after last ultrasound due to findings previously. Results are as follows:The visible portions of the liver are normal in echogenicity and size measuring 16.7 cm. Portal flow: Hepatopetal. The gallbladder contains a stone measuring 1.4 cm and also demonstrates ring-down artifact, compatible with adenomyomatosis. Gallbladder wall thickness of 3 mm. Negative Saxena's sign. The common bile duct is normal in size and measures 4 mm. The visible portions of the pancreas do not demonstrate any peripancreatic fluid collections or ductal dilatation. The aorta measures 1.8 cm in the maximum diameter. Unremarkable IVC. The right kidney is normal in echogenicity without evidence of hydronephrosis. No echogenic calculi are noted. The right kidney measures 11.8 x 5.2 x 5.4 cm. There is no evidence of free fluid in the right upper quadrant. She denies right upper quadrant abdominal pain, nausea, tenderness, concerns otherwise at this time. Findings are similar to previous findings. She is having some issues with her blood pressure and has started seeing a new clinical product specialist at Dr. Camacho's office and her medications were changed. Her blood pressure continues to run high and she is having some lower extremity edema that she is primarily concerned about. She feels like the new blood pressure medications have not improved her symptoms and she plans to follow up with them concerning these findings. She has underwent wearing a Holter monitor but has yet to undergo echocardiogram and is awaiting stress test. MIROSLAVA MUNOZ APRN [address] [place] [address], [phone], [place] - [facility] - [facility] 12/23/2023 16:50:04 01/14/20 24 text/htm l 53-year-old female here for follow-up previously followed by Dr. Dhillon.Past history notable for: ObesityChronic tobacco abuseEssential hypertensionMixed hyperlipidemiaInflammatory polyarthropathyRecent elevation in sed rate and anti CCP antibodyHistory of pseudo-thrombocytopeniahypopro teinemiaSignificant nephrotic range proteinuria She has been evaluated by Nephrology recently, further workup was in progress potentially needs kidney biopsy.Diuretic therapy was changed from Bumex to torsemide and she reports that her edema is improving.She continues to smoke.She was instructed to stop diclofenac.Has chronic arthralgia, has not seen Rheumatology Kristen Cruz MD [address] [place] [address], [place], [address], [facility] 01/26/2024 17:26:38 03/02/20 24 text/htm l 53-year-old female here for follow-up status post emergency room visit on 03/02/2024. She presented with several day history of diarrhea tachycardia and lightheadedness.Not having abdominal pain fever chills cough chest pain or shortness a breath.On evaluation in the emergency room she was normotensive not hypoxemic.She was not anemic hemoglobin 14.3 white count was elevated 23.21. Of note, she is currently taking 60 mg of prednisone daily for recent diagnosis of focal segmental glomerulosclerosis on kidney biopsy she is being followed by Dr. Cornejo of Nephrology.BUN 17 creatinine 1.01, normal electrolytes.Cardiac enzymes were negative.Flu COVID tests were negativeChest x-ray was clear EKG showed normal sinus rhythm rate of 79 without acute ischemic changes. She is still awaiting rheumatology referral for markedly elevated CCP antibodies and presumed inflammatory polyarthropathy.Also she is complaining of dysphagia for solids, needs GI evaluation.She has not having chest pain, productive cough, worsening dyspneaContinues to smoke about a pack of cigarettes per day no abdominal pain nausea vomiting no diarrhea at this point Kristen Cruz MD [address] [place] [address], [phone], [facility] 03/17/2024 01:51:25 03/24/19 25 text/htm l 53-year-old female comes in for evaluation of cough wheezing and request for assistance in stopping smoking.Not having fever, cough nonproductive.No dyspnea no chest painShe is followed by Nephrology for nephrotic syndrome in his on high-dose prednisone at this point.She is also followed by Cardiology.She informs me that she is in the process of moving to [facility] within the next week to be closer to her son. Kristen Cruz MD [address] [place] [address],[facility] [address], [place], [address], [facility] 04/06/2024 08:16:09 04/09/19 25 text/htm l [age] year old female presents to the walk-in clinic been experiencing 24-48 hours ongoing cough congestion rhinitis. Denies any fever chills body aches or dyspnea. Anthony Bellamy, DO [address] [place] [address] Way,[address], [place], [address], [facility] 04/09/2024 19:16:09 OBGyn Episode No OBEpisode recorded.
--- NOTE | 2024-08-24 07:30 | CT_ITS ---
FINAL REPORT TECHNIQUE: Thin section axial images were obtained from the lung apices to the upper abdomen by computed tomography. Reformatted images were obtained and reviewed. This study was performed with techniques to keep radiation doses al low as reasonably achievable (ALARA). Individualized dose reduction techniques using automated exposure control or adjustment of mA and/or kV according to the patient's size were employed. CLINICAL HISTORY: lung cancer screening. PRIOR SMOKER. QUIT 5 MONTHS AGO. 1PPD. FOR 41 YEARS COMPARISON: CTA of the chest 07/09/2024 FINDINGS: CHEST CT LOW DOSE 53-year-old female, prior smoker who quit 5 months ago, 29-jbmn-xjja history CTDI vol (mGy): 2.90 DLP (mGy-cm): 103.42 There is no axillary adenopathy. There is no mediastinal or hilar mass or adenopathy. The heart is normal in size. There is no pericardial or pleural effusion. Scarring is present in the left lung base. Lung window images demonstrate a right apical posterior 4 mm nodule, best seen on image #16 of series 3. Limited images of the upper abdomen are unremarkable. IMPRESSION: Lung-RADS category 2. Recommend 12 month follow up low dose chest CT. Reviewed, Interpreted and Dictated by Albino Dietrich MD Transcribed by Masha Biggs Authenticated and [facility]
[2024-08-24 08:20] VITALS: PULSE 77; PULSE 84
[2024-08-24] MEDS: ALBUTEROL 0.083% 2.5 MG/3 ML NEB IH (08:20)
== END 2024-08-24 23:59 | disposition home or self-care (01) ==
LOC: RAD 07:16
PROVIDERS: PCP Nurse Practitioner Family; Visit Provider Internal Medicine Pulmonary Disease
DX: R91.1 Solitary pulmonary nodule (principal); Z12.2 Encounter for screening for malignant neoplasm of respiratory organs; F17.210 Nicotine dependence, cigarettes, uncomplicated; R06.09 Other forms of dyspnea
CPT/HCPCS: 71271; 94010; 94618; 94640; 94727; 94729

== ENCOUNTER 2024-08-26 14:25 | Outpatient (CLI) | payer MEDICAID, SELFPAY ==
--- OUTSIDE RECORDS SUMMARY | 2024-08-26 14:28 | XMS_ITS | Clinical Summary ---
Author Organization [employer] Address [address] [place] [address] Care Team Providers Care Leisure Studies Professor Name Role Phone Unavailable Primary Care Provider Unavailabl e Allergies No known active allergies Medications No known medications Social History Tobacco Use Types Packs/Day Years Used Date Smoking Tobacco: Every Day Cigarettes Passive Smoke Exposure: Current Smokeless Tobacco: Never Tobacco Cessation:Ready to Q uit: No; Counseling Given: Yes Alcohol Use Standard Drinks/Week Comments Never 0 (1 standard drink = 0.6 oz pur e alcohol) Comments Unknown Sex and Gender Information Value Date Recorded Sex Assigned at Not on file Legal Sex Female 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 Gender Identity Not on file Sexual Orientation Not on file Last Filed Vital Signs Vital Sign Reading Time Taken Comments Blood Pressure 155/99 02/29/2024 7:51 PM EST Pulse 85 02/29/2024 7:51 PM EST Temperature 36.6 C (97.9 F) 02/29/2024 7:51 PM EST Respiratory Rate 18 02/29/2024 7:51 PM EST Oxygen Saturation 97% 02/29/2024 7:51 PM EST Inhaled Oxygen Concentration - - Weight 113.4 kg (250 lb) 02/29/2024 3:43 PM EST Height 167.6 cm (5' 6 ) 02/29/2024 3:43 PM EST Body Mass Index 40.35 02/29/2024 3:43 PM EST Plan of Treatment Health Maintenance Due Date Last Done Comments CT Colonography 1969 Colonoscopy 1969 Colorectal Cancer Screening 1969 FOBT/FIT 1969 Fit-DNA (Cologuard) 1969 Sigmoidoscopy 1969 Depression Screening (12+) 1981 Tobacco Cessation Counseling and Screening (12+) 1981 HIV Screening 1984 Hepatitis C Screening 10/06/1987 Pap Smear 1990 Breast Cancer Screening 2009 Lipid Panel 2014 COVID-19 VACCINE ( - 2023- season) 2023 Influenza Vaccine (Season Ended) 2024 DTAP/TDAP/TD VACCINES (2 - Td or Tdap) 05/19/2030 Shingles Vaccine (Zoster) Completed 01/16/2023, Pneumococcal 50+ years Completed 05/14/2023 Insurance [facility]
--- OUTSIDE RECORDS SUMMARY | 2024-08-26 14:29 | XMS_ITS | Encounter Summary ---
Author Organization [email or web address] Address [address] [place] [address] Care Team Providers Care Casino Manager Name Role Phone Unavailable Primary Care Provider Unavailabl e Reason for Visit * Reason Onset Date Comments Outreach 03/02/2024 Encounter Details Date Type Department Care Team (Late st Contact Info) Description 03/02/2024 Telephone [facility] Primary Care [address] [address] No, Pcp Outreach Social History Tobacco Use Types Packs/Day Years Used Date Smoking Tobacco: Every Day Cigarettes Passive Smoke Exposure: Current Smokeless Tobacco: Never Alcohol Use Standard Drinks/Week Comments Never 0 (1 standard drink = 0.6 oz pur e alcohol) Comments Unknown Sex and Gender Information Value Date Recorded Sex Assigned at Not on file 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 Please schedule next available New patient appointment with [facility] care. Please Do Not Delete until outreach is complete. [place] TECHNICIAN documented in this encounter Plan of Treatment Not on file documented as of this encounter Visit Diagnoses Not on filedocumented in this encounter
--- OUTSIDE RECORDS SUMMARY | 2024-08-26 14:29 | XMS_ITS | Referral Summary ---
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
[2024-08-26 15:32] LABS: Basophils # 0.1 K/mm3 (0-0.2); Basophils % 0.8 % (0.1-2.0); Eosinophils # 0.3 Kmm3 (0.0-0.4); Eosinophils % 4.3 % (0.1-12.0); Hematocrit 37.2 % (37.0-47.0); Hemoglobin 12.1 g/dL (12.2-16.2); Immature Granulocytes # 0.01 10^3uL; Immature Granulocytes % 0.1 %; Lymphocytes # 2.5 K/mm3 (0.7-4.5); Lymphocytes % 33.7 % (10-50); Mean Corpuscular HGB Conc 32.5 g/dL (31.8-35.4); Mean Corpuscular Hemoglobin 31.1 pg (27.0-31.2); Mean Corpuscular Volume 95.6 fl (81-99); Mean Platelet Volume 11.9 fl (7.4-10.4); Monocytes # 0.7 K/mm3 (0.1-1.0); Monocytes % 9.9 % (1.7-9.3); Neutrophils # 3.8 K/mm3 (1.8-7.8); Neutrophils % 51.2 % (37.0-80.0); Nucleated Red Blood Cells # 0 10^3/uL; Nucleated Red Blood Cells % 0 %; Platelet Count 171 K/mm3 (142-424); Red Blood Count 3.89 M/mm3 (4.20-5.40); Red Cell Distribution Width 12.9 % (11.5-17.5); White Blood Count 7.5 K/mm3 (4.8-10.8)
[2024-08-26 15:49] LABS: Creatinine,Urine Random 153 mg/dL (Not Estab.)
[2024-08-26 15:56] LABS: Albumin Level 3.8 g/dl (3.5-5.0); Anion Gap 9.5 mEq/L (5-15); Blood Urea Nitrogen 23 mg/dl (7-17); Carbon Dioxide 33 mmol/L (22.0-30.0); Chloride 98 mmol/L (98-107); Estimated Glomerular Filt Rate 65 ml/min (>60); GFR (African American) 79 ML/MIN (>60); Glucose 98 mg/dl (74-100); Potassium 3.5 mmoL/L (3.5-5.1); Sodium 137 mmol/L (136-145)
[2024-08-26 18:31] LABS: Phosphorous 3.7 mg/dl (2.5-4.5)
== END 2024-08-26 23:59 | disposition home or self-care (01) ==
LOC: LAB 14:25
PROVIDERS: PCP Nurse Practitioner Family; Visit Provider Internal Medicine
DX: N04.9 Nephrotic syndrome with unspecified morphologic changes (principal)
CPT/HCPCS: 36415; 80069; 82570; 84156; 85025

== ENCOUNTER 2024-09-02 14:02 | Outpatient (CLI) | payer MEDICAID, SELFPAY ==
--- NOTE | 2024-09-02 14:05 | MR_ITS ---
FINAL REPORT TECHNIQUE: Multiplanar MR without contrast CLINICAL HISTORY: CERVICALGIA/ LUMBAGO/ BILATERAL SCIATICA FINDINGS: Limited images of the posterior fossa are unremarkable. Alignment is normal. There are discogenic endplate signal changes at C4-5. The cervical spinal cord shows normal signal and contour. C2-3: Unremarkable C3-4: Mild annular disc bulge without canal stenosis. C4-5: Moderate annular disc bulge and mild facet arthropathy. Mild central canal stenosis and mild neuroforaminal narrowing.. C5-6: Mild annular disc bulge. Borderline central canal stenosis. Moderate right and mild left neuroforaminal narrowing. C6-7: Mild annular disc bulge. Moderate left neuroforaminal narrowing. C7-T1: Unremarkable IMPRESSION: Moderate multilevel degenerative changes as above. Reviewed, Interpreted and Dictated by Shilo Marsh MD Transcribed by Edel Stahl Authenticated and [facility]
--- NOTE | 2024-09-02 14:05 | MR_ITS ---
FINAL REPORT TECHNIQUE: Multiplanar MR without contrast CLINICAL HISTORY: CERVICALGIA/LUMBARGO/LALITO SCIATICA FINDINGS: Sagittal images show normal vertebral height. There is a hemangioma of the L1 vertebral body. There are discogenic endplate signal changes at L2-3 and L3-4. There is moderate dextroscoliosis with lateral subluxation. L1-2: Minimal annular disc bulge without canal stenosis. L2-3: Moderate annular disc bulge and facet overgrowth. Mild neuroforaminal narrowing. L3-4: Mild annular disc bulge and moderate facet overgrowth. Mild neuroforaminal narrowing. L4-5: Mild annular disc bulge and mild facet arthropathy. Borderline central canal stenosis. L5-S1: Minimal annular disc bulge and mild facet arthropathy. No canal stenosis. IMPRESSION: Scoliosis with mild to moderate degenerative disc disease as above. Reviewed, Interpreted and Dictated by Shilo Marsh MD Transcribed by Edel Stahl Authenticated and . [facility]
--- OUTSIDE RECORDS SUMMARY | 2024-09-02 14:06 | XMS_ITS | Data Portability ---
Author Organization [facility], [facility] Address [address] [place] [address] Assessment No assessment recorded. Plan of Treatment Reminders Order Date Submit Date Provider Last Modified By Organization Details Last Modified Time Details Appointments None record ed. Lab CMP, serum or plasma 2019 020 [facility], [address] [place], [address], 0 05:01:49 CBC w/ auto diff 2019 020 [facility], [address], [place], [address], 0 10:27:31 CMP, serum or plasma 2019 020 [facility], [address], [place], [address], 0 10:27:31 TSH, serum or plasma 2019 020 [facility], [address], [place], [address], 0 10:27:32 vitami n B12, serum 2019 020 [facility] [place], [address], [place], [address], 0 10:27:32 HbA1c (hemog lobin A1c), blood 2019 [facility] [place] [facility], [address] [place], [address], 0 10:27:33 lipid panel, serum 2019 [facility], [address] [place], [address], 0 10:27:30 Referral None record ed. Procedures None record ed. Surgeries None record ed. Imaging None record ed. Medication Orders fluoxe [place] 20 mg tablet 2019 [facility]FACE [facility], [address] [place] [address], [id number], 0 10:17:33 lisino pril 10 mg tablet 2019 [facility], [address] [place] [address], [id number], 0 10:15:50 flutic asone propio catalina 50 mcg/ac tuatio n nasal spray, suspen trinity 2019 INTER[facility], [address] [place] [address], [id number], 0 13:28:11 cetiri zine 10 mg tablet 2019 INTERFACE [facility], [address] [place] [address], [id number], 0 13:28:09 Keflex 500 mg capsul e 2019 ericheystiltne r [facility], [address] [place] [address], [id number], 0 09:29:09 omepra zole 20 mg capsul e,natalie yed releas e 2019 020 [facility], [facility] [address] [place] [address], [id number], 0 13:28:10 lisino pril 10 mg tablet 2019 020 [facility], [facility] [address] [place] [address], [id number], 0 13:28:08 Patient TargetsNo targets recorded. Patient Instructions Encounter Date Encounter Id Patient Instructions Last Modified By Organization Details Last Modified Time 05/18/2019 [id number] pt is moderate risk sec to above comorbidities f/u in 1 week vravi Not available 05/18/2019 11:15:08 07/31/2019 [id number] pt is moderate risk sec to above comorbidities still has pain in the feet . podiatry referreal will be made . f/u in 2 months. labs before next visit vravi Not available 08/10/2019 06:55:45 08/19/2019 [id number] pt is moderate risk sec to above [...] Recorded Time Back Surgery completed Deb POMPA [facility] [employer] [facility] 05/18/2019 10:32:30 Imaging Results None recorded. Procedure [...] propionate 50 mcg/actuati on nasal spray,suspe nsion [place] 1 spray every day by intranasa l [...] Updated DateTime 0 167.64 cm 34.4 kg/m2 89437.1 7 g 97.6 [degF] 20 /min 97 % 97 % 81 /min 151 mm[Hg] 100 mm[Hg] Deb [facility] 0 10:34:51 Date Recorded Body height Oxygen saturation Oxygen saturation in Arterial blood by Pulse oximetry Heart rate Respiratory rate Body temperature Body mass index (BMI) Body weight Systolic blood pressure Diastolic blood pressure Provider Name and Address Organization Details Last Updated DateTime 0 167.64 cm 97 % 97 % 80 /min 18 /min 98 [degF] 35.3 kg/m2 10515.7 3 g 133 mm[Hg] 86 mm[Hg] Deb [facility] 0 09:32:42 Date Recorded Body height Heart rate Respiratory rate Body temperature Body mass index (BMI) Body weight Oxygen saturation Oxygen saturation in Arterial blood by Pulse oximetry Systolic blood pressure Diastolic blood pressure Provider Name and Address Organization Details Last Updated DateTime 0 167.64 cm 81 /min 18 /min 97.5 [degF] 35.7 kg/m2 862955. 91 g 97 % 97 % 136 mm[Hg] 85 mm[Hg] Deb [facility] 0 13:25:31 Social History Question Answer Notes LastModified by Organizat ion Details LastModified Time Tobacco Smoking Status Current Every Day Smoker Not Available [facility] 01/12/2020 03:34:25 How Much Tobacco Do You Smoke? 1 PPD [id number] Information not available 01/12/2020 How Many Years Have You Smoked Tobacco? 38 [id number] Information not available 01/12/2020 Sex: Unknown Functional Status Question Answer Note LastModified by Organizat ion Details LastModified Time Do you or have you ever used smokeless tobacco? Never used smokeless tobacco [id number] Information not available 01/12/2020 Do you or have you ever used e-cigarettes or vape? Never used electronic cigarettes [id number] Information not available 01/12/2020 Mental Status None [...] SNOMED-CT Code Diagnosis ICD10 Code Diagnosis Note [id number] Yesica Corcoran MD [address] [place] [address] 05/18/2019 10:15:45 05/25/2019 23:56:41 Fatigue 47582373 R53.83 Hyperglycemia 14587769 R 73.9 Essential hypertension 26738391 I10 was started on nifedipine but caused headache Obesity 197785253 E66.9 Calcific t endinitis of bilateral feet 5798532525 9765517 M65.271 refer to podiatry. no acute inflammati on. has pain. Calcific t endinitis of left foot 8535000518 597701 M65.272 Tobacco user 899355303 Z 72.0 1 /2 ppd. counselled cessation Solitary c yst of breast 549277956 N60.01 s/p excision in 08/27. 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 no acute inflammati on. has pain. Calcific t endinitis of left foot 2940957178 460340 M65.272 Tobacco user 825504607 Z 72.0 1 1/2 ppd. counselled cessation Solitary c yst of breast 331225398 N60.01 s/p excision in 08/27. 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 no acute inflammati on. has pain. Tobacco user 803104057 Z 72.0 1 1/2 ppd. counselled cessation Solitary c yst of breast 812592270 N60.01 s/p excision in 08/27. 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 Gastroesop hageal reflux disease without esophagitis 450425794 K21.9 Health Concerns Section Related Observation LastModified by Organization Detai ls LastModified Time None Recorded Concern Status LastModified by Organization Details LastModified Time None Recorded Advance Directives Directive None Recorded Payers Insurance Date Sequence Insurance Name Policy Number Policy Shook Covered Member ID Shook Member ID Guarantor Name 11/16/2019 1 [facility] (MEDICAID HMO) Jazmin Crowell [id number] Jazmin Porraschadvickie Notes Date Note Type Note Provider Name [...] Yesica Corcoran MD [address], [place], [address], [place] 05/19/2019 13:32:01 07/31/2019 text/html pt is a 48 yr ol d male is here for f/u Bp better. still feels likes she has no energy. h/o rt sided chronic mastitis in august 14. Yesica Corcoran MD [address], [place], [address], [place] 08/10/2019 06:56:22 08/19/2019 text/html pt is a 48 yr ol d male is here for f/u BP better. she hasn't been to the air sampler . her feet still hurts h/o rt sided chronic mastitis in august 14. Yesica Corcoran MD [address] [place], [address], [place] 08/20/2019 12:53:54 OBGyn Episode No OBEpisode recorded.
--- OUTSIDE RECORDS SUMMARY | 2024-09-02 14:07 | XMS_ITS | Data Portability ---
Author Organization [place] - [facility] - [facility] Address [address] [place] [address] Care Team Providers Care Backfiller Name Role Phone KRISTEN CRUZ Primary Care Provider Assessment Encounter Date Assessment Date Assessment LastModified [...] the walk-in clinic or see primary physician. [email or web address] Not available 04/09/2024 19:15:43 Plan of Treatment Reminders Order Date Submit Date Provider Last Modified By Organization Details Last Modified Time Details Appointments None recorded. Lab influenza virus A + B + SARS-CoV-2 (COVID19) Ag panel, rapid IA, upper respiratory specimen 2024 025 [email or web address] [facility], [address] [place] [address], [phone], 10:12:57 Referral None recorded. Procedures None recorded. Surgeries None recorded. Imaging MRI, cervical spine, w/o contrast 2023 024 [facility], [address] [place], [address], 4 07:26:06 Medication Orders Bromfed DM 2 mg-30 mg-10 mg/5 mL oral syrup 2024 025 [id number], [address], [place], [id number], 5 19:16:05 nicotine 21 mg/24 hr daily transdermal patch 2024 025 [facility], [address] [place] [address], [id number], 5 08:02:47 nicotine 14 mg/24 hr daily transdermal patch 2024 025 [facility], [address] [place] [address], [id number], 5 14:09:13 nicotine 7 mg/24 hr daily transdermal patch 2024 025 [facility], [address] [place] [address], [id number], 5 12:24:29 albuterol sulfate 2.5 mg/3 mL (0.083 %) solution for nebulizatio n 2024 025 [facility], [address] [place] [address], [id number], 5 12:24:28 potassium chloride ER 10 mEq tablet,exte nded release 2023 024 [facility], [address] [place] [address], [id number], 5 12:24:25 metoprolol succinate ER 50 mg tablet,exte nded release 24 hr 2023 024 [facility], [address] [place] [address], [id number], 5 12:24:25 Patient TargetsNo targets recorded. Patient InstructionsNo instructions recorded. Reason for Referral None Reported. Results Created Date Observation Date Name Description Value Unit Range Abnormal Flag Note LastModifiedBy Organization Detail LastModifiedTime 12/24/1912/24/2023 ESR - SED RATE sedimentatio n rate (ESR) 98 mm/HR <30 high Not Available [facility] [address] [place] [address], [place], [address], 12/24/2023 13:46:31 12/24/1912/24/2023 CRP; C-EUSEBIA CTIVE PROTE IN CRP <0.5 mg/dL 0.5 - 1.0 Not Available [facility] [address], [address], 12/24/2023 18:07:10 12/24/1912/25/2023 RPR RPR NON REACTI VE non reacti ve CB: [facility] Sonny n: [address] [facility], [place] [address] , Direc tor: Valdemar brooke, PhD Not Available [facility] [address], [address], 12/25/2023 09:16:27 12/24/1912/25/2023 PROT+ CREAT U (RAND OM) creatinine, urine 120.8 mg/dL not estab. Not Available [facility] [address], [address], 12/25/2023 12:16:29 12/24/1912/25/2023 PROT+ CREAT U (RAND OM) protein,tota l,urine 1,599. 2 mg/dL not estab. Resul ts confi rmed on dilut ion. Not Available [facility] [address], [address], 12/25/2023 12:16:29 12/24/1912/25/2023 PROT+ CREAT U (RAND OM) protein/crea t ratio 13,238 mg/g_ creat 0-200 high CB: [facility] Sonny n: [address] [facility], [place] [address] , Direc tor: Valdemar brooke, PhD Not Available [facility] [address], [address], 12/25/2023 12:16:29 12/24/19 24 12/25/2023 ANTI- CCP AB, IGG/I GA anti-ccp Ab, IgG/IgA 68 units 0-19 high CB: [facility] Panli n: [address] [place], [place] [phone] , [facility] tor: Valdemar brooke, PhD Negat beatrice <20 Weak posit beatrice 20 - 39 Moder ate posit beatrice 40 - 59 Stron g posit beatrice >59 Not Available [facility] [address], [facility], 12/25/2023 14:16:46 12/24/1912/25/2023 ANTI- DSDNA ANTIB ODIES anti-DNA (ds) Ab qn <1 IU/mL 0-9 CB: [facility] Sonny n: [address] [place], [place] [phone] , [facility] tor: Valdemar brooke, PhD Negat beatrice <5 Equiv ocal 5 - 9 Posit beatrice >9 Not Available [facility] [address], [facility], 12/25/2023 20:16:19 12/24/1912/25/2023 ANTIN UCLEA R AB MULTI PLEX RFX 9 LALO direct NEGATI VE negati ve CB: [facility] Sonny n: [address] [place] [address] , [facility] tor: Valdemar brooke, PhD Not Available [facility] [address], [facility], 12/25/2023 20:16:21 12/24/19 24 12/26/2023 LUPUS ANTIC OAGUL ANT REFLE X PTT-la 33.2 sec 0.0-43 .5 Not Available [facility] [address], [facility], 12/26/2023 06:00:48 12/24/1912/26/2023 LUPUS ANTIC OAGUL ANT REFLE X drvvt 36.2 sec 0.0-47 .0 Not Available [facility] [address], [facility], 12/26/2023 06:00:48 12/24/19 24 12/26/2023 LUPUS ANTIC OAGUL ANT REFLE X lupus reflex interpretati on COMMEN T: BN: [facility] [place] : [address] , [place] [address] , Dire tor: Ashley pablo MD No lupus antic oagul ant was detec olga. Not Available [facility] [address] [place] [address], [address], 12/26/2023 06:00:48 04/09/19 25 04/09/2024 influ vel virus A + B + SARS- CoV-2 (COVI D19) Ag panel , rapid IA, upper respi rator y speci men flu A negati ve negati ve normal Not Available [facility] [address] [place] [address], [phone], 04/09/2024 18:57:45 04/09/19 25 04/09/2024 influ vel virus A + B + SARS- CoV-2 (COVI D19) Ag panel , rapid IA, upper respi rator y speci men flu B negati ve negati ve normal Not Available [facility] [address] [place] [address], [phone], 04/09/2024 18:57:45 04/09/19 25 04/09/2024 influ vel virus A + B + SARS- CoV-2 (COVI D19) Ag panel , rapid IA, upper respi rator y speci men sars negati ve negati ve normal Not Available [facility] [address] [place] [address], [phone], 04/09/2024 18:57:45 04/09/19 25 04/09/2024 influ vel virus A + B + SARS- CoV-2 (COVI D19) Ag panel , rapid IA, upper respi rator y speci men the internal QC IS valid. Not Available [facility] [address] [place] [address] [address], [place], [address], 04/09/2024 18:57:45 12/17/19 24 12/17/2023 US, omar tam r [facility] Name: JASS SANDOVAL [address] Phys: Nova MILLIGAN,Paul IGLESIAS ET : 1970 Age: 53 Sex: F [place] [id number] Acct: [id number] Loc: YIM C PHONE #: Exam Date: 2023 Status : DEP CLI FAX #: [phone] Radiol ogy No: [id number] Unit No: [id number] EXAMS: CLINIC AL HISTOR Y: [id number] US GALLBL ADDER EXAM: ULTRAS OUND [...] M.D. CC: Nova MILLIGAN,Paul Andrews; Shantelle Santillan APRN Filomena Dictat ed Date/T kurt: 2023 (1215) Techno logist : ELY CAICEDO N Transc ribed Date/T kurt: 2023 (1215) Transc riptio nist: RAD.VR Electr onic Signat ure Date/T kurt: 2023 (1215) Printe d Date/T kurt: 2023 (1218) BATCH NO: N/A PAGE 1 Signed Report CC'ed Logic: Orderi ng Provid er: [place]OVA [place] Attend ing Provid er: [place] Referr ing Provid er: N[place] Consul ting Provid er: MICHAEL ACEVEST TEVIN [email or web address] [facility] (Imaging) [address] [place] [address], [address], 12/18/2023 08:39:42 01/20/2001/17/2024 US, renal No observ ation record ed. [email or web address] [facility]- 10/31/23 [address] [place], [address], 03/17/2024 01:45:10 02/03/20 24 02/03/2024 US, renal No observ ation record ed. [address], [address], 03/17/2024 01:44:58 02/15/20 24 01/28/2024 US, echoc ardio gram, trans thora cic, compl ete, w/ color flow No observ ation record ed. [facility] [address] [place], [address], 03/17/2024 01:45:05 02/28/20 24 02/28/2024 XR, chest , 1 view No observ ation record ed. [address], [address], 03/17/2024 01:45:00 03/02/20 24 03/02/2024 XR, chest , 1 view No observ ation record ed. [address], [address], 03/17/2024 01:45:02 03/23/19 25 03/22/2024 XR, chest , 2 view No observ ation record ed. [address], [address], 03/24/2024 04:23:33 Result Notes None recorded. Problems Name Problem SNOMED Code Status Onset Date Resolution Date Notes Provider Name and Address Organization Details Recorded Time Paresthesi a of upper limb 60832482 Active 2023 Alex Kim DO [address] [facility],[address] [facility], [place], [address], [place] [facility] 4 16:27:20 Vitamin D deficiency 95101285 Active 2023 Amy estrada [place] - [facility] 4 14:11:15 Inflammato ry polyarthro jaskaran 894296216 Active 2023 Kristen Cruz MD [address] [facility],[address], [place], [address], [place] [facility] - [facility] 4 12:55:39 Hypoprotei nemia 4980453 Active 2023 Kristen Cruz MD [address] [place] [address],[address], [place], [address], [place] - [facility] 4 12:57:30 Proteinuri a 28723198 Active 2023 Kristen Cruz MD [address] [place] [address],[address], [place], [address], [place] [facility] [facility] 4 12:59:13 Asthenia 25213397 Active Monique Hayden null, [facility] 4 07:24:09 Hypomagnes emia 432262258 Active [facility] null, [facility] 4 07:24:09 Abdominal pain 43789736 Active [facility] Hayden null, [facility] 4 07:24:09 Pneumonia 817524593 Active [facility] Hayden null, [facility] 4 07:24:09 Thoracic back pain 420236494 Active Monique Hayden null, [place] [facility] 4 07:24:09 Chest pain 42044312 Active Catalina Ruiz RN-BSN null, [facility] 5 15:26:09 Hypertensi ve disorder 29489278 Active Monique Hayden null, [place] [facility] 4 07:24:09 Cyst of breast 629617956 Active Monique [place]den null, [place] [facility] [facility] 4 07:24:09 History of clinical finding in subject 801072794 Active Monique [place]den null, [place] [facility] [facility] 4 07:24:09 Near syncope 640804156 Active Monique [place]den null, [place] [facility] 4 07:24:09 Hypokalemi a 28561039 Active Monique Hayden null, [place] [facility] - [facility] 4 07:24:09 Foot pain 09393222 Active Monique Hayden null, [place] [facility] [facility] 4 07:24:09 Cough 61857669 Active Monique Hayden null, [place] [facility] [place] [facility] 4 07:24:09 Sprain of knee 19737055 Active Monique Hayden null, [place] [facility] [facility] 4 07:24:09 Diarrhea 82595411 Active Monique Hayden null, [place] [facility] [facility] 4 07:24:09 Urinary tract infectious disease 14635678 Active Monique Hayden null, [place] [facility] [facility] 4 07:24:09 Palpitatio ns 38816547 Active Monique Hayden null, [place] [facility] - [facility] 4 07:24:09 Dysphagia 71445319 Active 2023 Kristen Cruz MD [address] [place] [address], [address], [place] [facility] [place] [facility] 4 11:32:18 Insomnia 935035211 Active 2023 Kristen Cruz MD [address] [place] [address], [address], [place] [facility] [facility] 4 10:37:51 Focal segmental glomerulos clerosis 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 Cornejo, nephrology Status post kidney biopsy Kristen Cruz MD [address] [place] [address], [address], [place] [facility] [facility] 5 01:44:27 Nephrotic syndrome 96404817 Active 2024 Kristen Cruz MD [address] [place] [address], [address], [place] [facility] [facility] 5 01:44:40 Nephrotic syndrome, focal and segmental glomerular lesions 883849316 Active 2024 Kristen Cruz MD [address] [facility],[address], [place], [address], [facility] 5 01:50:37 Rheumatoid arthritis 06532755 Active 2024 Kristen Cruz MD [address] [facility],[address], [place], [address], [facility] 5 01:50:56 Problem Notes None recorded. Procedures Surgical History Date Name Laterality Status Provider Name and Address Organization Details Recorded Time excision of cyst of breast completed Melvina Gudino [facility] 07/08/2023 11:07:04 Imaging Results None recorded. Procedure Notes None recorded. Medical Equipment None Reported. Allergies Allergen ID Allergen Name Allergen Category Reaction Reaction Severity Criticality Documentation Date Start Date Code Code System Note Provider Name and Address Organization Details Recorded Time 91759 No known allergy (situatio n) Not available Not available Not available Not available 03/24/2024 03309 6003 SNOMED RADHA Dubois null, [facility] 5 15:36:53 70658 nifedipin e medicatio n swelling Not available Not available 03/24/2024 7417 RxNorm RADHA Dubois null, [facility] 5 15:37:07 Medications Name Sig Start Date [...] Updated DateTime 5 167.64 cm 39.9 kg/m2 700010. 42 g 112 /min 97 % 97 % 128 mm[Hg] 76 mm[Hg] RADHA Dubois [facility] 5 15:33:05 Date Recorded Body height Body mass index (BMI) Body weight Body temperature Oxygen saturation Oxygen saturation in Arterial blood by Pulse oximetry Heart rate Systolic blood pressure Diastolic blood pressure Provider Name and Address Organization Details Last Updated DateTime 5 167.64 cm 41 kg/m2 226935. 46 g 97.1 [degF] 96 % 96 % 108 /min 116 mm[Hg] 83 mm[Hg] Debra Vickers [facility] 5 18:33:27 Date Recorded Body height Body mass index (BMI) Body weight Heart rate Body temperature Oxygen saturation Oxygen saturation in Arterial blood by Pulse oximetry Systolic blood pressure Diastolic blood pressure Provider Name and Address Organization Details Last Updated DateTime 4 167.64 cm 41.4 kg/m2 513757. 37 g 92 /min 97.9 [degF] 98 % 98 % 147 mm[Hg] 98 mm[Hg] Dragan Howard [facility] 4 09:51:08 Date Recorded Body height Body mass index (BMI) Body weight Heart rate Oxygen saturation Oxygen saturation in Arterial blood by Pulse oximetry Systolic blood pressure Diastolic blood pressure Provider Name and Address Organization Details Last Updated DateTime 4 167.64 cm 41.3 kg/m2 647494. 35 g 92 /min 96 % 96 % 130 mm[Hg] 76 mm[Hg] RADHA Dubois [facility] 4 15:45:50 Date Recorded Body height Body mass index (BMI) Body weight Heart rate Oxygen saturation Oxygen saturation in Arterial blood by Pulse oximetry Systolic blood pressure Diastolic blood pressure Provider Name and Address Organization Details Last Updated DateTime 4 167.64 cm 40.9 kg/m2 923371. 27 g 81 /min 97 % 97 % 138 mm[Hg] 78 mm[Hg] Catalina Ruiz RN-BSN [facility] 11:05:46 Social History Question Answer Notes LastModified by Organizat ASP64 Details LastModified Time Tobacco Smoking Status Current Every Day Smoker Nayeli estrada [facility] 11/28/2022 08:43:32 Do You Have An Advance Directive? No [email or web address] Information not available 05/06/2023 Are You Blind Or Do You Have Difficulty Seeing? No [email or web address] Information not available 05/06/2023 What Was The Date Of Your Most Recent Tobacco Screening? 12/02/2022 [email or web address] Information not available 05/06/2023 Are You Passively Exposed To Smoke? Yes [email or web address] Information not available 05/06/2023 How Much Tobacco Do You Smoke? 1 PPD [email or web address] Information not available 05/06/2023 How Many Years Have You Smoked Tobacco? 35 Information not available 05/06/2023 Sex: Female Functional Status Question Answer Note LastModified by Organizat ASP64 Details LastModified Time Do you use any illicit or recreational drugs? No [email or web address] Information not available 05/06/2023 What is your level of alcohol consumption? Occasional [email or web address] Information not available 05/06/2023 Do you or have you ever used smokeless tobacco? 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 Occasional [email or web address] Information not available 05/06/2023 Mental Status Question Answer Note LastModified by Organization D etails LastModified Time Do you feel stressed (tense, restless, nervous, or anxious, or unable to sleep at night)? [id number] [email or web address] Information not available 05/06/2023 Family History Relationship Description Onset Age of this Age Resolved Age Notes LastModified by Organization Details LastModified Time Brother Multiple sclerosis [email or web address] available 2023 11:06:57 Mother Multiple sclerosis [...] Not available 07/08/2023 11:06:57 Father Myelofibrosi s Not available 02/09 10:42:53 Father Family member [...] Pamula [place] null, [place] - [facility] - [facility] 07/31/2023 13:43:49 zoster recombinant 3 completed Pamula New null, [place] [facility] [place] [facility] 07/31/2023 13:43:49 Tdap 1 completed Pamula New null, [place] [facility] [place] [facility] 07/31/2023 13:43:49 Hep B, adult 3 completed Pamula New null, [place] [facility] [place] [facility] 07/31/2023 13:43:49 Hep B, adult 3 completed Pamula New null, [place] - [facility] 07/31/2023 13:43:49 Hep A, adult 1 completed [facility] New null, [facility] 07/31/2023 13:43:49 Hep A, adult 1 completed Pamula New null, [facility] 07/31/2023 13:43:49 Pneumococcal conjugate PCV20, polysaccharide LPS705 conjugate, adjuvant, PF 4 completed Monique Hayden null, [facility] 03/02/2024 07:23:16 Hep B, adult 4 completed Monique Hayden null, [facility] 03/02/2024 07:23:16 Influenza, split virus, quadrivalent, PF 4 completed Monique Hayden null, [facility] 03/02/2024 07:23:16 Past Encounters Encounter ID Performer Location Encounter Start Date Encounter Closed Date Diagnosis/Indication Diagnosis SNOMED-CT Code Diagnosis ICD10 Code Diagnosis Note [id number] MD TRSITEN Easley[address] [place] [address] 12/03/2022 13:16:14 12/03/2022 14:14:46 Essential hypertension 86777676 I10 We will continue her current medication . Obesity 172403421 E66.9 We will recommend diet. Insomnia 217528657 G47.0 0 She states she uses trazodone as needed but states that her muscle relaxant usually helps with falling asleep as well. Osteoarthr itis of multiple joints 777025594 M15.9 [id number] Anthony Bellamy, DO [facility] [address] [place] [address],[address] [place] [address] 04/11/2023 15:43:37 04/11/2023 16:53:35 Paresthesia of upper limb 02804991 R20.2 Numbness of both the bilateral upper extremitie s.TIA, spinal cord compressio n syndrome, transverse myelitis, acute myelitis. Plan-Send to ED for further evaluation . [id number] Mandissa A Alejo, MD LC[facility] - [place] [address] [address] 04/15/2023 09:19:51 04/15/2023 10:04:21 Essential hypertension 44458664 I10 Obesity 378286916 E66.9 Insomnia 303505806 G47.0 0 Osteoarthr itis of multiple joints 391769939 M15.9 Degenerati on of cervical intervertebral disc 19324976 M50.30 [id number] Cindy Dhillon MD LIBIA Hernandez [address] [address] 06/03/2023 12:52:39 06/03/2023 13:36:19 Essential hypertension 04974236 I10 Obesity 321004293 E66.9 Insomnia 897553651 G47.0 0 Osteoarthr itis of multiple joints 600811095 M15.9 Degenerati on of cervical intervertebral disc 83938800 M50.30 She is currently undergoing physical therapy, after which we will try to obtain MRI and refer her to neurosurge ry. History of gallstones 40 5571406 Z87.19 She does have a history of gallstones . She would like to have a right upper quadrant ultrasound and referral to a general surgeon. Screening for malignant neoplasm of colon 367280840 Z12.11 I will order a Cologuard for colon cancer screening. Seasonal a llergic rhinitis 861030551 J30.2 Screening mammography 24 070847 Z12.31 I will order a mammogram Spasm 41486736 R25.2 Mixed hyperlipidemia 267 223086 E78.2 Impaired g lucose tolerance 6270170 R73.02 Fatigue 03834523 R53.83 Vitamin D deficiency 347 32045 E55.9 [id number] MD SUDHA Easley [facility] [address] [address] 07/09/2023 11:23:40 07/09/2023 12:17:55 Essential hypertension 78405818 I10 Obesity 298578202 E66.9 Insomnia 871161094 G47.0 0 Osteoarthr itis of multiple joints 885874950 M15.9 Degenerati on of cervical intervertebral disc 74749566 M50.30 History of gallstones 40 1844550 Z87.19 Seasonal a llergic rhinitis 536209422 J30.2 Spasm 63919548 R25.2 Mixed hyperlipidemia 267 808328 E78.2 Vitamin D deficiency 347 76136 E55.9 Menopausal syndrome 1237 69622 N95.2 After placing patient in the lithotomy [...] the vagina. Patient tolerated the procedure well. [id number] Cindy Dhillon MD [address] [address] 07/31/2023 13:09:27 07/31/2023 15:02:45 Obesity 350189366 E66.9 The patient will be initiated on Wellbutrin . Essential hypertension 69684276 I10 Insomnia 789557080 G47.0 0 Osteoarthr itis of multiple joints 002787549 M15.9 Degenerati on of cervical intervertebral disc 77121109 M50.30 [id number] Miroslava Bhatt MD [facility] [address] [place] [address] 08/20/2023 13:12:04 08/20/2023 14:50:37 Disorder of gallbladder 10080041 K82.8 [id number] Cindy Dhillon MD [address] [address] 08/20/2023 14:57:08 08/20/2023 16:43:06 Essential hypertension 77628898 I10 Obesity 861448378 E66.9 The patient will be initiated on Wellbutrin . Insomnia 219914084 G47.0 0 Osteoarthr itis of multiple joints 252063769 M15.9 Degenerati on of cervical intervertebral disc 37702007 M50.30 History of gallstones 40 4933893 Z87.19 Seasonal a llergic rhinitis 097496149 J30.2 Spasm 82140460 R25.2 Mixed hyperlipidemia 267 704235 E78.2 Menopausal syndrome 1237 41561 N95.2 [id number] Cindy Dhillon MD [address] [place] [address] 09/04/2023 08:12:35 09/04/2023 09:20:13 Essential hypertension 88335124 I10 Obesity 177506701 E66.9 The patient will be initiated on Wellbutrin . Insomnia 956899363 G47.0 0 Osteoarthr itis of multiple joints 947329273 M15.9 Degenerati on of cervical intervertebral disc 08180772 M50.30 History of gallstones 40 8899975 Z87.19 Seasonal a llergic rhinitis 027036805 J30.2 Spasm 88954444 R25.2 Mixed hyperlipidemia 267 900471 E78.2 She did not tolerate statin will repeat lipid panel if still elevated try to start praluent, Repatha or Leqvio. Vitamin D deficiency 347 89689 E55.9 Palpitations 33314770 R0 0.2 EKG in office today showed sinus rhythm at a rate of 76 beats per minute with normal ST and T-wave morphology . Patient has been having intermitte nt palpitatio n especially at nights she will benefit from color television console monitor. Will refer to cardiology . Impaired g lucose tolerance 4490511 R73.02 Fatigue 58756959 R53.83 [id number] MD SUDHA Easley [address] [place], [place] [address] 09/23/2023 08:43:39 09/23/2023 09:04:17 Mixed hyperlipidemia 469679405 E78.2 She did not tolerate statin will repeat lipid panel if still elevated try to start praluent, Repatha or Leqvio. [id number] MD SUDHA Easley [place] [address] [address] 10/21/2023 12:17:54 10/21/2023 14:02:08 Essential hypertension 37352621 I10 Obesity 470464684 E66.9 Insomnia 690793794 G47.0 0 Osteoarthr itis of multiple joints 116135699 M15.9 History of gallstones 40 4645792 Z87.19 Seasonal a llergic rhinitis 226612192 J30.2 Spasm 97416293 R25.2 Mixed hyperlipidemia 267 977337 E78.2 Vitamin D deficiency 347 70426 E55.9 Low back pain 268161797 M54.50 Will try to obtain prior authorizat ion for MRI of the Lumbar spine [id number] Cindy Dhillon MD [address] [place] [address] 12/04/2023 12:47:09 12/04/2023 13:41:48 Essential hypertension 68262267 I10 Obesity 412353081 E66.9 Insomnia 218586132 G47.0 0 Osteoarthr itis of multiple joints 943199344 M15.9 Degenerati on of cervical intervertebral disc 14259192 M50.30 History of gallstones 40 2705177 Z87.19 Seasonal a llergic rhinitis [id number] J30.2 Spasm 51798318 R25.2 Mixed hyperlipidemia 267 826890 E78.2 Vitamin D deficiency 347 89739 E55.9 Palpitations 42531884 R0 0.2 [id number] Cindy Dhillon MD [address] [place] [address] 11/18/2023 13:40:24 11/18/2023 14:39:44 Essential hypertension 97326745 I10 Obesity 266155282 E66.9 Insomnia 478201133 G47.0 0 Osteoarthr itis of multiple joints 362211767 M15.9 History of gallstones 40 3010065 Z87.19 Seasonal a llergic rhinitis 237839999 J30.2 Spasm 35216600 R25.2 Mixed hyperlipidemia 267 416725 E78.2 Vitamin D deficiency 347 65945 E55.9 Cough 63343143 R05.9 Congestion of nasal sinus 57368869 R09.81 [id number] MIROSLAVA MUNOZ STRIKE PLANNING APPLICATIONSManjeet [facility] [address] [place] [address] 12/20/2023 09:42:52 12/20/2023 10:09:24 Cholelithiasis without obstruction 05125426 K80.20 Adenomyoma tosis of gallbladder 749783571 K82.8 [id number] Kristen Cruz MD [facility] Analytical Strateg[address] [place] [address] 01/14/2024 15:08:54 01/14/2024 16:28:18 Essential hypertension 29146648 I10 Cervical radiculopathy 99247189 M54.12 Hypoproteinemia 3697214 E88.09 Inflammato ry polyarthropathy 572270105 M06.4 Proteinuria 49738362 R80 .9 [id number] Kristen Cruz MD [facility] Analytical Strategist [address] [place] [address] 03/02/2024 10:42:45 03/02/2024 11:36:16 Hypokalemia 74680001 E87.6 Dysphagia 19285704 R13.1 0 Nephrotic syndrome, focal and segmental glomerular lesions 406453501 N04.1 Rheumatoid arthritis 698 11389 M06.9 [id number] Kristen Cruz MD [address] [address] 03/24/2024 15:24:09 04/09/2024 09:30:04 Tobacco dependence syndrome 42088104 F17.200 Chronic ob structive pulmonary disease 83480041 J44.9 [id number] Anthony Bellamy DO [facility] [address] [place] [address] 04/09/2024 18:23:33 04/10/2024 11:48:09 Acute upper respiratory infection 67992678 J06.9 Health Concerns Section Related Observation LastModified by Organization Detai ls LastModified Time None Recorded Concern Status LastModified by Organization Details LastModified Time None Recorded Advance Directives Directive N: Payers Insurance Date Sequence Insurance Name Policy Number Policy Shook Covered Member ID Shook Member ID Guarantor Name 08/20/2023 1 [place] [id number] Jass Cousins [id number] Jass A Cousins 08/20/2023 [place] [facility] WRAP BILLING (MEDICAID) Jass Cousins [id number] Jass A Cousins 06/28/2024 1 [employer] [place] Jass A Cousins [id number] Jass A Cousins Notes Date Note Type [...] pressure and has started seeing a new park keeper at Dr. Camacho's office and her medications [...] echocardiogram and is awaiting stress test. MIROSLAVA MUNOZ, [address], [address], [place] - [facility] - [facility] 12/23/2023 16:50:04 01/14/20 24 text/htm l 53-year-old [...] has not seen Rheumatology Kristen Cruz MD [address] [facility],[address], [place], [address], [facility] 01/26/2024 17:26:38 03/02/20 24 text/htm l 53-year-old [...] diarrhea at this point Kristen Cruz MD [address] [facility],[address], [address], [facility] 03/17/2024 01:51:25 03/24/19 25 text/htm l 53-year-old female comes in for evaluation of cough wheezing and request for assistance in stopping smoking.Not having fever, cough nonproductive.No dyspnea no chest painShe is followed by Nephrology for nephrotic syndrome in his on high-dose prednisone at this point.She is also followed by Cardiology.She informs me that she is in the process of moving to [facility] within the next week to be closer to her son. Kristen Cruz MD [address] [facility],[address], [place], [address], [facility] 04/06/2024 08:16:09 04/09/19 25 text/htm l [age] year old female presents to the walk-in clinic been experiencing 24-48 hours ongoing cough congestion rhinitis. Denies any fever chills body aches or dyspnea. Anthony Bellamy, DO [address] [place] [address],[address], [place], [address], [facility] 04/09/2024 19:16:09 OBGyn Episode No OBEpisode recorded.
--- OUTSIDE RECORDS SUMMARY | 2024-09-02 14:07 | XMS_ITS | Clinical Summary ---
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
--- OUTSIDE RECORDS SUMMARY | 2024-09-02 14:07 | XMS_ITS | Referral Summary ---
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
--- OUTSIDE RECORDS SUMMARY | 2024-09-02 14:07 | XMS_ITS | Encounter Summary ---
Author Organization [employer] Address [address] [place] [address] Care Team Providers Care Linux Unix Engineer Name Role Phone Unavailable Primary Care Provider Unavailabl e Reason for Visit * Reason Onset Date Comments Outreach 03/02/2024 Encounter Details Date Type Department Care Team (Late st Contact Info) Description 03/02/2024 Telephone [facility] Primary Care [address] [address] No, Pcp Outreach Social History Tobacco Use Types Packs/Day Years Used Date Smoking Tobacco: Every Day Cigarettes Passive Smoke Exposure: Current Smokeless Tobacco: Never Alcohol Use Standard Drinks/Week Comments Never 0 (1 standard drink = 0.6 oz pur e alcohol) Comments Unknown Sex and Gender Information Value Date Recorded Sex Assigned at Not on file Legal Sex Female 2:34 PM STRAW BOSS Gender Identity Not on file Sexual Orientation Not on file documented as of this encounter Miscellaneous Notes * Telephone Encounter - Cheri Lewis - 03/05/2024 1:57 PM EST 2nd message for patient regarding recent emergency room visit and asked to callback to schedule a New Patient appointment with primary care W BOSS * Telephone Encounter - Sherita Carpenter - 03/02/2024 2:34 PM EST Left message for patient regarding recent emergency room visit and asked to callback to schedule a New Patient appointment with primary care. Please schedule next available New patient appointment with [facility] care. Please Do Not Delete until outreach is complete. W BOSS documented in this encounter Plan of Treatment Not on file documented as of this encounter Visit Diagnoses Not on filedocumented in this encounter
== END 2024-09-02 23:59 | disposition home or self-care (01) ==
LOC: RAD 14:02
PROVIDERS: PCP Nurse Practitioner Family; Visit Provider Nurse Practitioner Family
DX: M41.86 Other forms of scoliosis, lumbar region (principal); M51.16 Intervertebral disc disorders with radiculopathy, lumbar region; M50.31 Other cervical disc degeneration, high cervical region; M50.321 Other cervical disc degeneration at C4-C5 level; M50.322 Other cervical disc degeneration at C5-C6 level; M50.323 Other cervical disc degeneration at C6-C7 level
CPT/HCPCS: 72141; 72148; G0399

== ENCOUNTER 2024-10-07 13:52 | Outpatient (POV) | payer MEDICAID, SELFPAY ==
--- OUTSIDE RECORDS SUMMARY | 2024-10-07 13:55 | XMS_ITS | Encounter Summary ---
Author Organization [employer] ([place], [place], [place], [place]) Address [address] [place] [address] Care Team Providers Care Warehouse Puller Name Role Phone Unavailable Primary Care Provider Unavailabl e Reason for Visit * Reason Onset Date Comments Outreach 03/02/2024 Encounter Details Date Type Department Care Team (Late st Contact Info) Description 03/02/2024 Telephone [facility] Primary Care [address] [address] No, Pcp Outreach Social History Tobacco Use Types Packs/Day Years Used Date Smoking Tobacco: Every Day Cigarettes Passive Smoke Exposure: Current Smokeless Tobacco: Never Alcohol Use Standard Drinks/Week Comments Never 0 (1 standard drink = 0.6 oz pur e alcohol) Comments Unknown Sex and Gender Information Value Date Recorded Sex Assigned at Not on file 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 Please schedule next available New patient appointment with [facility] care. Please Do Not Delete until outreach is complete. D CENTER ASSISTANT documented in this encounter Plan of Treatment Not on file documented as of this encounter Visit Diagnoses Not on filedocumented in this encounter
--- OUTSIDE RECORDS SUMMARY | 2024-10-07 13:55 | XMS_ITS | Clinical Summary ---
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
--- OUTSIDE RECORDS SUMMARY | 2024-10-07 13:55 | XMS_ITS | Referral Summary ---
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
--- OUTSIDE RECORDS SUMMARY | 2024-10-07 13:55 | XMS_ITS | Clinical Summary ---
Author Organization [facility] Address [address] [place] [address] Care Team Providers Care Paunch Trimmer Name Role Phone Russel Cruz MD Primary Care Provider [phone] Allergies No known active allergies Medications Evolocumab (REPATHA) solution prefilled syringe injection Inject 1 mL under the skin into the appropriate area as directed Every 14 (Fourteen) Days. Active Ergocalciferol (VITAMIN D2 PO) Take by mouth. Active acetaminophen-c odeine (TYLENOL with CODEINE #3) 300-30 MG per tablet Take 1 tablet by mouth Every 8 (Eight) Hours As Needed for Moderate Pain. Active fluticasone (FLONASE) 50 MCG/ACT nasal spray Administer 2 sprays into the nostril(s) as directed by provider Daily. Active albuterol sulfate HFA 108 (90 Base) MCG/ACT inhaler Inhale 2 puffs Every 4 (Four) Hours As Needed for Wheezing. Active nitroglycerin (NITROSTAT) 0.4 MG SL tablet 1 under the tongue as needed for angina, may repeat q5mins for up three doses 25 tablet 4 Active potassium chloride 10 MEQ CR tablet Take 1 tablet by mouth Daily. 30 tablet 4 Active Additional Information Patient taking differently: 20 mEqOral Daily, Reported on 04/01/2024 metoprolol succinate XL (TOPROL-XL) 50 MG 24 hr tablet Take 1 tablet by mouth 2 (Two) Times a Day. Active torsemide (DEMADEX) 20 MG tablet 2 tablets Daily. Act beatrice predniSONE (DELTASONE) 20 MG tablet Take 2 tablets by mouth Daily. Active omeprazole (priLOSEC) 20 MG capsule Take 1 capsule by mouth Daily. Active aspirin 81 MG EC tablet Take 1 tablet by mouth Daily. Active Active Problems Problem Noted Date Diagnosed Date SVT (supraventricular tachycardia) 04/01/2024 Chest pain 10/24/2023 Palpitations 10/24/2023 Shortness of breath 10/24/2023 Bilateral lower extremity edema 10/24/2023 Family History Medical History Relation Name Comments Hypertension Mother Hypertension Sister Relation Name Status Comments Mother Sister Alive Social History Tobacco Use Types Packs/Day Years Used Date Smoking Tobacco: Former Cigarettes Smokeless Tobacco: Never Tobacco Cessation:Counseling Given: Not Answered Alcohol Use Standard Drinks/Week Comments Never 0 (1 standard drink = 0.6 oz pur e alcohol) Comments Unknown Sex and Gender Information Value Date Recorded Sex Assigned at Not on file Legal Sex Female 7:42 PM EDT Gender Identity Not on file Sexual Orientation Straight 12/01/2023 1: 40 PM EDT Last Filed Vital Signs Vital Sign Reading Time Taken Comments Blood Pressure 138/94 04/01/2024 8:42 AM EST Pulse 85 04/01/2024 8:42 AM EST Temperature - - Respiratory Rate - - Oxygen Saturation 98% 04/01/2024 8:42 AM EST Inhaled Oxygen Concentration - - Weight 114 kg (251 lb) 04/01/2024 8:42 AM EST Height 167.6 cm (5' 6 ) 04/01/2024 8:42 AM EST Body Mass Index 40.51 04/01/2024 8:42 AM EST Plan of Treatment Health Maintenance Due Date Last Done Comments Annual Gynecologic Pelvic and Breast Exam 1969 PAP SMEAR 1990 MAMMOGRAM 2009 COLON CANCER SCREENING 5 YEA R SIGMOIDOSCOPY [address] COLONOGRAPHY 2014 FECAL OCCULT BLOOD TEST 2014 FIT Testing (1 year) 2014 ANNUAL PHYSICAL 10/02/2023 HEPATITIS C SCREENING 10/02/2023 COVID-19 Vaccine ( season) 2023 INFLUENZA VACCINE 12/09/2024 05/14/2023 COLOGUARD 06/13/2026 06/14/2023 COLORECTAL CANCER SCREENING 06/13/2026 TDAP/TD VACCINES (2 - Td or Tdap) 05/19/2030 021 ZOSTER VACCINE Completed 01/16/2023, 11/07/2022 Pneumococcal Vaccine 50+ Completed 05/14/2023 Insurance [employer] Care Teams Paunch Trimmer Relationship Specialty Start Date End Date Russel Cruz MD [address] [place] [address] [address] [place] [address] PCP - General Internal Medicine 12/30/23
--- NOTE | 2024-10-07 14:25 | EXP.PAIN.OV ---
HPI Data of Consult Patient: new to practice Consult date: 10/07/24 Requesting Physician: Jodi Romero APRN Primary Care Provider: Salma Zepeda APRN Reason for consult: Low back pain, knee pain, bilateral feet numbness, neck pain, arm numbness History of present illness: Ms. Crowell is a 54 year old female who presents today as a new patient. She is a referral from Heydi Zepeda's office. Today she rates her pain an 8 out of 10. Patient states that she has had chronic low back and neck symptoms for the last year and a half unrelated to any specific trauma or injury. Patient does believe it is more where her entire and describes it as a constant aching sensation with numbness and tingling. She does state that the low back is worse than her neck symptoms. She has tried Tylenol, heat and ice and physical therapy with no additional improvement. Patient does still exercise on a regular basis at home however is very limited due to the worsening pain symptoms. She does state that she has difficulty performing activities of daily living such as cooking and cleaning due to the pain. Patient denies any prior history of surgery or injections. Patient does state the pain is worse when she is up walking or standing and that it does get a little bit better if she is able to sit or lay down. Patient is interested in any help we may be able to provide. Her Parminder has been reviewed and is appropriate. Pain at rest (0-10 scale): 8 Has patient had previous pain injection?: No Conservative treatment options previously tried: Home exercise plan (Longer than 12 weeks) and Physical Therapy (No change) cc:: CC: Jodi Romero APRN [facility] Disclaimer: The information contained in this section may have been updated after the patient was seen, as this information can be updated by other users. Medical History Eosinophilia Dyspnea on exertion Encounter for screening for malignant neoplasm of lung Smoking greater than 30 pack years Seasonal allergies Difficulty sleeping HTN (hypertension) FSGS (focal segmental glomerulosclerosis) with nephrosis Community acquired pneumonia Surgical History History of laparoscopic cholecystectomy History of tubal ligation Family History Other Cancer Diabetes Hypertension Social History Smoking Status: Former smoker alcohol intake: never substance use type: unknown current occupational status: employed and unemployed Travel in the last 8 weeks?: None Review of Systems Review of Systems Review of systems:: pertinent systems reviewed and negative unless documented below Review of systems (narrative): Review of Systems: General: No recent weight changes, no fever, no sleep disturbances Respiratory: No cough, no shortness of air, no recurring pulmonary infections Cardiovascular/peripheral vascular: No chest pain, no palpitations, no edema, no shortness of breath Gastrointestinal: No new onset incontinence, normal bowel movements reported Genitourinary: No new onset incontinence Musculoskeletal: Low back pain, bilateral knee pain, bilateral feet numbness tingling, neck pain, arm numbness tingling Psychiatric: [Normal mood/affect] Neurological: [Denies weakness in extremities], [denies balance issues] Meds Home Medications and Allergies Home Medications ?Medication ?Instructions ?Recorded ?Confirmed ?Type ergocalciferol (vitamin D2) 1,250 1,250 mcg PO WEEKLY 05/01/24 09/21/24 History mcg (50,000 unit) capsule evolocumab 140 mg/mL subcutaneous 140 mg SQ DIRECTED 05/01/24 09/21/24 History pen injector (Daniel Montalvo) fluticasone propionate 50 1 spray intranasal DAILY 05/01/24 09/21/24 History mcg/actuation nasal spray,suspension metoprolol succinate 50 mg 50 mg PO BID 05/01/24 09/21/24 History tablet,extended release 24 hr potassium chloride 10 mEq 20 meq PO DAILY 05/01/24 09/21/24 History tablet,extended release albuterol sulfate 90 mcg/actuation 2 inh inhalation Q4HP PRN 05/17/24 09/21/24 History breath activated powder inhaler Shortness Of Breath nitroglycerin 0.4 mg sublingual 0.4 mg sublingual Q5M PRN Chest 05/17/24 09/21/24 History tablet Pain omeprazole 20 mg capsule,delayed 20 mg PO DAILY 05/17/24 09/21/24 History release aspirin 81 mg tablet 81 mg PO DAILY 07/20/24 09/21/24 History ondansetron 4 mg disintegrating 4 mg PO Q6HP PRN Nausea And 07/20/24 09/21/24 History tablet Vomiting cetirizine 10 mg tablet 10 mg PO DAILY 08/20/24 09/21/24 History torsemide 40 mg tablet 60 mg PO DAILY 08/20/24 09/21/24 History losartan 25 mg tablet 25 mg PO BID 09/21/24 09/21/24 History Farxiga 10 mg tablet 10 mg PO DAILY #30 tabs 09/22/24 Rx (dapagliflozin propanediol) New Prescriptions to Start Prescriptions: Allergies Allergy/AdvReac Type Severity Reaction Status Date / Time No Known Allergies Allergy Verified 09/21/24 15:15 Objective Narrative: Physical Exam: General: Alert and oriented x3, no acute distress, pleasant and cooperative Lungs: Respirations even and unlabored, symmetrical chest expansion Eyes: PERRL Musculoskeletal: Flexion and extension of lumbar [spine] somewhat guarded secondary to pain, [antalgic gait noted] positive leg raise, point tenderness along bilateral SI joints and bilateral greater trochanteric bursa's Neurological: Speech clear, no gross sensory deficit Additional findings Additional findings: FINDINGS: Limited images of the posterior fossa are unremarkable. Alignment is normal. There are discogenic endplate signal changes at C4-5. The cervical spinal cord shows normal signal and contour. C2-3: Unremarkable C3-4: Mild annular disc bulge without canal stenosis. C4-5: Moderate annular disc bulge and mild facet arthropathy. Mild central canal stenosis and mild neuroforaminal narrowing.. C5-6: Mild annular disc bulge. Borderline central canal stenosis. Moderate right and mild left neuroforaminal narrowing. C6-7: Mild annular disc bulge. Moderate left neuroforaminal narrowing. C7-T1: Unremarkable IMPRESSION: Moderate multilevel degenerative changes as above. Reviewed, Interpreted and Dictated by Shilo Marsh MD Transcribed by Edel Stahl Authenticated and . [facility] FINDINGS: Sagittal images show normal vertebral height. There is a hemangioma of the L1 vertebral body. There are discogenic endplate signal changes at L2-3 and L3-4. There is moderate dextroscoliosis with lateral subluxation. L1-2: Minimal annular disc bulge without canal stenosis. L2-3: Moderate annular disc bulge and facet overgrowth. Mild neuroforaminal narrowing. L3-4: Mild annular disc bulge and moderate facet overgrowth. Mild neuroforaminal narrowing. L4-5: Mild annular disc bulge and mild facet arthropathy. Borderline central canal stenosis. L5-S1: Minimal annular disc bulge and mild facet arthropathy. No canal stenosis. IMPRESSION: Scoliosis with mild to moderate degenerative disc disease as above. Reviewed, Interpreted and Dictated by Shilo Marsh MD Transcribed by Edel Stahl Authenticated and . [facility] Assessment and Plan *Assessment and plan (1) Degenerative disc disease: Status: Acute Category: Medical (2) Lumbar radiculopathy: Status: Acute Category: Medical Code(s): M54.16 - Radiculopathy, lumbar region (3) Trochanteric bursitis of both hips: Status: Acute Category: Medical Code(s): M70.61 - Trochanteric bursitis, right hip; M70.62 - Trochanteric bursitis, left hip (4) Sacroiliitis: Status: Acute Category: Medical Code(s): M46.1 - Sacroiliitis, not elsewhere classified (5) Degenerative disc disease, cervical: Status: Acute Category: Medical Code(s): M50.30 - Other cervical disc degeneration, unspecified cervical region (6) Cervical radiculopathy: Status: Acute Category: Medical Code(s): M54.12 - Radiculopathy, cervical region Plan Patient is experiencing worsening pain in her low back with numbness and tingling into her lower extremities. Patient did have limited range of motion of her lumbar spine with a positive leg raise. I did discuss with patient that I do believe they would benefit from a lumbar epidural steroid injection. Risk and benefits were discussed with patient and the patient would like to proceed forward with this plan of care. Patient is not on any blood thinners. Patient has tried and failed conservative therapy including oral medications, heat and ice, topicals and continued at home stretching exercise for longer than 12 weeks. Patient has had chronic back pain for longer than 6 months. Patient has not had any epidurals in the past to compare to. I will order the patient a compounded cream. Patient was also counseled in future she may benefit from bursa as well as SI injections. We will follow-up with this in future. We will schedule the patient for an LESI L4-L5 under fluoroscopy. Patient has been instructed to contact the clinic with any concerns before the next appointment. Dr. Mac has reviewed this note and agrees with this plan of care. This note was dictated using voice recognition software and make contain errors or omissions. All injections are used with Lidocaine, Bupivacaine and dexamethasone. Occasionally urine drug screen is needed to verify patient's compliance with our office pain contract. This is ordered based off specific treatments related to chronic pain with the potential to abuse certain medications.
[2024-10-07 14:55] VITALS: BP 114/81; PULSE 80; RESP 18; O2SAT 95; BMI 41.9
== END 2024-10-07 23:59 | disposition home or self-care (01) ==
LOC: SC.PAIN 13:53
PROVIDERS: PCP Nurse Practitioner Family; Visit Provider Nurse Practitioner Family
DX: M51.16 Intervertebral disc disorders with radiculopathy, lumbar region (principal); M50.10 Cervical disc disorder with radiculopathy, unspecified cervical region; M70.61 Trochanteric bursitis, right hip; M70.62 Trochanteric bursitis, left hip; M46.1 Sacroiliitis, not elsewhere classified
CPT/HCPCS: 99202; G0463

== ENCOUNTER 2024-10-08 10:29 | Outpatient (CLI) | payer MEDICAID, SELFPAY ==
[2024-10-08] VITALS (7 sets, daily range): BP systolic 96–134; BP diastolic 60–84; PULSE 67–72; RESP 16; O2SAT 94–98; BMI 43.0
--- OUTSIDE RECORDS SUMMARY | 2024-10-08 10:32 | XMS_ITS | Clinical Summary ---
Author Organization [facility] Address [address] [place] [address] Care Team Providers Care Cheese Cook Name Role Phone Russel Cruz MD Primary Care Provider [phone] Allergies No known active allergies Medications Evolocumab [...] Completed 05/14/2023 Insurance [employer] Care Teams Cheese Cook Relationship Specialty Start Date End Date Russel Cruz MD [address] [place] [address] [address] [place] [address] PCP - General Internal Medicine 12/30/23
--- OUTSIDE RECORDS SUMMARY | 2024-10-08 10:32 | XMS_ITS | Clinical Summary ---
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
--- OUTSIDE RECORDS SUMMARY | 2024-10-08 10:32 | XMS_ITS | Encounter Summary ---
Author Organization [employer] ([place], [place], [place], [place]) Address [address] [place] [address] Care Team Providers Care School Nurse Name Role Phone Unavailable Primary Care Provider Unavailabl e Reason for Visit * Reason Onset Date Comments Outreach 03/02/2024 Encounter Details Date Type Department Care Team (Late st Contact Info) Description 03/02/2024 Telephone [facility] Primary Care [address] [address] No, Pcp Outreach Social History Tobacco Use Types Packs/Day Years Used Date Smoking Tobacco: Every Day Cigarettes Passive Smoke Exposure: Current Smokeless Tobacco: Never Alcohol Use Standard Drinks/Week Comments Never 0 (1 standard drink = 0.6 oz pur e alcohol) Comments Unknown Sex and Gender Information Value Date Recorded Sex Assigned at Not on file Legal Sex Female 2:[address] MAN Gender Identity Not on file Sexual Orientation Not on file documented as of this encounter Miscellaneous Notes * Telephone Encounter - Cheri Lewis - 03/05/2024 1:57 PM EST 2nd message for patient regarding recent emergency room visit and asked to callback to schedule a New Patient appointment with primary care E MAN * Telephone Encounter - Sherita Carpenter - 03/02/2024 2:34 PM EST Left message for patient regarding recent emergency room visit and asked to callback to schedule a New Patient appointment with primary care. Please schedule next available New patient appointment with [facility] care. Please Do Not Delete until outreach is complete. E MAN documented in this encounter Plan of Treatment Not on file documented as of this encounter Visit Diagnoses Not on filedocumented in this encounter
--- OUTSIDE RECORDS SUMMARY | 2024-10-08 10:32 | XMS_ITS | Referral Summary ---
Author Organization [employer] ([place], [place], [place], [place]) Address [address] [place] [address] Care Team Providers Care Manager Unix Name Role Phone Unavailable Primary Care Provider [...] on file Legal Sex Female 2:34 PM TYPING SECTION CHIEF Gender Identity Not on file Sexual Orientation [...]
[2024-10-08] MEDS: IVABRADINE HCL 7.5MG TABLET PO (10:46)
[2024-10-08 10:59] LABS: Chloride 95 mmol/L (98-107); Sodium 133 mmol/L (136-145)
[2024-10-08 11:02] LABS: Blood Urea Nitrogen 18 mg/dl (7-17); Calcium 9.1 mg/dl (8.4-10.2); Carbon Dioxide 35 mmol/L (22.0-30.0); Creatinine Clearance Estimated 54 mL/min (50-200); Creatinine,Serum 1.10 mg/dl (0.52-1.04); Estimated Glomerular Filt Rate 52 ml/min (>60); GFR (African American) 62 ML/MIN (>60); Glucose 106 mg/dl (74-100)
[2024-10-08 11:03] LABS: Potassium 2.9 mmoL/L (3.5-5.1)
[2024-10-08 11:05] LABS: Anion Gap 5.9 mEq/L (5-15)
[2024-10-08] MEDS: NITROGLYCERIN 0.4MG SL TABLET SL (11:21)
[2024-10-08] MEDS: IOPAMIDOL-370 (76%);100ML BOTTLE 85 ML IV (11:44)
[2024-10-08] MEDS: 0.9 % SODIUM CHLORIDE 50 ML VIAL IV (11:44)
[2024-10-08] MEDS: SODIUM CHLORIDE 0.9% 10ML SYR (RAD ONLY) 10 ML IV (11:44)
== END 2024-10-08 11:46 | disposition home or self-care (01) ==
PROVIDERS: PCP Nurse Practitioner Family; Visit Provider Internal Medicine
DX: R06.09 Other forms of dyspnea (principal); R53.1 Weakness
CPT/HCPCS: 75574; 80048; Q9967

== ENCOUNTER 2024-10-08 12:20 | Emergency (ER) | payer MEDICAID, SELFPAY ==
[2024-10-08 13:01] VITALS: BP 104/61; PULSE 54; RESP 18; TEMP 36.4; O2SAT 100; BMI 41.9
--- OUTSIDE RECORDS SUMMARY | 2024-10-08 13:07 | XMS_ITS | Clinical Summary ---
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
--- OUTSIDE RECORDS SUMMARY | 2024-10-08 13:07 | XMS_ITS | Referral Summary ---
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
--- OUTSIDE RECORDS SUMMARY | 2024-10-08 13:07 | XMS_ITS | Clinical Summary ---
Author Organization [facility] Address [address] [place] [address] Care Team Providers Care Dry Food Products Mixer Name Role Phone Russel Cruz MD Primary Care Provider [phone] Allergies No known active allergies Medications Evolocumab [...] Completed 05/14/2023 Insurance [employer] Care Teams Dry Food Products Mixer Relationship Specialty Start Date End Date Russel Cruz MD [address] [place] [address] [address] [place] [address] PCP - General Internal Medicine 12/30/23
--- OUTSIDE RECORDS SUMMARY | 2024-10-08 13:07 | XMS_ITS | Encounter Summary ---
Author Organization [employer] ([place], [place], [place], [place]) Address [address] [place] [address] Care Team Providers Care Water Resources Program Director Name Role Phone Unavailable Primary Care Provider Unavailabl e Reason for Visit * Reason Onset Date Comments Outreach 03/02/2024 Encounter Details Date Type Department Care Team (Late st Contact Info) Description 03/02/2024 Telephone [facility] Primary Care [address] [address] No, Pcp Outreach Social History Tobacco Use Types Packs/Day Years Used Date Smoking Tobacco: Every Day Cigarettes Passive Smoke Exposure: Current Smokeless Tobacco: Never Alcohol Use Standard Drinks/Week Comments Never 0 (1 standard drink = 0.6 oz pur e alcohol) Comments Unknown Sex and Gender Information Value Date Recorded Sex Assigned at Not on file Legal 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 Please schedule next available New patient appointment with [facility] care. Please Do Not Delete until outreach is complete. ATION TANK OPERATOR documented in this encounter Plan of Treatment Not on file documented as of this encounter Visit Diagnoses Not on filedocumented in this encounter
--- NOTE | 2024-10-08 13:14 | HMH.EDGENADL ---
Discharge Plan Disposition Patient Disposition: Home, Self-Care Condition: Good Prescriptions Prescriptions: No Action losartan 25 mg tablet 25 mg PO BID cetirizine 10 mg tablet 10 mg PO DAILY Patient Comments: TAKE ONE TABLET BY MOUTH EVERY DAY dapagliflozin propanediol [Farxiga] 10 mg tablet 10 mg PO DAILY Qty: 30 2RF metoprolol succinate 50 mg tablet extended release 24 hr 50 mg PO BID Patient Comments: TAKE ONE TABLET BY MOUTH TWICE DAILY potassium chloride 10 mEq tablet extended release 20 meq PO DAILY ergocalciferol (vitamin D2) 1,250 mcg (50,000 unit) capsule 1,250 mcg PO WEEKLY Patient Comments: TAKE ONE CAPSULE BY MOUTH ONCE A WEEK fluticasone propionate 50 mcg/actuation spray,suspension 1 spray INTRANASAL DAILY Patient Comments: SPRAY 1 SPRAY IN EACH NOSTRIL ONCE DAILY Repatha SureClick 140 mg/mL pen injector 140 mg SQ DIRECTED Patient Comments: Inject 1 mL every 2 weeks by subcutaneous route for 30 days. Rx Instructions: Inject 1 mL every 2 weeks by subcutaneous route for 30 days. ondansetron 4 mg tablet,disintegrating 4 mg PO Q6HP PRN (Reason: Nausea And Vomiting) Patient Comments: DISSOLVE ONE TABLET ON THE TONGUE EVERY 6 HOURS NEEDED aspirin 81 mg Tablet 81 mg PO DAILY torsemide 40 mg tablet 60 mg PO DAILY albuterol sulfate 90 mcg/actuation Aerosol Powdr Breath Activated 2 inh INHALATION Q4HP PRN (Reason: Shortness Of Breath) nitroglycerin 0.4 mg Tablet, Sublingual 0.4 mg SUBLINGUAL Q5M PRN (Reason: Chest Pain) Rx Instructions: do not exceed 3 doses per episode omeprazole 20 mg Capsule,Delayed Release(Dr/Ec) 20 mg PO DAILY Referrals Follow up/Referrals: Salma Zepeda APRN [Primary Care Provider, Medical] - See instructions Activity Restrictions/Add. Instructions Additional Instructions/Restrictions: Please return to the emergency department with any worsening signs or symptoms, please follow-up with your asbestos wire finisher and primary care doctor to recheck your potassium levels and for results on your coronary artery CAT scan that was performed today. Please refrain from taking your potassium supplement/medication today, can resume this tomorrow. Clinical Impressions Clinical Impression: Hypokalemia Instructions Patient Instructions: DI for Hypokalemia Print Language Print Language: [place]gu[place] Discharge ED Provider: Marlon Carrion General Adult HPI <OLLIE English - Last Filed: 10/08/24 14:29> General Chief complaint: Recheck/Abnormal Lab/Rx Stated complaint: abnormal labs, weak Time Seen by Provider: 10/08/24 13:05 Mode of Arrival: Ambulatory Source of Information: Patient Description of Symptoms (Recalled from ER Triage Doc. by RN): Patient presents to ED from home with reports she was called and told her Potassium was low. States she was here earlier today for an outpatient CT and Labs. Notes she is on Potassium and has not missed any doses. Patient denies complaints at thsi time. History of Present Illness HPI narrative: 54-year-old female presents the emergency department from outpatient center, concerning for a low potassium , recorded at outpatient center was 2.9 , patient had a coronary artery CTA performed today, however, per imaging labs showed hypokalemia thus patient was advised to come to the emergency department. Patient denies any fever chills chest pain shortness of breath nausea vomiting constipation diarrhea no abdominal pain no urinary type symptomatology, patient does have a history of hypokalemia and is on potassium supplements at home, states she has not missed any doses. Only complaint is fatigue for the last 2 or 3 days. Patient is a former smoker, denies any alcohol or drug use, other past medical history is consistent with HFpEF, degenerative disc disease of the spine, osteoarthritis, T2DM, hypertension. Initial triage vitals notable for bradycardia otherwise unremarkable. Onset (ago): day(s) Related Data Home Medications ?Medication ?Instructions ?Recorded ?Confirmed ergocalciferol (vitamin D2) 1,250 1,250 mcg PO WEEKLY 05/01/24 10/08/24 mcg (50,000 unit) capsule evolocumab 140 mg/mL subcutaneous 140 mg SQ DIRECTED 05/01/24 10/07/24 pen injector (Daniel Montalvo) fluticasone propionate 50 1 spray intranasal DAILY 05/01/24 10/08/24 mcg/actuation nasal spray,suspension metoprolol succinate 50 mg 50 mg PO BID 05/01/24 10/08/24 tablet,extended release 24 hr potassium chloride 10 mEq 20 meq PO DAILY 05/01/24 10/08/24 tablet,extended release albuterol sulfate 90 mcg/actuation 2 inh inhalation Q4HP PRN 05/17/24 10/08/24 breath activated powder inhaler Shortness Of Breath nitroglycerin 0.4 mg sublingual 0.4 mg sublingual Q5M PRN Chest 05/17/24 10/08/24 tablet Pain omeprazole 20 mg capsule,delayed 20 mg PO DAILY 05/17/24 10/08/24 release aspirin 81 mg tablet 81 mg PO DAILY 07/20/24 10/08/24 ondansetron 4 mg disintegrating 4 mg PO Q6HP PRN Nausea And 07/20/24 10/08/24 tablet Vomiting cetirizine 10 mg tablet 10 mg PO DAILY 08/20/24 10/08/24 torsemide 40 mg tablet 60 mg PO DAILY 08/20/24 10/08/24 losartan 25 mg tablet 25 mg PO BID 09/21/24 10/08/24 Previous Rx's ?Medication ?Instructions ?Recorded Farxiga 10 mg tablet 10 mg PO DAILY #30 tabs 09/22/24 (dapagliflozin propanediol) Allergies Allergy/AdvReac Type Severity Reaction Status Date / Time No Known Allergies Allergy Verified 10/08/24 10:36 PFS <OLLIE English - Last Filed: 10/08/24 14:29> [facility] Disclaimer: The information contained in this section may have been updated after the patient was seen, as this information can be updated by other users. Medical History Eosinophilia Dyspnea on exertion Encounter for screening for malignant neoplasm of lung Smoking greater than 30 pack years Seasonal allergies Difficulty sleeping HTN (hypertension) FSGS (focal segmental glomerulosclerosis) with nephrosis Community acquired pneumonia Surgical History History of laparoscopic cholecystectomy History of tubal ligation Family History Other Cancer Diabetes Hypertension Social History Smoking Status: Former smoker alcohol intake: never substance use type: unknown current occupational status: unemployed Travel in the last 8 weeks?: None Other Medical History Have you received the Flu Vaccine for this season: No Have you received the Pneumonia Vaccine: No <OLLIE English - Last Filed: 10/08/24 14:29> ROS Obtained: Yes All systems reviewed & no additional complaints except as documented Physical Exam <OLLIE English - Last Filed: 10/08/24 14:29> General General appearance: alert and in no apparent distress Head Head exam: atraumatic and normocephalic Eye Eye exam: Present PERRL and EOMI ENT ENT exam: Present mucous membranes moist Neck Neck exam: Present normal inspection Chest Chest inspection: Present normal inspection and symmetric chest wall rise Respiratory Respiratory exam: Present normal lung sounds bilaterally; Absent respiratory distress Cardiovascular Cardiovascular exam: Present regular rate and normal rhythm Abdominal Exam Abdominal exam: Present soft; Absent tenderness Extremities Exam Extremities exam: Present normal inspection Neurological Exam Neurological exam: Present alert and oriented X3 Psychiatric Psychiatric exam: Present normal affect Skin Skin exam: Present warm and dry Medical Decision Making <OLLIE English - Last Filed: 10/08/24 14:29> Medical Records Medical records reviewed: Yes I reviewed the patient's medical records. Screening: Per USPSTF and CDC recommendations, given the prevalence of disease in our region, it is our hospital?s policy to screen for HIV and viral Hepatitis for all patients aged 18 and over and those with ongoing risk factors. Parminder Inquiry Pt receiving controlled substance: No Parminder was queried for this patient: No Vital Signs: 10/08/24 13:01 10/08/24 14:38 10/08/24 14:45 Temperature 97.5 F L 98.7 F Temperature Source Oral Pulse Rate 52 L 54 L Pulse Rate [Left] 54 L Respiratory Rate 18 19 19 Blood Pressure 105/67 L 104/78 L Blood Pressure [Left Arm] 104/61 L Blood Pressure Mean [Left Arm] 75 Blood Pressure Source Automatic Cuff Blood Pressure Source [Left Arm] Automatic Cuff Blood Pressure Position Sitting Blood Pressure Position [Left Arm] Sitting 02 Sat by Pulse Oximetry 100 98 Oxygen Delivery Method Room Air Room Air Room Air Lab Data Lab results reviewed: Yes I reviewed the patient's lab results. Lab Results 10/08/24 13:31: WBC 8.0, RBC 3.85 L, Hgb 11.5 L, Hct 35.8 L, MCV 93.0, MCH 29.9, MCHC 32.1, RDW 12.9, Plt Count 274, MPV 10.8 H, Neut % (Auto) 57.1, Lymph % (Auto) 28.6, [place] % (Auto) 8.2, Eos % (Auto) 5.4, Baso % (Auto) 0.5, Neut # (Auto) 4.6, Lymph # (Auto) 2.3, [place] # (Auto) 0.7, Eos # (Auto) 0.4, Baso # (Auto) 0.0, Sodium 132 L, Potassium 3.1 L, Chloride 95 L, Carbon Dioxide 33 H, Anion Gap 7.1, BUN 19 H, Creatinine 1.00, Estimated Creat Clear 60, Estimated GFR 58 L, Est GFR ( Amer) 70, Glucose 106 H, Calcium 9.1, Total Bilirubin 0.4, AST 35, ALT 22, Alkaline Phosphatase 123, Troponin I < 0.01, NT-Pro-B Natriuret Pep 420 H, Total Protein 7.1, Albumin 3.1 L, Globulin 4.0 H, Albumin/Globulin Ratio 0.8 L 10/08/24 13:31 10/08/24 13:31 Orders (Tests/Meds): ED MEDICATIONS Discontinued Medications Generic Name Dose Route Start Last Admin Trade Name Freq PRN Reason Stop Dose Admin Potassium Chloride 60 meq 10/08/24 14:17 10/08/24 14:27 Potassium Chloride 20meq Tab PO 10/08/24 14:18 60 meq ONCE ONE Administration ORDERS Category Date Time Status Complete Blood Count Auto Diff Stat Lab 10/08/24 13:31 Completed Comprehensive Metabolic Panel Stat Lab 10/08/24 13:31 Completed NT Pro Brain Natriuretic Pep. Stat Lab 10/08/24 13:31 Completed Troponin I Stat Lab 10/08/24 13:31 Completed Medical Decision Narrative: 54-year-old female reports to the emergency department with concern of abnormal lab/hypokalemia, differential diagnosis include but not limited to electrolyte disturbance, cardiac arrhythmia, hypovolemia, acute kidney injury among others. I discussed this patient's case with the attending physician Will obtain basic laboratory studies, cardiac biomarkers, EKG. Unremarkable CBC CMP is notable for mild hyponatremia at 132, mild hypokalemia at 3.1 which is improved from previous lab draw this morning at 2.9, BUN is mildly elevated at 19, otherwise unremarkable CMP. Will give 60 mEq of p.o. potassium Troponin is within normal limits at less than 0.01, proBNP is mildly elevated at 420. I discussed all these results with the patient at the bedside, the patient voiced understanding and agreement with the current treatment plan/discharge plan, patient will follow-up with PCP and asbestos wire finisher in the upcoming days to have a recheck of her potassium, as well as following up on her coronary artery CTA. Patient has no other acute complaints currently, patient will continue take her potassium medication/supplement as prescribed, she can start this dose tomorrow she received quite a hefty dose here in the emergency department. Patient was given strict ED return precautions and voiced understanding with the current discharge plan/treatment plan. <Marlon Carrion MD - Last Filed: 10/08/24 18:39> Vital Signs: 10/08/24 13:01 10/08/24 14:38 10/08/24 14:45 Temperature 97.5 F L 98.7 F Temperature Source Oral Pulse Rate 52 L 54 L Pulse Rate [Left] 54 L Respiratory Rate 18 19 19 Blood Pressure 105/67 L 104/78 L Blood Pressure [Left Arm] 104/61 L Blood Pressure Mean [Left Arm] 75 Blood Pressure Source Automatic Cuff Blood Pressure Source [Left Arm] Automatic Cuff Blood Pressure Position Sitting Blood Pressure Position [Left Arm] Sitting 02 Sat by Pulse Oximetry 100 98 Oxygen Delivery Method Room Air Room Air Room Air Lab Data Lab Results 10/08/24 13:31: WBC 8.0, RBC 3.85 L, Hgb 11.5 L, Hct 35.8 L, MCV 93.0, MCH 29.9, MCHC 32.1, RDW 12.9, Plt Count 274, MPV 10.8 H, Neut % (Auto) 57.1, Lymph % (Auto) 28.6, [place] % (Auto) 8.2, Eos % (Auto) 5.4, Baso % (Auto) 0.5, Neut # (Auto) 4.6, Lymph # (Auto) 2.3, [place] # (Auto) 0.7, Eos # (Auto) 0.4, Baso # (Auto) 0.0, Sodium 132 L, Potassium 3.1 L, Chloride 95 L, Carbon Dioxide 33 H, Anion Gap 7.1, BUN 19 H, Creatinine 1.00, Estimated Creat Clear 60, Estimated GFR 58 L, Est GFR ( Amer) 70, Glucose 106 H, Calcium 9.1, Total Bilirubin 0.4, AST 35, ALT 22, Alkaline Phosphatase 123, Troponin I < 0.01, NT-Pro-B Natriuret Pep 420 H, Total Protein 7.1, Albumin 3.1 L, Globulin 4.0 H, Albumin/Globulin Ratio 0.8 L Orders (Tests/Meds): ED MEDICATIONS Discontinued Medications Generic Name Dose Route Start Last Admin Trade Name Freq PRN Reason Stop Dose Admin Potassium Chloride 60 meq 10/08/24 14:17 10/08/24 14:27 Potassium Chloride 20meq Tab PO 10/08/24 14:18 60 meq ONCE ONE Administration ORDERS Category Date Time Status Complete Blood Count Auto Diff Stat Lab 10/08/24 13:31 Completed Comprehensive Metabolic Panel Stat Lab 10/08/24 13:31 Completed NT Pro Brain Natriuretic Pep. Stat Lab 10/08/24 13:31 Completed Troponin I Stat Lab 10/08/24 13:31 Completed ECG Data Tracing #1: I reviewed this ECG and interpreted as documented below: Normal sinus rhythm. No ST elevation or depression. QRS is narrow. No peaked T waves and no flattening of the T waves Medical Decision Narrative: 54-year-old female reports to the emergency department with concern of abnormal lab/hypokalemia, differential diagnosis include but not limited to electrolyte disturbance, cardiac arrhythmia, hypovolemia, acute kidney injury among others. I discussed this patient's case with the attending physician Will obtain basic laboratory studies, cardiac biomarkers, EKG. Unremarkable CBC CMP is notable for mild hyponatremia at 132, mild hypokalemia at 3.1 which is improved from previous lab draw this morning at 2.9, BUN is mildly elevated at 19, otherwise unremarkable CMP. Will give 60 mEq of p.o. potassium Troponin is within normal limits at less than 0.01, proBNP is mildly elevated at 420. I discussed all these results with the patient at the bedside, the patient voiced understanding and agreement with the current treatment plan/discharge plan, patient will follow-up with PCP and asbestos wire finisher in the upcoming days to have a recheck of her potassium, as well as following up on her coronary artery CTA. Patient has no other acute complaints currently, patient will continue take her potassium medication/supplement as prescribed, she can start this dose tomorrow she received quite a hefty dose here in the emergency department. Patient was given strict ED return precautions and voiced understanding with the current discharge plan/treatment plan. I was consulted by the MEAGAN, and we discussed the complexity of the problems being addressed. I approve the treatment and management plan for this patient's care in the emergency department, thus performing a substantive portion of the medical decision making. Marlon Carrion MD Critical Care <OLLIE English - Last Filed: 10/08/24 14:29> Critical Care Time Critical Care Time: No
[2024-10-08 13:40] LABS: Hematocrit 35.8 % (37.0-47.0); Hemoglobin 11.5 g/dL (12.2-16.2); Immature Granulocytes % 0.2 %; Mean Corpuscular HGB Conc 32.1 g/dL (31.8-35.4); Mean Corpuscular Hemoglobin 29.9 pg (27.0-31.2); Mean Corpuscular Volume 93.0 fl (81-99); Nucleated Red Blood Cells % 0 %; Platelet Count 274 K/mm3 (142-424); Red Blood Count 3.85 M/mm3 (4.20-5.40); Red Cell Distribution Width-SD 43.7 fL; White Blood Count 8.0 K/mm3 (4.8-10.8)
--- NOTE | 2024-10-08 13:41 | ECG_ITS ---
APPROVED REPORT Exam: Resting ECG HR:46 bpm ECG Measurements Heart Rate 46 AXES NV 239 P 61 QRSd 102 QRS 42 QT 478 T 55 QTc 439 Conclusion SINUS BRADYCARDIA WITH FIRST DEGREE AV BLOCK LOW QRS VOLTAGE IN PRECORDIAL LEADS [QRS DEFLECTION < 1.0 mV IN CHEST LEADS] ABNORMAL ECG UNCONFIRMED REPORT Sinus bradycardia. No ST elevations or depressions. No inverted T waves. Electronically signed by : KELLEN CHAVARRIA, 10/08/2024 16:14:51
[2024-10-08 13:53] LABS: Albumin Level 3.1 g/dl (3.5-5.0); Chloride 95 mmol/L (98-107); Potassium 3.1 mmoL/L (3.5-5.1); Sodium 132 mmol/L (136-145)
[2024-10-08 13:55] LABS: Blood Urea Nitrogen 19 mg/dl (7-17); Creatinine Clearance Estimated 60 mL/min (50-200); Creatinine,Serum 1.00 mg/dl (0.52-1.04); Estimated Glomerular Filt Rate 58 ml/min (>60); GFR (African American) 70 ML/MIN (>60)
[2024-10-08 13:56] LABS: Alanine Aminotransferase 22 U/L (12-78); Albumin/Globulin Ratio 0.8 (1.1-1.8); Alkaline Phosphatase 123 U/L (38-126); Anion Gap 7.1 mEq/L (5-15); Aspartate Amino Transferase 35 U/L (14-36); Bilirubin,Total 0.4 mg/dl (0.2-1.3); Calcium 9.1 mg/dl (8.4-10.2); Carbon Dioxide 33 mmol/L (22.0-30.0); Globulin 4.0 g/dL (1.3-3.2); Glucose 106 mg/dl (74-100); Total Protein,Serum 7.1 g/dl (6.3-8.2)
[2024-10-08 14:06] LABS: NT Pro Brain Natriuretic Pep. 420 pg/mL (0-125)
[2024-10-08 14:23] LABS: Troponin I < 0.01 ng/ml (0.00-0.034)
[2024-10-08] MEDS: POTASSIUM CHLORIDE 20MEQ TAB 60 MEQ PO (14:27)
[2024-10-08 14:38] VITALS: BP 105/67; PULSE 52; RESP 19; O2SAT 98
[2024-10-08 14:45] VITALS: BP 104/78; PULSE 54; RESP 19; TEMP 37.1; O2SAT 98
== END 2024-10-08 14:46 | disposition home or self-care (01) ==
PROVIDERS: Physician Assistant; Emergency Provider Student in an Organized Health Care Education/Training Program; PCP Nurse Practitioner Family
DX: E87.6 Hypokalemia (principal); R53.81 Other malaise; I10 Essential (primary) hypertension
CPT/HCPCS: 80053; 83880; 84484; 85025; 93005; 99284

== ENCOUNTER 2024-10-09 20:53 | Observation (INO) | payer MEDICAID, SELFPAY ==
--- OUTSIDE RECORDS SUMMARY | 2024-10-08 15:50 | XMS_ITS | Encounter Summary ---
Author Organization Healthcare Address [address] [place] [address] Care Team Providers Care Virginia Line Attendant Name Role Phone Unavailable Primary Care Provider Unavailabl e Encounter Details Date Type Department Care Team (Late st Contact Info) Description 10/08/2024 3:50 PM EDT Ancillary Procedure [address] [facility] [address] [place] [address] Examination Social History Tobacco Use [...] Data Image Acquisition: Images were acquired at [facility] in [place], and interpreted at [facility]. A 128-slice MDCT scanner (Eco[employer]a View) was used for data acquisition. A [...] was reviewed interactively on an advanced workstation (InTown) capable of 2 and 3 dimensional displays [...] Data Image Acquisition: Images were acquired at [facility] in [place], andinterpreted at [facility]. A 128-slice MDCT scanner ([employer]) was used for data acquisition. A non-contrast [...] Data wasreviewed interactively on an advanced workstation ([employer]) capable of 2and 3 dimensional displays in [...]
[2024-10-09] VITALS (7 sets, daily range): BP systolic 117–150; BP diastolic 77–97; PULSE 65–77; RESP 14–20; TEMP 36.6; O2SAT 96–98; BMI 41.9
--- OUTSIDE RECORDS SUMMARY | 2024-10-09 21:08 | XMS_ITS | Clinical Summary ---
Author Organization [employer] ([place], [place], [place], [place]) Address [address] [place] [address] Care Team Providers Care Wafer Substrate Tester Name Role Phone Unavailable Primary Care Provider [...] on file Legal Sex Female 2:34 PM HAND QUILTER Gender Identity Not on file Sexual Orientation [...] 01/16/2023, Pneumococcal 50+ years Completed 05/14/2023 Insurance [facility] [address]
--- OUTSIDE RECORDS SUMMARY | 2024-10-09 21:09 | XMS_ITS | Clinical Summary ---
Author Organization [facility] Address [address] [place] [address] Care Team Providers Care Inspection Clerk Name Role Phone Russel Cruz MD Primary Care Provider [phone] Allergies No known active allergies Medications Evolocumab [...] Completed 05/14/2023 Insurance [employer] Care Teams Inspection Clerk Relationship Specialty Start Date End Date Russel Cruz MD [address] [place] [address] [address] [place] [address] PCP - General Internal Medicine 12/30/23
--- OUTSIDE RECORDS SUMMARY | 2024-10-09 21:09 | XMS_ITS | Referral Summary ---
Author Organization [employer] ([place], [place], [place], [place]) Address [address] [place] [address] Care Team Providers Care Associate Automation Engineer Name Role Phone Unavailable Primary Care [...] on file Legal Sex Female 2:34 PM SAMPLE ROOM SUPERVISOR Gender Identity Not on file Sexual Orientation [...]
--- OUTSIDE RECORDS SUMMARY | 2024-10-09 21:09 | XMS_ITS | Encounter Summary ---
Author Organization [employer] ([place], [place], [place], [place]) Address [address] [place] [address] Care Team Providers Care Subassembly Supervisor Name Role Phone Unavailable Primary Care Provider Unavailabl e Reason for Visit * Reason Onset Date Comments Outreach 03/02/2024 Encounter Details Date Type Department Care Team (Late st Contact Info) Description 03/02/2024 Telephone [facility] Primary Care [address] [address] No, Pcp Outreach Social History Tobacco Use Types Packs/Day Years Used Date Smoking Tobacco: Every Day Cigarettes Passive Smoke Exposure: Current Smokeless Tobacco: Never Alcohol Use Standard Drinks/Week Comments Never 0 (1 standard drink = 0.6 oz pur e alcohol) Comments Unknown Sex and Gender Information Value Date Recorded Sex Assigned at Not on file Legal Sex Female 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 Please schedule next available New patient appointment with [facility] care. Please Do Not Delete until outreach is complete. OL PHOTOGRAPH EDITOR documented in this encounter Plan of Treatment Not on file documented as of this encounter Visit Diagnoses Not on filedocumented in this encounter
--- OUTSIDE RECORDS SUMMARY | 2024-10-09 21:10 | XMS_ITS | Clinical Summary ---
Author Organization Healthcare Address [address] [place] [address] Care Team Providers Care Pulmonary Function Technologist Name Role Phone Unavailable Primary Care Provider Unavailabl e Encounters Date Type Department Care Team Description 10/08/2024 3:50 PM EDT Ancillary Procedure [place] [id number] [place] [facility] [address] [place] [address] Examination from Last 3 Months Social History Tobacco Use Types Packs/Day Years Used Date Smoking Tobacco: Never Assessed Comments Unknown Sex and Gender Information Value Date Recorded Sex Assigned at Not on file Legal Sex Female 11:47 AM EDT Gender Identity Not on file Sexual Orientation Not on file Plan of Treatment Health Maintenance Due Date Last Done Comments [facility]-Depression Screening 1969 [facility]-HIV Screening 1969 [facility]-Hepatitis C Screening 1969 [facility]-Infant/Child/Adol SDOH Screenings 1969 [facility]- SDOH Screenings 10/06/1987 [facility]-Adult SDOH Screenings 10/06/1987 [facility]-Pap Smear 1990 [facility]-Cervical Cancer Screening 10/06/1999 [facility]-HPV/Cotest 10/06/1999 CT Colonography 2014 Colonoscopy 2014 FIT 2014 FOBT 2014 Sigmoidoscopy 2014 [facility]-Breast Cancer Screening 10/06/2019 [id number] Vaccine (1 - season) 2023 [facility]-Influenza Vaccine (#1) 2024 05/14/2023 FIT-DNA 06/13/2026 06/14/2023 [facility]-Colorectal Cancer Screening 06/13/2026 [facility]-DTaP,Tdap,and Td Vaccine s (2 - Td or Tdap) 05/19/2030 05/19/2020 [facility]-Hepatitis A Vaccines Aged Out 021, 05/19/2020 No longer eligible based on patient's age to complete this topic [facility]-Zoster Vaccines Completed 01/16/2023, 11/07/2022 [facility]-Hepatitis B Vaccines Completed 024, 01/16/2023, 11/07/2022 [facility]-Pneumococcal Vaccine: 50 + Years Completed 05/14/2023 HPV Vaccines Aged Out No longer eligi ble based on patient's age to complete this topic [facility]-HIB Vaccines Aged Out No longer e ligible based on patient's age to complete this topic [facility]-IPV Vaccines Aged Out No longer e ligible based on patient's age to complete this topic [facility]-Rotavirus Vaccines Aged Out No lo nger eligible based on patient's age to complete this topic Procedures Procedure Name Priority Date/Time Associated Diagnosis Comments CT ANGIO CARDIAC CORONARY ARTERIES Routine 10/08/2024 3:48 PM EDT Examination from Last 3 Months Results * CT Angio Cardiac Coronary Arteries [...] Acquisition: Images were acquired at [facility] in [place], and interpreted at [facility]. A 128-slice MDCT scanner ([facility] View) was used for data acquisition. A [...] was reviewed interactively on an advanced workstation ([employer]) capable of 2 and 3 dimensional displays [...] Acquisition: Images were acquired at [facility] in [place], andinterpreted at [facility]. A 128-slice MDCT scanner ([employer]o) was used for data acquisition. A non-contrast [...] Data wasreviewed interactively on an advanced workstation ([employer]) capable of 2and 3 dimensional displays in [...] on 10/08/2024 4:40 PM Travis Carrasco MD IMG CT PROCEDURES Final Result from Last 3 Months Insurance [employer]
--- NOTE | 2024-10-09 21:33 | ECG_ITS ---
APPROVED REPORT Exam: Resting ECG HR:76 bpm ECG Measurements Heart Rate 76 AXES KS 188 P 40 QRSd 94 QRS 27 QT 416 T 38 QTc 446 Conclusion SINUS RHYTHM WITH FREQUENT VENTRICULAR PREMATURE COMPLEXES IN A BIGEMINAL PATTERN ABNORMAL RHYTHM ECG UNCONFIRMED REPORT Electronically signed by : Alex James, 10/10/2024 22:51:39
--- NOTE | 2024-10-09 21:37 | XR_ITS ---
PROCEDURE INFORMATION: Exam: XR Chest Exam date and time: 10/09/2024 9:42 PM Age: 54 years old Clinical indication: Dyspnea TECHNIQUE: Imaging protocol: Radiologic exam of the chest. Views: 1 view. COMPARISON: CT LUNG SCREENING 08/24/2024 7:22 AM FINDINGS: Lungs: Unremarkable. No consolidation. Pleural spaces: Unremarkable. No pleural effusion. No pneumothorax. Heart/Mediastinum: Unremarkable. No cardiomegaly. Bones/joints: Unremarkable. IMPRESSION: No acute findings.
--- NOTE | 2024-10-09 21:41 | HMH.EDGENADL ---
Discharge Plan Disposition Patient Disposition: Admitted Prescriptions Prescriptions: No Action losartan 25 mg tablet 25 mg PO BID cetirizine 10 mg tablet 10 mg PO DAILY Patient Comments: TAKE ONE TABLET BY MOUTH EVERY DAY dapagliflozin propanediol [Farxiga] 10 mg tablet 10 mg PO DAILY Qty: 30 2RF metoprolol succinate 50 mg tablet extended release 24 hr 50 mg PO BID Patient Comments: TAKE ONE TABLET BY MOUTH TWICE DAILY potassium chloride 10 mEq tablet extended release 20 meq PO DAILY ergocalciferol (vitamin D2) 1,250 mcg (50,000 unit) capsule 1,250 mcg PO WEEKLY Patient Comments: TAKE ONE CAPSULE BY MOUTH ONCE A WEEK fluticasone propionate 50 mcg/actuation spray,suspension 1 spray INTRANASAL DAILY Patient Comments: SPRAY 1 SPRAY IN EACH NOSTRIL ONCE DAILY Repatha SureClick 140 mg/mL pen injector 140 mg SQ DIRECTED Patient Comments: Inject 1 mL every 2 weeks by subcutaneous route for 30 days. Rx Instructions: Inject 1 mL every 2 weeks by subcutaneous route for 30 days. ondansetron 4 mg tablet,disintegrating 4 mg PO Q6HP PRN (Reason: Nausea And Vomiting) Patient Comments: DISSOLVE ONE TABLET ON THE TONGUE EVERY 6 HOURS NEEDED aspirin 81 mg Tablet 81 mg PO DAILY torsemide 40 mg tablet 60 mg PO DAILY albuterol sulfate 90 mcg/actuation Aerosol Powdr Breath Activated 2 inh INHALATION Q4HP PRN (Reason: Shortness Of Breath) nitroglycerin 0.4 mg Tablet, Sublingual 0.4 mg SUBLINGUAL Q5M PRN (Reason: Chest Pain) Rx Instructions: do not exceed 3 doses per episode omeprazole 20 mg Capsule,Delayed Release(Dr/Ec) 20 mg PO DAILY Referrals Follow up/Referrals: Salma Zepeda APRN [Primary Care Provider, Medical] - See instructions Clinical Impressions Clinical Impression: Bigeminy, Palpitations, Hypokalemia, Chronic dyspnea Print Language Print Language: [place] Island[place] Discharge ED Provider: Inderjit James General Adult HPI General Chief complaint: Arrhythmia/Palpitations Stated complaint: Heart Palpatations; Weakness Time Seen by Provider: 10/09/24 21:24 Mode of Arrival: Ambulatory Source of Information: Patient Description of Symptoms (Recalled from ER Triage Doc. by RN): Pt presents to ED for weakness & heart palpitations. Pt was seen here yesterday for the same issues. Pt was told she had low K+. Pt was given K+ and d/c yesterday. Pt rates pain 0/10. Pt is A&O*4. History of Present Illness HPI narrative: Patient is a 54-year-old female presenting today with heart palpitations. It was diagnosed at the end of last year is FSGS and minimal-change disease and was on prednisone for extended period of time also got a viral illness over the winter and is since that time but distant. She has been extensively evaluated and followed up and worked up by a doctor gennaro and Carrie. Most recently had a coronary CTA done just a few days ago that has not yet been read. Has worn a Holter monitor in the past when she lived elsewhere. States that she is intermittently been having palpitations but today is the worst it ever been happening very frequently feeling like her heart is dropping and feeling extremely weak. She states most the time she feels like her heart is skipping beats but at times is beating too fast as well. She was here yesterday in the emergency department for low potassium which was 2.9 and improved to 3.1 was given oral potassium replacement and discharged. Related Data Home Medications ?Medication ?Instructions ?Recorded ?Confirmed ergocalciferol (vitamin D2) 1,250 1,250 mcg PO WEEKLY 05/01/24 10/08/24 mcg (50,000 unit) capsule evolocumab 140 mg/mL subcutaneous 140 mg SQ DIRECTED 05/01/24 10/07/24 pen injector (Daniel Montalvo) fluticasone propionate 50 1 spray intranasal DAILY 05/01/24 10/08/24 mcg/actuation nasal spray,suspension metoprolol succinate 50 mg 50 mg PO BID 05/01/24 10/08/24 tablet,extended release 24 hr potassium chloride 10 mEq 20 meq PO DAILY 05/01/24 10/08/24 tablet,extended release albuterol sulfate 90 mcg/actuation 2 inh inhalation Q4HP PRN 05/17/24 10/08/24 breath activated powder inhaler Shortness Of Breath nitroglycerin 0.4 mg sublingual 0.4 mg sublingual Q5M PRN Chest 05/17/24 10/08/24 tablet Pain omeprazole 20 mg capsule,delayed 20 mg PO DAILY 05/17/24 10/08/24 release aspirin 81 mg tablet 81 mg PO DAILY 07/20/24 10/08/24 ondansetron 4 mg disintegrating 4 mg PO Q6HP PRN Nausea And 07/20/24 10/08/24 tablet Vomiting cetirizine 10 mg tablet 10 mg PO DAILY 08/20/24 10/08/24 torsemide 40 mg tablet 60 mg PO DAILY 08/20/24 10/08/24 losartan 25 mg tablet 25 mg PO BID 09/21/24 10/08/24 Previous Rx's ?Medication ?Instructions ?Recorded Farxiga 10 mg tablet 10 mg PO DAILY #30 tabs 09/22/24 (dapagliflozin propanediol) Allergies Allergy/AdvReac Type Severity Reaction Status Date / Time No Known Allergies Allergy Verified 10/08/24 10:36 [facility] Disclaimer: The information contained in this section may have been updated after the patient was seen, as this information can be updated by other users. Medical History Eosinophilia Dyspnea on exertion Encounter for screening for malignant neoplasm of lung Smoking greater than 30 pack years Seasonal allergies Difficulty sleeping HTN (hypertension) FSGS (focal segmental glomerulosclerosis) with nephrosis Community acquired pneumonia Surgical History History of laparoscopic cholecystectomy History of tubal ligation Family History Other Cancer Diabetes Hypertension Social History Smoking Status: Former smoker alcohol intake: never substance use type: unknown current occupational status: unemployed Travel in the last 8 weeks?: None Have you lived/traveled outside US in past 30 days?: No Contact w/someone who lives/traveled outside US past 30 days?: No Exposure to someone with infectious disease in past 14 days?: No Do you have a fever (greater than 100.4 F or 38 C)?: No Have you tested positive for COVID-19?: No Exposed to someone with COVID-19 in past 14 days?: No Do you have a sore throat?: No Do you have a cough?: No Do you have any weakness?: No Do you have any diarrhea?: No Are you experiencing any unusual bleeding?: No Do you have any muscle aches/pain?: No Do you have any abdominal pain?: No Are you experiencing loss of taste or smell?: No Other Medical History Have you received the Flu Vaccine for this season: No Have you received the Pneumonia Vaccine: No ROS Obtained: Yes All systems reviewed & no additional complaints except as documented Physical Exam General General appearance: alert and in no apparent distress Respiratory Respiratory exam: Present normal lung sounds bilaterally and respiratory distress Cardiovascular Cardiovascular exam: Present regular rate and normal rhythm Neurological Exam Neurological exam: Present alert and oriented X3 Medical Decision Making Medical Records Screening: Per USPSTF and CDC recommendations, given the prevalence of disease in our region, it is our hospital?s policy to screen for HIV and viral Hepatitis for all patients aged 18 and over and those with ongoing risk factors. Parminder Inquiry Pt receiving controlled substance: No Vital Signs: 10/09/24 21:01 Temperature 97.9 F Temperature Source Oral Pulse Rate [Left] 77 Respiratory Rate 14 Blood Pressure [Right Arm] 132/97 H Blood Pressure Mean [Right Arm] 108 02 Sat by Pulse Oximetry 96 Oxygen Delivery Method Room Air Lab Data Lab results reviewed: Yes I reviewed the patient's lab results. Lab Results 10/09/24 21:00: WBC 9.3, RBC 4.02 L, Hgb 12.4, Hct 37.3, MCV 92.8, MCH 30.8, MCHC 33.2, RDW 12.8, Plt Count 109 L D, MPV 12.1 H, Neut % (Auto) 53.1, Lymph % (Auto) 31.8, [place] % (Auto) 9.9 H, Eos % (Auto) 4.2, Baso % (Auto) 0.8, Neut # (Auto) 4.9, Lymph # (Auto) 3.0, [place] # (Auto) 0.9, Eos # (Auto) 0.4, Baso # (Auto) 0.1, Sodium 138, Potassium 3.3 L, Chloride 99, Carbon Dioxide 32 H, Anion Gap 10.3, BUN 21 H, Creatinine 1.00, Estimated Creat Clear 60, Estimated GFR 58 L, Est GFR ( Amer) 70, Glucose 108 H, Calcium 9.2, Magnesium 1.8, Total Bilirubin 0.1 L, AST 40 H, ALT 24, Alkaline Phosphatase 125, Troponin I < 0.01, Total Protein 7.3, Albumin 4.0 D, Globulin 3.3 H, Albumin/Globulin Ratio 1.2, TSH 1.31 10/09/24 21:00 10/09/24 21:00 Orders (Tests/Meds): ED MEDICATIONS Generic Name Dose Route Start Last Admin Trade Name Freq PRN Reason Stop Dose Admin Heparin Sodium (Porcine) 5,000 unit 10/10/24 09:00 Heparin Sodium 5,000 Unit/Ml Vial SUBCUT 11/09/24 08:59 TID JIL Magnesium Sulfate 2 gm in 50 mls @ 50 mls/hr 10/09/24 22:22 10/09/24 22:35 Magnesium Sulfate 2gm/50ml Premix IV 10/09/24 23:21 50 mls/hr ONCE ONE Administration Discontinued Medications Generic Name Dose Route Start Last Admin Trade Name Freq PRN Reason Stop Dose Admin Potassium Chloride 60 meq 10/09/24 22:22 10/09/24 22:36 Potassium Chloride 20meq Tab PO 10/09/24 22:23 60 meq ONCE ONE Administration ORDERS Category Date Time Status CXR --portable [XR chest portable] Stat Exams 10/09/24 21:37 Completed CBC w/Auto Diff [Complete Blood Count Auto Diff] Stat Lab 10/09/24 21:00 Completed CMP [Comprehensive Metabolic Panel] Stat Lab 10/09/24 21:00 Completed Complete Blood Count Auto Diff AMLAB Lab 10/10/24 06:00 Ordered Comprehensive Metabolic Panel AMLAB Lab 10/10/24 06:00 Ordered Magnesium AMLAB Lab 10/10/24 06:00 Ordered Magnesium Stat Lab 10/09/24 21:00 Completed Phosphorous AMLAB Lab 10/10/24 06:00 Ordered TSH [Thyroid Stimulating Hormone] Stat Lab 10/09/24 21:00 Completed Trop I [Troponin I] Stat Lab 10/09/24 21:00 Completed Troponin I Q3H Lab 10/10/24 00:45 Ordered Troponin I Q3H Lab 10/10/24 03:45 Ordered ECG Data Tracing #1: I reviewed this ECG and interpreted as documented below: Ventricular rate of 76 sinus rhythm with frequent ventricular premature complexes in a bigeminy pattern no acute ischemic changes noted otherwise no other conduction abnormalities noted with any QRS complexes within normal axis Medical Decision Narrative: Patient with above history and physical frequently going in and out of bigeminy on my evaluation this was captured on EKG. With the frequent ventricular ectopy and recent significant electrolyte abnormalities patient will likely need to be admitted for observation to make sure that she is appropriately corrected and that her arrhythmia is improving. Reassessment 1050 patient's been on the monitor and has had frequent ventricular ectopy occasionally going into bigeminy no obvious V. tach episodes or loss of consciousness. Potassium 3.3 magnesium 1.8 we will try to correct a 4 and 2. Thus they have been administered. She has been prescribed metoprolol and has been compliant with her medications in the past. She is agreeable to be admitted for observation until her significant arrhythmia and electrolyte disturbances are improved. I spoke with Dr. Calle on-call for hospital medicine who agreed to admit this patient. Critical Care Critical Care Time Critical Care Time: Yes Attestation: On 10/09/24, the high probability of a clinically significant, sudden or life threatening deterioration of the following system(s) required my full and direct attention, intervention and personal management. The time I documented below is in addition to time spent performing reported procedures but includes the following listed in this critical care notation. Total Time Total Critical Care Time: 35
[2024-10-09 21:43] LABS: Hematocrit 37.3 % (37.0-47.0); Hemoglobin 12.4 g/dL (12.2-16.2); Immature Granulocytes % 0.2 %; Mean Corpuscular HGB Conc 33.2 g/dL (31.8-35.4); Mean Corpuscular Hemoglobin 30.8 pg (27.0-31.2); Mean Corpuscular Volume 92.8 fl (81-99); Nucleated Red Blood Cells % 0 %; Platelet Count 109 K/mm3 (142-424); Red Blood Count 4.02 M/mm3 (4.20-5.40); Red Cell Distribution Width-SD 43.8 fL; White Blood Count 9.3 K/mm3 (4.8-10.8)
[2024-10-09 21:51] LABS: Alanine Aminotransferase 24 U/L (12-78); Albumin Level 4.0 g/dl (3.5-5.0); Albumin/Globulin Ratio 1.2 (1.1-1.8); Alkaline Phosphatase 125 U/L (38-126); Anion Gap 10.3 mEq/L (5-15); Aspartate Amino Transferase 40 U/L (14-36); Blood Urea Nitrogen 21 mg/dl (7-17); Calcium 9.2 mg/dl (8.4-10.2); Carbon Dioxide 32 mmol/L (22.0-30.0); Chloride 99 mmol/L (98-107); Creatinine Clearance Estimated 60 mL/min (50-200); Creatinine,Serum 1.00 mg/dl (0.52-1.04); Estimated Glomerular Filt Rate 58 ml/min (>60); GFR (African American) 70 ML/MIN (>60); Globulin 3.3 g/dL (1.3-3.2); Glucose 108 mg/dl (74-100); Potassium 3.3 mmoL/L (3.5-5.1); Sodium 138 mmol/L (136-145); Total Protein,Serum 7.3 g/dl (6.3-8.2)
[2024-10-09 21:53] LABS: Magnesium 1.8 mg/dl (1.6-2.3)
[2024-10-09 21:55] LABS: Bilirubin,Total 0.1 mg/dl (0.2-1.3)
[2024-10-09 22:07] LABS: Troponin I < 0.01 ng/ml (0.00-0.034)
[2024-10-09 22:25] LABS: Thyroid Stimulating Hormone 1.31 uIU/mL (0.465-4.68)
[2024-10-09] MEDS: MAGNESIUM SULFATE IN WATER 2 GM/50 ML PIGGYBACK IV (22:35)
[2024-10-09] MEDS: POTASSIUM CHLORIDE 20MEQ TAB 60 MEQ PO (22:36)
--- NOTE | 2024-10-09 22:53 | EXP.HP ---
History of Present Illness *Admission Date: 10/09/24 *Reason for visit:: palpitations *History of present illness: Ms. Crowell is a 54-year-old female who is undergoing outpatient workup for dyspnea and CHF. Follows with pulmonology and cardiology. She presented to the ER because of weakness and palpitations today. She had similar issues yesterday for which she was seen in the ED and her potassium was replaced. She also had cardiac CTA so she missed her evening dose of metoprolol last night. On presentation today, she states she is been having palpitations for the past 24 to 48 hours. She is alert and oriented x 4. Denies chest pain, nausea, vomiting, syncope, confusion or loss of consciousness. Has been feeling somewhat more weak which is why she has been seeing pulmonology and cardiology. Was started on Farxiga within the past month and has had more symptoms since starting that medication as far as her weakness goes. On arrival to the ED, workup with EKG showing bigeminy. Potassium found to be 3.3. Kidney function at baseline with BUN 21, creatinine 1.0. Magnesium 1.8. Initiated on potassium replacement. Medicine consulted for admission due to her bigeminy. On arrival to the floor, she is alert and oriented x 4. Stable on room air. No acute distress. Feeling little bit better after getting potassium. States she has not had her evening dose of metoprolol today. Denies any medication changes other than Farxiga in the past month. [facility] Disclaimer: The information contained in this section may have been updated after the patient was seen, as this information can be updated by other users. Medical History (Updated 10/09/24 @ 22:55 by Alex Calle MD) BMI 45.0-49.9, adult Eosinophilia Dyspnea on exertion Encounter for screening for malignant neoplasm of lung Smoking greater than 30 pack years Seasonal allergies Difficulty sleeping HTN (hypertension) FSGS (focal segmental glomerulosclerosis) with nephrosis Community acquired pneumonia Surgical History History of laparoscopic cholecystectomy History of tubal ligation Family History Diabetes Cancer Hypertension Social History Smoking Status: Former smoker alcohol intake: never substance use type: unknown current occupational status: unemployed Travel in the last 8 weeks?: None Have you lived/traveled outside US in past 30 days?: No Contact w/someone who lives/traveled outside US past 30 days?: No Exposure to someone with infectious disease in past 14 days?: No Do you have a fever (greater than 100.4 F or 38 C)?: No Have you tested positive for COVID-19?: No Exposed to someone with COVID-19 in past 14 days?: No Do you have a sore throat?: No Do you have a cough?: No Do you have any weakness?: No Do you have any diarrhea?: No Are you experiencing any unusual bleeding?: No Do you have any muscle aches/pain?: No Do you have any abdominal pain?: No Are you experiencing loss of taste or smell?: No Other Medical History Have you received the Flu Vaccine for this season: No Have you received the Pneumonia Vaccine: No Review of Systems Review of Systems Review of systems (narrative): 14 point review of systems performed, pertinent positives and negatives as per HPI Meds Home Medications and Allergies Home Medications ?Medication ?Instructions ?Recorded ?Confirmed ?Type ergocalciferol (vitamin D2) 1,250 1,250 mcg PO WEEKLY 05/01/24 10/09/24 History mcg (50,000 unit) capsule evolocumab 140 mg/mL subcutaneous 140 mg SQ DIRECTED 05/01/24 10/07/24 History pen injector (Daniel Montalvo) fluticasone propionate 50 1 spray intranasal DAILY 05/01/24 10/09/24 History mcg/actuation nasal spray,suspension metoprolol succinate 50 mg 50 mg PO BID 05/01/24 10/09/24 History tablet,extended release 24 hr potassium chloride 10 mEq 20 meq PO DAILY 05/01/24 10/09/24 History tablet,extended release albuterol sulfate 90 mcg/actuation 2 inh inhalation Q4HP PRN 05/17/24 10/09/24 History breath activated powder inhaler Shortness Of Breath nitroglycerin 0.4 mg sublingual 0.4 mg sublingual Q5M PRN Chest 05/17/24 10/08/24 History tablet Pain omeprazole 20 mg capsule,delayed 20 mg PO DAILY 05/17/24 10/09/24 History release aspirin 81 mg tablet 81 mg PO DAILY 07/20/24 10/09/24 History ondansetron 4 mg disintegrating 4 mg PO Q6HP PRN Nausea And 07/20/24 10/09/24 History tablet Vomiting cetirizine 10 mg tablet 10 mg PO DAILY 08/20/24 10/09/24 History torsemide 40 mg tablet 100 mg PO DAILY 08/20/24 10/09/24 History losartan 25 mg tablet 25 mg PO BID 09/21/24 10/09/24 History Farxiga 10 mg tablet 10 mg PO DAILY #30 tabs 09/22/24 10/09/24 Rx (dapagliflozin propanediol) New Prescriptions to Start Prescriptions: Allergies Allergy/AdvReac Type Severity Reaction Status Date / Time No Known Allergies Allergy Verified 10/08/24 10:36 Exam Data for Last 24 hours Vital signs and Labs for Last 24 Hours: Temp Pulse Resp BP Pulse Ox O2 Del Method 97.9 F 77 14 132/97 H 96 Room Air 10/09/24 21:10/09/24 21:10/09/24 21:10/09/24 21:10/09/24 21:10/09/24 21:01 Laboratory Results - last 24 hr 10/09/24 21:00: WBC 9.3, RBC 4.02 L, Hgb 12.4, Hct 37.3, MCV 92.8, MCH 30.8, MCHC 33.2, RDW 12.8, Plt Count 109 L D, MPV 12.1 H, Neut % (Auto) 53.1, Lymph % (Auto) 31.8, [place] % (Auto) 9.9 H, Eos % (Auto) 4.2, Baso % (Auto) 0.8, Neut # (Auto) 4.9, Lymph # (Auto) 3.0, [place] # (Auto) 0.9, Eos # (Auto) 0.4, Baso # (Auto) 0.1, Sodium 138, Potassium 3.3 L, Chloride 99, Carbon Dioxide 32 H, Anion Gap 10.3, BUN 21 H, Creatinine 1.00, Estimated Creat Clear 60, Estimated GFR 58 L, Est GFR ( Amer) 70, Glucose 108 H, Calcium 9.2, Magnesium 1.8, Total Bilirubin 0.1 L, AST 40 H, ALT 24, Alkaline Phosphatase 125, Troponin I < 0.01, Total Protein 7.3, Albumin 4.0 D, Globulin 3.3 H, Albumin/Globulin Ratio 1.2, TSH 1.31 I & O for Last 24 hours: Intake & Output 10/06/24 10/07/24 10/08/24 10/09/24 23:59 23:59 23:59 23:59 Weight 117.934 kg Constitutional Constitutional: no acute distress, obese and cooperative *Routine HEENT Exam Head: Present normocephalic Eye: Present EOMI and PERRL ENT: Present mucous membranes moist Comments: Poor dentition *Routine Neck Exam Neck: Present supple; Absent lymphadenopathy *Routine Respiratory Exam Respiratory: Present CTA bilaterally; Absent rhonchi, wheezes or crackles *Routine Cardiovascular Exam Cardiovascular: Present RRR *Routine Abdominal Exam Abdominal: Present soft and normoactive bowel sounds; Absent tenderness *Routine Rectal Exam Rectal:: deferred *Routine Genitalia Exam Genitalia:: deferred *Routine Extremities Exam Extremities: Present edema (Trace bilateral lower extremity); Absent cyanosis or clubbing *Routine Skin Exam Skin: Present intact and warm; Absent rash *Routine Neurological Exam Neurological: Present alert, oriented X3 and moving all extremities; Absent altered mental status Assessment and Plan *Assessment and plan (1) Hypokalemia: Status: Acute Category: Medical Code(s): E87.6 - Hypokalemia (2) Palpitations: Status: Acute Category: Medical Code(s): R00.2 - Palpitations (3) Bigeminy: Status: Acute Category: Medical Code(s): I49.8 - Other specified cardiac arrhythmias (4) (HFpEF) heart failure with preserved ejection fraction: Status: Acute Qualifiers: Heart failure chronicity: acute on chronic Qualified Code(s): I50.33 - Acute on chronic diastolic (congestive) heart failure Category: Medical Code(s): I50.30 - Unspecified diastolic (congestive) heart failure (5) Class 3 obesity: Status: Chronic Category: Medical Code(s): E66.813 - Obesity, class 3 Plan 54-year-old female who presented with weakness and palpitations. Found to have hypokalemia and bigeminy. Discussed case with ER physician, request admission for further management of her bigeminy and potassium replacement. I decided to admit for medication adjustments, monitoring, potassium repletion. Repeat labs ordered for the morning. Problems addressed as follows: Bigeminy Hypokalemia HFpEF - Echo obtained 07/20/2024 with normal BiV systolic function. EF 55% - Lung CT obtained 08/24/2024 with lung RADS category 2. Has a 25-wygg-pzzw history of smoking. Some left lung base scarring and subcentimeter nodule noted in right apical posterior region. - White count normal at 9.3, hemoglobin 12.4 - Potassium 3.3, kidney function normal BUN 21, creatinine 1.0. Magnesium 1.8. BNP obtained yesterday of 420. - TSH normal at 1.3 - Received 60 mg potassium in the ED. Repeat CBC, CMP, magnesium ordered for the morning - Resume home metoprolol succinate 50 mg twice daily. Monitor on telemetry overnight. If continues to have bigeminy, will increase dose in the morning. - Resume aspirin 81 milligrams daily - Holding losartan pending monitoring of blood pressure. Will consider resuming in the morning. -Resume torsemide 100 mg daily - Holding Farxiga 10 mg daily - Does not appear to be in acute exacerbation. On room air. No indication for supplemental oxygen. Goal sats greater 90%. Obesity complicates all aspects of her care Full code Heparin subcu 3 times a day Regular diet
--- NOTE | 2024-10-09 23:17 | PC.NURSE ---
Patient arrived to floor via wheelchair from ED at 23:15.
[2024-10-09] MEDS: METOPROLOL SUCCINATE XL 50MG TABLET 50 MG PO (23:52)
--- NOTE | 2024-10-09 23:59 | PC.NURSE ---
Pt med rec nearly completed, two medications had RX instructions. Pt was unable to verify.
[2024-10-10] VITALS: BP 118/80; PULSE 72; RESP 12; TEMP 36.5; O2SAT 98; BMI 42.5
[2024-10-10 01:50] LABS: Troponin I < 0.01 ng/ml (0.00-0.034)
[2024-10-10 04:00] VITALS: BP 101/73; PULSE 63; PULSE 65; RESP 18; TEMP 36.4; O2SAT 97; BMI 42.3
--- NOTE | 2024-10-10 05:41 | PC.NURSE ---
New Admit. v/s, ox4, RA. Pt denied any chest pain. Plan of care ongoing.
[2024-10-10 06:06] LABS: Hematocrit 35.8 % (37.0-47.0); Hemoglobin 11.4 g/dL (12.2-16.2); Immature Granulocytes % 0.2 %; Mean Corpuscular HGB Conc 31.8 g/dL (31.8-35.4); Mean Corpuscular Hemoglobin 29.9 pg (27.0-31.2); Mean Corpuscular Volume 94.0 fl (81-99); Nucleated Red Blood Cells % 0 %; Platelet Count 129 K/mm3 (142-424); Red Blood Count 3.81 M/mm3 (4.20-5.40); Red Cell Distribution Width-SD 44.3 fL; White Blood Count 9.3 K/mm3 (4.8-10.8)
[2024-10-10 06:20] LABS: Albumin Level 3.0 g/dl (3.5-5.0); Chloride 99 mmol/L (98-107); Potassium 3.4 mmoL/L (3.5-5.1); Sodium 133 mmol/L (136-145)
[2024-10-10 06:22] LABS: Alanine Aminotransferase 19 U/L (12-78); Aspartate Amino Transferase 32 U/L (14-36); Blood Urea Nitrogen 19 mg/dl (7-17); Creatinine Clearance Estimated 66 mL/min (50-200); Creatinine,Serum 0.90 mg/dl (0.52-1.04); Estimated Glomerular Filt Rate 65 ml/min (>60); GFR (African American) 79 ML/MIN (>60)
[2024-10-10 06:23] LABS: Albumin/Globulin Ratio 0.8 (1.1-1.8); Alkaline Phosphatase 121 U/L (38-126); Anion Gap 5.4 mEq/L (5-15); Calcium 9.0 mg/dl (8.4-10.2); Carbon Dioxide 32 mmol/L (22.0-30.0); Globulin 3.9 g/dL (1.3-3.2); Glucose 94 mg/dl (74-100); Magnesium 2.4 mg/dl (1.6-2.3); Phosphorous 3.7 mg/dl (2.5-4.5); Total Protein,Serum 6.9 g/dl (6.3-8.2)
[2024-10-10 06:27] LABS: Bilirubin,Total < 0.1 mg/dl (0.2-1.3)
[2024-10-10 06:36] LABS: Troponin I < 0.01 ng/ml (0.00-0.034)
--- NOTE | 2024-10-10 07:27 | P.DS_ITS ---
General Admission date:: 10/09/24 Discharge date: 10/10/24 HPI HPI HPI: Ms. Crowell is a 54-year-old female who is undergoing outpatient workup for dyspnea and CHF. Follows with pulmonology and cardiology. She presented to the ER because of weakness and palpitations today. She had similar issues yesterday for which she was seen in the ED and her potassium was replaced. She also had cardiac CTA so she missed her evening dose of metoprolol last night. On presentation today, she states she is been having palpitations for the past 24 to 48 hours. She is alert and oriented x 4. Denies chest pain, nausea, vomiting, syncope, confusion or loss of consciousness. Has been feeling somewhat more weak which is why she has been seeing pulmonology and cardiology. Was started on Farxiga within the past month and has had more symptoms since starting that medication as far as her weakness goes. On arrival to the ED, workup with EKG showing bigeminy. Potassium found to be 3.3. Kidney function at baseline with BUN 21, creatinine 1.0. Magnesium 1.8. Initiated on potassium replacement. Medicine consulted for admission due to her bigeminy. On arrival to the floor, she is alert and oriented x 4. Stable on room air. No acute distress. Feeling little bit better after getting potassium. States she has not had her evening dose of metoprolol today. Denies any medication changes other than Farxiga in the past month. Hospital Course Hospital Course Hospital Course: 54-year-old female who presented with weakness and palpitations. Found to have hypokalemia and bigeminy. Discussed case with ER physician, request admission for further management of her bigeminy and potassium replacement. I decided to admit for medication adjustments, monitoring, potassium repletion. Repeat labs ordered for the morning. Potassium improved to 3.4, magnesium 2.4. Monitor on telemetry overnight with resolution of bigeminy. Stable discharge home with close follow-up with cardiology. Problems addressed as follows: Bigeminy Hypokalemia HFpEF - Echo obtained 07/20/2024 with normal BiV systolic function. EF 55%. Lung CT obtained 08/24/2024 with lung RADS category 2. Has a [id number] history of smoking. Some left lung base scarring and subcentimeter nodule noted in right apical posterior region. White count normal at 9.3, hemoglobin 12.4. Potassium 3.3, kidney function normal BUN 21, creatinine 1.0. Magnesium 1.8. BNP obtained day before admission at 420. TSH is 1.3. Due to low potassium and bigeminy on presentation, was admitted for replacement of electrolytes and monitoring on telemetry. Did well with replacement. Responded to oral potassium. Resumed home metoprolol succinate 50 mg twice daily. Feeling better by morning with no further palpitations. No bigeminy on telemetry. Will place 2-week event monitor. Continue home regimen. Follow with cardiology in the next week for further evaluation and adjustments if continuing to have events. Resumed home medications as follows: - metoprolol succinate 50 mg twice daily. - aspirin 81 milligrams daily - Losartan decreased to 25 mg daily due to normotensive state during admission. - Resume torsemide 100 mg daily - Resume Farxiga 10 mg daily - In potassium chloride 40 mEq twice daily Exam Data for Last 24 hours Vital signs and Labs for Last 24 Hours: Temp Pulse Resp BP Pulse Ox O2 Del Method 97.6 F 63 18 101/73 L 97 Room Air 10/10/24 04:00 10/10/24 04:00 10/10/24 04:00 10/10/24 04:00 10/10/24 04:00 10/10/24 06:13 Laboratory Results - last 24 hr 10/09/24 21:00: WBC 9.3, RBC 4.02 L, Hgb 12.4, Hct 37.3, MCV 92.8, MCH 30.8, MCHC 33.2, RDW 12.8, Plt Count 109 L D, MPV 12.1 H, Neut % (Auto) 53.1, Lymph % (Auto) 31.8, [place] % (Auto) 9.9 H, Eos % (Auto) 4.2, Baso % (Auto) 0.8, Neut # (Auto) 4.9, Lymph # (Auto) 3.0, [place] # (Auto) 0.9, Eos # (Auto) 0.4, Baso # (Auto) 0.1, Sodium 138, Potassium 3.3 L, Chloride 99, Carbon Dioxide 32 H, Anion Gap 10.3, BUN 21 H, Creatinine 1.00, Estimated Creat Clear 60, Estimated GFR 58 L, Est GFR ( Amer) 70, Glucose 108 H, Calcium 9.2, Magnesium 1.8, Total Bilirubin 0.1 L, AST 40 H, ALT 24, Alkaline Phosphatase 125, Troponin I < 0.01, Total Protein 7.3, Albumin 4.0 D, Globulin 3.3 H, Albumin/Globulin Ratio 1.2, TSH 1.31 10/10/24 00:55: Troponin I < 0.01 10/10/24 05:13: WBC 9.3, RBC 3.81 L, Hgb 11.4 L, Hct 35.8 L, MCV 94.0, MCH 29.9, MCHC 31.8, RDW 13.0, Plt Count 129 L, MPV 12.1 H, Neut % (Auto) 47.6, Lymph % (Auto) 36.0, [place] % (Auto) 9.4 H, Eos % (Auto) 6.0, Baso % (Auto) 0.8, Neut # (Auto) 4.4, Lymph # (Auto) 3.3, [place] # (Auto) 0.9, Eos # (Auto) 0.6 H, Baso # (Auto) 0.1, Sodium 133 L, Potassium 3.4 L, Chloride 99, Carbon Dioxide 32 H, Anion Gap 5.4, BUN 19 H, Creatinine 0.90, Estimated Creat Clear 66, Estimated GFR 65, Est GFR ( Amer) 79, Glucose 94, Calcium 9.0, Phosphorus 3.7, Magnesium 2.4 H D, Total Bilirubin < 0.1 L, AST 32, ALT 19, Alkaline Phosphatase 121, Troponin I < 0.01, Total Protein 6.9, Albumin 3.0 L D, Globulin 3.9 H, Albumin/Globulin Ratio 0.8 L I & O for Last 24 hours: Intake & Output 10/07/24 10/08/24 10/09/24 10/10/24 23:59 23:59 23:59 23:59 Intake Total 120 / 120 Output Total 0 / 0 Balance 120 / 120 Weight 117.934 kg 119.431 kg Constitutional Constitutional: no acute distress, morbidly obese and cooperative *Routine HEENT Exam Head: Present normocephalic Eye: Present EOMI and PERRL ENT: Present mucous membranes moist *Routine Neck Exam Neck: Present supple; Absent lymphadenopathy *Routine Respiratory Exam Respiratory: Present CTA bilaterally; Absent rhonchi, wheezes or crackles *Routine Cardiovascular Exam Cardiovascular: Present RRR *Routine Abdominal Exam Abdominal: Present soft and normoactive bowel sounds; Absent tenderness *Routine Rectal Exam Patient deferred: visual exam *Routine Exam Patient deferred: external exam *Routine Extremities Exam Extremities: Present edema (trace BLE); Absent cyanosis or clubbing *Routine Skin Exam Skin: Present intact and warm; Absent rash *Routine Neurological Exam Neurological: Present alert, oriented X3 and moving all extremities; Absent altered mental status Results Data Completed and Pending Labs on day of discharge: Labs from last 24 hours 10/10/24 10/10/24 10/09/24 05:13 00:55 21:00 WBC 9.3 9.3 RBC 3.81 L 4.02 L Hgb 11.4 L 12.4 Hct 35.8 L 37.3 MCV 94.0 92.8 MCH 29.9 30.8 MCHC 31.8 33.2 RDW 13.0 12.8 Plt Count 129 L 109 L D MPV 12.1 H 12.1 H Neut % (Auto) 47.6 53.1 Lymph % (Auto) 36.0 31.8 [place] % (Auto) 9.4 H 9.9 H Eos % (Auto) 6.0 4.2 Baso % (Auto) 0.8 0.8 Neut # (Auto) 4.4 4.9 Lymph # (Auto) 3.3 3.0 [place] # (Auto) 0.9 0.9 Eos # (Auto) 0.6 H 0.4 Baso # (Auto) 0.1 0.1 Sodium 133 L 138 Potassium 3.4 L 3.3 L Chloride 99 99 Carbon Dioxide 32 H 32 H Anion Gap 5.4 10.3 BUN 19 H 21 H Creatinine 0.90 1.00 Estimated Creat Clear 66 60 Estimated GFR 65 58 L Est GFR ( Amer) 79 70 Glucose 94 108 H Calcium 9.0 9.2 Phosphorus 3.7 Magnesium 2.4 H D 1.8 Total Bilirubin < 0.1 L 0.1 L AST 32 40 H ALT 19 24 Alkaline Phosphatase 121 125 Troponin I < 0.01 < 0.01 < 0.01 Total Protein 6.9 7.3 Albumin 3.0 L D 4.0 D Globulin 3.9 H 3.3 H Albumin/Globulin Ratio 0.8 L 1.2 TSH 1.31 DS: Diagnosis Discharge Diagnosis (1) Hypokalemia: Status: Acute Code(s): E87.6 - Hypokalemia (2) Palpitations: Status: Acute Code(s): R00.2 - Palpitations (3) Bigeminy: Status: Acute Code(s): I49.8 - Other specified cardiac arrhythmias (4) (HFpEF) heart failure with preserved ejection fraction: Status: Acute Code(s): I50.30 - Unspecified diastolic (congestive) heart failure Qualifiers: Heart failure chronicity: acute on chronic Qualified Code(s): I50.33 - Acute on chronic diastolic (congestive) heart failure (5) Class 3 obesity: Status: Chronic Code(s): E66.813 - Obesity, class 3 Meds Home Medications and Allergies Home Medications ?Medication ?Instructions ?Recorded ?Confirmed ?Type ergocalciferol (vitamin D2) 1,250 1,250 mcg PO WEEKLY 05/01/24 10/10/24 History mcg (50,000 unit) capsule evolocumab 140 mg/mL subcutaneous 140 mg SQ .[id number] 0 05/01/24 10/10/24 History pen injector (Repathparesh Montalvo) fluticasone propionate 50 1 spray intranasal DAILY 10/10/24 History mcg/actuation nasal spray,suspension metoprolol succinate 50 mg 50 mg PO BID 05/01/2410/10 History tablet,extended release 24 hr albuterol sulfate 90 mcg/actuation 2 inh inhalation Q4 HP PRN 05/17/24 10/10/24 History breath activated powder inhaler Shortness Of Breath nitroglycerin 0.4 mg sublingual 0.4 mg sublingual Q5MI SOFTWARE PUBLISHER PRN Chest 05/17/24 10/10/24 History tablet Pain omeprazole 20 mg capsule,delayed 20 mg PO DAILY 10/10/24 History release aspirin 81 mg tablet 81 mg PO DAILY 07/20/2405/05 History ondansetron 4 mg disintegrating 4 mg PO Q6HP PRN Nause a And 07/20/24 10/10/24 History tablet Vomiting cetirizine 10 mg tablet 10 mg PO DAILY 08/20/2405/05 History Farxiga 10 mg tablet 10 mg PO DAILY #30 tabs 09/0810/10/24 Rx (dapagliflozin propanediol) losartan 25 mg tablet 25 mg PO DAILY 30 days #0 ta bs 10/10/24 10/10/24 Rx potassium chloride 20 mEq 40 meq (2 x 20 mEq) PO BID 3 0 days 10/10/24 Rx tablet,extended release #120 tabs torsemide 100 mg tablet 100 mg PO DAILY 10/10/2405/05 History New Prescriptions to Start Prescriptions: potassium chloride Alex Calle Allergies Allergy/AdvReac Type Severity Reaction Status Date / Time No Known Allergies Allergy Verified 10/08/24 10:36 Discharge Plan Disposition Patient Disposition: Home, Self-Care Condition: Fair Follow up Plan Follow up with: Salma Zepeda APRN [Primary Care Provider, Medical] - 1 week Referral Note: Please call to make follow up appointment on Saturday, October 12 to schedule your follow up appointmwnt. The office is aware of your need for an appointment. Travis Carrasco MD [Staff Physician, Cardiology] - 1 week Referral Note: Please call to make follow up appointment in one week. Please call on Saturday, October 12 to schedule your cardiology appointment. The office is aware of your need for an appointment. Prescriptions/Medication Reconciliation: Continued cetirizine 10 mg tablet 10 mg PO DAILY dapagliflozin propanediol [Farxiga] 10 mg tablet 10 mg PO DAILY Qty: 30 2RF metoprolol succinate 50 mg tablet extended release 24 hr 50 mg PO BID Patient Comments: TAKE ONE TABLET BY MOUTH TWICE DAILY ergocalciferol (vitamin D2) 1,250 mcg (50,000 unit) capsule 1,250 mcg PO WEEKLY Patient Comments: TAKE ONE CAPSULE BY MOUTH ONCE A WEEK fluticasone propionate 50 mcg/actuation spray,suspension 1 spray INTRANASAL DAILY Patient Comments: SPRAY 1 SPRAY IN EACH NOSTRIL ONCE DAILY Repatha SureClick 140 mg/mL pen injector 140 mg SQ .[id number] Patient Comments: Inject 1 mL every 2 weeks by subcutaneous route for 30 days. Rx Instructions: Inject 1 mL every 2 weeks by subcutaneous route for 30 days. ondansetron 4 mg tablet,disintegrating 4 mg PO Q6HP PRN (Reason: Nausea And Vomiting) Patient Comments: DISSOLVE ONE TABLET ON THE TONGUE EVERY 6 HOURS NEEDED aspirin 81 mg Tablet 81 mg PO DAILY torsemide 100 mg tablet 100 mg PO DAILY Patient Comments: TAKE ONE TABLET BY MOUTH EVERY DAY albuterol sulfate 90 mcg/actuation Aerosol Powdr Breath Activated 2 inh INHALATION Q4HP PRN (Reason: Shortness Of Breath) nitroglycerin 0.4 mg Tablet, Sublingual 0.4 mg SUBLINGUAL Q5MINP PRN (Reason: Chest Pain) Rx Instructions: do not exceed 3 doses per episode omeprazole 20 mg Capsule,Delayed Release(Dr/Ec) 20 mg PO DAILY Changed losartan 25 mg tablet 25 mg PO DAILY 30 Days Qty: 0 0RF potassium chloride 20 mEq tablet extended release 40 meq PO BID 30 Days Qty: 120 0RF Patient Comments: TAKE ONE TABLET BY MOUTH TWICE DAILY WITH FOOD Problem Reconciliation Problems Reviewed?: Yes Patient Discharge Instructions ACTIVITY: Continue current activity DIET: continue same diet Patient Instructions: DI for Hypokalemia, DI for Palpitations Print Language: Urdu Providers Primary Care Provider: Salma Zepeda Admit Provider: Alex Calle Attending Provider: Alex Calle
[2024-10-10 08:00] VITALS: BP 111/68; PULSE 68; PULSE 70; RESP 20; TEMP 36.5; O2SAT 97
[2024-10-10] MEDS: POTASSIUM CHLORIDE 20MEQ TAB 40 MEQ PO (08:35)
[2024-10-10] MEDS: ASPIRIN EC 81MG TABLET 81 MG PO (08:35)
[2024-10-10] MEDS: METOPROLOL SUCCINATE XL 50MG TABLET 50 MG PO (08:35)
--- NOTE | 2024-10-10 08:42 | HMH.PHAINT1 ---
Pharmacy Intervention Comments: MEDICATION RECONCILIATION COMPLETE USING EXTERNAL PHARMACY FILL HISTORY AND RECENT CARDIOLOGY OFFICE VISIT NOTE.
--- NOTE | 2024-10-12 11:05 | SW/DCPLANNER ---
Spoke with patient on the phone. Patient stated that she is doing good. Patient stated that she is aware of her upcoming appointments. Patient stated that she was not prescribed any new medicine but they changed a couple of her medicines. Patient stated that she has no concerns or questions at this time. Monica Christina
== END 2024-10-10 10:18 | disposition home or self-care (01) ==
LOC: ER 22:48 → 2ND 22:52
PROVIDERS: Admitting Provider Internal Medicine Adolescent Medicine; Emergency Provider Student in an Organized Health Care Education/Training Program; PCP Nurse Practitioner Family; Visit Provider Internal Medicine Adolescent Medicine
DX: I49.8 Other specified cardiac arrhythmias (principal); E87.6 Hypokalemia; I11.0 Hypertensive heart disease with heart failure; I50.33 Acute on chronic diastolic (congestive) heart failure; E66.813 Obesity, class 3; Z68.41 Body mass index [BMI] 40.0-44.9, adult; Z82.49 Family history of ischemic heart disease and other diseases of the circulatory system; Z87.891 Personal history of nicotine dependence; Z79.82 Long term (current) use of aspirin; Z79.899 Other long term (current) drug therapy
CPT/HCPCS: 96365; 36415; 71045; 80053; 83735; 84100; 84443; 84484; 85025; 93005; 93270; G0378; J3475

== ENCOUNTER 2024-10-12 11:05 | Outpatient (CLI) | payer MEDICAID, SELFPAY ==
--- OUTSIDE RECORDS SUMMARY | 2024-10-08 15:50 | XMS_ITS | Encounter Summary ---
Author Organization Healthcare Address [address] [place] [address] Care Team Providers Care R And D Lab Technician Name Role Phone Unavailable Primary Care Provider Unavailabl e Encounter Details Date Type Department Care Team (Late st Contact Info) Description 10/08/2024 3:50 PM EDT Ancillary Procedure [address] [facility] [address] [place] [address] Examination Social History Tobacco Use [...] Data Image Acquisition: Images were acquired at [facility] in [place], and interpreted at [facility]. A 128-slice MDCT scanner ([employer] View) was used for data acquisition. A [...] was reviewed interactively on an advanced workstation ([employer]) capable of 2 and 3 dimensional displays [...] Data Image Acquisition: Images were acquired at [facility] in [place], andinterpreted at [facility]. A 128-slice MDCT scanner ([employer]) was used for data acquisition. A non-contrast [...] Data wasreviewed interactively on an advanced workstation ([employer]) capable of 2and 3 dimensional displays in [...]
--- OUTSIDE RECORDS SUMMARY | 2024-10-12 11:08 | XMS_ITS | Encounter Summary ---
Author Organization [employer] ([place], [place], [place], [place]) Address [address] [place] [address] Care Team Providers Care Coding Assistant Name Role Phone Unavailable Primary Care Provider Unavailabl e Reason for Visit * Reason Onset Date Comments Outreach 03/02/2024 Encounter Details Date Type Department Care Team (Late st Contact Info) Description 03/02/2024 Telephone [facility] Primary Care [address] [address] No, Pcp Outreach Social History Tobacco Use Types Packs/Day Years Used Date Smoking Tobacco: Every Day Cigarettes Passive Smoke Exposure: Current Smokeless Tobacco: Never Alcohol Use Standard Drinks/Week Comments Never 0 (1 standard drink = 0.6 oz pur e alcohol) Comments Unknown Sex and Gender Information Value Date Recorded Sex Assigned at Not on file 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 Please schedule next available New patient appointment with [facility] care. Please Do Not Delete until outreach is complete. OW PROCESSOR documented in this encounter Plan of Treatment Not on file documented as of this encounter Visit Diagnoses Not on filedocumented in this encounter
--- OUTSIDE RECORDS SUMMARY | 2024-10-12 11:08 | XMS_ITS | Clinical Summary ---
Author Organization Healthcare Address [address] [place] [address] Care Team Providers Care Director Of Donor Relations Name Role Phone Unavailable Primary Care Provider Unavailabl e Encounters Date Type Department Care Team Description 10/08/2024 3:50 PM EDT Ancillary Procedure [place] [id number] [place] [facility] [address] [place] [address] Examination from Last 3 Months Social [...] 2014 Sigmoidoscopy 2014 [facility]-Breast Cancer Screening 10/06/2019 [id number] Vaccine ( - season) 2023 [facility]-Influenza Vaccine (#1) 2024 [...] Data Image Acquisition: Images were acquired at [facility] in [place], and interpreted at [facility]. A 128-slice MDCT scanner ([facility]) was used for data acquisition. A [...] was reviewed interactively on an advanced workstation ([employer]) capable of 2 and 3 dimensional displays [...] Data Image Acquisition: Images were acquired at [facility] in [place], andinterpreted at [facility]. A 128-slice MDCT scanner ([employer]) was used for data acquisition. A non-contrast [...] Data wasreviewed interactively on an advanced workstation ([employer]) capable of 2and 3 dimensional displays in [...]
--- OUTSIDE RECORDS SUMMARY | 2024-10-12 11:08 | XMS_ITS | Referral Summary ---
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
--- OUTSIDE RECORDS SUMMARY | 2024-10-12 11:08 | XMS_ITS | Clinical Summary ---
Author Organization [facility] Address [address] [place] [address] Care Team Providers Care Pharmacist Intern Name Role Phone Russel Cruz MD Primary Care Provider [phone] Allergies No known active allergies Medications Evolocumab [...] Completed 05/14/2023 Insurance [employer] Care Teams Pharmacist Intern Relationship Specialty Start Date End Date Russel Cruz MD [address] [place] [address] [address] [place] [address] PCP - General Internal Medicine 12/30/23
--- OUTSIDE RECORDS SUMMARY | 2024-10-12 11:08 | XMS_ITS | Clinical Summary ---
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
[2024-10-12 12:30] LABS: Anion Gap 10.0 mEq/L (5-15); Blood Urea Nitrogen 20 mg/dl (7-17); Calcium 9.6 mg/dl (8.4-10.2); Carbon Dioxide 29 mmol/L (22.0-30.0); Chloride 101 mmol/L (98-107); Creatinine,Serum 1.10 mg/dl (0.52-1.04); Estimated Glomerular Filt Rate 52 ml/min (>60); GFR (African American) 62 ML/MIN (>60); Glucose 103 mg/dl (74-100); Magnesium 1.9 mg/dl (1.6-2.3); Potassium 4.0 mmoL/L (3.5-5.1); Sodium 136 mmol/L (136-145)
== END 2024-10-12 23:59 | disposition home or self-care (01) ==
LOC: LAB 11:06
PROVIDERS: PCP Nurse Practitioner Family; Visit Provider Physician Assistant
DX: E87.6 Hypokalemia (principal)
CPT/HCPCS: 36415; 80048; 83735

== ENCOUNTER 2024-11-06 12:33 | Outpatient (CLI) | payer MEDICAID, SELFPAY ==
--- OUTSIDE RECORDS SUMMARY | 2024-10-08 15:50 | XMS_ITS | Encounter Summary ---
Author Organization Healthcare Address [address] [place] [address] Care Team Providers Care Web Content Editor Name Role Phone Unavailable Primary Care Provider Unavailabl e Encounter Details Date Type Department Care Team (Late st Contact Info) Description 10/08/2024 3:50 PM EDT Ancillary Procedure [address] [facility] [address] [place] [address] Examination Social History Tobacco Use [...] Data Image Acquisition: Images were acquired at [facility] in [place], and interpreted at [facility]. A 128-slice MDCT scanner (Edyna View) was used for data acquisition. A [...] was reviewed interactively on an advanced workstation (Laguo) capable of 2 and 3 dimensional displays [...] Data Image Acquisition: Images were acquired at [facility] in [place], andinterpreted at [facility]. A 128-slice MDCT scanner (mLED) was used for data acquisition. A non-contrast [...] Data wasreviewed interactively on an advanced workstation (Laguo) capable of 2and 3 dimensional displays in [...]
--- OUTSIDE RECORDS SUMMARY | 2024-11-06 12:35 | XMS_ITS | Clinical Summary ---
Author Organization Healthcare Address [address] [place] [address] Care Team Providers Care Nuclear Engineering Technician Name Role Phone Unavailable Primary Care Provider Unavailabl e Encounters Date Type Department Care Team Description 10/08/2024 3:50 PM EDT Ancillary Procedure [place] [id number] [place] [facility] [address] [place] [address] Examination from Last 3 Months Social [...] [facility]-HIV Screening 1969 [facility]-Hepatitis C Screening 1969 [facility]-/Child/Adol SDOH Screenings 1969 [facility]- SDOH Screenings 10/06/1987 [facility]-Adult SDOH Screenings 10/06/1987 [facility]-Pap Smear 1990 [facility]-Cervical Cancer Screening 10/06/1999 [facility]-HPV/Cotest 10/06/1999 CT Colonography 2014 Colonoscopy 2014 FIT 2014 FOBT 2014 Sigmoidoscopy 2014 [facility]-Breast Cancer Screening 10/06/2019 [id number] Vaccine (1 - season) 2023 [facility]-Influenza Vaccine [...] Data Image Acquisition: Images were acquired at [facility] in [place], and interpreted at [facility]. A 128-slice MDCT scanner ([employer] [facility] View) was used for data acquisition. A [...] was reviewed interactively on an advanced workstation ([employer] capable of 2 and 3 dimensional displays [...] Data Image Acquisition: Images were acquired at [facility] in [place], andinterpreted at [facility]. A 128-slice MDCT scanner ([employer]) was used for data acquisition. A non-contrast [...] Data wasreviewed interactively on an advanced workstation ([employer] capable of 2and 3 dimensional displays in [...]
--- OUTSIDE RECORDS SUMMARY | 2024-11-06 12:35 | XMS_ITS | Clinical Summary ---
Author Organization [employer] ([place], [place], [place], [place]) Address [address] [place] [address] Care Team Providers Care Gauger Chief Delivery Name Role Phone Unavailable Primary Care Provider [...] on file Legal Sex Female 2:34 PM BELLY DANCER Gender Identity Not on file Sexual Orientation [...] 01/16/2023, Pneumococcal 50+ years Completed 05/14/[address] [facility]
--- OUTSIDE RECORDS SUMMARY | 2024-11-06 12:35 | XMS_ITS | Clinical Summary ---
Author Organization [facility] Address [address] [place] [address] Care Team Providers Care Relay Man Name Role Phone Russel Cruz MD Primary Care Provider [phone] Allergies No known active allergies Medications Evolocumab [...] Completed 05/14/2023 Insurance [employer] Care Teams Relay Man Relationship Specialty Start Date End Date Russel Cruz MD [address] [place] [address] [address] [place] [address] PCP - General Internal Medicine 12/30/23
--- OUTSIDE RECORDS SUMMARY | 2024-11-06 12:35 | XMS_ITS | Referral Summary ---
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
--- OUTSIDE RECORDS SUMMARY | 2024-11-06 12:35 | XMS_ITS | Encounter Summary ---
Author Organization [employer] ([place], [place], [place], [place]) Address [address] [place] [address] Care Team Providers Care Track Service Person Name Role Phone Unavailable Primary Care Provider Unavailabl e Reason for Visit * Reason Onset Date Comments Outreach 03/02/2024 Encounter Details Date Type Department Care Team (Late st Contact Info) Description 03/02/2024 Telephone [facility] Primary Care [address] [address] No, Pcp Outreach Social History Tobacco Use Types Packs/Day Years Used Date Smoking Tobacco: Every Day Cigarettes Passive Smoke Exposure: Current Smokeless Tobacco: Never Alcohol Use Standard Drinks/Week Comments Never 0 (1 standard drink = 0.6 oz pur e alcohol) Comments Unknown Sex and Gender Information Value Date Recorded Sex Assigned at Not on file 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 Please schedule next available New patient appointment with [facility] care. Please Do Not Delete until outreach is complete. RING MACHINE OPERATOR documented in this encounter Plan of Treatment Not on file documented as of this encounter Visit Diagnoses Not on filedocumented in this encounter
--- NOTE | 2024-11-06 13:07 | MM_ITS ---
PROCEDURE INFORMATION: Exam: MG Bilateral Screening 3D Mammography Exam date and time: 11/06/2024 1:16 PM Age: 54 years old Clinical indication: Screening examination TECHNIQUE: Imaging protocol: Bilateral Screening tomosynthesis and 2D mammography including computer-aided detection (CAD) when performed. COMPARISON: 1. MG MM DIG SCREENING MAMM BI W/CAD 12/22/2021 10:41 AM 2. MG MM DIG SCREENING MAMM BI W/CAD 11/24/2020 1:02 PM FINDINGS: MAMMOGRAPHY: Breast composition: There are scattered areas of fibroglandular density. Mass: None. Architectural distortion: None. Calcifications: No suspicious calcifications. Asymmetric density: None. Skin thickening: None. Axillary adenopathy: None. IMPRESSION: No mammographic evidence of malignancy. Annual screening is recommended unless otherwise clinically indicated. ASSESSMENT: BI-RADS Category 1: Negative.
[2024-11-06 14:32] LABS: Albumin Level 3.6 g/dl (3.5-5.0); Chloride 100 mmol/L (98-107); Potassium 4.1 mmoL/L (3.5-5.1); Sodium 137 mmol/L (136-145)
[2024-11-06 14:34] LABS: Alanine Aminotransferase 21 U/L (12-78); Aspartate Amino Transferase 34 U/L (14-36); Blood Urea Nitrogen 28 mg/dl (7-17); Creatinine,Serum 1.30 mg/dl (0.52-1.04); Estimated Glomerular Filt Rate 43 ml/min (>60); GFR (African American) 51 ML/MIN (>60)
[2024-11-06 14:35] LABS: Albumin/Globulin Ratio 1.2 (1.1-1.8); Alkaline Phosphatase 119 U/L (38-126); Anion Gap 11.1 mEq/L (5-15); Calcium 9.2 mg/dl (8.4-10.2); Carbon Dioxide 30 mmol/L (22.0-30.0); Globulin 3.1 g/dL (1.3-3.2); Glucose 119 mg/dl (74-100); Magnesium 1.9 mg/dl (1.6-2.3); Total Protein,Serum 6.7 g/dl (6.3-8.2)
[2024-11-06 14:37] LABS: Bilirubin,Total 0.1 mg/dl (0.2-1.3)
== END 2024-11-06 23:59 | disposition home or self-care (01) ==
PROVIDERS: PCP Nurse Practitioner Family; Visit Provider Nurse Practitioner Family
DX: Z12.31 Encounter for screening mammogram for malignant neoplasm of breast (principal); R92.323 Mammographic fibroglandular density, bilateral breasts
CPT/HCPCS: 36415; 77063; 77067; 80053; 83735

== ENCOUNTER 2024-11-17 12:55 | Day surgery (SDC) | payer MEDICAID, SELFPAY ==
[2024-11-17 13:07] VITALS: BP 136/86; PULSE 77; RESP 16; O2SAT 99; BMI 41.9
[2024-11-17 13:13] VITALS: BP 141/81; PULSE 81; RESP 18; O2SAT 97
--- NOTE | 2024-11-17 13:14 | P.PCN_ITS ---
Procedure Date: 11/17/24 Time: 13:00 Anesthesiologist:: Dago Mccracken CRNA Complications:: None Pre-procedure Diagnosis:: Degenerative disc lumbar spine multilevels. Lumbar radiculopathy. Post-procedure Diagnosis:: Same. Indications for Procedure:: Patient is a pleasant 54-year-old female who comes to clinic today for lumbar epidural steroid injection. Patient describes low lumbar back pain as well as bilateral hip and leg radicular symptoms. She is having difficulty with ambul ation. Difficulty sleeping. Difficulty sitting. She rates her pain 7/10. Procedure Details:: Procedure: Lumbar epidural steroid injection under fluoroscopy Informed consent was obtained and the risks and benefits of the procedure were explained to the patient. The patient was taken to the procedure room and noninvasive monitors placed, including noninvasive blood pressure cuff and pulse oximeter. The back was viewed using C-arm Fluoroscopy and prepped using Chloraprep as a cleansing solution and the L4-L5 interspace was palpated. Skin and subcutaneous tissues were anesthetized using lidocaine 1.5% and a 25-gauge needle. After this, an 18-gauge Touhy epidural needle was placed into the L4-L5 interspace and advanced using fluoroscopic guidance and loss of resistance to air until the epidural space was encountered. After confirmation of needle placement in the epidural space, with dye, a solution containing normal saline, 3 mL and dexamethasone 10 mg were incrementally injected into the lumbar epidural space. The patient tolerated the procedure well with no complications. The patient was observed in the Pain Clinic and then discharged home neurologically intact. Plan and Disposition:: Patient was discharged without incident.
[2024-11-17 13:15] VITALS: BP 141/81; PULSE 81; RESP 18; O2SAT 97
[2024-11-17 13:17] VITALS: BP 113/75; PULSE 73; RESP 16; O2SAT 100
[2024-11-17 14:16] LABS: Albumin Level 3.8 g/dl (3.5-5.0); Anion Gap 10.0 mEq/L (5-15); Blood Urea Nitrogen 26 mg/dl (7-17); Calcium 10.2 mg/dl (8.4-10.2); Carbon Dioxide 34 mmol/L (22.0-30.0); Chloride 99 mmol/L (98-107); Creatinine Clearance Estimated 54 mL/min (50-200); Creatinine,Serum 1.10 mg/dl (0.52-1.04); Estimated Glomerular Filt Rate 52 ml/min (>60); GFR (African American) 62 ML/MIN (>60); Glucose 105 mg/dl (74-100); Phosphorous 4.1 mg/dl (2.5-4.5); Potassium 4.0 mmoL/L (3.5-5.1); Sodium 139 mmol/L (136-145)
== END 2024-11-17 13:17 | disposition home or self-care (01) ==
PROVIDERS: Internal Medicine; PCP Nurse Practitioner Family; Visit Provider Nurse Anesthetist, Certified Registered
DX: M51.16 Intervertebral disc disorders with radiculopathy, lumbar region (principal); I10 Essential (primary) hypertension; Z87.891 Personal history of nicotine dependence; Z79.82 Long term (current) use of aspirin; Z79.899 Other long term (current) drug therapy
CPT/HCPCS: 36415; 62323; 64483; 80069; J1100

== ENCOUNTER 2024-11-23 14:50 | Outpatient (CLI) | payer MEDICAID, SELFPAY ==
--- OUTSIDE RECORDS SUMMARY | 2024-10-08 15:50 | XMS_ITS | Encounter Summary ---
Author Organization Healthcare Address [address] [place] [address] Care Team Providers Care Lead Press Operator Name Role Phone Unavailable Primary Care Provider Unavailabl e Encounter Details Date Type Department Care Team (Late st Contact Info) Description 10/08/2024 3:50 PM EDT Ancillary Procedure [address] [facility] [address] [place] [address] Examination Social History Tobacco Use Types Packs/Day Years Used Date Smoking Tobacco: Never Assessed Comments Unknown Sex and Gender Information Value Date Recorded Sex Assigned at Not on file Legal Sex Female 11:47 AM EDT Gender Identity Not on file Sexual Orientation Not on file documented as of this encounter Plan of Treatment Not on file documented as of this encounter Procedures Procedure Name Priority Date/Time Associated Diagnosis Comments CT ANGIO CARDIAC CORONARY ARTERIES Routine 10/08/2024 3:48 PM EDT Examination documented in this encounter Results * CT Angio Cardiac Coronary Arteries (10/08/2024 3:48 PM EDT) Anatomical Region Laterality Modality Heart Computed Tomogra phy Impressions 10/08/2024 4:40 PM EDT 1. No coronary calcification with an Agatston score = 0 using the AJ-130 method. Vascular age is 38 years. 2. Normal coronary arteries 3. CAD-RADS 0: Management recommendations: Reassurance. Consider non-atherosclerotic causes of chest pain. 4. No significant non coronary cardiac findings in particular normal cardiac chambers, non-coronary vessels in the field of view and unremarkable pericardium. 5. Extracardiac structures in the field of view are unremarkable. CRITICAL RESULT: No. COMMUNICATION: Per this written report. Drafted by Param Marin MD on 10/08/2024 4:19 PM Final report signed by Param Marin MD on 10/08/2024 4:40 PM Narrative 10/08/2024 4:40 PM EDT CLINICAL INDICATION: 54 years Female Symptoms: Chest pain with clinical features suggesting myocardial ischemia TECHNIQUE: Procedure Data Image Acquisition: Images were acquired at [facility] in [place], and interpreted at [facility]. A 128-slice MDCT scanner ([employer] View) was used for data acquisition. A non-contrast coronary calcium scan was initially performed. was performed. Bolus tracking in the ascending aorta with a threshold of 180HU. Immediately afterwards, ECG synchronized Cardiac CT was then performed from cardiac base to apex using retrospective gating with ECG tube current modulation. A total of 85 mL Isovue 370mg/mL contrast media was administered at 5 mL/sec followed by a saline flush using a biphasic injection protocol. A tube voltage of 120 kVp was used. The patient received the following medications prior to the Cardiac CT: 15mg po ivabradine, and 0.4mg sublingual nitroglycerin. The average heart rate at the time of acquisition was 65 bpm (64 bpm to 65 bpm) and regular. Image Reconstruction: Transaxial images were reconstructed at 0.63 mm slice thickness. Data was reviewed interactively on an advanced workstation (SnapUp) capable of 2 and 3 dimensional displays in all conventional reconstruction formats including multiplanar reformations, maximum intensity projections, curved multiplanar reformations, and volume rendered reconstructions. Selected routine images displaying relevant coronary anatomy and pathology were saved and sent to PACS. Complications: None Technical Quality: Overall image quality is Average due to cardiac motion Coronary artery opacification is Adequate Total DLP (Dose-Length Product): 1435.3mGycm. (20.1 mSv) Please note: The reported value represents the total of one or more individual components during the CT acquisition on this date and at this time, and as such, the same value may appear in more than one CT report depending on the interpreting/reporting physicians. COMPARISON: None. FINDINGS: -CT Coronary Calcium Scoring- LMA= 0 LAD= 0 LCX= 0 RCA= 0 Total calcium score = 0 using the AJ-130 method. The calculated vascular age for this patient is 38 years. There is no identifiable calcification in the aortic wall, mitral annulus/valve, pericardium, myocardium. -Coronary CT Angiography- Coronary Arteries: The coronaries have normal origin and proximal course. The coronary arterial system is right dominant. Note: Stenosis is reported as maximum percentage diameter stenosis. Stenosis grading is reported using the following scheme. Quantitative Stenosis Grading: CAD-RADS 0: 0% - No visible stenosis CAD-RADS 1: 1-24% - Minimal stenosis CAD-RADS 2: 25-49% - Mild stenosis CAD-RADS 3: 50-69% - Moderate stenosis CAD-RADS 4A: 70-99% - Severe stenosis in 1-2 vessels CAD-RADS 4B: Left main >50%, or 3 vessel >70% CAD-RADS 5: 100% - Occluded Left Main: CAD-RADS 0 The left main is long and trifurcates into the left anterior descending artery, ramus intermedius and left circumflex artery. LAD and Diagonals: CAD-RADS 0. Large vessel that gives off a diagonal branch, reaches the apex. No obvious atherosclerotic disease Ramus: CAD-RADS 0: medium sized vessel with no obvious atherosclerotic disease LCx and Obtuse Marginals: CAD-RADS 0 Medium sized vessel that terminates as an OM. No obvious atherosclerotic disease RCA: CAD-RADS 0 Large dominant vessel, gives off RV marginal, PDA and PL branches. No obvious atherosclerotic disease Non Coronary Cardiac Findings: Normal cardiac chamber size. No pericardial thickening or calcification. Normal interatrial and interventricular septum, atrioventricular valves, ventriculo-arterial valves, pulmonary veins and imaged central veins. Central and branch pulmonary arteries in the field of view are unremarkable. Thoracic aorta and imaged thoracic aortic branches in the field of view are unremarkable. The left ventricular systolic function is visually normal. Extra Cardiac Structures: No obvious findings. Procedure Note Param Marin MD - 10/08/2024 CLINICAL INDICATION: 54 years Female Symptoms: Chest pain with clinical features suggesting myocardialischemia TECHNIQUE: Procedure Data Image Acquisition: Images were acquired at [facility] in [place], andinterpreted at [facility]. A 128-slice MDCT scanner ([employer]) was used for data acquisition. A non-contrast coronarycalcium scan was initially performed. was performed. Bolus tracking in theascending aorta with a threshold of 180HU. Immediately afterwards, ECGsynchronized Cardiac CT was then performed from cardiac base to apex usingretrospective gating with ECG tube current modulation. A total of 85 mLIsovue 370mg/mL contrast media was administered at 5 mL/sec followed by asaline flush using a biphasic injection protocol. A tube voltage of 120kVp was used. The patient received the following medications prior to the Cardiac CT:15mg po ivabradine, and 0.4mg sublingual nitroglycerin. The average heart rate at the time of acquisition was 65 bpm (64 bpm to 65bpm) and regular. Image Reconstruction: Transaxial images were reconstructed at 0.63 mm slice thickness. Data wasreviewed interactively on an advanced workstation (SnapUp) capable of 2and 3 dimensional displays in all conventional reconstruction formatsincluding multiplanar reformations, maximum intensity projections, curvedmultiplanar reformations, and volume rendered reconstructions. Selectedroutine images displaying relevant coronary anatomy and pathology weresaved and sent to PACS. Complications: None Technical Quality: Overall image quality is Average due to cardiac motion Coronary artery opacification is Adequate Total DLP (Dose-Length Product): 1435.3mGycm. (20.1 mSv) Please note: Thereported value represents the total of one or more individual componentsduring the CT acquisition on this date and at this time, and as such, thesame value may appear in more than one CT report depending on theinterpreting/reporting physicians. COMPARISON: None. FINDINGS: -CT Coronary Calcium Scoring- LMA= 0 LAD= 0 LCX= 0 RCA= 0 Total calcium score = 0 using the AJ-130 method. The calculated vascularage for this patient is 38 years. There is no identifiable calcification in the aortic wall, mitralannulus/valve, pericardium, myocardium. -Coronary CT Angiography- Coronary Arteries: The coronaries have normal origin and proximal course. The coronaryarterial system is right dominant. Note: Stenosis is reported as maximum percentage diameter stenosis.Stenosis grading is reported using the following scheme. Quantitative Stenosis Grading: CAD-RADS 0: 0% - No visible stenosis CAD-RADS 1: 1-24% - Minimal stenosis CAD-RADS 2: 25-49% - Mild stenosis CAD-RADS 3: 50-69% - Moderate stenosis CAD-RADS 4A: 70-99% - Severe stenosis in 1-2 vessels CAD-RADS 4B: Left main >50%, or 3 vessel >70% CAD-RADS 5: 100% - Occluded Left Main: CAD-RADS 0 The left main is long and trifurcates into the leftanterior descending artery, ramus intermedius and left circumflexartery. LAD and Diagonals: CAD-RADS 0. Large vessel that gives off a diagonalbranch, reaches the apex. No obvious atherosclerotic disease Ramus: CAD-RADS 0: medium sized vessel with no obvious atheroscleroticdisease LCx and Obtuse Marginals: CAD-RADS 0 Medium sized vessel that terminatesas an OM. No obvious atherosclerotic disease RCA: CAD-RADS 0 Large dominant vessel, gives off RV marginal, PDA and PLbranches. No obvious atherosclerotic disease Non Coronary Cardiac Findings: Normal cardiac chamber size. No pericardial thickening or calcification. Normal interatrial and interventricular septum, atrioventricular valves,ventriculo-arterial valves, pulmonary veins and imaged central veins. Central and branch pulmonary arteries in the field of view areunremarkable. Thoracic aorta and imaged thoracic aortic branches in the field of vieware unremarkable. The left ventricular systolic function is visually normal. Extra Cardiac Structures: No obvious findings. IMPRESSION: 1. No coronary calcification with an Agatston score = 0 using the AJ-130method. Vascular age is 38 years. 2. Normal coronary arteries 3. CAD-RADS 0: Management recommendations: Reassurance. Considernon- atherosclerotic causes of chest pain. 4. No significant non coronary cardiac findings in particular normalcardiac chambers, non-coronary vessels in the field of view andunremarkable pericardium. 5. Extracardiac structures in the field of view are unremarkable. CRITICAL RESULT: No. COMMUNICATION: Per this written report. Drafted by Param Marin MD on 10/08/2024 4:19 PM Final report signed by Param Marin MD on 10/08/2024 4:40 PM Travis Carrasco MD IM CT PROCEDURES Final Result documented in this encounter Visit Diagnoses Diagnosis Examination Unspecified examination documented in this encounter
--- OUTSIDE RECORDS SUMMARY | 2024-11-23 14:56 | XMS_ITS | Referral Summary ---
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
--- OUTSIDE RECORDS SUMMARY | 2024-11-23 14:56 | XMS_ITS | Clinical Summary ---
Author Organization [employer] 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
--- OUTSIDE RECORDS SUMMARY | 2024-11-23 14:56 | XMS_ITS | Clinical Summary ---
Author Organization Healthcare Address [address] [place] [address] Care Team Providers Care Registered Physical Therapist Name Role Phone Unavailable Primary Care Provider Unavailabl e Encounters Date Type Department Care Team Description 10/08/2024 3:50 PM EDT Ancillary Procedure [place] [id number] [place] [facility] [address] [place] [address] Examination from Last 3 Months Social [...] 2014 Sigmoidoscopy 2014 [facility]-Breast Cancer Screening 10/06/2019 [id number] Vaccine (1 - 2023- season) 2024 [facility]-Influenza Vaccine (#1) 2024 05/14/2023 FIT-DNA 06/13/2026 [...] Data Image Acquisition: Images were acquired at [facility] in [place], and interpreted at [facility]. A 128-slice MDCT scanner ([facility]) was used for data acquisition. [...] was reviewed interactively on an advanced workstation (FORVM) capable of 2 and 3 dimensional displays [...] Data Image Acquisition: Images were acquired at [facility] in [place], andinterpreted at [facility]. A 128-slice MDCT scanner ([employer] [place]) was used for data acquisition. A non-contrast [...] Data wasreviewed interactively on an advanced workstation (FORVM) capable of 2and 3 dimensional displays in [...] from Last 3 Months Insurance [place] [address]
--- OUTSIDE RECORDS SUMMARY | 2024-11-23 14:56 | XMS_ITS | Clinical Summary ---
Author Organization [facility] Address [address] [place] [address] Care Team Providers Care Respiratory Services Manager Name Role Phone Russel Cruz MD Primary Care Provider [phone] [phone] Allergies No known active allergies Medications Evolocumab [...] C SCREENING 10/02/2023 COVID-19 Vaccine ( season) 2024 INFLUENZA VACCINE 12/09/2024 05/14/2023 COLOGUARD 06/13/2026 06/14/2023 COLORECTAL CANCER SCREENING 06/13/2026 TDAP/TD VACCINES (2 - Td or Tdap) 05/19/2030 021 ZOSTER VACCINE Completed 01/16/2023, 11/07/2022 Pneumococcal Vaccine 50+ Completed 05/14/2023 Insurance [employer] Care Teams Respiratory Services Manager Relationship Specialty Start Date End Date Russel Cruz MD [address] [place] [address] [address] [place] [address] PCP - General Internal Medicine 12/30/23
--- OUTSIDE RECORDS SUMMARY | 2024-11-23 14:56 | XMS_ITS | Encounter Summary ---
Author Organization [employer] ([place], [place], [place], [place]) Address [address] [place] [address] Care Team Providers Care Software Support Engineer Name Role Phone Unavailable Primary Care Provider Unavailabl e Reason for Visit * Reason Onset Date Comments Outreach 03/02/2024 Encounter Details Date Type Department Care Team (Late st Contact Info) Description 03/02/2024 Telephone [facility] Primary Care [address] [address] No, Pcp Outreach Social History Tobacco Use Types Packs/Day Years Used Date Smoking Tobacco: Every Day Cigarettes Passive Smoke Exposure: Current Smokeless Tobacco: Never Alcohol Use Standard Drinks/Week Comments Never 0 (1 standard drink = 0.6 oz pur e alcohol) Comments Unknown Sex and Gender Information Value Date Recorded Sex Assigned at Not on file Legal Sex Female 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 Please schedule next available New patient appointment with [facility] care. Please Do Not Delete until outreach is complete. ATIONS SCHEDULER documented in this encounter Plan of Treatment Not on file documented as of this encounter Visit Diagnoses Not on filedocumented in this encounter
== END 2024-11-23 23:59 | disposition home or self-care (01) ==
LOC: LAB.DROPOF 14:51
PROVIDERS: PCP Nurse Practitioner Family; Visit Provider Internal Medicine
DX: N04.9 Nephrotic syndrome with unspecified morphologic changes (principal)
CPT/HCPCS: 82570; 84156

== ENCOUNTER 2024-11-23 15:01 | Emergency (ER) | payer MEDICAID, SELFPAY ==
--- NOTE | 2024-11-23 15:12 | ED_ITS ---
<Statement entered by Deb Roberts DO - 11/24/24 19:03> I was consulted by the MEAGAN, and we discussed the complexity of problems being addressed. I approve the treatment and management plan for this patient's care in the emergency department, thus performing a substantial portion of the medical decision making. Deb Roberts DO Discharge Plan Disposition Patient Disposition: Home, Self-Care Condition: Good Prescriptions Prescriptions: No Action Jardiance 10 mg tablet 10 mg PO DAILY Qty: 30 2RF Kerendia 10 mg tablet 10 mg PO DAILY Qty: 30 2RF cetirizine 10 mg tablet 10 mg PO DAILY metoprolol succinate 50 mg tablet extended release 24 hr 50 mg PO BID Patient Comments: TAKE ONE TABLET BY MOUTH TWICE DAILY ergocalciferol (vitamin D2) 1,250 mcg (50,000 unit) capsule 1,250 mcg PO WEEKLY Patient Comments: TAKE ONE CAPSULE BY MOUTH ONCE A WEEK fluticasone propionate 50 mcg/actuation spray,suspension 1 spray INTRANASAL DAILY Patient Comments: SPRAY 1 SPRAY IN EACH NOSTRIL ONCE DAILY Repatha SureClick 140 mg/mL pen injector 140 mg [id number] .[id number] Patient Comments: Inject 1 mL every 2 weeks by subcutaneous route for 30 days. Rx Instructions: Inject 1 mL every 2 weeks by subcutaneous route for 30 days. aspirin 81 mg Tablet 81 mg PO DAILY torsemide 100 mg tablet 100 mg PO DAILY Patient Comments: TAKE ONE TABLET BY MOUTH EVERY DAY losartan 25 mg tablet 25 mg PO DAILY 30 Days Qty: 0 0RF albuterol sulfate 90 mcg/actuation Aerosol Powdr Breath Activated 2 inh INHALATION Q4HP PRN (Reason: Shortness Of Breath) nitroglycerin 0.4 mg Tablet, Sublingual 0.4 mg SUBLINGUAL Q5MINP PRN (Reason: Chest Pain) Rx Instructions: do not exceed 3 doses per episode omeprazole 20 mg Capsule,Delayed Release(Dr/Ec) 20 mg PO DAILY Referrals Follow up/Referrals: Joe Romero DO [Staff Physician, Orthopedics] - See instructions Salma Zepeda APRN [Primary Care Provider, Medical] - See instructions Activity Restrictions/Add. Instructions Additional Instructions/Restrictions: Please return to the emergency department with any worsening signs or symptoms, I recommend ibuprofen Tylenol rest ice, please follow-up with the PT physician in the upcoming days, recommend [id number] knee brace. We will call you with results of your ultrasound if there are any actionable results after radiology report is finalized. Clinical Impressions Clinical Impression: Knee pain, right, Osteoarthritis of right knee Instructions Patient Instructions: Osteoarthritis, DI for Knee Pain Print Language Print Language: Hungarian Discharge ED Provider: Deb Roberts Adult HPI General Chief complaint: PAIN Stated complaint: Swelling and Pain in R Knee Time Seen by Provider: 11/23/24 15:04 Mode of Arrival: Ambulatory Source of Information: Patient Limitations: No Limitations History of Present Illness HPI narrative: 54-year-old female presents the emergency department with right knee pain and difficulty ambulating since 11/19/2024, patient denies any trauma or injury per history, denies any numbness or tingling, denies any radicular type symptomatology, does have lower lumbar spine pain at baseline, states that she has scoliosis , patient states that she did undergo what sounds like a epidural spinal injection from pain management the day prior, patient denies any fever chills chest pain shortness of breath, denies any abdominal pain nausea vomiting constipation diarrhea no urinary type symptomatology, no saddle anesthesia, no urinary bladder or bowel dysfunction. Patient denies any alcohol or drug use, patient is a former smoker, other past medical history is consistent with degenerative disc disease of the spine, HFpEF hyperlipidemia. Initial triage vitals unremarkable Please note that above description of symptoms, in this electronic medical record under categorization of recalled from ER triage doctor by RN are reflective of an initial nursing assessment, however, is not reflective of my full history and physical exam that was personally taken and clarified. Consequentially, this preceding description of symptoms, which may include the patient's categorized chief complaint in the EMR, do not reflect my personal clinical impression, and the ultimate description of history of present illness and patient stated complaints should be deferred to this section of the note. Unless stated otherwise or congruent with this section of the note, additional signs, symptoms, or incongruence should be interpreted as inaccurate with my clinical impression. Onset (ago): day(s) Related Data Home Medications ?Medication ?Instructions ?Recorded ?Confirmed ergocalciferol (vitamin D2) 1,250 1,250 mcg PO WEEKLY 05/01/24 11/17/24 mcg (50,000 unit) capsule evolocumab 140 mg/mL subcutaneous 140 mg [id number] .[id number] 0 05/01/24 11/17/24 pen injector (Daniel Montalvo) fluticasone propionate 50 1 spray intranasal DAILY 11/17/24 mcg/actuation nasal spray,suspension metoprolol succinate 50 mg 50 mg PO BID 05/01/2411/17 tablet,extended release 24 hr albuterol sulfate 90 mcg/actuation 2 inh inhalation Q4 HP PRN 05/17/24 11/17/24 breath activated powder inhaler Shortness Of Breath nitroglycerin 0.4 mg sublingual 0.4 mg sublingual Q5MI MAINTENANCE REPAIRER PRN Chest 05/17/24 11/17/24 tablet Pain omeprazole 20 mg capsule,delayed 20 mg PO DAILY 11/17/24 release aspirin 81 mg tablet 81 mg PO DAILY 07/20/2412/03 cetirizine 10 mg tablet 10 mg PO DAILY 08/20/2412/03 torsemide 100 mg tablet 100 mg PO DAILY 10/10/2412/03 Previous Rx's ?Medication ?Instructions ?Recorded losartan 25 mg tablet 25 mg PO DAILY 30 days #0 ta bs 10/10/24 empagliflozin 10 mg tablet 10 mg PO DAILY #30 tabs (Jardiance) finerenone 10 mg tablet (Kerendia) 10 mg PO DAILY #30 tabs 11/12/24 Allergies Allergy/AdvReac Type Severity Reaction Status Date / Time No Known Allergies Allergy Verified 11/17/24 13:07 [facility] Disclaimer: The information contained in this section may have been updated after the patient was seen, as this information can be updated by other users. Medical History BMI 45.0-49.9, adult Eosinophilia Dyspnea on exertion Encounter for screening for malignant neoplasm of lung Smoking greater than 30 pack years Seasonal allergies Difficulty sleeping HTN (hypertension) FSGS (focal segmental glomerulosclerosis) with nephrosis Community acquired pneumonia Surgical History History of laparoscopic cholecystectomy History of tubal ligation Family History Other Cancer Diabetes Hypertension Social History Smoking Status: Former smoker alcohol intake: never substance use type: unknown current occupational status: unemployed Travel in the last 8 weeks?: None Have you lived/traveled outside US in past 30 days?: No Contact w/someone who lives/traveled outside US past 30 days?: No Exposure to someone with infectious disease in past 14 days?: No Do you have a fever (greater than 100.4 F or 38 C)?: No Have you tested positive for COVID-19?: No Exposed to someone with COVID-19 in past 14 days?: No Do you have a sore throat?: No Do you have a cough?: No Do you have any weakness?: No Do you have any diarrhea?: No Are you experiencing any unusual bleeding?: No Do you have any muscle aches/pain?: No Do you have any abdominal pain?: No Are you experiencing loss of taste or smell?: No Other Medical History Have you received the Flu Vaccine for this season: No Have you received the Pneumonia Vaccine: No ROS Obtained: Yes All systems reviewed & no additional complaints except as documented Physical Exam General General appearance: alert and in no apparent distress Head Head exam: atraumatic and normocephalic Eye Eye exam: Present PERRL and EOMI ENT ENT exam: Present mucous membranes moist Neck Neck exam: Present normal inspection Chest Chest inspection: Present normal inspection and symmetric chest wall rise Respiratory Respiratory exam: Present normal lung sounds bilaterally; Absent respiratory distress Cardiovascular Cardiovascular exam: Present regular rate and normal rhythm Abdominal Exam Abdominal exam: Present soft; Absent tenderness Extremities Exam Extremities exam: Present normal inspection and other (Negative Brayden's test, patient is otherwise neurovascular intact, moves extremity to command, no difficulty with extension, some decreased range of motion with flexion, patella is unremarkable, mobile, no tenderness to palpation to the knee joint); Absent full ROM, tenderness or calf tenderness Neurological Exam Neurological exam: Present alert and oriented X3 Psychiatric Psychiatric exam: Present normal affect Skin Skin exam: Present warm and dry Medical Decision Making Medical Records Medical records reviewed: Yes I reviewed the patient's medical records. Screening: Per USPSTF and CDC recommendations, given the prevalence of disease in our region, it is our hospital?s policy to screen for HIV and viral Hepatitis for all patients aged 18 and over and those with ongoing risk factors. Parminder Inquiry Pt receiving controlled substance: No Parminder was queried for this patient: No Vital Signs: 11/23/24 15:14 11/23/24 15:30 11/23/24 16:00 Temperature 98.0 F Temperature Source Oral Pulse Rate 77 71 Pulse Rate [Right Radial] 88 Respiratory Rate 20 Blood Pressure 120/75 110/78 Blood Pressure [Right Arm] 112/83 Blood Pressure Mean 84 Blood Pressure Mean [Right Arm] 92 Blood Pressure Source [Right Arm] Automatic Cuff Blood Pressure Position [Right Arm] Supine 02 Sat by Pulse Oximetry 97 97 97 Oxygen Delivery Method Room Air 11/23/24 16:30 Temperature Temperature Source Pulse Rate 72 Pulse Rate [Right Radial] Respiratory Rate Blood Pressure 118/77 Blood Pressure [Right Arm] Blood Pressure Mean 89 Blood Pressure Mean [Right Arm] Blood Pressure Source [Right Arm] Blood Pressure Position [Right Arm] 02 Sat by Pulse Oximetry 98 Oxygen Delivery Method Lab Data Lab results reviewed: Yes I reviewed the patient's lab results. Orders (Tests/Meds): ORDERS Category Date Time Status XR knee RT 3V Stat Exams 11/23/24 15:16 Completed CA venous doppler LE RT Stat Y 11/23/24 15:16 Completed Medical Decision Narrative: 54-year-old female presents the emergency department with right knee pain for several days, differential diagnose include but not limited to, osteoarthritis of the knee, knee sprain/strain, knee fracture, DVT, knee ligamentous injury. I discussed the patient's case with attending physician Dr. Roberts Will obtain knee x-ray on the right and will obtain lower extremity ultrasound on the right to rule out DVT. I reviewed the patient's right knee x-ray along with the corresponding radiological report, there is moderate tricompartmental degenerative changes, most pronounced medially no acute soft tissue abnormality, degenerative changes without any acute bony abnormality. I along with the attending physician personally reviewed the patient's lower extremity duplex ultrasound, negative for DVT, no Burleson's cyst. I discussed the results with the patient at the bedside, patient would like discharge home to self-care, I think this appropriate, shared decision-making was utilized. Will call patient with results of her duplex ultrasound after radiology report has been finalized. If there is any actionable results. Recommend ibuprofen Tylenol as needed for symptomatic relief, would recommend [id number] knee brace, most likely osteoarthritis in nature. Patient voiced understanding and agreement with the current treatment plan/discharge plan. Will follow-up with orthopedic physician in the upcoming days/weeks. Critical Care Critical Care Time Critical Care Time: No
[2024-11-23 15:14] VITALS: BP 112/83; PULSE 88; RESP 20; TEMP 36.7; O2SAT 97; BMI 41.9
--- NOTE | 2024-11-23 15:16 | XR_ITS ---
FINAL REPORT CLINICAL HISTORY: Right knee pain, difficulty ambulating COMPARISON: None FINDINGS: RIGHT KNEE Three views demonstrate no acute fracture or dislocation. There is moderate tricompartmental degenerative change most pronounced medially. No acute soft tissue abnormality is seen. IMPRESSION: Degenerative changes without acute bony abnormality. Reviewed, Interpreted and Dictated by Shilo Marsh MD Transcribed by Fiona Shipley Authenticated and . [facility]
--- NOTE | 2024-11-23 15:16 | CA_ITS ---
FINAL REPORT TECHNIQUE: Multiple transverse and longitudinal images were performed of right the femoral-popliteal deep venous system with augmentation and compression maneuvers. CLINICAL HISTORY: RLE pain. Denies trauma. Smoker, HTN. Recent steroid injection in back for scoliosis, pain in RLE since. FINDINGS: Right lower extremity duplex ultrasound demonstrates normal flow in the deep venous system. There is no abnormal echogenicity to suggest thrombus. There is normal compression and augmentation. IMPRESSION: No evidence of right DVT. Reviewed, Interpreted and Dictated by Shilo Marsh MD Transcribed by Nikkie Steve Authenticated and [facility]
[2024-11-23 15:30] VITALS: BP 120/75; PULSE 77; O2SAT 97
[2024-11-23 16:00] VITALS: BP 110/78; PULSE 71; O2SAT 97
[2024-11-23 16:30] VITALS: BP 118/77; PULSE 72; O2SAT 98
[2024-11-23 17:29] VITALS: BP 117/81; PULSE 65; PULSE 72; RESP 18; RESP 20; TEMP -7.7; TEMP 18; TEMP 36.6; O2SAT 100; O2SAT 96
== END 2024-11-23 17:30 | disposition home or self-care (01) ==
PROVIDERS: Emergency Provider Student in an Organized Health Care Education/Training Program; PCP Nurse Practitioner Family
DX: M25.561 Pain in right knee (principal); M17.11 Unilateral primary osteoarthritis, right knee; I10 Essential (primary) hypertension; I50.30 Unspecified diastolic (congestive) heart failure; I49.8 Other specified cardiac arrhythmias; Z87.891 Personal history of nicotine dependence
CPT/HCPCS: 73562; 93971; 99283; 99284

== ENCOUNTER 2024-12-03 11:56 | Outpatient (CLI) | payer MEDICAID, SELFPAY ==
--- OUTSIDE RECORDS SUMMARY | 2024-10-08 15:50 | XMS_ITS | Encounter Summary ---
Author Organization Healthcare Address [address] [place] [address] Care Team Providers Care Boiler Tender Name Role Phone Unavailable Primary Care Provider Unavailabl e Encounter Details Date Type Department Care Team (Late st Contact Info) Description 10/08/2024 3:50 PM EDT Ancillary Procedure [address] [facility] [address] [place] [address] Examination Social History Tobacco Use [...] Image Acquisition: Images were acquired at [facility] in [place], and interpreted at [facility]. A 128-slice MDCT scanner ([employer]a View) was used for data acquisition. A [...] was reviewed interactively on an advanced workstation ([employer]) capable of 2 and 3 dimensional displays [...] Image Acquisition: Images were acquired at [facility] in [place], andinterpreted at [facility]. A 128-slice MDCT scanner (AriadNEXT) was used for data acquisition. A non-contrast [...] Data wasreviewed interactively on an advanced workstation ([employer]) capable of 2and 3 dimensional displays in [...]
--- OUTSIDE RECORDS SUMMARY | 2024-12-03 12:00 | XMS_ITS | Encounter Summary ---
Author Organization [employer] ([place], [place], [place], [place]) Address [address] [place] [address] Care Team Providers Care Senior Qa Analyst Name Role Phone Unavailable Primary Care Provider Unavailabl e Reason for Visit * Reason Onset Date Comments Outreach 03/02/2024 Encounter Details Date Type Department Care Team (Late st Contact Info) Description 03/02/2024 Telephone [facility] Primary Care [address] [address] No, Pcp Outreach Social History Tobacco Use Types Packs/Day Years Used Date Smoking Tobacco: Every Day Cigarettes Passive Smoke Exposure: Current Smokeless Tobacco: Never Alcohol Use Standard Drinks/Week Comments Never 0 (1 standard drink = 0.6 oz pur e alcohol) Comments Unknown Sex and Gender Information Value Date Recorded Sex Assigned at Not on file 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 Please schedule next available New patient appointment with [facility] care. Please Do Not Delete until outreach is complete. TECHNIC TEACHER documented in this encounter Plan of Treatment Not on file documented as of this encounter Visit Diagnoses Not on filedocumented in this encounter
--- OUTSIDE RECORDS SUMMARY | 2024-12-03 12:00 | XMS_ITS | Clinical Summary ---
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
--- OUTSIDE RECORDS SUMMARY | 2024-12-03 12:00 | XMS_ITS | Referral Summary ---
Author Organization [employer] ([place], [place], [place], [place]) Address [address] [place] [address] Care Team Providers Care Squeak Rattle And Leak Repairer Name Role Phone Unavailable Primary Care Provider [...] on file Legal Sex Female 2:34 PM SPICE MIXER Gender Identity Not on file Sexual Orientation [...]
--- OUTSIDE RECORDS SUMMARY | 2024-12-03 12:00 | XMS_ITS | Clinical Summary ---
Author Organization [facility] Address [address] [place] [address] Care Team Providers Care Fast Food Assistant Restaurant Manager Name Role Phone Russel Cruz MD Primary Care Provider [phone] [phone] Allergies No known active allergies Medications Evolocumab [...] ANNUAL PHYSICAL 10/02/2023 HEPATITIS C SCREENING 10/02/2023 INFLUENZA VACCINE 10/09/2024 05/14/2023 COLOGUARD 06/13/2026 06/14/2023 COLORECTAL CANCER SCREENING 06/13/2026 TDAP/TD VACCINES (2 - Td or Tdap) 05/19/2030 021 ZOSTER VACCINE Completed 01/16/2023, 11/07/2022 Pneumococcal Vaccine 50+ Completed 05/14/2023 Insurance [employer] Care Teams Fast Food Assistant Restaurant Manager Relationship Specialty Start Date End Date Russel Cruz MD [address] [place] [address] [address] [place] [address] PCP - General Internal Medicine 12/30/23
--- OUTSIDE RECORDS SUMMARY | 2024-12-03 12:01 | XMS_ITS | Clinical Summary ---
Author Organization Healthcare Address [address] [place] [address] Care Team Providers Care Rotary Drill Operator Helper Name Role Phone Unavailable Primary Care Provider Unavailabl e Encounters Date Type Department Care Team Description 10/08/2024 3:50 PM EDT Ancillary Procedure [place] [id number] [place] [facility] [address] [place] [address] Examination from Last 3 Months Social [...] 2014 Sigmoidoscopy 2014 UKY-Breast Cancer Screening 10/06/2019 [id number] Vaccine (1 - season) 2024 UKY-Influenza Vaccine (#1) 2024 05/14/2023 [...] Data Image Acquisition: Images were acquired at [facility] in [place], and interpreted at [facility]. A 128-slice MDCT scanner ([facility]) was used for data acquisition. [...] was reviewed interactively on an advanced workstation (Wordlock) capable of 2 and 3 dimensional displays [...] Data Image Acquisition: Images were acquired at [facility] in [place], andinterpreted at [facility]. A 128-slice MDCT scanner ([employer]) was used for data acquisition. A non-contrast [...] Data wasreviewed interactively on an advanced workstation (Wordlock) capable of 2and 3 dimensional displays in [...]
[2024-12-03 13:16] LABS: Anion Gap 7.0 mEq/L (5-15); Blood Urea Nitrogen 13 mg/dl (7-17); Calcium 9.3 mg/dl (8.4-10.2); Carbon Dioxide 37 mmol/L (22.0-30.0); Chloride 94 mmol/L (98-107); Creatinine,Serum 0.90 mg/dl (0.52-1.04); Estimated Glomerular Filt Rate 65 ml/min (>60); GFR (African American) 79 ML/MIN (>60); Glucose 99 mg/dl (74-100); Sodium 135 mmol/L (136-145)
[2024-12-03 14:01] LABS: Potassium 3.0 mmoL/L (3.5-5.1)
== END 2024-12-03 23:59 | disposition home or self-care (01) ==
LOC: LAB 11:57
PROVIDERS: PCP Nurse Practitioner Family; Visit Provider Internal Medicine
DX: E87.6 Hypokalemia (principal); I50.30 Unspecified diastolic (congestive) heart failure; N18.31 Chronic kidney disease, stage 3a
CPT/HCPCS: 36415; 80048

== ENCOUNTER 2024-12-17 13:55 | Outpatient (CLI) | payer MEDICAID, SELFPAY ==
[2024-12-17 18:02] LABS: Anion Gap 12.7 mEq/L (5-15); Blood Urea Nitrogen 20 mg/dl (7-17); Calcium 9.2 mg/dl (8.4-10.2); Carbon Dioxide 28 mmol/L (22.0-30.0); Chloride 100 mmol/L (98-107); Creatinine,Serum 1.00 mg/dl (0.52-1.04); Estimated Glomerular Filt Rate 58 ml/min (>60); GFR (African American) 70 ML/MIN (>60); Glucose 93 mg/dl (74-100); Potassium 4.7 mmoL/L (3.5-5.1); Sodium 136 mmol/L (136-145)
== END 2024-12-17 23:59 | disposition home or self-care (01) ==
LOC: LAB 13:56
PROVIDERS: PCP Nurse Practitioner Family; Visit Provider Internal Medicine
DX: E87.6 Hypokalemia (principal)
CPT/HCPCS: 36415; 80048

== ENCOUNTER 2024-12-23 14:09 | Outpatient (CLI) | payer MEDICAID, SELFPAY ==
--- OUTSIDE RECORDS SUMMARY | 2024-12-23 14:19 | XMS_ITS | Clinical Summary ---
Author Organization Healthcare Address [address] [place] [address] Care Team Providers Care Publications Production Supervisor Name Role Phone Unavailable Primary Care Provider Unavailabl e Encounters Date Type Department Care Team Description 10/08/2024 3:50 PM EDT Ancillary Procedure [place] [id number] [place] [facility] [address] [place] [address] Examination from Last 3 Months Social [...] 2014 Sigmoidoscopy 2014 [facility]Y-Breast Cancer Screening 10/06/2019 [id number] Vaccine (1 - 2023- season) 2024 UKY-Influenza [...] Data Image Acquisition: Images were acquired at [facility] in [place], and interpreted at [facility]. A 128-slice MDCT scanner ([facility] View) was used for data acquisition. A [...] was reviewed interactively on an advanced workstation ([employer]) capable of 2 and 3 dimensional displays [...] Data Image Acquisition: Images were acquired at [facility] in [place], andinterpreted at [facility]. A 128-slice MDCT scanner ([employer]) was used for data acquisition. A non-contrast [...] Data wasreviewed interactively on an advanced workstation ([employer]) capable of 2and 3 dimensional displays in [...]
[2024-12-23 15:47] LABS: Anion Gap 15.3 mEq/L (5-15); Blood Urea Nitrogen 22 mg/dl (7-17); Calcium 9.2 mg/dl (8.4-10.2); Carbon Dioxide 26 mmol/L (22.0-30.0); Chloride 102 mmol/L (98-107); Creatinine,Serum 1.00 mg/dl (0.52-1.04); Estimated Glomerular Filt Rate 58 ml/min (>60); GFR (African American) 70 ML/MIN (>60); Glucose 90 mg/dl (74-100); Potassium 4.3 mmoL/L (3.5-5.1); Sodium 139 mmol/L (136-145)
== END 2024-12-23 23:59 | disposition home or self-care (01) ==
LOC: LAB 14:10
PROVIDERS: PCP Nurse Practitioner Family; Visit Provider Internal Medicine
DX: E87.6 Hypokalemia (principal); R06.09 Other forms of dyspnea
CPT/HCPCS: 36415; 80048

== ENCOUNTER 2024-12-28 12:41 | Outpatient (CLI) | payer MEDICAID, SELFPAY ==
--- NOTE | 2024-12-28 12:45 | XR_ITS ---
FINAL REPORT CLINICAL HISTORY: left knee pain COMPARISON: None FINDINGS: Three views of the left knee were obtained. There is no acute fracture or dislocation. Moderate to severe degenerative changes within the medial compartment. Soft tissues are unremarkable. IMPRESSION: Degenerative changes without acute bony abnormality. Reviewed, Interpreted and Dictated by Shilo Marsh MD Transcribed by Johana Baumann Authenticated and [facility]
--- OUTSIDE RECORDS SUMMARY | 2024-12-28 12:45 | XMS_ITS | Clinical Summary ---
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
--- OUTSIDE RECORDS SUMMARY | 2024-12-28 12:45 | XMS_ITS | Referral Summary ---
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
--- NOTE | 2024-12-28 12:46 | XR_ITS ---
FINAL REPORT CLINICAL HISTORY: right knee pain COMPARISON: 11/23/2024 FINDINGS: Three views of the right knee were obtained. There is no acute fracture or dislocation. Severe degenerative changes of the medial compartment. Mild degenerative changes of the lateral compartment and patellofemoral joint. No joint effusion. Soft tissues are unremarkable. IMPRESSION: Degenerative changes without acute bony abnormality. Reviewed, Interpreted and Dictated by Shilo Marsh MD Transcribed by Johana Baumann Authenticated and [facility][1]
--- OUTSIDE RECORDS SUMMARY | 2024-12-28 12:46 | XMS_ITS | Clinical Summary ---
Author Organization [facility] Address [address] [place] [address] Care Team Providers Care Doll Repairer Name Role Phone Salma Bellamy CHAPO Primary Care Provider [phone] Medications aspirin 81 MG EC tablet Take 1 tablet by mouth daily. Active metoprolol succinate XL (Toprol-XL) 50 MG 24 hr tablet Take 1 tablet by mouth twice a day. Active nitroglycerin (Nitrostat) 0.[address] 1 tablet under the tongue every 5 minutes as needed for chest pain. FOR UP THREE DOSES 10/24/2023 Active omeprazole (PriLOSEC) [address] capsule Take 1 capsule by mouth daily. Active torsemide (Demadex) 20 MG tablet Take 2 tablets by mouth daily. Active Encounters Date Type Department Care Team Description 12/24/2024 Orders Only [address] [place] [address] Shital Mcintosh Renal insufficiency (Primary Dx); Vitamin D insufficiency 10/08/2024 3:50 PM EDT Ancillary Procedure [address] [place] [address] Examination from Last 3 Months Immunizations Immunization Administration Dates Next Due Hep A, Adult 11/25/2020,05/19/2020 Hep B, adult 05/14/2023,01/16/2023,11/07/2022 Influenza, injectable, quadr ivalent, preservative free 05/14/2023 Pneumococcal 20-ronda Conj Vaccine 05/14/2023 Tdap 05/19/2020 Zoster, Recombinant 01/16/2023,11/07/2022 Social History Tobacco Use Types Packs/Day Years Used Date Smoking Tobacco: Never Assessed Comments Unknown Sex and Gender Information Value Date Recorded Sex Assigned at Not on file Legal Sex Female 11:47 AM EDT Gender Identity Not on file Sexual Orientation Not on file Plan of Treatment Upcoming Encounters Date Type Department Care Team (Late st Contact Info) Description 03/26/2025 11:00 AM EST Office Visit [facility] [address] [place] [address] Klaus Somers MD [address] [place] [address] Health Maintenance Due Date Last Done Comments UKY-Depression Screening 1969 UKY-HIV Screening 1969 [facility]-Hepatitis C Screening 1969 UKY-Infant/Child/Adol SDOH Screenings 1969 UKY- SDOH Screenings 10/06/1987 UKY-Adult SDOH Screenings 10/06/1987 UKY-Pap Smear 1990 [facility]Y-Cervical Cancer Screening 10/06/1999 UKY-HPV/Cotest 10/06/1999 CT Colonography 2014 Colonoscopy 2014 FIT 2014 FOBT 2014 Sigmoidoscopy 2014 [facility]Y-Breast Cancer Screening 10/06/2019 [id number] Vaccine ( season) 2024 UKY-Influenza Vaccine (#1) 2024 05/14/2023 [...] Images were acquired at [facility] in [place], and interpreted at [facility]. A 128-slice MDCT scanner (Rapporta View) was used for data acquisition. A [...] was reviewed interactively on an advanced workstation ([employer]) capable of 2 and 3 dimensional displays [...] Images were acquired at [facility] in [place], andinterpreted at [facility]. A 128-slice MDCT scanner ([employer]) was used for data acquisition. A non-contrast [...] Data wasreviewed interactively on an advanced workstation ([employer]) capable of 2and 3 dimensional displays in [...] from Last 3 Months Insurance [employer] Care Teams Doll Repairer Relationship Specialty Start Date End Date Salma Bellamy APRN [address] [place] [address] [facility] - General 12/24/24
--- OUTSIDE RECORDS SUMMARY | 2024-12-28 12:46 | XMS_ITS | Encounter Summary ---
Author Organization [facility] Address [address] [place] [address] Care Team Providers Care Coyote Hunter Name Role Phone Salma Bellamy CHAPO Primary Care Provider [phone] Encounter Details Date Type Department Care Team (Late Contact Info) Description 12/24/2024 Orders Only [facility] [address] [place] [address] Shital Mcintosh Renal insufficiency (Primary Dx); Vitamin D insufficiency Social History Tobacco Use Types Packs/Day Years Used Date Smoking Tobacco: Never Assessed Comments Unknown Sex and Gender Information Value Date Recorded Sex Assigned at Not on file Legal Sex Female 11:47 AM EDT Gender Identity Not on file Sexual Orientation Not on file documented as of this encounter Plan of Treatment Upcoming Encounters Date Type Department Care Team ([facility] Contact Info) Description 03/26/2025 11:00 AM EST Office Visit [facility] [address] [address] Klaus Somers MD [address] [place] [phone] Scheduled Orders Name Type Priority Associated Diagnoses Orde r Schedule Renal Function Panel, Plasma Lab Routine Renal insufficiency Expected: 12/24/2024 (Approximate), Expires: 06/24/2026 CBC and Differential Lab Routine Renal insufficiency Expected: 12/24/2024 (Approximate), Expires: 06/24/2026 Creatinine, Random, Urine Lab Routine Renal insufficiency Expected: 12/24/2024 (Approximate), Expires: 06/24/2026 Protein, Random, Urine with Creatinine Lab Routine Renal insufficiency Expected: 12/24/2024 (Approximate), Expires: 06/24/2026 Urinalysis with reflex microscopic (Culture NOT Included) Lab Routine Renal insufficiency Expected: 12/24/2024 (Approximate), Expires: 06/24/2026 PTH Intact Total Lab Routine Renal insufficiency Vitamin D insufficiency Expected: 12/24/2024 (Approximate), Expires: 06/24/2026 Vitamin D 25 Hydroxy Lab Routine Renal insufficiency Vitamin D insufficiency Expected: 12/24/2024 (Approximate), Expires: 06/24/2026 documented as of this encounter Visit Diagnoses Diagnosis Renal insufficiency- Primary Unspecified disorder of kidney and ureter Vitamin D insufficiency documented in this encounter Care Teams Coyote Hunter Relationship Specialty Start Date End Date Salma Bellamy APRN [address] [place] [address] PCP - General 12/24/24 documented as of this encounter
--- OUTSIDE RECORDS SUMMARY | 2024-12-28 12:46 | XMS_ITS | Encounter Summary ---
Author Organization [employer] ([place], [place], [place], [place]) Address [address] [place] [address] Care Team Providers Care Asw/Asuw Tactical Air Controller Name Role Phone Unavailable Primary Care Provider Unavailabl e Reason for Visit * Reason Onset Date Comments Outreach 03/02/2024 Encounter Details Date Type Department Care Team (Late st Contact Info) Description 03/02/2024 Telephone [facility] Primary Care [address] [address] No, Pcp Outreach Social History Tobacco Use Types Packs/Day Years Used Date Smoking Tobacco: Every Day Cigarettes Passive Smoke Exposure: Current Smokeless Tobacco: Never Alcohol Use Standard Drinks/Week Comments Never 0 (1 standard drink = 0.6 oz pur e alcohol) Comments Unknown Sex and Gender Information Value Date Recorded Sex Assigned at Not on file Legal 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 Please schedule next available New patient appointment with [facility] care. Please Do Not Delete until outreach is complete. TRY FEED SUPERVISOR documented in this encounter Plan of Treatment Not on file documented as of this encounter Visit Diagnoses Not on filedocumented in this encounter
--- OUTSIDE RECORDS SUMMARY | 2024-12-28 12:46 | XMS_ITS | Clinical Summary ---
Author Organization [facility] Address [address] [place] [address] Care Team Providers Care Oracle Webcenter Consultant Name Role Phone Russel Cruz MD Primary Care Provider [phone] Allergies No known active allergies Medications Evolocumab [...] Completed 05/14/2023 Insurance [employer] Care Teams Oracle Webcenter Consultant Relationship Specialty Start Date End Date Russel Cruz MD [address] [place] [address] [address] [place] [address] PCP - General Internal Medicine 12/30/23
== END 2024-12-28 23:59 | disposition home or self-care (01) ==
LOC: RAD 12:41
PROVIDERS: PCP Nurse Practitioner Family; Visit Provider Physician Assistant Surgical
DX: M17.11 Unilateral primary osteoarthritis, right knee (principal); M17.12 Unilateral primary osteoarthritis, left knee
CPT/HCPCS: 73562

== ENCOUNTER 2025-02-24 14:52 | Outpatient (CLI) | payer MEDICAID, SELFPAY ==
--- OUTSIDE RECORDS SUMMARY | 2025-02-24 15:50 | XMS_ITS | Clinical Summary ---
Author Organization [facility] Address [address] [place] [address] Care Team Providers Care Post Production Assistant Name Role Phone Salma Bellamy CHAPO Primary Care Provider [phone] Medications aspirin 81 MG EC tablet Take [...] Department Care Team Description 12/24/2024 Orders Only [facility] [address] [place] [id number] Shital Mcintosh Renal insufficiency (Primary Dx); Vitamin D insufficiency from Last 3 Months Immunizations Immunization Administration [...] Upcoming Encounters Date Type Department Care Team ([facility] st Contact Info) Description 03/26/2025 11:00 AM EST Office Visit [facility] [address] [place] [address] Klaus Somers MD [address] [place] [address] Health Maintenance Due Date Last Done Comments UKY-Depression Screening 1969 UKY-HIV Screening 1969 [facility]Y-Hepatitis C Screening 1969 UKY-/Child/Adol SDOH Screenings 1969 UKY- SDOH Screenings 10/06/1987 UKY-Adult SDOH Screenings 10/06/1987 UKY-Pap Smear 1990 [facility]Y-Cervical Cancer Screening 10/06/1999 UKY-HPV/Cotest 10/06/1999 CT Colonography 2014 Colonoscopy 2014 FIT 2014 FOBT 2014 Sigmoidoscopy 2014 UKY-Breast Cancer Screening 10/06/2019 [id number] Vaccine ( - season) 2024 UKY-Influenza Vaccine (#1) 2024 [...] 50 + Years Completed 05/14/2023 HPV Vaccines (No Doses Required) Completed UKY-HIB Vaccines Aged Out No longer e ligible based on patient's age to complete this topic UKY-IPV Vaccines Aged Out No longer e ligible based on patient's age to complete this topic UKY-Rotavirus Vaccines Aged Out No lo nger eligible based on patient's age to complete this topic Insurance [employer] Care Teams Post Production Assistant Relationship Specialty Start Date End Date Salma Bellamy, CHAPO [address] [place] [address] PCP - General 12/24/24
--- OUTSIDE RECORDS SUMMARY | 2025-02-24 15:50 | XMS_ITS | Clinical Summary ---
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
--- OUTSIDE RECORDS SUMMARY | 2025-02-24 15:50 | XMS_ITS | Referral Summary ---
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
--- OUTSIDE RECORDS SUMMARY | 2025-02-24 15:50 | XMS_ITS | Clinical Summary ---
Author Organization [facility] Address [address] [place] [address] Care Team Providers Care Stone Carver Name Role Phone Russel Cruz MD Primary Care Provider [phone] Allergies No known active allergies Medications Evolocumab [...] Completed 05/14/2023 Insurance [employer] Care Teams Stone Carver Relationship Specialty Start Date End Date Russel Cruz MD [address] [place] [address] [address] [place] [address] PCP - General Internal Medicine 12/30/23
--- OUTSIDE RECORDS SUMMARY | 2025-02-24 15:50 | XMS_ITS | Encounter Summary ---
Author Organization [employer] ([place], [place], [place], [place], [place]) Address [address] [place] [address] Care Team Providers Care Platen Press Operator Name Role Phone Unavailable Primary Care Provider Unavailabl e Reason for Visit * Reason Onset Date Comments Outreach 03/02/2024 Encounter Details Date Type Department Care Team (Late st Contact Info) Description 03/02/2024 Telephone [facility] Primary Care [address] [address] No, Pcp Outreach Social History Tobacco Use Types Packs/Day Years Used Date Smoking Tobacco: Every Day Cigarettes Passive Smoke Exposure: Current Smokeless Tobacco: Never Alcohol Use Standard Drinks/Week Comments Never 0 (1 standard drink = 0.6 oz pur e alcohol) Comments Unknown Sex and Gender Information Value Date Recorded Sex Assigned at Not on file Legal Sex Female 2:34 PM 911 TELECOMMUNICATOR Gender Identity Not on file Sexual Orientation Not on file documented as of this encounter Miscellaneous Notes * Telephone Encounter - Cheri Lewis - 03/05/2024 1:57 PM EST 2nd message for patient regarding recent emergency room visit and asked to callback to schedule a New Patient appointment with primary care 911 TELECOMMUNICATOR * Telephone Encounter - Sherita Carpenter - 03/02/2024 2:34 PM EST Left message for patient regarding recent emergency room visit and asked to callback to schedule a New Patient appointment with primary care. Please schedule next available New patient appointment with [facility] care. Please Do Not Delete until outreach is complete. 911 TELECOMMUNICATOR documented in this encounter Plan of Treatment Not on file documented as of this encounter Visit Diagnoses Not on filedocumented in this encounter
[2025-02-24 15:52] LABS: Anion Gap 10.8 mEq/L (5-15); Blood Urea Nitrogen 19 mg/dl (7-17); Calcium 9.9 mg/dl (8.4-10.2); Carbon Dioxide 26 mmol/L (22.0-30.0); Chloride 102 mmol/L (98-107); Creatinine,Serum 1.20 mg/dl (0.52-1.04); Estimated Glomerular Filt Rate 47 ml/min (>60); GFR (African American) 56 ML/MIN (>60); Glucose 100 mg/dl (74-100); Potassium 4.8 mmoL/L (3.5-5.1); Sodium 134 mmol/L (136-145)
== END 2025-02-24 23:59 | disposition home or self-care (01) ==
LOC: LAB 14:53
PROVIDERS: PCP Nurse Practitioner Family; Visit Provider Internal Medicine
DX: E87.6 Hypokalemia (principal)
CPT/HCPCS: 36415; 80048

== ENCOUNTER 2025-03-01 14:22 | Outpatient (CLI) | payer MEDICAID, SELFPAY ==
--- NOTE | 2025-03-01 14:30 | CT_ITS ---
FINAL REPORT CLINICAL HISTORY: SOB, dyspnea on exertion COMPARISON: 08/24/2024 FINDINGS: CT CHEST without contrast COMPARISON: 08/24/2024. TECHNIQUE: Axial CT without contrast This study was performed with techniques to keep radiation doses as low as reasonably achievable, (ALARA). Individualized dose reduction techniques using automated exposure control or adjustment of mA and/or kV according to the patient's size were employed. FINDINGS: The right apical nodule seen on the prior LDCT of 08/24/2024 is stable in size, however not as well-visualized secondary to thicker slice selection. There is no evidence of diffuse interstitial lung disease. Mild bronchial wall thickening is again noted, greatest in the left lower lobe, similar to the prior exam. Minimal left lower lobe scar is present as well. No evidence of bronchiectasis is identified. There is minimal air trapping present in the expiratory phase. No pleural or pericardial effusion is seen . No adenopathy or mass lesion is present . IMPRESSION: 1. No evidence of diffuse interstitial lung disease. 2. Mild left lower lobe scarring and bronchial wall thickening. 3. Minimal air trapping is present. This study was performed using automated techniques to achieve radiation exposure as low as reasonably achievable Reviewed, Interpreted and Dictated by Shilo Marsh MD Transcribed by Masha Biggs Authenticated and [facility]
--- OUTSIDE RECORDS SUMMARY | 2025-03-01 14:31 | XMS_ITS | Clinical Summary ---
Author Organization [facility] Address [address] [place] [address] Care Team Providers Care Timber Management Specialist Name Role Phone Salma Bellamy CHAPO Primary Care Provider [phone] Medications aspirin 81 MG EC tablet Take [...] Department Care Team Description 12/24/2024 Orders Only [facility] [address] [place] [phone] Shital Mcintosh Renal insufficiency (Primary Dx); Vitamin [...] Upcoming Encounters Date Type Department Care Team ([facility] st Contact Info) Description 03/26/2025 11:00 AM EST Office Visit [facility] [address] [place] [address] Klaus Somers MD [address] [place] [address] Health Maintenance Due Date Last Done Comments UKY-Depression Screening 1970 UKY-HIV Screening 1969 [facility]Y-Hepatitis C Screening 1969 UKY-/Child/Adol SDOH Screenings 1969 UKY- SDOH Screenings 10/06/1987 UKY-Adult SDOH Screenings 10/06/1987 UKY-Pap Smear 1990 UKY-Cervical Cancer Screening 10/06/1999 UKY-HPV/Cotest 10/06/1999 CT Colonography 2014 Colonoscopy 2014 FIT 2014 FOBT 2014 Sigmoidoscopy 2014 UKY-Breast Cancer Screening 10/06/2019 [id number] Vaccine ( - season) 2024 UKY-Influenza Vaccine [...] this topic Insurance [employer] Care Teams Timber Management Specialist Relationship Specialty Start Date End Date Salma Bellamy, CHAPO [address] [place] [address] PCP - General 12/24/24
--- OUTSIDE RECORDS SUMMARY | 2025-03-01 14:31 | XMS_ITS | Encounter Summary ---
Author Organization [employer] ([place], [place], [place], [place], [place]) Address [address] [place] [address] Care Team Providers Care Environmental Advisor Name Role Phone Unavailable Primary Care Provider Unavailabl e Reason for Visit * Reason Onset Date Comments Outreach 03/02/2024 Encounter Details Date Type Department Care Team (Late st Contact Info) Description 03/02/2024 Telephone [facility] Primary Care [address] [address] No, Pcp Outreach Social History Tobacco Use Types Packs/Day Years Used Date Smoking Tobacco: Every Day Cigarettes Passive Smoke Exposure: Current Smokeless Tobacco: Never Alcohol Use Standard Drinks/Week Comments Never 0 (1 standard drink = 0.6 oz pur e alcohol) Comments Unknown Sex and Gender Information Value Date Recorded Sex Assigned at Not on file Legal Sex Female 2:34 PM DENTAL CERAMIST Gender Identity Not on file Sexual Orientation Not on file documented as of this encounter Miscellaneous Notes * Telephone Encounter - Cheri Lewis - 03/05/2024 1:57 PM EST 2nd message for patient regarding recent emergency room visit and asked to callback to schedule a New Patient appointment with primary care AL CERAMIST * Telephone Encounter - Sherita Carpenter - 03/02/2024 2:34 PM EST Left message for patient regarding recent emergency room visit and asked to callback to schedule a New Patient appointment with primary care. Please schedule next available New patient appointment with [facility] care. Please Do Not Delete until outreach is complete. AL CERAMIST documented in this encounter Plan of Treatment Not on file documented as of this encounter Visit Diagnoses Not on filedocumented in this encounter
--- OUTSIDE RECORDS SUMMARY | 2025-03-01 14:31 | XMS_ITS | Referral Summary ---
Author Organization [employer] ([place], [place], [place], [place], [place]) Address [address] [place] [address] Care Team Providers Care Industrial Service Technician Name Role Phone Unavailable Primary Care [...] on file Legal Sex Female 2:34 PM FILE KEEPER Gender Identity Not on file Sexual Orientation [...] Treatment Not on file Insurance [address] [place] [address] [facility] [place] [address]
--- OUTSIDE RECORDS SUMMARY | 2025-03-01 14:31 | XMS_ITS | Clinical Summary ---
Author Organization [employer] ([place], [place], [place], [place], [place]) Address [address] [place] [address] Care Team Providers Care Training Analyst Name Role Phone Unavailable Primary Care [...] on file Legal Sex Female 2:34 PM CARTOONIST SPECIAL EFFECTS Gender Identity Not on file Sexual Orientation [...] 01/16/2023, Pneumococcal 50+ years Completed 05/14/2023 Insurance [facility]
--- OUTSIDE RECORDS SUMMARY | 2025-03-01 14:31 | XMS_ITS | Clinical Summary ---
Author Organization [facility] Address [address] [place] [address] Care Team Providers Care Social Services Aide Name Role Phone Russel Cruz MD Primary Care Provider [phone] Allergies No known active allergies Medications Evolocumab [...] Completed 05/14/2023 Insurance [employer] Care Teams Social Services Aide Relationship Specialty Start Date End Date Russel Cruz MD [address] [place] [address] [address] [place] [address] PCP - General Internal Medicine 12/30/23
[2025-03-01] MEDS: ALBUTEROL 0.083% 2.5 MG/3 ML NEB IH (15:37)
== END 2025-03-01 23:59 | disposition home or self-care (01) ==
LOC: RAD 14:23
PROVIDERS: PCP Nurse Practitioner Family; Visit Provider Internal Medicine Pulmonary Disease
DX: J98.4 Other disorders of lung (principal); R91.8 Other nonspecific abnormal finding of lung field; R94.2 Abnormal results of pulmonary function studies
CPT/HCPCS: 71250; 94060; 94726; 94729